=== PATIENT | female | born 1955 | race Caucasian/White ===

== ENCOUNTER → 2019-11-25 13:52 | Outpatient (CLI) | payer OTHER, SELFPAY ==
--- NOTE | ~2019-11-25 | CT_ITS ---
EXAMINATION: CT sinus wo con DATE: 11/25/2019 14:13 INDICATION: Chronic sinusitis TECHNIQUE: Computed tomography (CT) of the paranasal sinuses was performed without intravenous contra st. The dose-length product was 272.05 mGy-cm. Automated exposure control and iterative reconstructio n technique were employed. COMPARISON: CT dated 05/04/2013 FINDINGS: There is no significant mucosal thickening or air-fluid level. Ostiomeatal units are patent . Bilateral jak bullosa. No nasal septal deviation. No air-fluid levels. There is hyperostosis fro ntalis. IMPRESSION: 1. No significant paranasal sinus disease. Reviewed, dictated and finalized at location B.
== END ==
PROVIDERS: PCP Internal Medicine; Visit Provider Otolaryngology
DX: J32.9 Chronic sinusitis, unspecified (principal)
CPT/HCPCS: 70486

== ENCOUNTER 2020-06-03 10:12 | Emergency (ER) | payer OTHER, SELFPAY ==
[2020-06-03 10:30] VITALS: BP 118/61; PULSE 72; RESP 16; TEMP 37.1; O2SAT 97
--- NOTE | 2020-06-03 10:40 | ED.FEMALEGU ---
HPI - Female Genitourinary General Chief complaint: Urogenital-Female Stated complaint: pos uti Time Seen by Provider: 06/03/20 10:40 Source: patient Mode of arrival: ambulatory Limitations: no limitations History of Present Illness HPI Narrative: Elaine Davalos is a 64 yo female with a PMH of hypothyroid, high cholesterol, insomnia, depression, amyloidosis, bone marrow transplant, who states that she has had burning and difficulty urinating times since Sunday. States that she cannot empty her bladder and has cramping with urination History of UTIs, no antibiotics for the last 6 months Related Data Home Medications Medication Instructions Recorded Confirmed escitalopram oxalate 10 mg PO DAILY 06/03/20 06/03/20 fluticasone propionate 1 spray INTRANASAL DAILY 06/03/20 06/03/20 gabapentin 300 mg PO TID 06/03/20 06/03/20 levothyroxine 50 mcg PO DAILY 06/03/20 06/03/20 rosuvastatin 20 mg PO DAILY 06/03/20 06/03/20 trazodone 100 mg PO HS 06/03/20 06/03/20 zolpidem 5 mg PO HS PRN 06/03/20 06/03/20 Allergies Allergy/AdvReac Type Severity Reaction Status Date / Time No Known Allergies Allergy Verified 06/03/20 10:19 Review of Systems Review of Systems: Narrative: CONSTITUTIONAL: Denies fever, chills, sweats. EYES: Denies visual changes, redness, discharge. ENT: Denies rhinorrhea, congestion, sore throat, otalgia. CARDIOVASCULAR: Denies chest pain, palpitations, edema. RESPIRATORY: Denies dyspnea, wheezing, cough GASTROINTESTINAL: Denies abdominal pain, nausea, vomiting, diarrhea. GENITOURINARY: Has dysuria, hematuria, abnormal discharge SKIN: Denies rash or itching. NEUROLOGIC: Denies numbness, or focal weakness. PSYCHIATRIC: Denies anxiety or depression. [facility] Past Medical History Medical History Amyloidosis Depression High cholesterol Hypothyroid Surgical History Surgical History Bone marrow replaced by transplant Family History Family History Other High cholesterol Social History Social History (Updated 06/03/20 @ 11:05 by Fiordaliza Bhandari CNP) Smoking status: Never smoker Alcohol intake: never Comments At time of signature, I agree with nursing past medical, surgical, social and family history. There is no relevant family history pertinent to the presenting complaint. Exam Narrative: Exam Narrative: GENERAL: This is a well-nourished, well-developed patient, in mild distress. HEAD: normocephalic, atraumatic. EYES: PERRL. Sclera clear/white. Vision is grossly intact. EARS: External ears normal, Hearing grossly intact. NOSE: External nose normal without nasal discharge, nares without redness, no rhinorrhea. THROAT: Mucous membranes moist, NECK: Neck supple, non-tender CARDIOVASCULAR: Regular rate and rhythm without murmurs, gallops, or rubs. RESPIRATORY: Clear to auscultation. Breath sounds equal bilaterally. No wheezes, rales, or rhonchi. GASTROINTESTINAL: Abdomen soft, non-tender, SKIN: warm, intact with no suspicious lesions or rash, good texture and turgor. NEURO: awake, alert, and oriented to person, place and time. There were no obvious focal neurologic abnormalities. Steady gait EXTREMITIES: Normal range of motion. BACK: Nontender without deformity Course Course Emergency Course: Patient has had dysuria since Sunday with difficulty emptying bladder Urine dipstick shows 2+ blood 2+ leukocytes 2+ protein Started on Keflex and also given Diflucan for yeast infection post antibiotic Instructed to drink plenty of fluids and eat with antibiotics(amyloidosis causes her to have nausea with drugs) Follow-up with PCP Vital Signs Vital signs: Vital Signs Temperature 98.7 F 06/03/20 10:30 Pulse Rate 72 06/03/20 10:30 Respiratory Rate 16 06/03/20 10:30 Blood Pressure 118/61 06/03/20 10:30 Pulse Oximetry 97
== END 2020-06-03 11:05 | disposition home or self-care (01) ==
PROVIDERS: Emergency Provider Nurse Practitioner; PCP Internal Medicine
DX: N39.0 Urinary tract infection, site not specified (principal); E78.00 Pure hypercholesterolemia, unspecified; E03.9 Hypothyroidism, unspecified; F32.9 Major depressive disorder, single episode, unspecified; E85.9 Amyloidosis, unspecified; Z94.81 Bone marrow transplant status; G47.00 Insomnia, unspecified
CPT/HCPCS: 81003; 87077; 87086; 87088; 87186; 99213; G0463

== ENCOUNTER 2020-06-18 13:36 | Emergency (ER) | payer OTHER, SELFPAY ==
[2020-06-18 13:47] VITALS: BP 113/59; PULSE 92; RESP 12; TEMP 36.4; O2SAT 97
--- NOTE | 2020-06-18 13:48 | ED.GENADULT ---
HPI - General Adult General Chief complaint: Urogenital-Female Stated complaint: POS UTI Time Seen by Provider: 06/18/20 13:49 Source: patient and RN notes reviewed Mode of arrival: ambulatory Limitations: no limitations History of Present Illness HPI narrative: 64-year-old female presents with urinary complaints for the past 3 days. Elaine report constant urinary symptoms with low-grade fever today. Dysuria consist of burning, frequency, and urgency.? Aleve, last this am with some relief. Last treated on 06/03/20 with Keflex 500mg B.I.D. for 7 days and urine culture returned with E-coli on, Elaine reports mild symptoms remained after completing treatment. Denies fever or chills. No significant pelvic pain. No vaginal discharge.? No concerns for STDs. Exacerbating factors urinating.? Denies hematuria or vaginal bleeding. LMP postmenopausal.? Left flank pain. Denies nausea, vomiting, and abdominal pain.? Tolerating liquids well.? Remains active. The patient reports she have not been diagnosed with COVID-19. The patient reports she received 2 doses of Moderna COVID-19 vaccines. The patient reports she is not waiting for the results of a COVID-19 lab test. The patient reports she do not have weakness or fatigue. The patient reports she do not have a new or worsening cough or shortness of breath. Denies chest pain. The patient reports she do not have any rhinorrhea, congestion, sore throat, loss of taste or smell, and diarrhea. Denies recent traveling. Denies concerns for COVID-19 or exposures been home with limited outdoor exposure except for essential household needs and return home. At this time, patient is not suspected of having COVID-19. Some parts of this dictation were generated by voice recognition software and may contain typographical and/or grammatical inaccuracies. Related Data Home Medications Medication Instructions Recorded Confirmed escitalopram oxalate 10 mg PO DAILY 06/03/20 06/18/20 fluticasone propionate 1 spray INTRANASAL DAILY 06/03/20 06/18/20 gabapentin 300 mg PO TID 06/03/20 06/18/20 levothyroxine 50 mcg PO DAILY 06/03/20 06/18/20 rosuvastatin 20 mg PO DAILY 06/03/20 06/18/20 trazodone 100 mg PO HS 06/03/20 06/18/20 zolpidem 5 mg PO HS PRN 06/03/20 06/18/20 Allergies Allergy/AdvReac Type Severity Reaction Status Date / Time No Known Allergies Allergy Verified 06/18/20 13:42 Review of Systems Review of Systems: Narrative: CONSTITUTIONAL: Complains of low-grade fever. Denies chills, sweats. EYES: Denies visual changes, redness, discharge. ENT: Denies rhinorrhea, congestion, sore throat, otalgia. CARDIOVASCULAR: Denies chest pain, palpitations, edema. RESPIRATORY: Denies dyspnea, wheezing, cough. GASTROINTESTINAL: Denies abdominal pain, nausea, vomiting, diarrhea. GENITOURINARY: Complains of dysuria (burning, frequency, and urgency). Denies hematuria, abnormal discharge. SKIN: Denies rash or itching. MUSCULOSKELETAL: Complains of LT flank pain. Denies joint pain or myalgia. NEUROLOGIC: Denies numbness or focal weakness. PSYCHIATRIC: Denies anxiety or depression. All systems reviewed & are unremarkable except as noted in HPI and below. PMFSH Past Medical History Medical History (Updated 06/18/20 @ 16:23 by CARMELLA Guo) Amyloidosis delivery delivered Depression High cholesterol Hypothyroid Kidney stone Sepsis after kidney stone removed-2018 Vaginal delivery X3 Surgical History Surgical History (Updated 06/18/20 @ 16:23 by CARMELLA Guo) Bone marrow replaced by transplant H/O section X1, 4th due to large babies History of lithotripsy Hx of appendectomy Family History Family History (Updated 06/18/20 @ 16:24 by CARMELLA Guo) Father , at age 53-[place] Acute myocardial infarction Mother , age 94-n[place]ral causes No problems noted. Other High cholesterol Social History Social History (Up
== END 2020-06-18 14:09 | disposition home or self-care (01) ==
PROVIDERS: Emergency Provider Nurse Practitioner Family; PCP Internal Medicine
DX: R30.0 Dysuria (principal); E78.00 Pure hypercholesterolemia, unspecified; E03.9 Hypothyroidism, unspecified; F32.9 Major depressive disorder, single episode, unspecified; E85.9 Amyloidosis, unspecified; Z94.81 Bone marrow transplant status
CPT/HCPCS: 81003; 87077; 87086; 87088; 87186; 99213; G0463

== ENCOUNTER 2020-11-29 10:52 | Emergency (ER) | payer MEDICARE, OTHER, SELFPAY ==
--- NOTE | ~2020-11-29 | XR_ITS ---
EXAMINATION: XR chest 2V EXAM DATE: 11/29/2020 11:35 INDICATION: Cough. TECHNIQUE: Frontal and lateral projections of the chest obtained and reviewed. Comparison is made to prior examination from 08/12/2014. FINDINGS: The lungs are clear. There are no pleural effusions. The cardiomediastinal silhouette is within normal limits. There is no pneumothorax suspected. The bones and soft tissues are unremarkab le. Gastric banding device. Previously seen left sided PICC line has been removed. IMPRESSION: Unremarkable chest x-ray exam. Reviewed, dictated and finalized at location B.
[2020-11-29 11:14] VITALS: BP 115/66; PULSE 83; RESP 18; TEMP 36.6; O2SAT 97
--- NOTE | 2020-11-29 11:55 | ED.URI ---
HPI - URI/Sore Throat General Chief Complaint: Upper Respiratory Infection Stated Complaint: cough/sore throat Source: patient and RN notes reviewed Limitations: no limitations History of Present Illness HPI Narrative: The vaccinated patient, a non-smoker/nondrinker on several meds including for hx of amyloidosis s/p bone marrow transplant, presents with cough. Patient states she has over half month history of slightly productive cough. No fever, vomiting/diarrhea, sputum changes, wheezing/sneezing, loss of taste/smell, CP, earache, S OB, steroid use/requirement. Symptoms are mild, slightly worse positionally at night; used inhaler in the past with no improvement. Screening x-ray is noncontributory; discussed possible causes [GI?reflux, allergy, infectious] and will treat broadly Related Data Home Medications Medication Instructions Recorded Confirmed escitalopram oxalate 10 mg PO DAILY 06/03/20 11/29/20 fluticasone propionate 1 spray INTRANASAL DAILY 06/03/20 11/29/20 gabapentin 300 mg PO TID 06/03/20 11/29/20 levothyroxine 50 mcg PO DAILY 06/03/20 11/29/20 rosuvastatin 20 mg PO DAILY 06/03/20 11/29/20 trazodone 100 mg PO HS 06/03/20 11/29/20 zolpidem 5 mg PO HS PRN 06/03/20 11/29/20 Allergies Allergy/AdvReac Type Severity Reaction Status Date / Time No Known Allergies Allergy Verified 11/29/20 11:22 Review of Systems Review of Systems: General/Constitutional: No weight loss,fever Eyes: N0: Redness,discharge Ears/Nose/Throat: No: Epistaxis,ear discharge Respiratory: Denies: Hemoptysis Gastrointestinal: No Vomiting, Bleeding-rectal Skin: No Lumps, eruption Neurologic: No Focal Weakness,Sz Hematologic: Denies: Petechiae/Purpura Psychiatric: No: Suicida ideationl All Other Systems: Reviewed and Negative [facility] Past Medical History Medical History (Updated 11/29/20 @ 11:59 by Rupesh Henson MD) Amyloidosis delivery delivered Depression High cholesterol Hypothyroid Kidney stone Sepsis after kidney stone removed-2018 Vaginal delivery X3 Surgical History Surgical History (Updated 06/18/20 @ 16:23 by CARMELLA Guo) Bone marrow replaced by transplant H/O section X1, 4th due to large babies History of lithotripsy Hx of appendectomy Family History Family History (Updated 06/18/20 @ 16:24 by CARMELLA Guo) Father , at age 53-[place] Acute myocardial infarction Mother , age 94-nautral causes No problems noted. Other High cholesterol Social History Social History (Updated 06/18/20 @ 16:24 by CARMELLA Guo) Smoking status: Never smoker Tobacco type: cigarettes Second hand tobacco smoke exposure: No Alcohol intake: never Substance use: never Substance use type: does not use Additional occupation/education comments: homemaker Gender identity (if verbalized by the patient): Female Sexual Orientation (if Verbalized by the Patient): Straight or Heterosexual Exam Narrative: General Appearance: Obese/cushingoid/well nourished EYE: PERRLA, Conjunctiva clear Ears: Auditory canal normal, TM normal Nose: Rhinorrhea, Mucousal erythema Mouth/Throat: MM moist, Uvula midline, Pharyngeal erythema Neck: Supple, No adenopathy Respiratory: No respiratory distress, Breath sounds equal, Clear to auscultation Cardiovascular: RRR, No JVD Musculoskeletal: Non tender, Normal strength Skin: Warm, Dry Neurological: A&O x3, CN II-XII intact Psychiatric: Normal mood, Normal affect Course Course Emergency Course: Films visualized, interpreted by radiologist, agree, normal see report Vital Signs Vital signs: Vital Signs Temperature 97.9 F 11/29/20 11:14 Pulse Rate 83 11/29/20 11:14 Respiratory Rate 18 11/29/20 11:14 Blood Pressure 115/66 11/29/20 11:14 Pulse Oximetry 97 11/29/20 11:14 Temperature 97.9 F 11/29/20 11:14 Pulse Rate 83 11/29/20 11:14 Respiratory
[2020-11-30 18:19] LABS: SARS-CoV-2 RNA PCR Negative
== END 2020-11-29 12:07 | disposition home or self-care (01) ==
PROVIDERS: Emergency Provider Emergency Medicine; PCP Internal Medicine
DX: J40 Bronchitis, not specified as acute or chronic (principal); E03.9 Hypothyroidism, unspecified; Z20.822 Contact with and (suspected) exposure to COVID-19
CPT/HCPCS: 71046; 99213; C9803; G0463; U0003; U0005

== ENCOUNTER 2020-12-13 13:17 | Emergency (ER) | payer MEDICARE, OTHER, SELFPAY ==
--- NOTE | ~2020-12-13 | XR_ITS ---
EXAMINATION: XR chest 2V DATE: 12/13/2020 13:36 INDICATION: 6 weeks of cough TECHNIQUE: PA and lateral views of the chest were obtained. COMPARISON: Chest radiograph dated 11/29/[address] dated 08/22/2017 FINDINGS: Again seen is a thin curvilinear band of discoid atelectasis/scarring in the lingula. No other airspa ce opacities, pulmonary edema, pleural effusion or pneumothorax. The cardiomediastinal silhouette is normal. Cholecystectomy clips in right upper quadrant. Moderate thoracic spondylosis. IMPRESSION: 1. No acute cardiopulmonary disease. Reviewed, dictated and finalized at location B.
[2020-12-13 13:25] VITALS: BP 137/69; PULSE 92; RESP 18; TEMP 36.3; O2SAT 96
--- NOTE | 2020-12-13 13:32 | ED.URI ---
HPI - URI/Sore Throat General Chief Complaint: Upper Respiratory Infection Stated Complaint: cough/body aches/chest congestion Time Seen by Provider: 12/13/20 13:22 Source: patient and RN notes reviewed History of Present Illness HPI Narrative: Patient is 65-year-old female who presents the urgent care with complaints of persistent cough for the last 2 weeks. Patient states that she was seen in our facility and placed on antibiotics, cough medication with codeine, Tessalon Perles and steroids. Patient states that she completed the antibiotic regimen and has had a persistent productive cough. Patient also reports of some intermittent shortness of breath. Denies of any known fevers, nausea, vomiting, chest pain. No other acute complaints. No acute distress noted. Patient aware of the plan of care. Some parts of this dictation were generated by voice recognition software and may contain typographical and/or grammatical inaccuracies. Related Data Home Medications Medication Instructions Recorded Confirmed escitalopram oxalate 10 mg PO DAILY 06/03/20 12/13/20 fluticasone propionate 1 spray INTRANASAL DAILY 06/03/20 12/13/20 gabapentin 300 mg PO TID 06/03/20 12/13/20 levothyroxine 50 mcg PO DAILY 06/03/20 12/13/20 rosuvastatin 20 mg PO DAILY 06/03/20 12/13/20 trazodone 100 mg PO HS 06/03/20 12/13/20 zolpidem 5 mg PO HS PRN 06/03/20 12/13/20 Allergies Allergy/AdvReac Type Severity Reaction Status Date / Time No Known Allergies Allergy Verified 12/13/20 13:29 Review of Systems Review of Systems: CONSTITUTIONAL: Denies fever, chills, or sweats. EYES: Denies visual changes, redness, or discharge. ENT: Reports of sinus congestion and drainage CARDIOVASCULAR: Denies chest pain, palpitations, or edema. RESPIRATORY: Reports a persistent productive cough with intermittent dyspnea GASTROINTESTINAL: Denies abdominal pain, nausea, vomiting, or diarrhea. GENITOURINARY: Denies dysuria or hematuria. SKIN: Denies rash or itching. MUSCULOSKELETAL: Denies back pain, joint pain, or myalgia. NEUROLOGIC: Denies headache, numbness, or weakness. All other systems reviewed are negative, except as documented in HPI. [facility] Past Medical History Medical History (Updated 12/13/20 @ 13:52 by CARMELLA Orozco) Amyloidosis delivery delivered Depression High cholesterol Hypothyroid Kidney stone Sepsis after kidney stone removed-2018 Vaginal delivery X3 Surgical History Surgical History (Updated 06/18/20 @ 16:23 by CARMELLA Guo) Bone marrow replaced by transplant H/O section X1, 4th due to large babies History of lithotripsy Hx of appendectomy Family History Family History (Updated 06/18/20 @ 16:24 by CARMELLA Guo) Father , at age 53-[place] Acute myocardial infarction Mother , age 94-nautral causes No problems noted. Other High cholesterol Social History Social History (Updated 06/18/20 @ 16:24 by CARMELLA Guo) Smoking status: Never smoker Tobacco type: cigarettes Second hand tobacco smoke exposure: No Alcohol intake: never Substance use: never Substance use type: does not use Additional occupation/education comments: homemaker Gender identity (if verbalized by the patient): Female Sexual Orientation (if Verbalized by the Patient): Straight or Heterosexual Comments At the time of my signature, I reviewed and agree with the nursing past medical, surgical, social, and family history. There is no relevant family history pertinent to the patient complaint. Exam Narrative: GENERAL: This is a well-nourished, well-developed patient, in no apparent distress. HEAD: normocephalic, atraumatic. EYES: PERRL. Sclera clear/white. Vision is grossly intact. EARS: External ears normal, auditory canals clear and without drainage, TMs normal without perforation. Hearing grossly intact. NOSE: External nose normal with no obviou
== END 2020-12-13 14:14 | disposition home or self-care (01) ==
PROVIDERS: Emergency Provider Nurse Practitioner Family; PCP Internal Medicine
DX: R05.9 Cough, unspecified (principal); E85.9 Amyloidosis, unspecified; F32.A Depression, unspecified; E78.00 Pure hypercholesterolemia, unspecified; E03.9 Hypothyroidism, unspecified; Z94.81 Bone marrow transplant status
CPT/HCPCS: 71046; 99213; G0463

== ENCOUNTER → 2021-01-25 14:39 | Outpatient (CLI) | payer MEDICARE, OTHER, SELFPAY ==
--- NOTE | ~2021-01-25 | CT_ITS ---
EXAMINATION: CT diagnostic chest wo con EXAM DATE: 01/25/2021 14:55 INDICATION: Chronic cough . Amyloidosis diagnosed 2016. TECHNIQUE: Spiral CT of the chest without contrast. Axial, coronal and sagittal images of the chest were reviewed. Coronal maximum intensity pixel images of chest reviewed. The dose-length product ( DLP) for this examination was 589.76 mGy-cm. The exposure was tailored according to patient size (au to mA exposure control), and iterative reconstruction (ASIR) was used as additional dose reduction te chnique. Correlation is made to CT abdomen pelvis 08/22/2017. FINDINGS: The lungs are clear. Trace pericardial effusion. There are several bilateral pleural claudio ques, some with calcification. Could indicate prior asbestos exposure. No intralobular septal thicken ing or evidence of lung amyloidosis. Tracheobronchial tree is patent. There is no mediastinal, hil ar or axillary lymphadenopathy. There is no pneumothorax. Heart normal in size. There is mild c oronary arterial calcification, arterial sclerosis. Gastric banding device. There is thoracic spon dylosis without osteoblastic or osteolytic lesions identified. IMPRESSION: 1. Pleural plaques, could indicate prior asbestos exposure. 2. No suspicious findings. Reviewed, dictated and finalized at location B. [employer]
== END ==
PROVIDERS: PCP Internal Medicine; Visit Provider Internal Medicine
DX: R05.9 Cough, unspecified (principal); J92.9 Pleural plaque without asbestos
CPT/HCPCS: 71250

== ENCOUNTER 2021-12-29 06:35 | Outpatient (CLI) | payer MEDICARE, SELFPAY ==
--- NOTE | 2021-12-30 13:47 | WPDNEUROLOGY ---
Neurology EEG Report General Information Date of Study: 12/29/21 TEST EEG DIAGNOSIS amnesia CONDITION OF RECORDING awake and drowsy EEG NUMBER [id number] CLINICAL HISTORY patient reports she has noted a decline in her memory mainly trying to find correct words, after having chemotherapy about 5 years ago. EEG DESCRIPTION Background rhythm consists of low to medium voltage 9 to 11 hertz per 2nd alpha posteriorly. During drowsiness low-voltage beta activity seen diffusely admixed with waxing and waning posterior alpha rhythm. Bilateral symmetrical sleep activity seen during sleep. Hyperventilation not done. Photic stimulation produced normal drive. Non paroxysmal. Nonfocal. Nonlateralizing. IMPRESSION Normal record
== END 2021-12-29 06:36 | disposition home or self-care (01) ==
PROVIDERS: PCP Family Medicine; Visit Provider Psychiatry & Neurology Neurology
DX: R41.3 Other amnesia (principal)
CPT/HCPCS: 95816

== ENCOUNTER 2023-02-07 14:53 | Outpatient (CLI) | payer MEDICARE, SELFPAY ==
--- NOTE | ~2023-02-07 | DEXA_ITS ---
Bone Density Report Name: GAMALIEL SMITH Age: 67 Sex: Female Ethnicity: White Date of : 1955 Indication: postmenopausal; screening for osteoporosis; prior fracture; cancer; Referring Provider: SHEREEN, PRINCE Monahan Study: Bone densitometry was performed. Exam Date: February 07, 2023 Accession number: [id number] Bone Density: Region BMD T-score Z-score Classification AP Spine(L1, L2, L4) 1.017 -0.2 1.7 Normal Femoral Neck (Left) 0.637 -1.9 -0.3 Osteopenia Total Hip (Left) 0.852 -0.7 0.6 Normal Femoral Neck (Right) 0.712 -1.2 0.4 Osteopenia Total Hip (Right) 0.922 -0.2 1.2 Normal Femoral Neck Mean 0.674 -1.6 0.1 Osteopenia Total Hip Mean 0.887 -0.5 0.9 Normal World Health Organization criteria for BMD impression classify patients as: Normal (T-score at or above -1.0), Osteopenia (T-score between -1.0 and -2.5), or Osteoporosis (T-score at or below -2.5). 10-year Fracture Risk: FRAX not reported because: Prior hip or vertebral fracture Clinical Information Provided by Patient: Have had a previous hip or vertebral fracture Has had a low trauma fracture Has used the following medications: Vitamin D, multi Has the following medical conditions: Cancer Patient maximum height was 64.5 Menopause Age: 45 Does not regularly consume dairy products Drinks caffeinated beverages Onset of menses at age 12 Number of children 4 Impression: The patient has low bone mass, based on the Left Femoral Neck T-score. The patient has risk factors, including: previous fracture. Discussion: INCREASED RISK OF FRACTURE DUE TO HISTORY OF FRACTURE. The patient's previous fracture puts the patient at high risk of a future fracture. In untreated patients, the risk of osteoporotic fracture increases approximately two-fold for each 1.0 SD decrease in T-score. Low bone density is not the only risk factor for fracture; also consider factors such as patient's age, frailty or poor health, risk of falling, risk of injury, previous osteoporotic fracture, family history of osteoporosis, cigarette smoking, low body weight, etc. Not everyone with a low trauma fracture has osteoporosis; osteomalacia and other metabolic bone disorders should also be considered. Patients who have osteoporosis should be evaluated for specific diseases and conditions (secondary causes) that may cause or contribute to bone loss and fracture risk. National Osteoporosis Foundation (NOF) recommends pharmacologic intervention for patients with a prior hip or vertebral fracture regardless of BMD T-score. The patient should follow a healthful lifestyle (good nutrition with adequate calcium and vitamin D, and appropriate weight-bearing exercise). Follow-Up: Consider a repeat BMD and Vertebral Fracture Assessment (VFA) exam in 2 years or sooner if me
== END 2023-02-07 14:54 | disposition home or self-care (01) ==
LOC: CHSIMG 15:12
PROVIDERS: Visit Provider Internal Medicine Endocrinology, Diabetes & Metabolism
DX: M81.6 Localized osteoporosis [Lequesne] (principal); M85.89 Other specified disorders of bone density and structure, multiple sites
CPT/HCPCS: 77080

== ENCOUNTER 2024-08-25 12:34 | Outpatient (CLI) | payer MEDICARE, SELFPAY ==
--- NOTE | ~2024-08-25 | MR_ITS ---
MRI of the brain Clinical History: History of healed physical injury Technique: Axial and sagittal T1-weighted images were acquired. These were followed by axial T2-weigh thiago, diffusion weighted, gradient, and FLAIR images. COMPARISON: 09/21/2015 Findings: No acute infarct, intracranial hemorrhage, or mass lesion seen. There is extensive chronic white matter disease throughout the periventricular white matter bilaterally. Ventricles and subarachnoid spaces are unremarkable. Orbits are unremarkable. Paranasal sinuses and m astoid air cells are clear. Major intracranial flow voids are intact. Sagittal midline structures are intact. IMPRESSION: No acute abnormality. Extensive chronic white matter disease is similar to prior exam, likely representing severe chronic m icrovascular ischemic change Reviewed, dictated and finalized at location M. IMPRESSION: No acute abnormality. Extensive chronic white matter disease is similar to prior exam, likely represe nting severe chronic microvascular ischemic change
== END 2024-08-25 12:35 | disposition home or self-care (01) ==
PROVIDERS: PCP Psychiatry & Neurology Neurology; Visit Provider Psychiatry & Neurology Neurology
DX: R90.82 White matter disease, unspecified (principal); I63.9 Cerebral infarction, unspecified; Z87.828 Personal history of other (healed) physical injury and trauma
CPT/HCPCS: 70551

== ENCOUNTER 2024-09-08 13:47 | Outpatient (CLI) | payer MEDICARE, SELFPAY ==
--- NOTE | ~2024-09-08 | US_ITS ---
EXAMINATION: US carotid duplex BI DATE: 09/08/2024 15:39 CDT INDICATION: Cerebral infarction TECHNIQUE: Grayscale, color Doppler, and pulsed Doppler images of the cervical carotid arteries were obtained. The degree of vessel stenosis is placed in one of the following categories: normal, <50%, 50-69%, >=7 0% but less than near-occlusion, near-occlusion, or total occlusion. Note that percent stenosis relative to normal distal artery lumen diameter is indirectly measured fro m velocity measurements as described originally by Foreign, et al. Radiology 2003; 229:340-346 and upda thiago by Lee Sweet et al STROKE 2012;43(3);915-921. COMPARISON: 09/21/2015 FINDINGS: There is mild atherosclerosis of both carotid arteries. Peak systolic velocity (in cm/s) is detailed below RIGHT: Right common carotid artery (CCA): 84 cm/s. Right internal carotid artery (ICA) PSV: 86 cm/s. Right ICA end-diastolic velocity (EDV): 29 cm/s. Right ICA/CCA PSV ratio is 1.0. Right external carotid artery (ECA): 86cm/s. There is antegrade flow in the diminutive right vertebral artery LEFT: Left common carotid artery (CCA): 73 cm/s. Left internal carotid artery (ICA) PSV: 81 cm/s. Left ICA end-diastolic velocity (EDV): 29 cm/s. Left ICA/CCA PSV ratio is 1.1. Left external carotid artery (ECA): 78cm/s. There is antegrade flow in the (dominant) left vertebral artery. IMPRESSION: 1. Less than 50% stenosis in the right internal carotid artery. 2. Less than 50% stenosis in the left internal carotid artery. Reviewed, dictated and finalized at location A.
--- OUTSIDE RECORDS SUMMARY | 2024-09-08 14:05 | XMS_ITS | Encounter Summary ---
Author Organization [facility] Healthcare Address [address] [place] [address] Care Team Providers Care Automatic Driller And Reamer Name Role Phone Mauricio Izquierdo MD Unavailable Hyacinth Sargent NP Unavailable [phone] Deyvi Ahuja MD Unavailable [phone] Alice Lao NP Primary Care Provider [phone] Narciso Cueva MD Unavailable Nel Cortez MD Unavailable Desean De Dios MD Unavailable [phone] Encounter Details Date Type Department Care Team (Late st Contact Info) Description 07/09/2024 Results Follow-Up [facility] Medical Group Primary Care at [address] [address] Alice Lao, REGI [address] [place] [address] [address] [place] [address] Urinalysis reflex to microscopic and culture Urine, bladder, Urinalysis, microscopic only, Urine culture Urine, bladder Social History Tobacco Use Types Packs/Day Years Used Date Smoking Tobacco: Never Passive Smoke Exposure: Never Smokeless Tobacco: Never Alcohol Use Standard Drinks/Week Comments Yes 0 (1 standard drink = 0.6 oz pur e alcohol) rarely AUDIT-C Answer Date Recorded Q1: How often do you have a drink containing alc ohol? 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 AM OFFICE CLEANER Gender Identity Female 01/08/2020 7:01 AM CDT Sexual Orientation Not on file documented as of this encounter Ordered Prescriptions Prescription Sig Dispense Quantity Refills Last Filled Start Date End Date cefdinir (OMNICEF) 300 mg capsule Take 1 capsule (300 mg total) by mouth 2 (two) times a day for 7 days 14 capsule 07/10/2024 5 documented in this encounter Plan of Treatment Not on file documented as of this encounter Visit Diagnoses Not on filedocumented in this encounter Care Teams Automatic Driller And Reamer Relationship Specialty Start Date End Date Alice Lao NP [address] [facility] [address] [place] [address] PCP - General Family Medicine 03/29/23 Mauricio Izquierdo MD Medical Oncologist/Flooring Salesperson Medical Oncology 05/05/20 Hyacinth Sargent NP Nurse Practitioner Medical Oncology 05/05/20 Deyvi Ahuja MD [address] [place] [address] Referring Physician Otolaryngology 01/24/21 Narciso Cueva MD [address] [facility] [address] [place] [address] Referring Physician Dermatology 03/29/23 Nel Cortez MD [facility] [address] [place] [address] Referring Physician Gastroenterology 03/29/23 [place] [address] [facility] [address] [place] [address] Consulting Physician Endocrinology 03/29/23 unknown name Neurology 03/29/23 documented as of this encounter
--- OUTSIDE RECORDS SUMMARY | 2024-09-08 14:05 | XMS_ITS | Encounter Summary ---
Author Organization [facility] Healthcare Address [address] [place] [address] Care Team Providers Care Oracle Analyst Name Role Phone Mauricio Izquierdo MD Unavailable Hyacinth Sargent NP Unavailable Deyvi Ahuja MD Unavailable Alice Lao NP Primary Care Provider Narciso Cueva MD Unavailable Nel Cortez MD Unavailable [phone] Desean De Dios MD Unavailable [phone] Encounter Details Date Type Department Care Team (Late st Contact Info) Description 07/22/2024 Results Follow-Up [facility] Medical Group Primary Care at [address] [address] Alice Lao, REGI [address] [place] [address] [address] [place] [address] CT Abdomen Pelvis WO Contrast Social History Tobacco Use Types Packs/Day Years [...] more points, staff should administer the PHQ-9) 0 07/22/2024 Comments No Sex and Gender Information Value Date Recorded Sex Assigned at Not on file Legal 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 Gender Identity Female 01/08/2020 7:01 AM CDT Sexual Orientation Not on file documented as of this encounter Plan of Treatment Not on file documented as of this encounter Visit Diagnoses Not on filedocumented in this encounter Care Teams Oracle Analyst Relationship Specialty Start Date End Date Alice Lao NP [address] [place] [address] PCP - General Family Medicine 03/29/23 Mauricio Izquierdo MD Medical Oncologist/Recorder Helper Gravity Prospecting Medical Oncology 05/05/20 Hyacinth Sargent NP Nurse Practitioner Medical Oncology 05/05/20 Deyvi Ahuja MD [address] [place] [address] Referring Physician Otolaryngology 01/24/21 Narciso Cueva MD [address] [facility] [address] [place] [address] Referring Physician Dermatology 03/29/23 Nel Cortez MD [address] [facility] [address] [place] [address] Referring Physician Gastroenterology 03/29/23 [place] [address] [address] [place], [place] [address] Consulting Physician Endocrinology 03/29/23 unknown name Neurology 03/29/23 documented as of this encounter
--- OUTSIDE RECORDS SUMMARY | 2024-09-08 14:05 | XMS_ITS | Encounter Summary ---
Author Organization [facility] Healthcare Address [address] [place] [address] Care Team Providers Care Box Finisher Name Role Phone Mauricio Izquierdo MD Unavailable Hyacinth Sargent NP Unavailable [phone] Deyvi Ahuja MD Unavailable Alice Lao NP Primary Care Provider Narciso Cueva MD Unavailable Nel Cortez MD Unavailable Desean De Dios MD Unavailable [phone] Encounter Details Date Type Department Care Team (Late st Contact Info) Description 07/24/2024 Results Follow-Up [facility] Medical Group Primary Care at [address] [address] Alice Lao, REGI [address] [place] [address] [address] [place] [address] Urine culture Urine, clean voided Social History Tobacco Use Types Packs/Day Years [...] on file Legal 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 Gender Identity Female 01/08/2020 7:01 AM CDT Sexual Orientation Not on file documented as of this encounter Plan of Treatment Not on file documented as of this encounter Visit Diagnoses Not on filedocumented in this encounter Care Teams Box Finisher Relationship Specialty Start Date End Date Alice Lao NP [address] [place] [address] PCP - General Family Medicine 03/29/23 Mauricio Izquierdo MD Medical Oncologist/Senior Program Planner Medical Oncology 05/05/20 Hyacinth Sargent NP Nurse Practitioner Medical Oncology 05/05/20 Deyvi Ahuja MD [address] [place] [address] Referring Physician Otolaryngology 01/24/21 Narciso Cueva MD [address] [facility] [address] [place] [address] Referring Physician Dermatology 03/29/23 Nel Cortez MD [address] [place] [address] Referring Physician Gastroenterology 03/29/23 [place] [address] [address] [place] [address] Consulting Physician Endocrinology 03/29/23 unknown name Neurology 03/29/23 documented as of this encounter
--- OUTSIDE RECORDS SUMMARY | 2024-09-08 14:05 | XMS_ITS | Encounter Summary ---
Author Organization [facility] Healthcare Address [address] [place] [address] Care Team Providers Care Employee Development Manager Name Role Phone Mauricio Izquierdo MD Unavailable Hyacinth Sargent NP Unavailable [phone] Deyvi Ahuja MD Unavailable [phone] Len Koenig MD Primary Care Provider [phone] Alice Lao NP Primary Care Provider Narciso Cueva MD Unavailable [phone] Nel Cortez MD Unavailable [phone] Desean De Dios MD Unavailable [phone] Encounter Details Date Type Department Care Team (Late st Contact Info) Description 10/05/2021 Telephone [facility] Radiology [address] [place] [address] Len Koenig MD [facility] [place] [address] Social History Tobacco Use Types Packs/Day Years Used Date Smoking Tobacco: Never Smokeless Tobacco: Never Alcohol Use Standard Drinks/Week Comments Yes 0 (1 standard drink = 0.6 oz pur e alcohol) rarely AUDIT-C Answer Date Recorded Frequency of Alcohol Consumption Not on file 08/14/2021 Q2: How many drinks containi ng alcohol do you have on a typical day when you are drinking? Patient does not drink Frequency of Binge Drinking Not on file 07/2021 PHQ-2 Answer Date Recorded PHQ-2 Total Score (If total score is 3 or more points, staff should administer the PHQ-9) 0 09/07/2021 Comments No Sex and Gender Information Value Date Recorded Sex Assigned at Not on file Legal Sex Female 3:14 AM GYROSCOPIC INSTRUMENT TESTER Gender Identity Female 01/08/2020 7:01 AM CDT Sexual Orientation Not on file documented as of this encounter Plan of Treatment Not on file documented as of this encounter Visit Diagnoses Not on filedocumented in this encounter Additional Health Concerns Infection Onset Date Last Indicated Resolved Time COVID: Suspected 03/22/2023 03/22/2023 03/22/2023 10:00 AM GYROSCOPIC INSTRUMENT TESTER COVID: Suspected 03/22/2023 03/22/2023 03/22/2023 2:43 PM GYROSCOPIC INSTRUMENT TESTER documented as of this encounter Care Teams Employee Development Manager Relationship Specialty Start Date End Date Len Koenig MD [address] [place] [id number] PCP - General Family Medicine 09/07/21 03/28/23 Alice Lao NP [address] [address] PCP - General Family Medicine 03/29/23 Mauricio Izquierdo MD Medical Oncologist/Food And Nutrition Teacher Medical Oncology 05/05/20 Hyacinth Sargent NP Nurse Practitioner Medical Oncology 05/05/20 Deyvi Ahjua MD [facility] [place] [address] Referring Physician Otolaryngology 01/24/21 Narciso Cueva MD [address] [place] [address] Referring Physician Dermatology 03/29/23 Nel Cortez MD [address] [place] [address] Referring Physician Gastroenterology 03/29/23 [place] [address] [facility] [address] [place] [address] Consulting Physician Endocrinology 03/29/23 unknown name Neurology 03/29/23 documented as of this encounter
--- OUTSIDE RECORDS SUMMARY | 2024-09-08 14:05 | XMS_ITS | Clinical Summary ---
Author Organization [facility] Address [address] [place] [address] Care Team Providers Care Automatic Pattern Edger Name Role Phone Declan Valencia MD Primary Care Provider [phone] Allergies No known active allergies Medications ASPIRIN LOW DOSE 81 MG tablet Take 81 mg by mouth daily. 0 01/23/20 18 Active lorazepam 0.5 MG tablet Take 0.5 mg by mouth daily as needed for Anxiety. 12/23/19 17 Active traZODone 100 MG tablet TK 1 T PO Q NIGHT 01/29/20 20 Active albuterol sulfate HFA 108 (90 Base) MCG/ACT inhalerIndications:Cough Inhale 2 puffs into the lungs every 6 (six) hours as needed for Wheezing. 18 g 2 08/25/19 21 Active ZOLPIDEM 5 MG tabletIndications:Primar y insomnia TAKE 1 TABLET(5 MG) BY MOUTH EVERY NIGHT NEEDED FOR SLEEP 30 tablet 3 05/20/19 22 Active LEVOTHYROXINE 50 MCG tabletIndications:Hypoth yroidism TAKE 1 TABLET BY MOUTH EVERY MORNING 90 tablet 3 06/29/19 22 Active venlafaxine XR (EFFEXOR-XR) 75 MG 24 hr capsuleIndications:Moder ate episode of recurrent major depressive disorder (CMS/HCC) Take 1 capsule (75 mg total) by mouth daily. Patient must be seen for further refills 90 capsule 11/19/19 22 Active rosuvastatin (CRESTOR) 20 MG tabletIndications:TIA (transient ischemic attack),Pure hypercholesterolemia Take 1 tablet (20 mg total) by mouth nightly at bedtime. Patient must be seen for further refills 30 tablet 10/17/20 22 Active Active Problems Problem Noted Date Diagnosed Date Left bundle branch block (LBBB) 02/07/2021 Morbid obesity with body mass index of 40.0-44.9 in adult 03/11/2019 Overview (08/20/2019): Last Assessment & Plan: Chronic, worsening Discussed about healthy lifestyle habits advise to work on healthy diet, avoid processed foods , increase vegetables and protein and cut back on carb portions and also avoid fruit juices and regular soda and desserts Increase physical activity , recommend at least 150 min of aerobic activity per week and include resistance training 2 x weekly Hyperparathyroidism ([facility]) 05/24/2018 Overview (02/23/2020): Last Assessment & Plan: Pt has slightly high PTH intact levels - 92 with normal serum calcium levels and normal renal function DD: Secondary hyperparathyroidism - due to poor calcium intake in diet or vitamin D def Vs Normocalcemic primary hyperparathyroidism Advised to check labs as ordered and further plans based on it. Last Assessment & Plan: Pt has h/o recurrent renal stones With elevated 24 hour urine calcium levels Normal serum calcium levels and kidney function Elevated PTH intact levels improving Vitamin D 25 (OH) levels DEXA scan showed worsening osteoporosis 1/3rd radius Possible DD for Hyperparathyroidism - Normocalcemic Primary hyperparathyroidism - advised good oral hydration - will obtain [address] scan - refer to see ENT - Dr. Anita LARSON, to discuss surgical option for Primary hyperparathyrodism Added automatically from request for surgery [id number] Last Assessment & Plan: S/p removal of right superior parathyroid adenoma on 01/12/20. 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 Asthma, mild ([facility]) 01/12/2016 TIA (transient ischemic attack) 08/03/2015 Positive AKHIL (antinuclear antibody) 12/29/2014 CRP elevated 08/11/2014 Vitamin D deficiency 12/24/2013 Overview (02/23/2020): Last Assessment & Plan: On vitamin D 3 50,000 units oral weekly Diverticulosis of colon 06/11/2013 Hematuria 06/03/2013 Depression 04/08/2013 Acid reflux 12/18/2012 Hyperlipidemia 12/18/2012 Hypothyroidism 12/18/2012 Overview (02/23/2020): Last Assessment & Plan: Advise to continue current Levothyroxine medication dose Recent TSH WNL Insomnia 12/18/2012 Bariatric surgery status 11/28/2006 Resolved Problems Problem Noted Date Diagnosed Date Resolved Date PND (paroxysmal nocturnal dyspnea) 08/11/2014 02/07/2021 Hypertension, benign 12/24/2013 021 Multiple myeloma ([facility]) 12/18/2012 02/07/2021 Immunizations Immunization Administration Dates Next Due Influenza (Generic) 02/14/2017,12/23/2015 Influenza Adult (Generic) 01/13/2020,,12/14/2017,02/14/2017,2014 Shingrix 04/12/2018,12/14/2017 Family History Medical History Relation Comments Heart Disease Brother Heart Father Prostate Cancer Father COPD Mother Cancer Mother Breast CA Hypertension Paternal Grandmother Relation Status Comments Brother Father Mother Paternal Grandmother Social History Tobacco Use Types Packs/Day Years Used Date Smoking Tobacco: Never Smokeless Tobacco: Never Tobacco Cessation:Counseling Given: No Alcohol Use Standard Drinks/Week Comments No 0 (1 standard drink = 0.6 oz pur e alcohol) AUDIT-C Answer Date Recorded Frequency of Alcohol Consumption Never 08/19/2018 Average Number of Drinks Not asked 019 Frequency of Binge Drinking Not on file 08/10 PHQ-2 Answer Date Recorded PHQ-2 Score - If the patient scores above 3, please move on to questions 3-9 0 02/07/2021 Comments No Sex and Gender Information Value Date Recorded Sex Assigned at Female 02/18/2018 10:42 AM AFTERNOON BABYSITTER Legal Sex Female 4:36 PM CDT Gender Identity Female 02/18/2018 10:42 AM AFTERNOON BABYSITTER Sexual Orientation Straight 02/18/2018 10 :42 AM AFTERNOON BABYSITTER Last Filed Vital Signs Vital Sign Reading Time Taken Comments Blood Pressure 116/66 02/07/2021 1:48 PM AFTERNOON BABYSITTER Pulse 67 02/07/2021 1:48 PM AFTERNOON BABYSITTER Temperature 36.6 C (97.8 F) 02/07/2021 1:48 PM AFTERNOON BABYSITTER Respiratory Rate 14 02/07/2021 1:48 PM AFTERNOON BABYSITTER Oxygen Saturation 98% 02/07/2021 1:48 PM AFTERNOON BABYSITTER Inhaled Oxygen Concentration - - Weight 108.6 kg (239 lb 6.4 oz) 02/07/2021 1:48 PM AFTERNOON BABYSITTER Height 162.6 cm (5' 4) 02/07/2021 1:48 PM AFTERNOON BABYSITTER Body Mass Index 41.09 02/07/2021 1:48 PM AFTERNOON BABYSITTER Plan of Treatment Health Maintenance Due Date Last Done Comments ASCVD Statin 1955 Hepatitis C 11/24/1973 DTaP, Tdap and Td Vaccines (1 - Tdap) 11/24/1974 Pneumococcal Vaccine: 50+ Years (1 of 2 - PCV) 11/24/1974 RSV Immunization or 60+ Years (1 - Risk 60-74 years 1-dose series) 2015 Mammogram Screening 10/11/2020 10/11/2018 Annual Medicare Wellness Visit 11/24/2020 Dexa Scan (General) 11/24/2020 COVID-19 Vaccine (2 - Moderna risk series) 12/22/2020 11/24/2020 ASCVD LDL 11/23/2021 11/23/2020, 02/09, 07/10/2016, Additional history exists PHQ-2 (Physician [place]) 03/12/2024 Colorectal Cancer Screening Colonoscopy (10 Years) 12/31/2028 12/31/2018, 12/31/2018 Zoster Vaccines Completed 04/12/2018, 12/14/2017 Meningococcal B Vaccine Aged Out No l onger eligible based on patient's age to complete this topic Meningococcal Vaccine Aged Out No latrice terry eligible based on patient's age to complete this topic RSV Immunizations Under 20 Months Aged Out No longer eligible based on patient's age to complete this topic Procedures Procedure Name Priority Date/Time Associated Diagnosis Comments LIPID PANEL Routine 11/23/2020 1:16 PM CDT Hypertension, benign Mixed hyperlipidemia COLONOSCOPY/EGD GENERIC (SCAN ORDER) Routine 12/31/2018 MAMMOGRAM GENERIC (SCAN ORDER) 10/11/2018 from Last 3 Months or Most Recently Relevant to Health Maintenance Results * (ABNORMAL) LIPID PANEL (11/23/2020 1:16 PM CDT) CHOLESTEROL 138 <200 mg/dL [facility] HDL 43(L) > OR = 50 mg/dL [facility] TRIGLYCERIDES 154(H) <150 mg/dL [facility] LDL (CALCULATED) 71 mg/dL (calc) [facility] Comment: Reference range: <100 Desirable range <100 mg/dL for primary prevention; <70 mg/dL for patients with CHD or diabetic patients with > or = 2 CHD risk factors. LDL-C is now calculated using the Isaias calculation, which is a validated novel method providing better accuracy than the Friedewald equation in the estimation of LDL-C. Juan SS et al. OK. 2013;310(15): 2525-1481 (http://education.Alice.com/faq/AYR016) CHOL/HDL RATIO 3.2 <5.0 (calc) [facility] NON HDL CHOLESTEROL 95 <130 mg/dL (calc) [facility] Comment: For patients with diabetes plus 1 major ASCVD risk factor, treating to a non-HDL-C goal of <100 mg/dL (LDL-C of <70 mg/dL) is considered a therapeutic option. 11/23/2020 1:16 PM CDT 11/23/2020 1:18 PM CDT Narrative [facility] - 11/27/2020 7:51 AM CDT PT VARIFIED ALL INFO FASTING:YES FASTING: YES us Declan Valencia MD LABORATORY Final Result [facility] [address] [place] [address] * COLONOSCOPY/EGD (12/31/2018) us Documents Scanned SCANNING Edited Result - Final * MAMMOGRAM GENERIC (10/11/2018) Anatomical Region Laterality Modality Other 10/11/2018 Narrative 10/11/2018 Ordered by an unspecified provider. us Documents Scanned SCANNING Final Result from Last 3 Months or Most Recently Relevant to Health Maintenance Insurance [facility] Care Teams Automatic Pattern Edger Relationship Specialty Start Date End Date Declan Valencia MD [address] [place] [address] PCP - General INTERNAL MEDICINE 12/20/17
--- OUTSIDE RECORDS SUMMARY | 2024-09-08 14:05 | XMS_ITS | Clinical Summary ---
Author Organization [facility] Address [address] [place] [address] Care Team Providers Care Field Superintendent Name Role Phone Declan Valencia MD Primary Care Provider [phone] Source Comments [facility],non-owned Affiliates and Associated Physician Practices is amultiple site organization consisting of ambulatory clinics and hospital sitesin [place], [place], [place] and [place]. This disclosure is being madepursuant to the Care Everywhere program and may not contain all information available regarding this patient. Last updated 17.[employer] [facility] Allergies No known active allergies Medications * This document contains information received from the source organization and may not represent a complete record from that organization. * Be aware that medications may not be up to date on this document. Alwaysverify current medications with the patient. aspirin 81 MG tablet Take 81 mg by mouth once daily. Active rosuvastatin (CRESTOR) 10 MG tablet Take 10 mg by mouth once daily. Active levothyroxine (SYNTHROID) 25 MCG tablet Take 25 mcg by mouth daily before breakfast. Active vitamin D, ergocalciferol, (DRISDOL) 1.25 MG (91387 UT) capsule Take 50,000 Units by mouth every 7 days Active zolpidem (AMBIEN) 10 MG tablet Take 10 mg by mouth at bedtime Active calcium 500 MG tablet Take 500 mg by mouth once daily Active Active Problems No known active problems Social History Tobacco Use Types Packs/Day Years Used Date Smoking Tobacco: Former Cigarettes Q uit: 03/13/1972 Smokeless Tobacco: Never Alcohol Use Standard Drinks/Week Comments No 0 (1 standard drink = 0.6 oz pur e alcohol) Comments No Sex and Gender Information Value Date Recorded Sex Assigned at Not on file Legal Sex Female 5:11 AM [employer] Gender Identity Not on file Sexual Orientation Not on file Last Filed Vital Signs Vital Sign Reading Time Taken Comments Blood Pressure 130/70 04/14/2019 2:07 PM [employer] Pulse 83 04/14/2019 2:07 PM [employer] Temperature 36.7 C (98.1 F) 11/06/2013 9:28 AM CDT Respiratory Rate 18 11/06/2013 9:45 AM CDT Oxygen Saturation 97% 05/01/2014 9:31 AM [employer] Inhaled Oxygen Concentration - - Weight 109 kg (240 lb 6.4 oz) 04/14/2019 2:07 PM [employer] Height 163.8 cm (5' 4.5) 04/14/2019 2:07 PM [employer] Body Mass Index 40.63 04/14/2019 2:07 PM [employer] Plan of Treatment Health Maintenance Due Date Last Done Comments BONE DENSITY TESTING 1955 COLOGUARD (AGES 45-75) - COLON CA SCREENING 1955 CT COLONOGRAPHY - COLON CA SCREENING 1955 FIT - COLON CA SCREENING 1955 FLEX SIG - COLON CA SCREENING 1955 MAMMOGRAM 1955 HEPATITIS C SCREENING 11/20/1973 DTAP/TDAP/TD VACCINES (1 - Tdap) 11/24/1974 PNEUMOCOCCAL VACCINE 50+ (1 of 1 - PCV) 11/24/2005 ZOSTER VACCINE (1 of 2) 11/24/2005 SCREENING FOR DIABETES 02/14/2019 07/26/2013, 2013 COVID-19 VACCINE ( - season) 2023 DEPRESSION SCREENING 03/12/2024 INFLUENZA VACCINE (Season Ended) 2024 01/07/2019, 12/14/2017, 03/02/2017, Additional history exists COLON MONITORING 12/31/2028 12/31/2018 COLONOSCOPY - COLON CA SCREENING 12/31/2028 12/31/2018 Colorectal Cancer Screening 12/31/2028 Respiratory Syncytial Virus (RSV) Vaccine Pt: or over 60 yrs (1 - 1-dose 75+ series) 11/24/2030 HEPATITIS B VACCINE Aged Out No longe r eligible based on patient's age to complete this topic HIB VACCINE Aged Out No longer eligi ble based on patient's age to complete this topic HPV VACCINE Aged Out No longer eligi ble based on patient's age to complete this topic MENINGOCOCCAL (Group B) VACCINE SHARED DECISION-MAKING Aged Out No longer eligible based on patient's age to complete this topic MENINGOCOCCAL GROUPS A/C/Y/W VACCINE Aged Out No longer eligible based on patient's age to complete this topic Procedures Procedure Name Priority Date/Time Associated Diagnosis Comments BASIC METABOLIC PANEL (CALCIUM TOTAL) Routine 07/26/2013 4:30 PM CDT from Last 3 Months or Most Recently Relevant to Health Maintenance Results * (ABNORMAL) BASIC METABOLIC PANEL (CALCIUM TOTAL) (07/26/2013 4:30 PM CDT) BUN 12 7 - 26 mg/dL [facility] Anion Gap 19(H) 8 - 18 [facility] BUN/Creatinine Ratio 13 7 - 23 [facility] Osmolality Calculated 283 270 - 300 mOsm/kg [facility] Creatinine 0.9 0.6 - 1.2 mg/dL [facility] Sodium 145 136 - 145 mmol/L [facility] Potassium 3.6 3.5 - 4.5 mmol/L [facility] Chloride 105 98 - 107 mmol/L [facility] CO2 25 22 - 29 mmol/L [facility] Glucose 77 70 - 115 mg/dL [facility] Calcium 9.9 8.4 - 10.2 mg/dL [facility] eGFR >60 >60 mL/min/1.7 3 m2 [facility] Blood specimen (specimen) BLOOD SPECIMEN / Unknown 07/26/2013 4:30 PM CDT 07/27/2013 10:26 AM CDT Shanique Beyer MD LAB - CHEMISTRY ORDERABLES Fi nal Result [address] [phone] from Last 3 Months or Most Recently Relevant to Health Maintenance Insurance [facility] Care Teams Field Superintendent Relationship Specialty Start Date End Date Declan Valencia MD PCP - General 06/16/13
--- OUTSIDE RECORDS SUMMARY | 2024-09-08 14:05 | XMS_ITS | Referral Summary ---
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) 09/01/2024 E-Visit [facility] Primary Care at [address] [phone] Alice Lao, REGI Your Medications 09/01/2024 Orders Only [facility] Bone Marrow Transplant [address] [place] [phone] Vaishnavi Perez, RN 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) 08/28/2024 Orders Only [facility] Bone Marrow Transplant [address] [place] [phone] Mauricio Garza MD 08/28/2024 Orders Only [facility] Bone Marrow Transplant [address] [place] [phone] Mauricio Garza MD 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) 08/20/2024 12:03 PM CDT - 08/20/2024 11:59 PM CDT Hospital Encounter [address] [address] Discharge Disposition: Discharge to home or self care 08/20/2024 11:38 AM CDT - 08/20/2024 11:59 PM CDT Hospital Encounter [address] [address] Primary amyloidosis of light chain type (HCC); Diabetes mellitus screening; Cerebral infarction (HCC); Vitamin D deficiency Discharge Disposition: Discharge to home or self care 08/20/2024 11:45 AM CDT Lab [facility] Outpatient Lab at [address] [phone] Diabetes mellitus screening (Primary Dx); Cerebral infarction (HCC); Vitamin D deficiency 08/19/2024 Orders Only [facility] Bone Marrow Transplant [address] [place] [phone] Mauricio Garza MD Primary amyloidosis of light chain type (HCC) 08/11/2024 Orders Only [facility] Primary Care at [address] [phone] Alice Lao, REGI 07/24/2024 Results Follow-Up [facility] Primary Care at [address] [phone] Alice Lao, REGI Urine culture Urine, clean voided 07/22/2024 Results Follow-Up [facility] Primary Care at [address] [phone] Alice Lao, [employer] ENGINEER CT Abdomen Pelvis WO Contrast 07/22/2024 11:38 AM CDT - 07/22/2024 11:59 PM CDT Hospital Encounter [facility] [address] [place] [address] Burning with urination Discharge Disposition: Discharge to home or self care 07/22/2024 1:00 PM CDT - 07/22/2024 11:59 PM CDT Hospital Encounter [facility] [address] [place] [address] Burning with urination; Abdominal pain; Right flank pain; Urinary tract infection with hematuria, site unspecified Discharge Disposition: Discharge to home or self care 07/22/2024 11:30 AM CDT Office Visit [facility] Primary Care at [address] [phone] Alice Lao NP Right flank pain (Primary Dx); Burning with urination; Abdominal pain; Urinary tract infection with hematuria, site unspecified 07/11/2024 Telephone [facility] [address] [place] [phone] Chiqui Toribio 07/09/2024 Results Follow-Up [facility] Primary Care at [address] [phone] Alice Lao NP Urinalysis reflex to microscopic and culture Urine, bladder, Urinalysis, microscopic only, Urine culture Urine, bladder 07/08/2024 8:26 AM CDT - 07/08/2024 11:59 PM CDT Hospital Encounter [facility] [phone] [place] [phone] Urinary symptom or sign Discharge Disposition: Discharge to home or self care 07/08/2024 8:30 AM CDT Lab [facility] Outpatient Lab at [address] [phone] 06/26/2024 Orders Only [facility] Primary Care at [address] [phone] Alice Lao NP 06/26/2024 Orders Only [facility] Primary Care at [address] [phone] Alice Lao NP 06/24/2024 9:00 PM CDT - 06/24/2024 11:59 PM CDT Hospital Encounter [facility] [address] [place] [address] Primary amyloidosis of light chain type (HCC) Discharge Disposition: Discharge to home or self care 06/24/2024 12:45 PM CDT Lab [facility] Outpatient Lab at [address] [phone] STUART (generalized anxiety disorder) (Primary Dx); Hyperlipidemia 06/23/2024 Orders Only [facility] Bone Marrow Transplant [address] [facility] [address] [place] [address] Mauricio Garza MD Primary amyloidosis of light chain type (HCC) from Last 3 Months Allergies No known active allergies Medications aspirin 81 mg enteric coated tablet Take 1 tablet (81 mg total) by mouth daily 01/23/20 18 Active multivitamin tablet,chewable Take by mouth Active Lactobac no.41/Bifidobact no.7 (PROBIOTIC-10 ORAL) Take by mouth Active predniSONE (DELTASONE) 20 mg tablet 3 tabs for 3 days, then 2 tabs for 3 days, then 1 tab for 3 days 18 tablet 09/14/19 23 Active Additional Information Patient not taking.Reported on 07/22/2024 meloxicam (MOBIC) 15 mg tablet Take 1 tablet (15 mg total) by mouth daily 10 tablet 05/16/19 24 Active Additional Information Patient not taking.Reported on 04/03/2024 cholecalciferol, vitamin D3, 1,000 unit tablet,chewable Take by mouth Active rosuvastatin (CRESTOR) 20 mg tablet Take 1 tablet (20 mg total) by mouth daily 45 tablet 3 09/27/19 24 Active levothyroxine (SYNTHROID) 50 mcg tabletIndications: Acquired hypothyroidism TAKE 1 TABLET(50 MCG) BY MOUTH EVERY MORNING 90 tablet 3 10/10/19 24 Active traZODone (DESYREL) 100 mg tabletIndications: Primary amyloidosis of light chain type (HCC) TAKE 1 TABLET(100 MG) BY MOUTH EVERY NIGHT 90 tablet 3 12/19/19 24 Active venlafaxine XR (EFFEXOR-XR) 150 mg 24 hr capsule Take 1 capsule (150 mg total) by mouth daily 90 capsule 1 03/21/19 25 Active metFORMIN XR (GLUCOPHAGE XR) 500 mg 24 hr tablet Take 1 tablet (500 mg total) by mouth daily with breakfast 90 tablet 1 04/28/19 25 026 Active Additional Information Patient not taking.Reported on 07/22/2024 zolpidem (AMBIEN) 5 mg tablet TAKE 1 TABLET(5 MG) BY MOUTH EVERY NIGHT NEEDED FOR SLEEP 30 tablet 08/08/19 25 Active tirzepatide, weight loss, (ZEPBOUND) 2.5 mg/0.5 mL solution vial Inject 0.5 mL (2.5 mg total) under the skin every 7 days This medication record is used for ordering a prescription for [employer] [facility] 2 mL 1 08/12/19 25 Active ciprofloxacin (CIPRO) 250 mg tablet Take 1 tablet (250 mg total) by mouth 2 (two) times a day for 5 days 10 tablet 09/02/19 25 025 Active Problems Problem Noted Date Diagnosed Date STUART (generalized anxiety disorder) 03/16/2022 Assessment & Plan (04/03/2024 10:03 AM DISPUTE RESOLUTION SPECIALIST): Stable on Venlafaxine Morbid (severe) obesity due to excess calories 0 03/16/2022 Class 3 severe obesity due t o excess calories with serious comorbidity and body mass index (BMI) of 40.0 to 44.9 in adult 03/16/2022 Assessment & Plan (04/03/2024 10:04 AM DISPUTE RESOLUTION SPECIALIST): Healthy, low carbohydrate lifestyle and exercise for 150min/week recommended. Discussed Wegovy/Zepbound--insurance denied. She is going to look into a couple local weight loss clinics that are reputable. Assessment & Plan (12/06/2023 10:35 AM CDT): Patient has tried and failed more than 3 months of diet and exercise changes, including calorie deficit. Patient has not tried Phentermine and not a good candidate for stimulant class for weight loss d/t patient's co-morbidity of hypertension. Discussed Wegovy with patient and believe this medication would benefit her most, especially with her new onset pre-diabetes. Recommend Wegovy with healthy, low carbohydrate lifestyle and exercise for 150min/week recommended Localized osteoporosis witho ut current pathological fracture 01/04/2022 Assessment & Plan (01/07/2024 3:44 PM CDT): Localized Severe osteoporosis Left 1/3 radius Probably due to underlying hyperparathyroidism Hope that this will be improved once patient underwent parathyroidectomy Pt had bone density scan 01/2023 - but no forearm was checked at that time and patient had doen at different place Assessment & Plan (01/08/2023 10:20 AM CDT): Localized Severe osteoporosis Left 1/3 radius Probably due to underlying hyperparathyroidism Hope that this will be improved once patient underwent parathyroidectomy Recheck bone density scan Off Fosamax therapy took only for 2-3 months in 2021 Assessment & Plan (01/04/2022 10:46 AM CDT): Localized Severe osteoporosis Left 1/3 radius Probably due to underlying hyperparathyroidism Hope that this will be improved once patient underwent parathyroidectomy Recheck bone density scan Patient currently on Fosamax therapy as per PCP Empty sella 01/04/2022 Assessment & Plan (01/04/2022 10:45 AM CDT): Partial empty sella on recent brain imaging - mostly this is a radiological findings - will check TSH, free T4, cortisol levels S/P subtotal parathyroidectomy 01/04/2022 History of colonic polyps 11/29/2021 Overview (11/29/2021): Added automatically from request for surgery [id number] History of rectal polyps 11/29/2021 Overview (11/29/2021): Added automatically from request for surgery [id number] Drug-induced polyneuropathy 09/07/2021 Age-related osteoporosis wit hout current pathological fracture 09/07/2021 Memory loss 09/07/2021 Recurrent major depression 09/07/2021 Assessment & Plan (09/27/2023 9:51 AM CDT): Stable on Venlafaxine 150 mg daily. Assessment & Plan (03/29/2023 2:43 PM DISPUTE RESOLUTION SPECIALIST): Stable on Venlafaxine 150 mg daily. 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 Ernst and Dr. 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 S/p Melph Auto SCT 08/2016. Colonoscopy 09/2017 bx with amyloid. -Check amyloid panel: serum IgG, IgA, IgM, SPEP, serum immunofixation, serum free light chains -Recent amyloid labs from 02/08 showed good partial remission: SPEP with possible abnormal restricted peak in beta 2 region and gamma region, decreased gamma globulins; Immunofixation with free gamma heavy chains; KFLC 1.13; IgG, IgA and IgM low -Follows with Dr Izquierdo -For BMT transfusion protocol, transfuse 2 U PRBC for Hct<24 and 1 U plt for <10k -Will f/u bladder biopsy to assess for amyloid -Scheduled to follow up with Dr Izquierdo on 04/12/18 Encounter for screening colonoscopy 08/22/2017 Overview (08/22/2017): Added automatically from request for surgery [id number] H/O autologous stem cell transplant 01/26/2017 Pulmonary embolism 12/12/2016 Primary amyloidosis of light chain type 07/21/19 Asthma, mild 01/12/2016 TIA (transient ischemic attack) 08/03/2015 Positive AKHIL (antinuclear antibody) 12/29/2014 PND (paroxysmal nocturnal dyspnea) 08/11/2014 Hypertension, benign 12/24/2013 Assessment & Plan (04/03/2024 10:02 AM DISPUTE RESOLUTION SPECIALIST): BP stable in office, continuing current regimen Updated labs ordered. Assessment & Plan (09/27/2023 9:48 AM CDT): BP stable in office, continuing current regimen Vitamin D deficiency 12/24/2013 Assessment & Plan (09/08/2019 12:41 PM CDT): On vitamin D 3 50,000 units oral weekly Assessment & Plan (03/11/2019 11:48 AM DISPUTE RESOLUTION SPECIALIST): changed to vitamin D 3 50,000 units oral weekly Assessment & Plan (11/06/2018 7:30 AM CDT): On replacement therapy Diverticulosis of colon 06/11/2013 Recurrent UTI 06/03/2013 Assessment & Plan (09/27/2023 9:51 AM CDT): Recently treated for UTI. Has had multiple infections, discussed starting otc D-Mannose. Will consider preventative abx therapy if otc remedy does not improve infections. Patient traveling out of the country in 1 month, will give empiric Macrobid in setting of infection. Acid reflux 12/18/2012 Hyperlipidemia 12/18/2012 Assessment & Plan (04/03/2024 10:02 AM DISPUTE RESOLUTION SPECIALIST): Continues Crestor, no side effects noted. Updated lipid panel ordered. Assessment & Plan (09/27/2023 9:49 AM CDT): Continues Crestor (has been out rx as of late though), no side effects noted. Updated lipid panel ordered. Assessment & Plan (03/29/2023 2:44 PM DISPUTE RESOLUTION SPECIALIST): Continues Crestor, no side effects noted. Liver function stable. Updated lipid panel ordered. Hypothyroidism 12/18/2012 Assessment & Plan (01/07/2024 3:43 PM CDT): Chronic, unknown status Patient currently on levothyroxine 50 mcg oral daily Recheck thyroid function test and further plans based on it Assessment & Plan (01/08/2023 10:19 AM CDT): Chronic, stable Patient currently on levothyroxine 50 mcg oral daily Recheck thyroid function test and further plans based on it Assessment & Plan (01/04/2022 10:41 AM CDT): Continue current dose of levothyroxine Recheck thyroid function test today and further plans based on it Assessment & Plan (12/15/2019 2:30 PM CDT): Advise to continue current Levothyroxine medication dose Recent TSH WNL Assessment & Plan (09/08/2019 12:41 PM CDT): Advise to continue current Levothyroxine medication dose Recheck TSH Further plans based on the repeat labs Assessment & Plan (03/11/2019 11:49 AM DISPUTE RESOLUTION SPECIALIST): Recent TSH WNL Advise to continue current Levothyroxine medication dose Assessment & Plan (11/06/2018 7:31 AM CDT): Recent TSH WNL Advise to continue current Levothyroxine medication dose Chronic insomnia 12/18/2012 Multiple myeloma 12/18/2012 Resolved Problems Problem Noted Date Diagnosed Date Resolved Date Hyperparathyroidism 01/08/2020 01/07/20 24 Overview (01/08/2020): Added automatically from request for surgery [id number] Assessment & Plan (01/22/2020 9:36 AM DISPUTE RESOLUTION SPECIALIST): S/p removal of right superior parathyroid adenoma on 01/12/20. Morbid obesity with BMI of 40.0-44.9, adult 03/11/2019 09/27/2023 Assessment & Plan (03/11/2019 11:50 AM DISPUTE RESOLUTION SPECIALIST): Chronic, worsening Discussed about healthy lifestyle habits advise to work on healthy diet, avoid processed foods , increase vegetables and protein and cut back on carb portions and also avoid fruit juices and regular soda and desserts Increase physical activity , recommend at least 150 min of aerobic activity per week and include resistance training 2 x weekly Primary hyperparathyroidism (CMS/HCC) 05/24/2018 01/04/2022 Assessment & Plan (12/15/2019 2:28 PM CDT): Pt has h/o recurrent renal stones With [...] to discuss surgical option for Primary hyperparathyrodism Assessment & Plan (09/08/2019 12:41 PM CDT): Pt has h/o recurrent renal stones With elevated 24 hour urine calcium levels Normal serum calcium levels and kidney function Elevated PTH intact levels that slowly improving with improving Vitamin D 25 (OH) levels Pt also has high Calcitriol levels in past ( thought due to her underlying granulomatosis disease ) Possible DD for Hyperparathyroidism Vitamin D def + Normocalcemic hyperparathyroidism - do repeat labs - advised good oral hydration - advise to f/w urology soon - if pt does have normocalcemic hyperparathyroidism , than will perform a parathyroid scan and refer to ENT - will also check DEXA scan Assessment & Plan (03/11/2019 11:48 AM DISPUTE RESOLUTION SPECIALIST): Pt has slightly high PTH intact levels - 92 with normal serum calcium levels and normal renal function DD: Secondary hyperparathyroidism - due to poor calcium intake in diet or vitamin D def Vs Normocalcemic primary hyperparathyroidism Pt on oral calcium and Vitamin D supplementation Last month labs showed slight improvement in PTH levels But vitamin D 25 (OH) levels are still low, Plan to change Vitamin D 2 to Vitamin D 3 50,000 units oral weekly Advised to check labs as ordered In one months , Assessment & Plan (11/06/2018 7:29 AM CDT): Pt has slightly high PTH intact levels - 92 with normal serum calcium levels and normal renal function DD: Secondary hyperparathyroidism - due to poor calcium intake in diet or vitamin D def Vs Normocalcemic primary hyperparathyroidism Pt on oral calcium and Vitamin D supplementation Last month labs showed slight improvement in PTH levels Advised to check labs as ordered In one months , including labs from Dr. Ernst and further plans based on it. Assessment & Plan (09/15/2018 6:47 PM CDT): Pt has slightly high PTH intact levels - 92 with normal serum calcium levels and normal renal function DD: Secondary hyperparathyroidism - due to poor calcium intake in diet or vitamin D def Vs Normocalcemic primary hyperparathyroidism Advised to check labs as ordered and further plans based on it. Assessment & Plan (05/24/2018 1:42 AM CDT): Pt has slightly high PTH intact levels - 92 with normal serum calcium levels and normal renal function DD: Secondary hyperparathyroidism - due to poor calcium intake in diet or vitamin D def Vs Normocalcemic primary hyperparathyroidism Advised to check labs as ordered and further plans based on it. Sepsis due to gram-negative UTI ([facility]) 03/25/2018 09/07/2021 Assessment & Plan (03/25/2018 10:29 AM DISPUTE RESOLUTION SPECIALIST): -s/p R URS, LL, stent placement with bladder biopsy on 03/22. -Admitted 03/24 with fever, chills. -Kidney stone cx from 03/22 with Enterococcus Faecalis. Urine Cx from 03/24 with GNB, speciation pending. -On Meropenem, Vancomycin -Urology following UTI (urinary tract infection) 03/25/2018 09/07/2021 Assessment & Plan (03/26/2018 11:04 AM DISPUTE RESOLUTION SPECIALIST): -History of recurrent UTI; now with Citerobacter UTI after recent instrumentation (right ureteroscopy, laser lithotripsy, stent placement and bladder biopsy) -Nephrolithiasis with E.Facelis from 03/22/18 -UCx with CITROBACTER FREUNDII COMPLEX -BCx from 03/25 (03/13) with GPC PLAN -Continue with vanc. Please continue vanc for 3 doses before getting trough before 4th dose before switching dose. -Switch layton to cefepime 1g q8hrs. -BCx from 03/25 possibly a contaminant; will wait for 48 hrs before narrowing down vanc. Perineal mass in female 03/14/201808/11 Fissure, anal 02/08/2018 09/07/2021 Constipation 02/08/2018 09/07/2021 CRP elevated 08/11/2014 09/07/2021 Depression 04/08/2013 09/07/2021 Immunizations Immunization Administration Dates Next Due Influenza, Quadrivalent, Brianne l Culture-based MDCK, Preservative Free, Antibiotic Free, Intramuscular 12/14/2017 Influenza, Quadrivalent, Hig h Dose, Preservative Free, Intrr 02/15/2022 Influenza, Quadrivalent, Spl it, Intramuscular 01/07/2019 Influenza, Quadrivalent, Spl it, Preservative Free, Intramuscular 01/13/2020,01/07/2019,03/02/2017,12/29 Influenza, Trivalent, Preser vative Free, Intramuscular 02/14/2017,12/23/2015 Influenza, Unspecified 03/29/2023(Deferr ed: Patient Refused),03/12/2023(Deferred: Patient Refused),03/12/2022(Deferred: Patient Refused),02/20/2022,03/12/2021(Deferre d: Patient Refused),03/12/2020(Deferred: Patient Refused),12/29/2014 ZOSTER Recombinant 04/12/2018,12/14/2017 Social History Tobacco Use Types Packs/Day Years Used Date Smoking Tobacco: Never Passive Smoke Exposure: Never Smokeless Tobacco: Never Tobacco Cessation:Counseling Given: No Alcohol Use Standard Drinks/Week Comments Yes 0 [...] on file Legal Sex Female 3:14 AM DISPUTE RESOLUTION SPECIALIST Gender Identity Female 01/08/2020 7:01 AM CDT Sexual Orientation Not on file Last Filed Vital Signs Vital Sign Reading Time Taken Comments Blood Pressure 112/64 07/22/2024 11:27 AM CDT Pulse 89 07/22/2024 11:27 AM CDT Temperature 36.5 C (97.7 F) 07/22/2024 11:27 AM CDT Respiratory Rate 14 04/18/2024 3:51 PM DISPUTE RESOLUTION SPECIALIST Oxygen Saturation 95% 07/22/2024 11:27 AM CDT Inhaled Oxygen Concentration - - Weight 108 kg (238 lb) 07/22/2024 11:27 AM CDT Height 162.6 cm (5' 4) 07/22/2024 11:27 AM CDT Body Mass Index 40.85 07/22/2024 11:27 AM CDT Plan of Treatment Not on file Medical Devices Explanted Type Area Bottle Blower Device Identifier Shelf Expiration Date Model / Serial / Lot [employer] [id number] Inlay [place] 6fr 24cm Pusher Fluoro Marker Atraumatic Insertion Latex Free - [id number] - [id number] Implanted:Qty: 1 on 03/22/2018 by Vinny Silva MD at [facility] Explanted:Qty: 1 on 04/16/2018 Stent Right: Ureter [employer] [id number] 11/01/2022 [id number] / [id number] / [id number] Description:Stent noted on C T on 03/25. It is not noted to be present on the MRI on 04/16. Per office note on 04/18, it was removed while in the hospital. Procedures Procedure Name Priority Date/Time Associated Diagnosis Comments IMMUNOTYPING Routine 08/20/2024 11:38 AM CDT Primary amyloidosis of light chain type (HCC) EGFR Routine 08/20/2024 11:38 AM CDT Primary amyloidosis of light chain type (HCC) DIFFERENTIAL AUTO Routine 08/20/2024 11:38 AM CDT Primary amyloidosis of light chain type (HCC) VITAMIN D 25 HYDROXY Routine 08/20/2024 11:38 AM CDT Vitamin D deficiency LIPID PANEL Routine 08/20/2024 11:38 AM CDT Diabetes mellitus screening HEMOGLOBIN A1C Routine 08/20/2024 11:38 AM CDT Diabetes mellitus screening HOMOCYSTEINE Routine 08/20/2024 11:38 AM CDT Diabetes mellitus screening Cerebral infarction (HCC) VITAMIN B12 Routine 08/20/2024 11:38 AM CDT Diabetes mellitus screening METHYLMALONIC ACID, SERUM Routine 08/20/2024 11:38 AM CDT Diabetes mellitus screening FOLATE Routine 08/20/2024 11:38 AM CDT Diabetes mellitus screening Cerebral infarction (HCC) Vitamin D deficiency TROPONIN T HIGH-SENSITIVITY Routine 08/20/2024 11:38 AM CDT Primary amyloidosis of light chain type (HCC) URIC ACID Routine 08/20/2024 11:38 AM CDT Primary amyloidosis of light chain type (HCC) PROTIME-INR Routine 08/20/2024 11:38 AM CDT Primary amyloidosis of light chain type (HCC) PROTEIN ELECTROPHORESIS, WITH REFLEX, SERUM Routine 08/20/2024 11:38 AM CDT Primary amyloidosis of light chain type (HCC) APTT Routine 08/20/2024 11:38 AM CDT Primary amyloidosis of light chain type (HCC) PRO B-TYPE NATRIURETIC PEPTIDE Routine 08/20/2024 11:38 AM CDT Primary amyloidosis of light chain type (HCC) LACTATE DEHYDROGENASE Routine 08/20/2024 11:38 AM CDT Primary amyloidosis of light chain type (HCC) IGM Routine 08/20/2024 11:38 AM CDT Primary amyloidosis of light chain type (HCC) IGG Routine 08/20/2024 11:38 AM CDT Primary amyloidosis of light chain type (HCC) IGA Routine 08/20/2024 11:38 AM CDT Primary amyloidosis of light chain type (HCC) IMMUNOGLOBULIN FREE LIGHT CHAINS Routine 08/20/2024 11:38 AM CDT Primary amyloidosis of light chain type (HCC) CBC WITH AUTO DIFFERENTIAL Routine 08/20/2024 11:38 AM CDT Primary amyloidosis of light chain type (HCC) BETA 2 MICROGLOBULIN SERUM Routine 08/20/2024 11:38 AM CDT Primary amyloidosis of light chain type (HCC) COMPREHENSIVE METABOLIC PANEL Routine 08/20/2024 11:38 AM CDT Primary amyloidosis of light chain type (HCC) CLINICAL PATHOLOGY REPORT Routine 08/19/2024 11:[address] ABDOMEN PELVIS WO CONTRAST Schedule JOE, Read JOE (Appt Today, Awaiting Results) 07/22/2024 1:56 PM CDT Burning with urination Abdominal pain Right flank pain Urinary tract infection with hematuria, site unspecified URINE CULTURE Routine 07/22/2024 11:38 AM CDT Burning with urination POCT URINALYSIS DIPSTICK Routine 07/22/2024 11:36 AM CDT Burning with urination URINALYSIS, MICROSCOPIC ONLY Routine 07/08/2024 8:26 AM CDT Urinary symptom or sign URINE CULTURE Routine 07/08/2024 8:26 AM CDT URINALYSIS AND REFLEX TO MICROSCOPIC AND CULTURE Routine 07/08/2024 8:26 AM CDT Urinary symptom or sign CLINICAL PATHOLOGY REPORT Routine 06/24/2024 12:00 PM CDT EGFR Routine 06/24/2024 12:00 PM CDT Primary amyloidosis of light chain type (HCC) DIFFERENTIAL AUTO Routine 06/24/2024 12:00 PM CDT Primary amyloidosis of light chain type (HCC) URIC ACID Routine 06/24/2024 12:00 PM CDT Primary amyloidosis of light chain type (HCC) TROPONIN T HIGH-SENSITIVITY Routine 06/24/2024 12:00 PM CDT Primary amyloidosis of light chain type (HCC) APTT Routine 06/24/2024 12:00 PM CDT Primary amyloidosis of light chain type (HCC) PROTIME-INR Routine 06/24/2024 12:00 PM CDT Primary amyloidosis of light chain type (HCC) PROTEIN ELECTROPHORESIS, WITH REFLEX, SERUM Routine 06/24/2024 12:00 PM CDT Primary amyloidosis of light chain type (HCC) PRO B-TYPE NATRIURETIC PEPTIDE Routine 06/24/2024 12:00 PM CDT Primary amyloidosis of light chain type (HCC) LACTATE DEHYDROGENASE Routine 06/24/2024 12:00 PM CDT Primary amyloidosis of light chain type (HCC) IGM Routine 06/24/2024 12:00 PM CDT Primary amyloidosis of light chain type (HCC) IGG Routine 06/24/2024 12:00 PM CDT Primary amyloidosis of light chain type (HCC) IGA Routine 06/24/2024 12:00 PM CDT Primary amyloidosis of light chain type (HCC) IMMUNOGLOBULIN FREE LIGHT CHAINS Routine 06/24/2024 12:00 PM CDT Primary amyloidosis of light chain type (HCC) COMPREHENSIVE METABOLIC PANEL Routine 06/24/2024 12:00 PM CDT Primary amyloidosis of light chain type (HCC) CBC WITH AUTO DIFFERENTIAL Routine 06/24/2024 12:00 PM CDT Primary amyloidosis of light chain type (HCC) BETA 2 MICROGLOBULIN SERUM Routine 06/24/2024 12:00 PM CDT Primary amyloidosis of light chain type (HCC) SCREENING MAMMOGRAM BILATERAL W FARAZ Schedule Routine, Read Routine (OP Routine) 02/13/2024 11:22 AM DISPUTE RESOLUTION SPECIALIST Family history of breast cancer Encounter for screening mammogram for malignant neoplasm of breast HEPATITIS C ANTIBODY Routine 04/18/2023 1:30 PM DISPUTE RESOLUTION SPECIALIST Encounter for hepatitis C screening test for low risk patient DEXA AXIAL AND FOREARM BONE DENSITY SCAN Schedule Routine, Read Routine (OP Routine) 02/07/2023 Localized osteoporosis without current pathological fracture COLONOSCOPY 01/26/2022 8:07 AM DISPUTE RESOLUTION SPECIALIST from Last 3 Months or Most Recently Relevant to Health Maintenance Results * (ABNORMAL) Troponin T high-sensitivity (08/20/2024 11:38 AM CDT) Trop T hs 15(H) <=14 ng/L Comment: Interpretive Data For further hscTnT resources including the diagnostic algorithm and an aid in interpretation, copy and paste this link: https://nrl.testcatalog.org/show/hsTrop Current Interpretive Data last revised 2020. Blood 08/20/2024 11:3 8 AM CDT 08/20/2024 6:04 PM CDT Mauricio Izquierdo MD LAB BLOOD ORDER DL Final Result Performing Organization Address City/[facility]/ZIP Co de Phone Number SHEILA ALVAREZ [id number] Department of Laboratories [place], [place] [id number] * Immunotyping, serum with interpretation (08/20/2024 11:38 AM CDT) Immunofixation See Cl Path Rpt Blood 08/20/2024 11:3 8 AM CDT 08/20/2024 6:04 PM CDT Narrative MARCELANER - 08/26/2024 11:18 AM CDT Reflex Immunotyping, Ser Mauricio Izquierdo MD LAB BLOOD ORDER DL Final Result Performing Organization Address City/[facility] Co de Phone Number SHEILA ALVAREZ [phone] Department [email or web address] [place] [address] * eGFR (08/20/2024 11:38 AM CDT) eGFR 83 >=60 mL/min/1. 73 m2 Comment: Interpretive Data Reference Interval Normal >/= 90 mL/min/1.73m2 Mildly decreased* 60 - 89 mL/min/1.73m2 Mildly to moderately decreased 45 - 59 mL/min/1.73m2 Moderately to severely decreased 30 - 44 mL/min/1.73m2 Severely decreased 15 - 29 mL/min/1.73m2 Kidney Failure < 15 mL/min/1.73m2 *Relative to young adult level Estimated glomerular filtration rate is determined by the 2020 CKD-EPI equation recommended by the National Kidney Foundation (A Unifying Approach to GFR Estimation: Recommendations of the NKF-ASK Task Force on Reassessing the Inclusion of Race in Diagnosing Kidney Disease, JASN 2020). The CKD-EPI equation should not be used for patients with unstable renal function and has not been validated in children and those over 70. Current interpretive data was last reviewed 2021. Blood 08/20/2024 11:3 8 AM CDT 08/20/2024 6:09 PM CDT us Mauricio Izquierdo MD LAB BLOOD ORDER DL Final Result [facility] [address] Department [place] [address] * Differential, auto (08/20/2024 11:38 AM CDT) Neutrophil abs 6.08 1.50 - 6.50 K/cumm Imm gran abs 0.02 0.00 - 0.10 K/cumm [facility] Lymphocyte abs 1.84 0.80 - 3.30 K/cumm [facility] Monocyte abs 0.61 0.20 - 0.80 K/cumm [facility] Eosinophil abs 0.20 0.00 - 0.50 K/cumm [facility] Basophil abs 0.05 0.00 - 0.10 K/cumm [facility] Neutrophil pct 69.1 % [facility] Comment: Interpretive Data Percent cell count reference ranges are not reported, since discordance with absolute values may lead to misinterpretation of CBC data. Current Interpretive Data was last revised on 2017. Imm gran pct 0.2 % [facility] Comment: Interpretive Data Percent cell count reference ranges are not reported, since discordance with absolute values may lead to misinterpretation of CBC data. Current Interpretive Data was last revised on 2017. Lymphocyte pct 20.9 % [facility] Comment: Interpretive Data Percent cell count reference ranges are not reported, since discordance with absolute values may lead to misinterpretation of CBC data. Current Interpretive Data was last revised on 2017. Monocyte pct 6.9 % [facility] Comment: Interpretive Data Percent cell count reference ranges are not reported, since discordance with absolute values may lead to misinterpretation of CBC data. Current Interpretive Data was last revised on 2017. Eosinophil pct 2.3 % [facility] Comment: Interpretive Data Percent cell count reference ranges are not reported, since discordance with absolute values may lead to misinterpretation of CBC data. Current Interpretive Data was last revised on 2017. Basophil pct 0.6 % [facility] Comment: Interpretive Data Percent cell count reference ranges are not reported, since discordance with absolute values may lead to misinterpretation of CBC data. Current Interpretive Data was last revised on 2017. Blood 08/20/2024 11:3 8 AM CDT 08/20/2024 6:04 PM CDT Mauricio Izquierdo MD LAB BLOOD ORDER DL Final Result Performing Organization Address [facility] de Phone Number SHEILA ALVAREZ [address] [facility] [email or web address] [address] * (ABNORMAL) Immunoglobulin free light chains (08/20/2024 11:38 AM CDT) [place]/Lambda ratio 0.20(L) 0.26 - 1.65 [place] free light chain 1.14 0.33 - 1.94 mg/dL [facility] Comment: Interpretive Data The Holly Ig [place] FLC assay procedure was used. Results from different manufacturers or methods may not be comparable. Serial testing should be performed using the same method. Lambda free light chain 4.58(H) 0.57 - 2.63 mg/dL [facility] Comment: Interpretive Data The Holly Ig [place] FLC assay procedure was used. Results from different manufacturers or methods may not be comparable. Serial testing should be performed using the same method. Blood 08/20/2024 11:3 8 AM CDT 08/20/2024 6:04 PM CDT Mauricio Izquierdo MD LAB BLOOD ORDER DL Final Result Performing Organization Address [facility] de Phone Number SHEILA [address] Department of Laboratories [place] [phone] * Pro B-type natriuretic peptide (08/20/2024 11:38 AM CDT) NT-proBNP 49 <=300 pg/mL Comment: Interpretive Comments: A. Dyspnea in Acute Care Setting All Ages: < 300 pg/ml, acute heart failure unlikely. < 50 yrs: 300 - 450 pg/ml, further investigation warranted. > 450 pg/ml, acute heart failure likely. 50 - 74 yrs: 300 - 900 pg/ml, further investigation warranted. > 900 pg/ml, acute heart failure likely . > or = 75 yrs: 450 - 1800 pg/ml, further investigation warranted. > 1800 pg/ml, acute heart failure likely. B. Non-acute Setting < 75 yrs < 125 pg/ml, rules out heart failure. > or = 125 pg/ml, further investigation warranted. > or = 75 yrs < 450 pg/ml, rules out heart failure. > or = 450 pg/ml, further investigation warranted. - Knowledge of each individual patient's NT-proBNP range may be more useful than using similar cut-points for every patient. Please note that marked elevations in NT-proBNP levels may be observed in state other than Left Ventricular Congestive Failure, including: acute coronary syndromes, right heart strain/failure (including pulmonary embolism and cor pulmonale), critical illness, renal failure, as well as advanced age. - References: 1. Chay BROOKS et.al. Eur Heart J. 2006:27:330-337. 2. Josey RW, Isael AM. J. AM Kushal Cardiol: Cardiovasc Imag. 2009;2: 216- 225. Interpretive Data Last Revised Date: 2017. Blood 08/20/2024 11:3 8 AM CDT 08/20/2024 6:04 PM CDT us Mauricio Izquierdo MD LAB [place] [address] [address] Department [place] [address] * (ABNORMAL) CBC with auto differential (08/20/2024 11:38 AM CDT) WBC 8.80 3.80 - 9.90 K/cumm Hgb 13.6 11.9 - 15.5 g/dL [facility] Hct 43.2 35.6 - 45.5 % [facility] Plt 250 150 - 400 K/cumm [facility] MPV 9.8 9.1 - 12.3 fL [facility] RBC 5.05 3.90 - 5.20 M/cumm [facility] MCV 85.5 81.3 - 96.4 fL [facility] MCH 26.9(L) 27.1 - 33.3 pg [facility] MCHC 31.5(L) 32.3 - 35.7 g/dL [facility] RDW CV 14.8 11.1 - 14.9 % [facility] RDW SD 45.8 35.7 - 48.1 fL [facility] NRBC abs 0.00 0.00 - 0.01 K/cumm [facility] Blood 08/20/2024 11:3 8 AM CDT 08/20/2024 6:04 PM CDT Mauricio Izquierdo MD LAB BLOOD ORDER DL Final Result SHEILA ALVAREZ [address] Department [place] [address] * Methylmalonic acid, serum (08/20/2024 11:38 AM CDT) MMA 0.12 <=0.40 nmol/mL [facility] Comment: ADDITIONAL INFORMATION This test was developed and its performance characteristics determined by [facility] in a manner consistent with CLIA requirements. This test has not been cleared or approved by the U.S. Food and Drug Administration. Test Performed by: [facility] - [address] [address] Art Framing Manager: Bartolo Still Ph.D.; CLIA# [id number] Blood Venous blood specimen / Unknown 08/20/2024 11:38 AM CDT 08/20/2024 6:04 PM CDT Brittany Hernandez MD LAB BLOOD ORDERABLES Final Resu lt Performing Organization Address [facility] Co de Phone Number SHEILA ALVAREZ [phone] Department [email or web address] [address] [facility] * Vitamin D 25 hydroxy (08/20/2024 11:38 AM CDT) Pathologist [facility] Vitamin D 25-OH 43 30 - 80 ng/mL Blood 08/20/2024 11:3 8 AM CDT 08/20/2024 6:04 PM CDT Narrative SHEILA Jamison 08/20/2024 6:49 PM CDT brittany hernandez Brittany Hernandez MD LAB BLOOD ORDERABLES Final Resu lt Performing Organization Address [facility] Co de Phone Number SHEILA [address] Department [email or web address] [address] * aPTT (08/20/2024 11:38 AM CDT) [facility] aPTT 33 28 - 38 sec Comment: Interpretive Data Heparin therapeutic range: 66.0 - 100.0 seconds. Range based on correlation with therapeutic heparin activity range of 0.3 - 0.7 Units/mL. Current interpretive data was last revised on 2022. Blood 08/20/2024 11:3 8 AM CDT 08/20/2024 6:04 PM CDT Mauricio Izquierdo MD LAB BLOOD ORDER DL Final Result Performing Organization Address City/[facility]/ZIP Co de Phone Number [facility] [phone] Department [email or web address] [address] * Protime-INR (08/20/2024 11:38 AM CDT) [facility] PT 12.1 9.7 - 13.0 sec INR 1.12 0.90 - 1.20 SHEILA Comment: Interpretive data Oral anticoagulant therapeutic ranges: Venous thromboembolism prophylaxis or treatment: 2.0-3.0 CARDIOLOGY Standard range: 2.0-3.0 High-intensity range: 2.5-3.5 Refer to indication-specific guidelines for appropriate target ranges for prosthetic heart valve replacement. Current interpretive data was last revised on 2019. Blood 08/20/2024 11:3 8 AM CDT 08/20/2024 6:04 PM CDT Mauricio Izquierdo MD LAB BLOOD ORDER DL Final Result Performing Organization Address City/[facility] Co de Phone Number SHEILA ALVAREZ [address] Department [email or web address] [address] * Uric acid (08/20/2024 11:38 AM CDT) [facility] Uric acid 5.7 2.5 - 7.0 mg/dL Blood 08/20/2024 11:3 8 AM CDT 08/20/2024 6:04 PM CDT Mauricio Izquierdo MD LAB BLOOD ORDER DL Final Result Performing Organization Address City/[facility] Co de Phone Number SHEILA [address] Department [email or web address] [address] * (ABNORMAL) Protein electrophoresis with reflex, serum with interpretation (08/20/2024 11:38 AM CDT) [facility] Protein, sr 7.6 6.2 - 8.2 g/dL Albumin 4.3 3.2 - 5.0 g/dL [facility] Alpha-1 globulin 0.4 0.2 - 0.4 g/dL [facility] Alpha-2 globulin 1.0 0.5 - 1.0 g/dL [facility] Beta-1 globulin 0.5 0.3 - 0.6 g/dL [facility] Beta-2 globulin 1.0(H) 0.2 - 0.6 g/dL [facility] Gamma globulin 0.5 0.5 - 1.7 g/dL [facility] Rstr Pk Beta-2 0.9(H) 0.0 - 0.0 g/dL [facility] SPEP interp See Cl Path Rpt [facility] Immunotyping See Immunotyping Results [facility] Blood 08/20/2024 11:3 8 AM CDT 08/20/2024 6:04 PM CDT Mauricio Izquierdo MD LAB BLOOD ORDER DL Final Result SHEILA ANTONIO [address] [email or web address] [address] * Lactate dehydrogenase (LD) (08/20/2024 11:38 AM CDT) Lactate dehydrogenase (LDH) 169 100 - 250 Units/L Blood 08/20/2024 11:3 8 AM CDT 08/20/2024 6:04 PM CDT Mauricio Izquierdo MD LAB BLOOD ORDER DL Final Result Performing Organization Address [facility] Co de Phone Number MARCELATISH ALVAREZ [address] Department [email or web address] [place], [place] [id number] * Homocysteine (08/20/2024 11:38 AM CDT) Homocysteine 8.7 0.0 - 15.0 mcmol/L Comment:Testing performed by : [facility], [address] [facility], [place]., [address] Blood Venous blood specimen / Unknown 08/20/2024 11:38 AM CDT 08/21/2024 10:02 AM CDT Brittany Hernandez MD LAB BLOOD ORDERABLES Final Resu lt Performing Organization Address City/[facility]/ZIP Co de Phone Number MARCELATISH ALVAREZ [phone] Department [email or web address] [address] * (ABNORMAL) Hemoglobin A1c (08/20/2024 11:38 AM CDT) Hgb A1C 5.8(H) 4.0 - 5.6 % Estimated Average Glucose 120 mg/dL SHEILA ALVAREZ Comment: The ADA recommends reporting an estimated Average Glucose (eAG) with all Hemoglobin A1c results using the equation derived from a study of 507 normal and diabetic adults. Minority populations were underrepresented and children were not included. (Diabetes Care 31:6121-1953, 2008). The eAG is not equivalent to a fasting glucose. Blood Venous blood specimen / Unknown 08/20/2024 11:38 AM CDT 08/20/2024 6:04 PM CDT Brittany Hernandez MD LAB BLOOD ORDERABLES Final Resu lt Performing Organization Address City/[facility] Co de Phone Number SHEILA [address] Department [email or web address] [address] * IgA (08/20/2024 11:38 AM CDT) Immunoglobulin A 132 70 - 400 mg/dL Blood 08/20/2024 11:3 8 AM CDT 08/20/2024 6:04 PM CDT Mauricio Izquierdo MD LAB BLOOD ORDER DL Final Result Performing Organization Address City/[facility] Co de Phone Number [facility] [address] [email or web address] [address] * (ABNORMAL) IgM (08/20/2024 11:38 AM CDT) Immunoglobulin M 30(L) 40 - 150 mg/dL Blood 08/20/2024 11:3 8 AM CDT 08/20/2024 6:04 PM CDT Mauricio Izquierdo MD LAB BLOOD ORDER DL Final Result Performing Organization Address City/[facility] Co de Phone Number SHEILA ALVAREZ [address] Department [email or web address] [address] * IgG (08/20/2024 11:38 AM CDT) Immunoglobulin G 961 700 - 1,600 mg/dL Blood 08/20/2024 11:3 8 AM CDT 08/20/2024 6:04 PM CDT Mauricio Izquierdo MD LAB BLOOD ORDER DL Final Result Performing Organization Address [facility] Co de Phone Number SHEILA ALVAREZ [address] [place] [address] * Folate (08/20/2024 11:38 AM CDT) Pathologist [facility] Folic acid >20.0 >=5.0 ng/mL Comment:Hemolysis present. R esults may be affected. Blood 08/20/2024 11:3 8 AM CDT 08/20/2024 6:04 PM CDT Brittany Hernandez MD LAB BLOOD ORDERABLES Final Resu lt Performing Organization Address [facility] Co de Phone Number SHEILA ALVAREZ [address] [email or web address] [address] * Vitamin B12 (08/20/2024 11:38 AM CDT) Pathologist [facility] Vitamin B12 668 230 - 1,250 pg/mL Blood Venous blood specimen / Unknown 08/20/2024 11:38 AM CDT 08/20/2024 6:04 PM CDT Brittany Hernandez MD LAB BLOOD ORDERABLES Final Resu lt Performing Organization Address [facility] Co de Phone Number SHEILA [address] Department [email or web address] [address] * Beta 2 microglobulin, serum (08/20/2024 11:38 AM CDT) Beta 2 Microglobulin, Serum 2.10 1.00 - 2.50 mg/L Comment: Interpretive Data The Holly Beta-2 microglobulin assay procedure was used. Results from different manufacturers or methods may not be comparable. Serial testing should be performed using the same method. Testing performed by: [facility], [address] [facility], [place]., [address] Blood 08/20/2024 11:3 8 AM CDT 08/21/2024 10:02 AM CDT us Mauricio Izquierdo MD LAB BLOOD ORDER DL Final Result SHEILA ALVAREZ [address] [place] [address] * Lipid panel (08/20/2024 11:38 AM CDT) Cholesterol 139 30 - 199 mg/dL Comment: Interpretive Data Ages < or = 19 years Acceptable: <170 mg/dL Borderline high: 170-199 mg/dL High: >or= 200 mg/dL Ages > or = 20 years Desirable: <200 mg/dL Borderline high: 200-239 mg/dL High: >or= 240 mg/dL Literature References: 1. Expert Panel on Integrated Guidelines for Cardiovascular Health and Risk Reduction in Children and Adolescents. Pediatrics 2011;128:S213 2. NCEP Expert Panel. Circulation 2004;110:227 Current Interpretive Data was last revised on 2017. Triglycerides 91 <=149 mg/dL SHEILA ALVAREZ Comment: Interpretive Data Ages < or = 9 years Acceptable: <75 mg/dL Borderline high: 75-99 mg/dL High: >or= 100 mg/dL Ages 10 to 20 years Acceptable: <90 mg/dL Borderline high: 90-129 mg/dL High: >or= 130 mg/dL Ages > or = 20 years Desirable: <150 mg/dL Borderline high: 150-199 mg/dL High: 200-499 mg/dL Very high: >or= 499 mg/dL Literature References: 1. Expert Panel on Integrated Guidelines for Cardiovascular Health and Risk Reduction in Children and Adolescents. Pediatrics 2011;128:S213 2. NCEP Expert Panel. Circulation 2004;110:227 Current Interpretive Data was last revised on 2017. HDL 45 >=40 mg/dL SHEILA ALVAREZ Comment: Interpretive Data Ages < or = 19 years Acceptable: >45 mg/dL Borderline low: 40-45 mg/dL Low: <40 mg/dL Ages > or = 20 years Desirable: >or= 60 mg/dL Low: <40 mg/dL Literature References: 1. Expert Panel on Integrated Guidelines for Cardiovascular Health and Risk Reduction in Children and Adolescents. Pediatrics 2011;128:S213 2. NCEP Expert Panel. Circulation 2004;110:227 Current Interpretive Data was last revised on 2017. LDL, calculated 77 <=129 mg/dL SHEILA ALVAREZ Comment: Interpretive Data Ages < or = 19 years Acceptable: <110 mg/dL Borderline high: 110-129 mg/dL High: >or= 130 mg/dL Ages > or = 20 years Optimal: <100 mg/dL Near optimal: 100-129 mg/dL Borderline high: 130-159 mg/dL High: >160 mg/dL Calculated using the Hany LDL-C estimating equation. This equation was implemented on 2023. Prior to this date LDL-C was estimated using the Friedewald equation. Literature References: 1. Expert Panel on Integrated Guidelines for Cardiovascular Health and Risk Reduction in Children and Adolescents. Pediatrics 2011;128:S213 2. NCEP Expert Panel. Circulation 2004;110:227 3. Hany Dejesus et al. [place] Cardiol. 2019July 10;5(5):540-548. doi: 10.1001/[email or web address].2020.0013 Current Interpretive Data was last revised on 2023. Non-HDL Cholesterol 94 mg/dL SHEILA ALVAREZ Comment: Interpretive Data Ages < or = 19 years Acceptable: <120 mg/dL Borderline high: 120-144 mg/dL High: >145 mg/dL Ages > or = 20 years When triglycerides are >200 mg/dL, Non-HDL cholesterol is a secondary target of therapy with treatment goals that are 30 mg/dL greater than the LDL cholesterol target. Literature References: 1. Expert Panel on Integrated Guidelines for Cardiovascular Health and Risk Reduction in Children and Adolescents. Pediatrics 2011;128:S213 2. NCEP Expert Panel. Circulation 2004;110:227 Current Interpretive Data was last revised on 2017. Chol/HDL ratio 3 [facility] Blood Venous blood specimen / Unknown 08/20/2024 11:38 AM CDT 08/20/2024 6:04 PM CDT Brittany Hernandez MD LAB BLOOD [place] [address] [address] Department [place] [address] * Comprehensive metabolic panel (08/20/2024 11:38 AM CDT) Sodium 142 135 - 145 mmol/L Potassium, pl 4.3 3.3 - 4.9 mmol/L [facility] Chloride 104 97 - 110 mmol/L [facility] CO2 26 22 - 32 mmol/L [facility] Anion gap 12 2 - 15 mmol/L [facility] BUN 15 6 - 25 mg/dL [facility] Creatinine 0.78 0.60 - 1.10 mg/dL [facility] Glucose 77 70 - 199 mg/dL [facility] Comment: Interpretive Data Fasting glucose >/= 126 mg/dl is diagnostic for diabetes. Fasting is defined as no caloric intake for at least 8 hours. Fasting glucose between 100 mg/dl to 125 mg/dl is diagnostic of prediabetes. In a patient with classic symptoms of hyperglycemia or hyperglycemic crisis, a random glucose >/= 200 mg/dl is diagnostic for diabetes. In the absence of unequivocal hyperglycemia, results should be confirmed by repeat testing. The classification and Diagnosis of Diabetes Diabetes Care 2021; 46: S19-S40. Current interpretive data was last revised 2022. Calcium 9.3 8.5 - 10.3 mg/dL [facility] Bilirubin, total 0.3 0.1 - 1.2 mg/dL [facility] Protein, pl 7.6 6.5 - 8.5 g/dL [facility] Albumin 4.2 3.5 - 5.0 g/dL [facility] Alk phos 105 40 - 130 Units/L [facility] ALT 22 7 - 45 Units/L [facility] AST 28 10 - 45 Units/L [facility] Blood 08/20/2024 11:3 8 AM CDT 08/20/2024 6:04 PM CDT Mauricio Izquierdo MD LAB BLOOD ORDER DL Final Result SHEILA [address] [place] [address] * Clinical pathology report (08/19/2024 11:38 AM CDT) Miscellaneous 08/19/2024 11: 38 AM CDT 08/21/2024 7:41 AM CDT Narrative 08/22/2024 12:55 PM CDT EPIC results best viewed via link to PDF [facility] Department of Pathology [address] [place] [id number] Final Report Note to Patients: This report may contain a detailed description of human tissue sent by a health care provider to the laboratory for pathologic evaluation. The content of this report is essential for diagnosis and may provide important critical findings. This information may be unfamiliar to patients to review without a medical professional present. It is advised that the patient review this report in the presence of a health care provider who can answer questions and explain the details. Patient Name: ELAINE SMITH Address: [address] [place] [address] Gender: F : 1955 (Age: 68) Service: Location: [facility] : [id number] [facility] #: [id number] Patient Type: SPECIMEN Taken: 08/19/2024 Received: 08/21/2024 Accessioned: 08/21/2024 Physician(s): Mauricio Izquierdo M.D. Specimen(s) Received A: Blood (serum) Serum Protein Electrophoresis with Immunofixation/ImmunotypingReported:08/22/2024 Interpretation: Serum Protein Electrophoresis: 0.9 g/dl paraprotein. Serum Protein Immunofixation: IgG lambda. Comment: Serum Protein Electrophoresis: A 0.9 g/dl paraprotein is identified. Serum Protein Immunofixation: Examination of G, A and M heavy chains as well as kappa and lambda light chains reveals an IgG lambda band. See Epic and/or separate report for protein fraction table. David Kee MD PhDReport Electronically Reviewed and Signed Out By David Kee MD PhD 08/22/2024 12:55:32 The performance characteristics of some immunohistochemical stains, fluorescence in-situ hybridization tests and immunophenotyping by flow cytometry cited in this report (if any) were determined by the Surgical Pathology Department at [facility] as part of an ongoing research associate quality control qc program and in compliance with federally mandated regulations drawn from the Clinical Laboratory Improvement Act of 1988 (CLIA '88). Some of these tests rely on the use of analyte specific reagents and are subject to specific labeling requirements by the US Food and Drug Administration. Such diagnostic tests may only be performed in a facility that is certified by the Department of Health and Human Services as a high complexity laboratory under CLIA '88. The FDA has determined that such clearance or approval is not necessary. This test is used for clinical purposes. It should not be regarded as investigational or for research. Nevertheless, federal rules concerning the medical use of analyte specific reagents require that the following disclaimer be attached to the report: This test was developed and its performance characteristics determined by the Surgical Pathology Department [facility]. It has not been cleared or approved by the U. S. Food and Drug Administration. REPORT IMAGES AND SCANNED DOCUMENTS, IF INCLUDED, ONLY VIEWABLE IN PDF VERSION OF REPORTe o Mauricio Izquierdo MD LAB PATHOLOGY O RDERABLES Final Result * CT Abdomen Pelvis WO Contrast (07/22/2024 1:56 PM CDT) Anatomical Region Laterality Modality Body N/A Computed Tomogra phy 07/22/2024 3:51 PM CDT Narrative 07/22/2024 4:10 PM CDT EXAM DESCRIPTION: CT ABDOMEN PELVIS WO CONTRAST REASON FOR STUDY: UTI, recurrent/complicated (Female), Rule out pyelonephritis Bladder infection for about a month Burning with urination Getting ready to start another round of antibiotics today Surgery: , appe, lap band TECHNIQUE: CT scan of the abdomen and pelvis performed without intravenous and without oral contrast using helical scanning technique. Reconstructed coronal and sagittal MPR images reviewed. All images stored on PACS. Automated exposure control was used as a dose optimization technique for this examination. COMPARISON: Comparison 03/25/2018. FINDINGS: The sensitivity for detection of visceral lesions is diminished without the use of intravenous contrast. LOWER CHEST: No significant pulmonary abnormalities. No effusion. LIVER: Normal size. No identified cystic or solid masses. GALLBLADDER: Surgically absent. BILE DUCTS: No intrahepatic or extrahepatic ductal dilatation. SPLEEN: Normal size. Small splenule. No focal lesions. PANCREAS: No identified cystic or solid masses. No significant calcifications. No adjacent inflammation or peripancreatic fluid collections. Pancreatic duct not dilated. ADRENALS: Normal. KIDNEYS/URINARY TRACT: No hydro nephrosis. The right ureteral stent has been removed. There are numerous nonobstructing calculi layering in the dependent right renal pelvis, largest measuring 5 mm (2: 71). There is tiny additional punctate nonobstructing renal calculus in the midpole right kidney calyx measuring 3 mm (2:77). There is no ureteral dilatation or ureteral calculus. There is no solid or cystic lesion. There are no left-sided renal calculi. There is no left-sided renal mass or definable cyst. Ureter is normal in caliber without calculus.. The urinary bladder is completely decompressed. No definite bladder stone. GI: Stable positioning of lap band at the GE junction. No dilated bowel loops. No obvious wall thickening. By history appendix is surgically absent.. No significant diverticular disease. No definable bowel obstruction. PERITONEUM: No ascites or free air. RETROPERITONEUM: No mass or adenopathy. REPRODUCTIVE: No significant abnormality. VASCULATURE: No abdominal aortic aneurysm. MUSCULOSKELETAL: No significant abnormality. OTHER: No other abnormality. IMPRESSION: Interval removal of previously noted (CT 2019) right ureteral stent. No ureteral dilatation or ureteral calculus. Multiple nonobstructing right renal calculi, largest measuring 5 mm. No left-sided renal calculi. Stable positioning of lap band at the GE junction. Postop cholecystectomy. No definable acute intra-abdominal process. THIS IS AN ELECTRONICALLY VERIFIED FINAL REPORT 07/22/2024 4:10 PM - Electronically signed by Bertha Champion M.D. LC: KALEB Report ID: [id number] [place] Location: [id number] Procedure Note Jeannette Champion MD - 07/22/2024 EXAM DESCRIPTION: CT ABDOMEN PELVIS WO CONTRAST REASON FOR STUDY: UTI, recurrent/complicated (Female), Rule out pyelonephritis Bladder infection for about a month Burning with urination Getting readyto start another round of antibiotics today Surgery: , appe, lapband TECHNIQUE: CT scan of the abdomen and pelvis performed without intravenousand without oral contrast using helical scanning technique. Reconstructed coronal and sagittal MPR images reviewed. All images stored on PACS.Automated exposure control was used as a dose optimization technique for this examination. COMPARISON: Comparison 03/25/2018. FINDINGS: The sensitivity for detection of visceral lesions is diminished withoutthe use of intravenous contrast. LOWER CHEST: No significant pulmonary abnormalities. No effusion. LIVER: Normal size. No identified cystic or solid masses. GALLBLADDER: Surgically absent. BILE DUCTS: No intrahepatic or extrahepatic ductal dilatation. SPLEEN: Normal size. Small splenule. No focal lesions. PANCREAS: No identified cystic or solid masses. No significant calcifications. No adjacent inflammation or peripancreatic fluidcollections. Pancreatic duct not dilated. ADRENALS: Normal. KIDNEYS/URINARY TRACT: No hydro nephrosis. The right ureteral stent has been removed. There are numerous nonobstructing calculi layering in the dependent right renal pelvis, largest measuring 5 mm (2: 71). There istiny additional punctate nonobstructing renal calculus in the midpole rightkidney calyx measuring 3 mm (2:77). There is no ureteral dilatation or ureteral calculus. There is no solid or cystic lesion. There are no left-sidedrenal calculi. There is no left-sided renal mass or definable cyst. Ureter is normal in caliber without calculus.. The urinary bladder is completely decompressed. No definite bladder stone. GI: Stable positioning of lap band at the GE junction. No dilated bowel loops. No obvious wall thickening. By history appendix is surgicallyabsent.. No significant diverticular disease. No definable bowel obstruction. PERITONEUM: No ascites or free air. RETROPERITONEUM: No mass or adenopathy. REPRODUCTIVE: No significant abnormality. VASCULATURE: No abdominal aortic aneurysm. MUSCULOSKELETAL: No significant abnormality. OTHER: No other abnormality. IMPRESSION: Interval removal of previously noted (CT 2019) right ureteral stent. No ureteral dilatation or ureteral calculus. Multiple nonobstructing right renal calculi, largest measuring 5 mm. No left-sided renal calculi. Stable positioning of lap band at the GE junction. Postop cholecystectomy. No definable acute intra-abdominal process. THIS IS AN ELECTRONICALLY VERIFIED FINAL REPORT 07/22/2024 4:10 PM - Electronically signed by Bertha Champion M.D. LC: KALEB Report ID: [id number] [place] Location: [place] [address] us Alice Lao NP IMG CT PROCEDURES Final Result * (ABNORMAL) Urine culture Urine, clean voided (07/22/2024 11:38 AM CDT) Report Final Report: Greater than or equal to 100,000 colonies/mL of Escherichia coli (.) Comment:Testing performed by : [facility], [address] [place]., [address] Organism ESCHERICHIA COLI SHEILA Urine, clean voided 07/22/2024 11:38 AM CDT 07/22/2024 7:48 PM CDT Narrative SHEILA - 07/25/2024 6:32 AM CDT Testing performed by [facility] Laboratory ([phone]) Organism Antibiotic Method Susceptibility Escherichia coli Ampicillin INTERPRETATION Susceptible Escherichia coli Cefazolin INTERPRETATION Susceptible Escherichia coli Nitrofurantoin INTERPRETATION Susceptible Escherichia coli Gentamicin INTERPRETATION Susceptible Escherichia coli Trimethoprim with Sulfamethoxazole IN TERPRETATION Susceptible Escherichia coli Meropenem INTERPRETATION Susceptible Escherichia coli Cefepime INTERPRETATION Susceptible Escherichia coli Ciprofloxacin INTERPRETATION Susceptible Escherichia coli Ceftazidime INTERPRETATION Susceptible Escherichia coli Ceftriaxone INTERPRETATION Susceptible Escherichia coli Piperacillin/Tazobactam INTERPRETATIO N Susceptible Escherichia coli Cephalexin INTERPRETATION Susceptible Escherichia coli Cefuroxime-axetil INTERPRETATION Susceptible Escherichia coli Cefdinir INTERPRETATION Susceptible us Alice Lao NP LAB MICROBIOLOGY - GENERAL ORDER DL Final Result [facility] [address] Department [place] [address] * (ABNORMAL) POCT urinalysis dipstick (07/22/2024 11:36 AM CDT) Glucose, ur, POC Negative Negative Bilirubin, ur, POC Negative Negative Ketones, ur, POC Trace(A) Negative Specific [place], POC 1.025 1.003 - 1.030 Blood, ur, POC Moderate(A) Negative pH, ur, POC 5.5 5.0 - 8.0 Protein, ur, POC 100.(A) Negative Urobilinogen, urine, POC 0.2 0.2 - 1.0 mg/dL Nitrite, ur, POC Positive(A) Negative Leukocytes, ur, POC Moderate(A) Negative Lot Number [id number] Urine 07/22/2024 11:3 6 AM CDT Alice Lao NP POINT OF CARE TEST ORDERABLES Fi nal Result * (ABNORMAL) Urinalysis reflex to microscopic and culture Urine, bladder (07/08/2024 8:26 AM CDT) Color, ur Ann Yellow Clarity, ur Turbid(A) Clear CERNER Specific gravity, ur 1.022 1.003 - 1.030 CERNER CH pH, urine 6.0 CERNER Comment: Interpretive Data U rine pH is affected by diet, medications, systemic acid-base disturbances, and renal tubular function. pH may affect urinary stone formation. For example, urine pH below 6.0 may help reduce the tendency for calcium phosphate stones and pH greater than 6.0 may reduce the tendency for uric acid stone formation. Source: [facility] [email or web address] Current Interpretive Data was last revised on 2017 Protein, ur ql 2+(A) Negative CERNER CH Glucose, ur ql Negative Negative CERNER CH Ketones, ur Negative Negative CERNER CH Bilirubin, ur Negative Negative CERNER CH Blood, ur 2+(A) Negative CERNER CH Urobilinogen, ur <2.0 <2.0 mg/dL CERNER CH Nitrite, ur Negative Negative CERNER CH Leukocyte esterase, ur 4+(A) Negative CERNER CH UA reflex comment Reflex to microscopic UA will be performed. [facility] Urine, bladder 07/08/2024 8: 26 AM CDT 07/08/2024 7:15 PM CDT us Alice Lao NP LAB MICROBIOLOGY - GENERAL ORDER DL Final Result Performing Organization Address [facility] de Phone Number SHEILA ALVAREZ [address] [address] Department Laboratories [place], [place] [id number] * (ABNORMAL) Urinalysis, microscopic only (07/08/2024 8:26 AM CDT) WBC, ur >50(A) 0 - 5 /HPF RBC, ur >50(A) 0 - 2 /HPF [facility] Epithelial cells, squamous, ur 1-5 0 - 5 /HPF [facility] Bacteria, ur Trace(A) [facility] Mucous, ur Present(A) [facility] Culture Reflex Comment Reflex to urine culture will be performed. [facility] Urine, bladder 07/08/2024 8: 26 AM CDT 07/08/2024 7:21 PM CDT us Alice Lao [employer] LAB URINE ORDERABLES Final Resul t Performing Organization Address [facility] de Phone Number SHEILA ALVAREZ [address] [place] [address] * (ABNORMAL) Urine culture Urine, bladder (07/08/2024 8:26 AM CDT) Report Final Report: Greater than or equal to 100,000 colonies/mL of Escherichia coli Plus growth of clinically insignificant bacterial juan carlos. (.) Comment:Testing performed by : [facility], [address] [facility], [place]., [address] Organism ESCHERICHIA COLI [facility] Organism PLUS GROWTH OF CLINICALLY INSIGNIFICANT JUAN CARLOS. [facility] Urine, bladder 07/08/2024 8: 26 AM CDT 07/08/2024 10:50 PM CDT Narrative [facility] - 07/11/2024 6:21 AM CDT Urine culture reflexed based upon urinalysis results. Testing performed by [facility] ([phone]) Organism Antibiotic Method Susceptibility Escherichia coli Ampicillin INTERPRETATION Susceptible Escherichia coli Cefazolin INTERPRETATION Susceptible Escherichia coli Nitrofurantoin INTERPRETATION Susceptible Escherichia coli Gentamicin INTERPRETATION Susceptible Escherichia coli Trimethoprim with Sulfamethoxazole IN TERPRETATION Susceptible Escherichia coli Meropenem INTERPRETATION Susceptible Escherichia coli Cefepime INTERPRETATION Susceptible Escherichia coli Ciprofloxacin INTERPRETATION Susceptible Escherichia coli Ceftazidime INTERPRETATION Susceptible Escherichia coli Ceftriaxone INTERPRETATION Susceptible Escherichia coli Piperacillin/Tazobactam INTERPRETATIO N Susceptible Escherichia coli Cephalexin INTERPRETATION Susceptible Escherichia coli Cefuroxime-axetil INTERPRETATION Susceptible Escherichia coli Cefdinir INTERPRETATION Susceptible Alice Lao NP LAB MICROBIOLOGY - GENERAL ORDER DL Final Result [facility] [address] [place] [address] * Troponin T high-sensitivity (06/24/2024 12:00 PM CDT) Trop T hs 13 <=14 ng/L Comment: Interpretive Data For further hscTnT resources including the diagnostic algorithm and an aid in interpretation, copy and paste this link: [email or web address].testcatalog.org/show/[email or web address] Current Interpretive Data last revised 2020. Blood 06/24/2024 12:0 0 PM CDT 06/24/2024 9:11 PM CDT Narrative SHEILA - 06/24/2024 9:46 PM CDT Can be drawn anytime 06/24-06/27 Mauricio Izquierdo MD LAB BLOOD ORDER DL Edited Result - Final SHEILA ALVAREZ [address] [place] [address] * Clinical pathology report (06/24/2024 12:00 PM CDT) Miscellaneous 06/24/2024 12: 00 PM CDT 06/26/2024 8:00 AM CDT Narrative 06/27/2024 3:23 PM CDT EPIC results best viewed via link to PDF [facility] Department of Pathology [address] [place] [id number] Final Report Note to Patients: This report may contain a detailed description of human tissue sent by a health care provider to the laboratory for pathologic evaluation. The content of this report is essential for diagnosis and may provide important critical findings. This information may be unfamiliar to patients to review without a medical professional present. It is advised that the patient review this report in the presence of a health care provider who can answer questions and explain the details. Patient Name: ELAINE SMITH Address: [address] [place] [address] , [place] [address] Gender: F : 1955 (Age: 68) Service: Location: [facility] : [id number] Hospital #: [id number] Patient Type: SPECIMEN Taken: 06/24/2024 Received: 06/26/2024 Accessioned: 06/26/2024 Physician(s): Mauricio Izquierdo M.D. Specimen(s) Received A: Blood (serum) Serum Protein ElectrophoresisReported:06/27/2024 Interpretation: Serum Protein Electrophoresis: 0.9 g/dl paraprotein. Comment: Serum Protein Electrophoresis: A 0.9 g/dl paraprotein is identified. See Epic and/or separate report for protein fraction table. David Kee MD PhDReport Electronically Reviewed and Signed Out By David Kee MD PhD 06/27/2024 15:22:50 The performance characteristics of some immunohistochemical stains, fluorescence in-situ hybridization tests and immunophenotyping by flow cytometry cited in this report (if any) were determined by the Surgical Pathology Department at [facility] as part of an ongoing research associate quality control qc program and in compliance with federally mandated regulations drawn from the Clinical Laboratory Improvement Act of 1988 (CLIA '88). Some of these tests rely on the use of analyte specific reagents and are subject to specific labeling requirements by the US Food and Drug Administration. Such diagnostic tests may only be performed in a facility that is certified by the Department of Health and Human Services as a high complexity laboratory under CLIA '88. The FDA has determined that such clearance or approval is not necessary. This test is used for clinical purposes. It should not be regarded as investigational or for research. Nevertheless, federal rules concerning the medical use of analyte specific reagents require that the following disclaimer be attached to the report: This test was developed and its performance characteristics determined by the Surgical Pathology Department [facility]. It has not been cleared or approved by the U. S. Food and Drug Administration. REPORT IMAGES AND SCANNED DOCUMENTS, IF INCLUDED, ONLY VIEWABLE IN PDF VERSION OF REPORTe o Mauricio Izquierdo MD LAB PATHOLOGY O RDERABLES Final Result * eGFR (06/24/2024 12:00 PM CDT) eGFR 65 >=60 mL/min/1. 73 m2 Comment: Interpretive Data Reference Interval Normal >/= 90 mL/min/1.73m2 Mildly decreased* 60 - 89 mL/min/1.73m2 Mildly to moderately decreased 45 - 59 mL/min/1.73m2 Moderately to severely decreased 30 - 44 mL/min/1.73m2 Severely decreased 15 - 29 mL/min/1.73m2 Kidney Failure < 15 mL/min/1.73m2 *Relative to young adult level Estimated glomerular filtration rate is determined by the 2020 CKD-EPI equation recommended by the National Kidney Foundation (A Unifying Approach to GFR Estimation: Recommendations of the NKF-ASK Task Force on Reassessing the Inclusion of Race in Diagnosing Kidney Disease, JASN 2020). The CKD-EPI equation should not be used for patients with unstable renal function and has not been validated in children and those over 70. Current interpretive data was last reviewed 2021. Blood 06/24/2024 12:0 0 PM CDT 06/24/2024 9:20 PM CDT Mauricio Izquierdo MD LAB BLOOD ORDER DL Final Result SHEILA ALVAREZ [address] [place] [address] * (ABNORMAL) Differential, auto (06/24/2024 12:00 PM CDT) Neutrophil abs 7.23(H) 1.50 - 6.50 K/cumm Imm gran abs 0.04 0.00 - 0.10 K/cumm CERNER Lymphocyte abs 2.09 0.80 - 3.30 K/cumm CERNER Monocyte abs 0.66 0.20 - 0.80 K/cumm CERNER Eosinophil abs 0.21 0.00 - 0.50 K/cumm CERNER Basophil abs 0.04 0.00 - 0.10 K/cumm [facility] Neutrophil pct 70.4 % CERNER Comment: Interpretive Data Percent cell count reference ranges are not reported, since discordance with absolute values may lead to misinterpretation of CBC data. Current Interpretive Data was last revised on 2017. Imm gran pct 0.4 % CERNER Comment: Interpretive Data Percent cell count reference ranges are not reported, since discordance with absolute values may lead to misinterpretation of CBC data. Current Interpretive Data was last revised on 2017. Lymphocyte pct 20.4 % CERNER Comment: Interpretive Data Percent cell count reference ranges are not reported, since discordance with absolute values may lead to misinterpretation of CBC data. Current Interpretive Data was last revised on 2017. Monocyte pct 6.4 % CERNER Comment: Interpretive Data Percent cell count reference ranges are not reported, since discordance with absolute values may lead to misinterpretation of CBC data. Current Interpretive Data was last revised on 2017. Eosinophil pct 2.0 % CERNER Comment: Interpretive Data Percent cell count reference ranges are not reported, since discordance with absolute values may lead to misinterpretation of CBC data. Current Interpretive Data was last revised on 2017. Basophil pct 0.4 % CERNER Comment: Interpretive Data Percent cell count reference ranges are not reported, since discordance with absolute values may lead to misinterpretation of CBC data. Current Interpretive Data was last revised on 2017. Blood 06/24/2024 12:0 0 PM CDT 06/24/2024 9:11 PM CDT Mauricio Izquierdo MD LAB BLOOD ORDER DL Final Result Performing Organization Address City/State/[facility] de Phone Number SHEILA ALVAREZ [address] Department [email or web address] [address] * (ABNORMAL) Immunoglobulin free light chains (06/24/2024 12:00 PM CDT) [facility] [place]/Lambda ratio 0.30 0.26 - 1.65 [place] free light chain 1.26 0.33 - 1.94 mg/dL SHEILA Comment: Interpretive Data The [employer] [place] FLC assay procedure was used. Results from different manufacturers or methods may not be comparable. Serial testing should be performed using the same method. Lambda free light chain 3.99(H) 0.57 - 2.63 mg/dL [facility] Comment: Interpretive Data The [employer] Lambda FLC assay procedure was used. Results from different manufacturers or methods may not be comparable. Serial testing should be performed using the same method. Blood 06/24/2024 12:0 0 PM CDT 06/24/2024 9:11 PM CDT Narrative [facility] - 06/26/2024 7:01 AM CDT Can be drawn anytime 06/24-06/27 Mauricio Izquierdo MD LAB BLOOD ORDER DL Final Result Performing Organization Address [facility] de Phone Number SHEILA ALVAREZ [address] [address] [facility] [place] [address] * Pro B-type natriuretic peptide (06/24/2024 12:00 PM CDT) [facility] NT-proBNP <36 <=300 pg/mL Comment: Interpretive Comments: A. Dyspnea in Acute Care Setting All Ages: < 300 pg/ml, acute heart failure unlikely. < 50 yrs: 300 - 450 pg/ml, further investigation warranted. > 450 pg/ml, acute heart failure likely. 50 - 74 yrs: 300 - 900 pg/ml, further investigation warranted. > 900 pg/ml, acute heart failure likely . > or = 75 yrs: 450 - 1800 pg/ml, further investigation warranted. > 1800 pg/ml, acute heart failure likely. B. Non-acute Setting < 75 yrs < 125 pg/ml, rules out heart failure. > or = 125 pg/ml, further investigation warranted. > or = 75 yrs < 450 pg/ml, rules out heart failure. > or = 450 pg/ml, further investigation warranted. - Knowledge of each individual patient's NT-proBNP range may be more useful than using similar cut-points for every patient. Please note that marked elevations in NT-proBNP levels may be observed in state other than Left Ventricular Congestive Failure, including: acute coronary syndromes, right heart strain/failure (including pulmonary embolism and cor pulmonale), critical illness, renal failure, as well as advanced age. - References: 1. Chay BROOKS et.al. Eur Heart J. 2006:27:330-337. 2. Josey RW, Isael AM. J. AM Kushal Cardiol: Cardiovasc Imag. 2009;2: 216- 225. Interpretive Data Last Revised Date: 2017. Blood 06/24/2024 12:0 0 PM CDT 06/24/2024 9:11 PM CDT Narrative [facility] - 06/24/2024 9:46 PM CDT Can be drawn anytime 06/24-06/27 Mauricio Izquierdo MD LAB BLOOD ORDER DL Final Result [facility] [address] [place] [address] * (ABNORMAL) CBC with auto differential (06/24/2024 12:00 PM CDT) WBC 10.27(H) 3.80 - 9.90 K/cumm Hgb 14.4 11.9 - 15.5 g/dL [facility] Hct 46.6(H) 35.6 - 45.5 % [facility] Plt 264 150 - 400 K/cumm [facility] MPV 9.6 9.1 - 12.3 fL [facility] RBC 5.37(H) 3.90 - 5.20 M/cumm [facility] MCV 86.8 81.3 - 96.4 fL [facility] MCH 26.8(L) 27.1 - 33.3 pg [facility] MCHC 30.9(L) 32.3 - 35.7 g/dL [facility] RDW CV 15.1(H) 11.1 - 14.9 % [facility] RDW SD 47.8 35.7 - 48.1 fL [facility] NRBC abs 0.00 0.00 - 0.01 K/cumm [facility] Blood 06/24/2024 12:0 0 PM CDT 06/24/2024 9:11 PM CDT Narrative [facility] - 06/24/2024 9:26 PM CDT Can be drawn anytime 06/24-06/27 Mauricio Izquierdo MD LAB BLOOD ORDER DL Final Result Performing Organization Address [facility] Co de Phone Number SHEILA ALVAREZ [address] [place] [address] * aPTT (06/24/2024 12:00 PM CDT) aPTT 32 28 - 38 sec Comment: Interpretive Data Heparin therapeutic range: 66.0 - 100.0 seconds. Range based on correlation with therapeutic heparin activity range of 0.3 - 0.7 Units/mL. Current interpretive data was last revised on 2022. Blood 06/24/2024 12:0 0 PM CDT 06/24/2024 9:11 PM CDT Narrative [facility] - 06/24/2024 9:35 PM CDT Can be drawn anytime 06/24-06/27 Mauricio Izquierdo MD LAB BLOOD ORDER DL Final Result Performing Organization Address [facility]/ZIP Co de Phone Number MARCELATISH ALVAREZ [address] [facility] [place] [address] * Protime-INR (06/24/2024 12:00 PM CDT) PT 11.8 9.7 - 13.0 sec INR 1.09 0.90 - 1.20 [facility] Comment: Interpretive data Oral anticoagulant therapeutic ranges: Venous thromboembolism prophylaxis or treatment: 2.0-3.0 CARDIOLOGY Standard range: 2.0-3.0 High-intensity range: 2.5-3.5 Refer to indication-specific guidelines for appropriate target ranges for prosthetic heart valve replacement. Current interpretive data was last revised on 2019. Blood 06/24/2024 12:0 0 PM CDT 06/24/2024 9:11 PM CDT Narrative SHE[facility]A ANTONIO - 06/24/2024 9:32 PM CDT Can be drawn anytime 06/24-06/27 Mauricio Izquierdo MD LAB BLOOD ORDER DL Final Result Performing Organization Address [facility]/ZIP Co de Phone Number MARCELATISH ALVAREZ [address] [place] [address] * Uric acid (06/24/2024 12:00 PM CDT) Uric acid 6.5 2.5 - 7.0 mg/dL Blood 06/24/2024 12:0 0 PM CDT 06/24/2024 9:11 PM CDT Narrative [facility] - 06/24/2024 9:46 PM CDT Can be drawn anytime 06/24-06/27 Mauricio Izquierdo MD LAB BLOOD ORDER DL Final Result Performing Organization Address [facility] Co de Phone Number MARCELATISH ALVAREZ [address] [place] [address] * (ABNORMAL) Protein electrophoresis with reflex, serum with interpretation (06/24/2024 12:00 PM CDT) Protein, sr 7.9 6.2 - 8.2 g/dL Albumin 4.6 3.2 - 5.0 g/dL [facility] Alpha-1 globulin 0.4 0.2 - 0.4 g/dL [facility] Alpha-2 globulin 0.9 0.5 - 1.0 g/dL [facility] Beta-1 globulin 0.5 0.3 - 0.6 g/dL [facility] Beta-2 globulin 0.9(H) 0.2 - 0.6 g/dL [facility] Gamma globulin 0.5 0.5 - 1.7 g/dL [facility] Rstr Pk Beta-2 0.9(H) 0.0 - 0.0 g/dL [facility] SPEP interp See Cl Path Rpt [facility] Blood 06/24/2024 12:0 0 PM CDT 06/24/2024 9:11 PM CDT Narrative [facility] - 06/30/2024 5:28 AM CDT Can be drawn anytime 06/24-06/27 Mauricio Izquierdo MD LAB BLOOD ORDER DL Final Result SHEILA ALVAREZ [address] [place] [address] * Lactate dehydrogenase (LD) (06/24/2024 12:00 PM CDT) Pathologist [facility] Lactate dehydrogenase (LDH) 242 100 - 250 Units/L Comment:Hemolysis present. R esults may be affected. Blood 06/24/2024 12:0 0 PM CDT 06/24/2024 9:11 PM CDT Narrative [facility] 06/24/2024 9:46 PM CDT Can be drawn anytime 06/24-06/27 Mauricio Izquierdo MD LAB BLOOD ORDER DL Final Result SHEILA ALVAREZ [address] Department of Laboratories [place], [place] [id number] * IgA (06/24/2024 12:00 PM CDT) Pathologist [facility] Immunoglobulin A 130 70 - 400 mg/dL Blood 06/24/2024 12:0 0 PM CDT 06/24/2024 9:11 PM CDT Narrative [facility] 06/24/2024 9:47 PM CDT Can be drawn anytime 06/24-06/27 Mauricio Izquierdo MD LAB BLOOD ORDER DL Final Result Performing Organization Address [facility] de Phone Number SHEILA ALVAREZ [address] [place] [address] * (ABNORMAL) IgM (06/24/2024 12:00 PM CDT) [facility] Immunoglobulin M 35(L) 40 - 150 mg/dL Blood 06/24/2024 12:0 0 PM CDT 06/24/2024 9:11 PM CDT Narrative [facility] 06/24/2024 9:47 PM CDT Can be drawn anytime 06/24-06/27 Mauricio Izquierdo MD LAB BLOOD ORDER DL Final Result Performing Organization Address [facility] de Phone Number MARCELATISH ALVAREZ [address] [place] [address] * IgG (06/24/2024 12:00 PM CDT) [facility] Immunoglobulin G 980 700 - 1,600 mg/dL Blood 06/24/2024 12:0 0 PM CDT 06/24/2024 9:11 PM CDT [facility][1] 06/24/2024 9:47 PM CDT Can be drawn anytime 06/24-06/27 Mauricio Izquierdo MD LAB BLOOD ORDER DL Final Result Performing Organization Address [facility] de Phone Number SHEILA ALVAREZ [address] [place] [address] * Beta 2 microglobulin, serum (06/24/2024 12:00 PM CDT) [facility] Beta 2 Microglobulin, Serum 2.40 1.00 - 2.50 mg/L Comment: Interpretive Data The Holly Beta-2 microglobulin assay procedure was used. Results from different manufacturers or methods may not be comparable. Serial testing should be performed using the same method. Testing performed by: [facility], [address] [facility], [place]., [address] Blood 06/24/2024 12:0 0 PM CDT 06/25/2024 10:01 AM CDT Narrative [facility] - 06/25/2024 10:30 AM CDT Can be drawn anytime 06/24-06/27 us Mauricio Izquierdo MD LAB BLOOD ORDER DL Final Result [facility] [address] [place] [address] * Comprehensive metabolic panel (06/24/2024 12:00 PM CDT) Sodium 143 135 - 145 mmol/L Potassium, pl 4.1 3.3 - 4.9 mmol/L [facility] Chloride 104 97 - 110 mmol/L [facility] CO2 25 22 - 32 mmol/L [facility] Anion gap 14 2 - 15 mmol/L [facility] BUN 21 6 - 25 mg/dL [facility] Creatinine 0.95 0.60 - 1.10 mg/dL [facility] Glucose 100 70 - 199 mg/dL [facility] Comment: Interpretive Data Fasting glucose >/= 126 mg/dl is diagnostic for diabetes. Fasting is defined as no caloric intake for at least 8 hours. Fasting glucose between 100 mg/dl to 125 mg/dl is diagnostic of prediabetes. In a patient with classic symptoms of hyperglycemia or hyperglycemic crisis, a random glucose >/= 200 mg/dl is diagnostic for diabetes. In the absence of unequivocal hyperglycemia, results should be confirmed by repeat testing. The classification and Diagnosis of Diabetes Diabetes Care 202; 46: S19-S40. Current interpretive data was last revised 2022. Calcium 9.9 8.5 - 10.3 mg/dL [facility] Bilirubin, total 0.3 0.1 - 1.2 mg/dL [facility] Protein, pl 7.9 6.5 - 8.5 g/dL [facility] Albumin 4.4 3.5 - 5.0 g/dL [facility] Alk phos 106 40 - 130 Units/L [facility] ALT 25 7 - 45 Units/L [facility] AST 33 10 - 45 Units/L [facility] Blood 06/24/2024 12:0 0 PM CDT 06/24/2024 9:11 PM CDT Narrative [facility] - 06/24/2024 9:46 PM CDT Can be drawn anytime 06/24-06/27 us Mauricio Izquierdo MD LAB BLOOD [place] [address] [address] Department [place] [address] * Screening Mammogram Bilateral W Faraz (02/13/2024 11:22 AM DISPUTE RESOLUTION SPECIALIST) Anatomical Region Laterality Modality Breast Bilateral Mammography Narrative 02/14/2024 11:41 AM DISPUTE RESOLUTION SPECIALIST Mammogram Technique: Bilateral Digital Breast Tomosynthesis, Bilateral C-view 2D Screening mammogram. Views obtained: bilateral craniocaudal and bilateral mediolateral oblique. Computer Aided Detection was performed. Mammogram Findings: The present examination has been compared to prior imaging studies performed at [facility] on 12/08/2020, 12/14/2021 and 02/07/2023. There are scattered areas of fibroglandular density. There is no suspicious abnormality in either breast. Impression: There is no mammographic evidence of malignancy. Annual screening mammography is recommended. OVERALL FINAL ASSESSMENT: BI-RADS CATEGORY 1: Negative. Procedure Note Kendra Hernandez MD - 02/14/2024 Mammogram Technique: Bilateral Digital Breast Tomosynthesis, Bilateral C-view 2D Screening mammogram. Views obtained: bilateral craniocaudal and bilateral mediolateral oblique. Computer Aided Detection was performed. Mammogram Findings: The present examination has been compared to prior imaging studies performed at [facility] on 12/08/2020, 12/14/2021 and 02/07/2023. There are scattered areas of fibroglandular density. There is no suspicious abnormality in either breast. Impression: There is no mammographic evidence of malignancy. Annual screening mammography is recommended. OVERALL FINAL ASSESSMENT: BI-RADS CATEGORY 1: Negative. Kay Acevedo NP IMG MAMMO PROCEDURES Fin al Result * Hepatitis C antibody Blood (04/18/2023 1:30 PM DISPUTE RESOLUTION SPECIALIST) Hep C Ab Nonreactive Nonreactive SHEILA ALVAREZ Comment: Interpretive Data Nonreactive: Antibodies to HCV not detected. Does NOT exclude the possibility of recent exposure to HCV. Equivocal: Equivocal for HCV antibodies. Supplemental molecular testing will be automatically performed to determine infection status in accordance with current CDC screening recommendations. Reactive: Positive for HCV antibodies. This may represent current or past HCV infection. Supplemental molecular testing will be automatically performed to determine current infection status in accordance with current CDC screening recommendations. Interpretive data was last revised on 2019. Blood 04/18/2023 1:30 PM DISPUTE RESOLUTION SPECIALIST 04/18/2023 8:12 PM DISPUTE RESOLUTION SPECIALIST Alice Lao NP LAB MICROBIOLOGY - GENERAL ORDER DL Final Result SHEILA [address] Department of Laboratories [place] [id number] * Dexa Axial and Forearm Bone Density Scan (02/07/2023) Anatomical Region Laterality Modality Wrist, Body N/A Radiographic Luz Elena ging Desean Dorman MD IMG DXA PROCEDURES Final Result * COLONOSCOPY (01/26/2022 8:07 AM DISPUTE RESOLUTION SPECIALIST) Anatomical Region Laterality Modality Other Narrative Procedure Note Nel Cortez MD - 01/26/2022 8:07 AM CST ENDOSCOPY LAB Patient Name: Elaine Smith Procedure Date: 01/26/2022 8:07 AM Date of : 1955 Admit Type: Outpatient Age: 66 Gender: Female Attending MD: Nel Cortez M.D. Room: [facility] ENDOSCOPY ROOM 01 Note Status: Finalized Procedure: Colonoscopy Indications: High risk colon cancer surveillance: Personalhistory of colonic polyps, Last colonoscopy: December 2018 Providers: Nel Cortez M.D. Referring MD: Nel Cortez M.D. Medicines: Monitored Anesthesia Care Complications: No immediate complications. Estimated Blood Loss: Estimated blood loss: none. Procedure: Pre-Anesthesia Assessment: - Prior to the procedure, a History and Physicalwas performed, and patient medications, allergies and sensitivities were reviewed. The patient'stolerance of previous anesthesia was reviewed. The benefits, risks and alternatives of theprocedure and sedation were discussed and informed consentwas obtained. All questions were answered. Please referto the signed informed consent document in the medical record. The scope was passed under direct vision.The [id number] was introduced through the anusand advanced to the cecum, identified by appendiceal orifice and ileocecal valve. The colonoscopy was performed without difficulty. Abdominal pressurewas utilized. The patient tolerated the procedure well. The quality of the bowel preparation was evaluated using the BBPS ([place] Bowel Preparation Scale)with scores of: Right Colon = 2 (minor amount ofresidual staining, small fragments of stool and/or opaque liquid, but mucosa seen well), Transverse Colon = 3 (entire mucosa seen well with no residual staining, small fragments of stool or opaque liquid) and Left Colon = 3 (entire mucosa seen well with no residual staining, small fragments of stool or opaqueliquid). The total BBPS score equals 8. The quality of the bowel preparation was good. The bowel preparationused was SUTAB via split dose instruction. Findings: The exam was otherwise without abnormality on direct and retroflexion views. Impression: - The examination was otherwise normal on directand retroflexion views. - No specimens collected. Recommendation: - The patient will be observed post-procedure,until all discharge criteria are met. - Repeat colonoscopy in 5 years for surveillance. - Contact Information: During normal business hours - [facility] [place] Coordinator: [phone] After hours, evening, nights, weekends and holidays- Please call the hospital polishing machine operator helper at and ask for the GI fellow high school physical education teacher. - . Attending Participation: I personally performed the entire procedure. Electronically Signed By: Nel Cortez M.D. Nel Cortez M.D. 01/26/2022 8:29:30 AM Number of Addenda: 0 Note Initiated On: 01/26/2022 8:07 AM Nel Cortez MD ENDOSCOPY PROCEDURES Fin al Result from Last 3 Months or Most Recently Relevant to Health Maintenance Insurance [facility] MEDICARE ADVANTAGE [facility] Address: [address] [address] [place] [address] [facility] MEDICARE ADVANTAGE [facility] Address: [address] [address] [place] [address] [employer] MEDICARE ADVANTAGE [facility] Address: [address] [address] [place] [address] Advance Directives For more information, please contact: [phone] * Full Code (Latest Code Status on File) Date Activated Date Inactivated Comments 01/26/2022 7:04 AM 01/26/2022 1:13 PM * Full Code Date Activated Date Inactivated Comments 01/12/2020 1:37 PM 01/13/2020 1:36 PM * Full Code Date Activated Date Inactivated Comments 12/31/2018 10:58 AM 12/31/2018 5:55 PM * Full Code Date Activated Date Inactivated Comments 03/24/2018 12:47 PM 03/28/2018 2:54 PM * Full Code Date Activated Date Inactivated Comments 10/02/2017 8:27 AM 10/02/2017 12:12 PM Care Teams Golf Ball Marker Relationship Specialty Start Date End Date Alice Lao NP [address] [place] [address] PCP - General Family Medicine 03/29/23 Mauricio Izquierdo MD Medical Oncologist/Coffee Shop Aide Medical Oncology 05/05/20 Hyacinth Sargent NP Nurse Practitioner Medical Oncology 05/05/20 Deyvi Ahuja MD [facility] [place] [address] Referring Physician Otolaryngology 01/24/21 Narciso Cueva MD [address] [facility] [address] [place] [address] Referring Physician Dermatology 03/29/23 Nel Cortez MD [address] [place] [address] Referring Physician Gastroenterology 03/29/23 [place] [address] [facility] [address] [place] [address] Consulting Physician Endocrinology 03/29/23 unknown name Neurology 03/29/23
--- OUTSIDE RECORDS SUMMARY | 2024-09-08 14:06 | XMS_ITS | Clinical Summary ---
Author Organization [facility] Address [address] [place] [address] Care Team Providers Care Institutional Custodian Name Role Phone Mauricio Izquierdo MD Unavailable Hyacinth Sargent NP Unavailable Deyvi Ahuja MD Unavailable Alice Lao NP Primary Care Provider [phone] Narciso Cueva MD Unavailable Nel Cortez MD Unavailable Desean De Dios MD Unavailable [phone] Allergies No known active allergies Medications aspirin [...] 03/16/2022 Assessment & Plan (04/03/2024 10:03 AM HAND PACKAGER): Stable on Venlafaxine Morbid (severe) obesity due to excess calories 0 03/16/2022 Class 3 severe obesity due t o excess calories with serious comorbidity and body mass index (BMI) of 40.0 to 44.9 in adult 03/16/2022 Assessment & Plan (04/03/2024 10:04 AM HAND PACKAGER): Healthy, low carbohydrate lifestyle and exercise for [...] (11/29/2021): Added automatically from request for surgery [id number] History of rectal polyps 11/29/2021 Overview (11/29/2021): Added automatically from request for surgery [id number] Drug-induced polyneuropathy 09/07/2021 Age-related osteoporosis wit hout current pathological fracture 09/07/2021 Memory loss 09/07/2021 Recurrent major depression 09/07/2021 Assessment & Plan (09/27/2023 9:51 AM CDT): Stable on Venlafaxine 150 mg daily. Assessment & Plan (03/29/2023 2:43 PM HAND PACKAGER): Stable on Venlafaxine 150 mg daily. 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 Ernst and Dr. 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 Advised to do low oxalate diet and advise to take atleast 800-1200 mg oral calcium intake Advised good oral hydration Advised to see assignment officer Pt might benefit from us of Thiazide diuretics Amyloidosis 12/05/2017 Assessment & Plan (03/25/2018 10:46 AM HAND PACKAGER): -Dx'd 06/2016 via left thumbnail and abdominal [...] (08/22/2017): Added automatically from request for surgery [id number] H/O autologous stem cell transplant 01/26/2017 Pulmonary embolism 12/12/2016 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 Assessment & Plan (09/27/2023 9:48 AM CDT): BP stable in office, continuing current regimen Vitamin D deficiency 12/24/2013 Assessment & Plan (09/08/2019 12:41 PM CDT): On vitamin D 3 50,000 units oral weekly Assessment & Plan (03/11/2019 11:48 AM HAND PACKAGER): changed to vitamin D 3 50,000 units [...] 12/18/2012 Assessment & Plan (04/03/2024 10:02 AM HAND PACKAGER): Continues Crestor, no side effects noted. Updated lipid panel ordered. Assessment & Plan (09/27/2023 9:49 AM CDT): Continues Crestor (has been out rx as of late though), no side effects noted. Updated lipid panel ordered. Assessment & Plan (03/29/2023 2:44 PM HAND PACKAGER): Continues Crestor, no side effects noted. Liver [...] labs Assessment & Plan (03/11/2019 11:49 AM HAND PACKAGER): Recent TSH WNL Advise to continue current Levothyroxine medication dose Assessment & Plan (11/06/2018 7:31 AM CDT): Recent TSH WNL Advise to continue current Levothyroxine medication dose Chronic insomnia 12/18/2012 Multiple myeloma 12/18/2012 Resolved Problems Problem Noted Date Diagnosed Date Resolved Date Hyperparathyroidism 01/08/2020 01/07/20 24 Overview (01/08/2020): Added automatically from request for surgery [id number] Assessment & Plan (01/22/2020 9:36 AM HAND PACKAGER): S/p removal of right superior parathyroid adenoma on 01/12/20. Morbid obesity with BMI of 40.0-44.9, adult 03/11/2019 09/27/2023 Assessment & Plan (03/11/2019 11:50 AM HAND PACKAGER): Chronic, worsening Discussed about healthy lifestyle habits [...] scan Assessment & Plan (03/11/2019 11:48 AM HAND PACKAGER): Pt has slightly high PTH intact levels [...] on it. Sepsis due to gram-negative UTI (CMS/HCC) 03/25/2018 09/07/2021 Assessment & Plan (03/25/2018 10:29 AM HAND PACKAGER): -s/p R URS, LL, stent placement with bladder biopsy on 03/22. -Admitted 03/24 with fever, chills. -Kidney stone cx from 03/22 with Enterococcus Faecalis. Urine Cx from 03/24 with GNB, speciation pending. -On Meropenem, Vancomycin -Urology following UTI (urinary tract infection) 03/25/2018 09/07/2021 Assessment & Plan (03/26/2018 11:04 AM HAND PACKAGER): -History of recurrent UTI; now with Citerobacter [...] CRP elevated 08/11/2014 09/07/2021 Depression 04/08/2013 09/07/2021 Encounters Date Type Department Care Team Description 09/04/2024 Orders Only [facility] Bone Marrow Transplant [address] [facility] [address] [place] [address] Vaishnavi Perez RN 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) 09/01/2024 E-Visit [facility] Primary Care at [address] [phone] Alice Lao, REGI Your Medications 09/01/2024 Orders Only [facility] Bone Marrow Transplant [address] [place] [phone] Vaishnavi Perez RN 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) 08/28/2024 Orders Only [facility] Bone Marrow Transplant [address] [place] [phone] Mauricio Garza MD 08/28/2024 Orders Only [facility] Bone Marrow Transplant [address] [place] [address] [address] [place] [phone] Mauricio Garza MD 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) 08/20/2024 12:03 PM CDT - 08/20/2024 11:59 PM CDT Hospital Encounter [address] [phone] Discharge Disposition: Discharge to home or self care 08/20/2024 11:45 AM CDT Lab [facility] Outpatient Lab at [address] [phone] Diabetes mellitus screening (Primary Dx); Cerebral infarction (HCC); Vitamin D deficiency 08/20/2024 11:38 AM CDT - 08/20/2024 11:59 PM CDT Hospital Encounter [address] [id number] Primary amyloidosis of light chain type (HCC); Diabetes mellitus screening; Cerebral infarction (HCC); Vitamin D deficiency Discharge Disposition: Discharge to home or self care 08/19/2024 Orders Only [facility] Bone Marrow Transplant [address] [place] [phone] Mauricio Garza MD Primary amyloidosis of light chain type (HCC) 08/11/2024 Orders Only [facility] Primary Care at [address] [phone] Alice Lao NP 07/24/2024 Results Follow-Up [facility] Primary Care at [address] [phone] Alice Lao, REGI Urine culture Urine, clean voided 07/22/2024 1:00 PM CDT - 07/22/2024 11:59 PM CDT Hospital Encounter [facility] [address] [place] [address] Burning with urination; Abdominal pain; Right flank pain; Urinary tract infection with hematuria, site unspecified Discharge Disposition: Discharge to home or self care 07/22/2024 11:38 AM CDT - 07/22/2024 11:59 PM CDT Hospital Encounter [address] [phone] Burning with urination Discharge Disposition: Discharge to home or self care 07/22/2024 11:30 AM CDT Office Visit [facility] Primary Care at [address] [phone] Alice Lao NP Right flank pain (Primary Dx); Burning with urination; Abdominal pain; Urinary tract infection with hematuria, site unspecified 07/22/2024 Results Follow-Up [facility] Primary Care at [address] [phone] Alice Lao NP CT Abdomen Pelvis WO Contrast 07/11/2024 Telephone [facility] Oncology [address] [place] [phone] Chiqui Toribio 07/09/2024 Results Follow-Up [facility] Primary Care at [address] [phone] Alice Lao NP Urinalysis reflex to microscopic and culture Urine, bladder, Urinalysis, microscopic only, Urine culture Urine, bladder 07/08/2024 8:30 AM CDT Lab [facility] Outpatient Lab at [address] [phone] 07/08/2024 8:26 AM CDT - 07/08/2024 11:59 PM CDT Hospital Encounter [address] [phone] Urinary symptom or sign Discharge Disposition: Discharge to home or self care 06/26/2024 Orders Only [facility] Primary Care at [address] [phone] Alice Lao NP 06/26/2024 Orders Only [facility] Primary Care at [address] [phone] Alice Lao NP 06/24/2024 9:00 PM CDT - 06/24/2024 11:59 PM CDT Hospital Encounter [facility] [address] [place] [address] Primary amyloidosis of light chain type (HCC) Discharge Disposition: Discharge to home or self care 06/24/2024 12:45 PM CDT Lab [facility] Outpatient Lab at [address] [phone] STUART (generalized anxiety disorder) (Primary Dx); Hyperlipidemia 06/23/2024 Orders Only [facility] Bone Marrow Transplant [address] [facility] [address] [place] [address] Mauricio Garza MD Primary amyloidosis of light chain type (HCC) from Last 3 Months Immunizations Immunization Administration Dates Next Due Influenza, [...] Patient Refused),03/12/2020(Deferred: Patient Refused),12/29/2014 ZOSTER Recombinant 04/12/2018,12/14/2017 Surgical History Surgery Date Site/Laterality Comments LAPAROSCOPIC GASTRIC BANDING 03/12/2007 - 03/11/2008 ESOPHAGOGASTRODUODENOSCOPY SECTION 03/12/1985 - 03/11/1986 INCONTINENCE SURGERY 03/12/2008 - 03/11/2009 CHOLECYSTECTOMY OPEN 03/12/1983 - 03/11/1984 APPENDECTOMY 03/12/1981 - 03/11/1982 COCCYGECTOMY PORT REMOVAL 08/30/2018 N/A CYSTOSCOPY W/ LASER LITHOTRIPSY 03/12/2018 - 04/11/2018 COLONOSCOPY 03/12/2017 - 03/11/2018 bx proven amyloid UPPER GASTROINTESTINAL ENDOSCOPY PARATHYROIDECTOMY 03/12/2019 - 03/11/2020 Right EAR SURGERY Left BARIATRIC SURGERY 2007 Medical History Medical History Date Comments Nail dystrophy Trachyonychia - (Added by TW Conv) MGUS (monoclonal gammopathy of unknown significance) Hx of colonic polyps Dyslipidemia Hypothyroidism Fissure, anal Amyloidosis (HCC) 2017 chemotherapy a nd Bone Marrow Transplant 2016 (tissue, colon, lungs) Anal fissure Anal abscess Constipation Fecal incontinence Rectal bleeding Rectal pain Diarrhea Colon polyps Depression Hyperlipidemia 12/18/2012 History of nephrolithiasis Hypertension Primary hyperparathyroidism 05/24/2018 TIA (transient ischemic attack) Osteoporosis Cancer (HCC) amyloidosis Kidney stone Hyperparathyroidism 01/08/2020 Added automa tically from request for surgery [id number] Family History Medical History Relation Name Comments Brain cancer Brother Heart attack Father ezequiel Myocardial infa rction; Cause of : Myocardial infarction Arthritis Mother melissa Cancer Mother melissa Heart failure Mother melissa Congestive hea rt failure; Pacemaker Mother melissa Breast cancer Sister Family history of malignant neoplasm of breast - (Added by TW Conv) Relation Name Status Comments Brother (Age 55) Father ezequiel (Age 54) Mother melissa Alive Sister Alive Social History Tobacco Use Types Packs/Day Years [...] on file Legal Sex Female 3:14 AM HAND PACKAGER Gender Identity Female 01/08/2020 7:01 AM CDT Sexual Orientation Not on file Obstetrics History Last Filed Vital Signs Vital Sign Reading Time Taken Comments Blood Pressure 112/64 07/22/2024 11:27 AM CDT Pulse 89 07/22/2024 11:27 AM CDT Temperature 36.5 C (97.7 F) 07/22/2024 11:27 AM CDT Respiratory Rate 14 04/18/2024 3:51 PM HAND PACKAGER Oxygen Saturation 95% 07/22/2024 11:27 AM CDT Inhaled Oxygen Concentration - - Weight 108 kg (238 lb) 07/22/2024 11:27 AM CDT Height 162.6 cm (5' 4) 07/22/2024 11:27 AM CDT Body Mass Index 40.85 07/22/2024 11:27 AM CDT Plan of Treatment Health Maintenance Due Date Last Done Comments DTaP/Tdap/Td Vaccine (1 - Tdap) 11/24/1966 Hepatitis B Screening 11/24/1973 Pneumococcal vaccine 65+ (1 of 2 - PCV) 11/24/1974 Well Visit 65+ 11/24/2020 Covid-19 Vaccine (4 - 2023-2 5 season) 2023 11/24/2020, 05/19/2020, 04/21/2020 Influenza Vaccine (Season Ended) 2024 02/20/2022, 02/15/2022, 01/13/2020, Additional history exists Osteoporosis Screening-Bone Density Scan 02/07/2025 02/07/2023, 10/07/2019 Breast Cancer Screening-Mammogram 02/12/2025 02/13/2024, 02/07/2023, 12/14/2021, Additional history exists Depression Screening 07/22/2025 07/22/2024, 04/03/2024, 09/27/2023, Additional history exists Fall Risk Assessment 07/22/2025 07/22/2024, 09/27/2023, 03/29/2023, Additional history exists Colon Cancer Screening-Colonoscopy 01/27/2032 01/26/2022, 12/31/2018, 10/02/2017 Zoster Vaccine Completed 04/12/2018, 12/14/2017 Colon Cancer Screening-CT Colonography Discontinued 01/26/2022, 12/31/2018, 10/02/2017 Colon Cancer Screening-DNA Stool Discontinued 01/26/2022, 12/31/2018, 10/02/2017 Colon Cancer Screening-FIT Discontinued 01/26, 12/31/2018, 10/02/2017 Colon Cancer Screening-Sigmoidoscopy Discontinued 01/26/2022, 12/31/2018, 10/02/2017 Hepatitis C Screening Completed 04/18/2023 Medical Devices Explanted Type Area Manager Web Device Identifier Shelf Expiration Date Model / Serial / Lot [employer] [id number] Inlay [place] 6fr 24cm Pusher Fluoro Marker Atraumatic Insertion Latex Free - [id number] - [id number] Implanted:Qty: 1 on 03/22/2018 by Vinny Silva MD at [facility] Explanted:Qty: 1 on 04/16/2018 Stent Right: Ureter [employer] [id number] 11/01/2022 [id number] / [id number] / [id number] Description:Stent noted on C T on 03/25. [...] Read Routine (OP Routine) 02/13/2024 11:22 AM HAND PACKAGER Family history of breast cancer Encounter for screening mammogram for malignant neoplasm of breast HEPATITIS C ANTIBODY Routine 04/18/2023 1:30 PM HAND PACKAGER Encounter for hepatitis C screening test for low risk patient DEXA AXIAL AND FOREARM BONE DENSITY SCAN Schedule Routine, Read Routine (OP Routine) 02/07/2023 Localized osteoporosis without current pathological fracture COLONOSCOPY 01/26/2022 8:07 AM HAND PACKAGER from Last 3 Months or Most Recently [...] BLOOD ORDER DL Final Result [facility] ALV[facility] [address] Department [place] [address] * Immunotyping, serum with interpretation (08/20/2024 11:38 AM CDT) Immunofixation See Cl Path Rpt Blood 08/20/2024 11:3 8 AM CDT 08/20/2024 6:04 PM CDT Narrative [facility] AL[facility]Z - 08/26/2024 11:18 AM CDT Reflex Immunotyping, Ser Mauricio Izquierdo MD LAB BLOOD ORDER DL Final Result Performing Organization Address City/[facility]/ZIP Co de Phone Number SHEILA ALVAREZ [address] [employer] [place], [place] [phone] * eGFR (08/20/2024 11:38 AM CDT) eGFR [...] 8 AM CDT 08/20/2024 6:09 PM CDT Mauricio Izquierdo MD LAB BLOOD ORDER DL Final Result [facility] ALVAREZ [address] [place] [address] * Differential, auto (08/20/2024 11:38 AM CDT) Neutrophil abs 6.08 1.50 - 6.50 K/cumm Imm gran abs 0.02 0.00 - 0.10 K/cumm [facility] Lymphocyte abs 1.84 0.80 - 3.30 K/cumm [facility] Monocyte abs 0.61 0.20 - 0.80 K/cumm [facility] Eosinophil abs 0.20 0.00 - 0.50 K/cumm [facility] Basophil abs 0.05 0.00 - 0.10 K/cumm [facility] Neutrophil pct 69.1 % [facility] Comment: Interpretive Data Percent cell count reference ranges are not reported, since discordance with absolute values may lead to misinterpretation of CBC data. Current Interpretive Data was last revised on 2017. Imm gran pct 0.2 % [facility] Comment: Interpretive Data Percent cell count reference ranges are not reported, since discordance with absolute values may lead to misinterpretation of CBC data. Current Interpretive Data was last revised on 2017. Lymphocyte pct 20.9 % [facility] Comment: Interpretive Data Percent cell count reference ranges are not reported, since discordance with absolute values may lead to misinterpretation of CBC data. Current Interpretive Data was last revised on 2017. Monocyte pct 6.9 % [facility] Comment: Interpretive Data Percent cell count reference ranges are not reported, since discordance with absolute values may lead to misinterpretation of CBC data. Current Interpretive Data was last revised on 2017. Eosinophil pct 2.3 % [facility] Comment: Interpretive Data Percent cell count reference ranges are not reported, since discordance with absolute values may lead to misinterpretation of CBC data. Current Interpretive Data was last revised on 2017. Basophil pct 0.6 % [facility] Comment: Interpretive Data Percent cell count reference ranges are not reported, since discordance with absolute values may lead to misinterpretation of CBC data. Current Interpretive Data was last revised on 2017. Blood 08/20/2024 11:3 8 AM CDT 08/20/2024 6:04 PM CDT us Mauricio Izquierdo MD LAB BLOOD ORDER DL Final Result [facility] ALVAREZ [address] Department [place] [address] * (ABNORMAL) Immunoglobulin free light chains (08/20/2024 11:38 AM CDT) Pathologist [facility] Lattimer/Lambda ratio 0.20(L) 0.26 - 1.65 Lattimer free light chain 1.14 0.33 - 1.94 mg/dL SHE[facility]A Comment: Interpretive Data The Holly Ig Lattimer FLC assay procedure was used. Results from [...] BLOOD ORDER DL Final Result [facility] ALVAREZ [address] [place] [address] * Pro B-type natriuretic peptide (08/20/2024 11:38 AM CDT) Pathologist [facility] NT-proBNP 49 <=300 pg/mL Comment: Interpretive Comments: [...] Heart J. 2006:27:330-337. 2. Josey RW, Isael SANDERS. J. AM Kushal Cardiol: Cardiovasc Imag. 2009;2: 216- 225. Interpretive Data Last Revised Date: 2017. Blood 08/20/2024 11:3 8 AM CDT 08/20/2024 6:04 PM CDT Mauricio Izquierdo MD LAB BLOOD ORDER DL Final Result [facility] [address] Department [place] [address] * (ABNORMAL) CBC with auto differential (08/20/2024 11:38 AM CDT) WBC 8.80 3.80 - 9.90 K/cumm Hgb 13.6 11.9 - 15.5 g/dL [facility] Hct 43.2 35.6 - 45.5 % [facility] Plt 250 150 - 400 K/cumm [facility] MPV 9.8 9.1 - 12.3 fL [facility] RBC 5.05 3.90 - 5.20 M/cumm [facility] MCV 85.5 81.3 - 96.4 fL [facility] MCH 26.9(L) 27.1 - 33.3 pg [facility] MCHC 31.5(L) 32.3 - 35.7 g/dL [facility] RDW CV 14.8 11.1 - 14.9 % [facility] RDW SD 45.8 35.7 - 48.1 fL [facility] NRBC abs 0.00 0.00 - 0.01 K/cumm [facility] Blood 08/20/2024 11:3 8 AM CDT 08/20/2024 6:04 PM CDT Mauricio Izquierdo MD LAB BLOOD ORDER DL Final Result Performing Organization Address [facility] Co de Phone Number [facility]ILA ALVAREZ [address] [place] [address] * Methylmalonic acid, serum (08/20/2024 11:38 AM CDT) MMA 0.12 <=0.40 nmol/mL [facility] Comment: ADDITIONAL INFORMATION This test was developed and its performance characteristics determined by [facility] in a manner consistent with CLIA requirements. This test has not been cleared or approved by the U.S. Food and Drug Administration. Test Performed by: [facility] [place] [address] English As A Second Language Instructor: Bartolo Still Ph.D.; CLIA# [id number] Blood Venous blood specimen / Unknown 08/20/2024 11:38 AM CDT 08/20/2024 6:04 PM CDT Brittany Hernandez MD LAB BLOOD ORDERABLES Final Resu lt Performing Organization Address City/[facility] Co de Phone Number [facility] ALVAREZ [address] [place] [address] [facility] * Vitamin D 25 hydroxy (08/20/2024 11:38 AM CDT) Vitamin D 25-OH 43 30 - 80 ng/mL Blood 08/20/2024 11:3 8 AM CDT 08/20/2024 6:04 PM CDT Narrative [facility] AL[facility]Z - 08/20/2024 6:49 PM CDT brittany hernandez Brittany Hernandez MD LAB BLOOD ORDERABLES Final Resu lt Performing Organization Address [facility] Co de Phone Number [facility] ALVAREZ [address] [place] [address] * aPTT (08/20/2024 11:38 AM CDT) aPTT 33 28 - 38 sec Comment: Interpretive Data Heparin therapeutic range: 66.0 - 100.0 seconds. Range based on correlation with therapeutic heparin activity range of 0.3 - 0.7 Units/mL. Current interpretive data was last revised on 2022. Blood 08/20/2024 11:3 8 AM CDT 08/20/2024 6:04 PM CDT Mauricio Izquierdo MD LAB BLOOD ORDER DL Final Result Performing Organization Address [facility] de Phone Number [facility]ILA ALVAREZ [address] [facility] [place] [address] * Protime-INR (08/20/2024 11:38 AM CDT) PT 12.1 9.7 - 13.0 sec INR 1.12 0.90 - 1.20 [facility] Comment: Interpretive data Oral anticoagulant therapeutic ranges: Venous thromboembolism prophylaxis or treatment: 2.0-3.0 CARDIOLOGY Standard range: 2.0-3.0 High-intensity range: 2.5-3.5 Refer to indication-specific guidelines for appropriate target ranges for prosthetic heart valve replacement. Current interpretive data was last revised on 2019. Blood 08/20/2024 11:3 8 AM CDT 08/20/2024 6:04 PM CDT Mauricio Izquierdo MD LAB BLOOD ORDER DL Final Result Performing Organization Address [facility] Co de Phone Number SHEILA ALVAREZ [address] [facility] [place] [address] * Uric acid (08/20/2024 11:38 AM CDT) [facility] Uric acid 5.7 2.5 - 7.0 mg/dL Blood 08/20/2024 11:3 8 AM CDT 08/20/2024 6:04 PM CDT Mauricio Izquierdo MD LAB BLOOD ORDER DL Final Result Performing Organization Address City/[facility]/ZIP Co de Phone Number SHEILA ALVAREZ [address] [place] [address] * (ABNORMAL) Protein electrophoresis with reflex, serum with interpretation (08/20/2024 11:38 AM CDT) [facility] Protein, sr 7.6 6.2 - 8.2 g/dL Albumin 4.3 3.2 - 5.0 g/dL [facility] Alpha-1 globulin 0.4 0.2 - 0.4 g/dL [facility] Alpha-2 globulin 1.0 0.5 - 1.0 g/dL [facility] Beta-1 globulin 0.5 0.3 - 0.6 g/dL [facility] Beta-2 globulin 1.0(H) 0.2 - 0.6 g/dL [facility] Gamma globulin 0.5 0.5 - 1.7 g/dL [facility] Rstr Pk Beta-2 0.9(H) 0.0 - 0.0 g/dL [facility] SPEP interp See Cl Path Rpt [facility] Immunotyping See Immunotyping Results [facility] Blood 08/20/2024 11:3 8 AM CDT 08/20/2024 6:04 PM CDT Mauricio Izquierdo MD LAB BLOOD ORDER DL Final Result Performing Organization Address City/[facility]/ZIP Co de Phone Number SHEILA ALVAREZ [address] Department of [employer] [place], [place] [id number] * Lactate dehydrogenase (LD) (08/20/2024 11:38 AM CDT) [facility] Lactate dehydrogenase (LDH) 169 100 - 250 Units/L Blood 08/20/2024 11:3 8 AM CDT 08/20/2024 6:04 PM CDT Result [facility] Mauricio Izquierdo MD LAB BLOOD ORDER DL Final Result [facility] [address] [place] [address] * Homocysteine (08/20/2024 11:38 AM CDT) Pathologist [facility] Homocysteine 8.7 0.0 - 15.0 mcmol/L Comment:Testing performed by : [facility], [address] [place] [address]., [address] Blood Venous blood specimen / Unknown 08/20/2024 11:38 AM CDT 08/21/2024 10:02 AM CDT Result [facility] Brittany Hernandez MD LAB BLOOD ORDERABLES Final Resu lt Performing Organization Address [facility] Co de Phone Number SHEILA [address] [place] [address] * (ABNORMAL) Hemoglobin A1c (08/20/2024 11:38 AM CDT) Pathologist [facility] Hgb A1C 5.8(H) 4.0 - 5.6 % Estimated Average Glucose 120 mg/dL SHEILA ALVAREZ Comment: The ADA recommends reporting an estimated Average Glucose (eAG) with all Hemoglobin A1c results using the equation derived from a study of 507 normal and diabetic adults. Minority populations were underrepresented and children were not included. (Diabetes Care 31:9784-6367, 2008). The eAG is not equivalent to a fasting glucose. Blood Venous blood specimen / Unknown 08/20/2024 11:38 AM CDT 08/20/2024 6:04 PM CDT Result [facility] Brittany Hernandez MD LAB BLOOD ORDERABLES Final Resu lt SHEILA ALVAREZ [address] [place] [address] * IgA (08/20/2024 11:38 AM CDT) Pathologist [facility] Immunoglobulin A 132 70 - 400 mg/dL Blood 08/20/2024 11:3 8 AM CDT 08/20/2024 6:04 PM CDT Mauricio Izquierdo MD LAB BLOOD ORDER DL Final Result Performing Organization Address [facility] de Phone Number SHEILA ALVAREZ [address] [place] [address] * (ABNORMAL) IgM (08/20/2024 11:38 AM CDT) Pathologist [facility] Immunoglobulin M 30(L) 40 - 150 mg/dL Blood 08/20/2024 11:3 8 AM CDT 08/20/2024 6:04 PM CDT Mauricio Izquierdo MD LAB BLOOD ORDER DL Final Result Performing Organization Address [facility] Co de Phone Number SHEILA ALVAREZ [address] [place] [address] * IgG (08/20/2024 11:38 AM CDT) Pathologist [facility] Immunoglobulin G 961 700 - 1,600 mg/dL Blood 08/20/2024 11:3 8 AM CDT 08/20/2024 6:04 PM CDT Mauricio Izquierdo MD LAB BLOOD ORDER DL Final Result Performing Organization Address [facility] Co de Phone Number SHEILA ALVAREZ [address] [place] [address] * Folate (08/20/2024 11:38 AM CDT) [facility] Folic acid >20.0 >=5.0 ng/mL Comment:Hemolysis present. R esults may be affected. Blood 08/20/2024 11:3 8 AM CDT 08/20/2024 6:04 PM CDT Brittany Hernandez MD LAB BLOOD ORDERABLES Final Resu lt Performing Organization Address [facility] Co de Phone Number SHEILA ALVAREZ [address] [place] [address] * Vitamin B12 (08/20/2024 11:38 AM CDT) Vitamin B12 668 230 - 1,250 pg/mL Blood Venous blood specimen / Unknown 08/20/2024 11:38 AM CDT 08/20/2024 6:04 PM CDT Brittany Hernandez MD LAB BLOOD ORDERABLES Final Resu lt Performing Organization Address [facility] de Phone Number SHEILA ANTONIO [address] [place] [address] * Beta 2 microglobulin, serum (08/20/2024 11:38 AM CDT) Beta 2 Microglobulin, Serum 2.10 1.00 - 2.50 mg/L Comment: Interpretive Data The Holly Beta-2 microglobulin assay procedure was used. Results from different manufacturers or methods may not be comparable. Serial testing should be performed using the same method. Testing performed by: [facility], [address] [place]., [address] Blood 08/20/2024 11:3 8 AM CDT 08/21/2024 10:02 AM CDT Mauricio Izquierdo MD LAB BLOOD ORDER DL Final Result Performing Organization Address [facility] Co de Phone Number MARCELATISH [address] [place] [address] * Lipid panel (08/20/2024 11:38 AM CDT) [...] 3. Hany Dejesus et al. [place] Cardiol. 2020 July 10;5(5):540-548. doi: 10.1001/[email or web address].2020.0013 Current Interpretive Data was last revised on 2023. Non-HDL Cholesterol 94 mg/dL [facility]ER [facility] Comment: Interpretive Data Ages < or = [...] 11:38 AM CDT 08/20/2024 6:04 PM CDT us Brittany Hernandez MD LAB BLOOD ORDERABLES Final Resu lt SHEILA [address] Department [place] [address] * Comprehensive metabolic panel (08/20/2024 11:38 AM [...] ORDER DL Final Result Performing Organization Address City/State/[facility] Co de Phone Number [address] [place] [address] * Clinical pathology report (08/19/2024 11:38 AM CDT) Miscellaneous 08/19/2024 11: 38 AM CDT 08/21/2024 7:41 AM CDT Narrative 08/22/2024 12:55 PM CDT EPIC results best viewed via link to PDF [facility] Department of Pathology [address] [place] [id number] Final Report Note to Patients: This report [...] details. Patient Name: ELAINE SMITH [address]: [address] [place] [address] , [place] [address] Gender: F : 1955 (Age: 68) Service: Location: N : [id number] [facility] #: [id number] Patient Type: SPECIMEN Taken: 08/19/2024 Received: 08/21/2024 [...] determined by the Surgical Pathology Department at [facility] as part of an ongoing quality audit representative program and in compliance with federally mandated [...] characteristics determined by the Surgical Pathology Department [facility]. It has not been cleared or approved [...] Bertha Champion M.D. LC: KALEB Report ID: [id number] Reading Location: [id number] Procedure Note Jeannette Champion MD - 07/22/2024 [...] 4:10 PM - Electronically signed by Bertha MANUEL: KALEB Report ID: [id number] Reading Location: [id number] us Alice Lao SHIP [facility] IMG CT PROCEDURES Final Result * (ABNORMAL) Urine culture Urine, clean voided (07/22/2024 11:38 AM CDT) Report Final Report: Greater than or equal to 100,000 colonies/mL of Escherichia coli (.) Comment:Testing performed by : [facility], [address] [place]., [address] Organism ESCHERICHIA COLI SHEILA Urine, clean voided 07/22/2024 11:38 AM CDT 07/22/2024 7:48 PM CDT Narrative SHEILA - 07/25/2024 6:32 AM CDT Testing performed by [facility] Microbiology Laboratory ([phone]) Organism Antibiotic Method Susceptibility Escherichia coli Ampicillin [...] Escherichia coli Cefdinir INTERPRETATION Susceptible Alice Lao SHIP CEILER LAB MICROBIOLOGY - GENERAL ORDER DL Final Result SHEILA [address] [place] [address] * (ABNORMAL) POCT urinalysis dipstick (07/22/2024 11:36 AM CDT) Glucose, ur, POC Negative Negative Bilirubin, ur, POC Negative Negative Ketones, ur, POC Trace(A) Negative Specific Calhoun, POC 1.025 1.003 - 1.030 Blood, ur, POC Moderate(A) Negative pH, ur, POC 5.5 5.0 - 8.0 Protein, ur, POC 100.(A) Negative Urobilinogen, urine, POC 0.2 0.2 - 1.0 mg/dL Nitrite, ur, POC Positive(A) Negative Leukocytes, ur, POC Moderate(A) Negative Lot Number [id number] Urine 07/22/2024 11:3 6 AM CDT us Alice Lao NP POINT OF CARE TEST ORDERABLES Fi nal Result * (ABNORMAL) Urinalysis reflex to microscopic and culture Urine, bladder (07/08/2024 8:26 AM CDT) Color, ur Ann Yellow Clarity, ur Turbid(A) Clear [facility] Specific gravity, ur 1.022 1.003 - 1.030 [facility]ER [facility] pH, urine 6.0 [facility]ER [facility] Comment: Interpretive Data U rine pH is affected by diet, medications, systemic acid-base disturbances, and renal tubular function. pH may affect urinary stone formation. For example, urine pH below 6.0 may help reduce the tendency for calcium phosphate stones and pH greater than 6.0 may reduce the tendency for uric acid stone formation. Source: [facility] [employer] Current Interpretive Data was last revised on [...] Reflex to microscopic UA will be performed. CERNER Urine, bladder 07/08/2024 8: 26 AM CDT 07/08/2024 7:15 PM CDT us Alice Lao NP LAB MICROBIOLOGY - GENERAL ORDER DL Final Result [facility] [address] Department of Laboratories [place], [place] [id number] * (ABNORMAL) Urinalysis, microscopic only (07/08/2024 8:26 AM CDT) WBC, ur >50(A) 0 - 5 /HPF RBC, ur >50(A) 0 - 2 /HPF [facility] Epithelial cells, squamous, ur 1-5 0 - 5 /HPF [facility] Bacteria, ur Trace(A) [facility] Mucous, ur Present(A) [facility] Culture Reflex Comment Reflex to urine culture will be performed. [facility] Urine, bladder 07/08/2024 8: 26 AM CDT 07/08/2024 7:21 PM CDT us Alice Lao NP LAB URINE ORDERABLES Final Resul t Performing Organization Address [facility] Co de Phone Number SHEILA ALVAREZ [address] [place] [address] * (ABNORMAL) Urine culture Urine, bladder (07/08/2024 8:26 AM CDT) Report Final Report: Greater than or equal to 100,000 colonies/mL of Escherichia coli Plus growth of clinically insignificant bacterial juan carlos. (.) Comment:Testing performed by : [facility], [address] [place]., [address] Organism ESCHERICHIA COLI [facility] Organism PLUS GROWTH OF CLINICALLY INSIGNIFICANT JUAN CARLOS. [facility] Urine, bladder 07/08/2024 8: 26 AM CDT 07/08/2024 10:50 PM CDT Narrative CERNER - 07/11/2024 6:21 AM CDT Urine culture reflexed based upon urinalysis results. Testing performed by [facility] Microbiology Laboratory ([phone]) Organism Antibiotic Method Susceptibility Escherichia coli Ampicillin [...] ORDER DL Final Result Performing Organization Address City/[facility]/ZIP Co de Phone Number SHEILA ALVAREZ [address] [employer] [place], [place] [id number] * Troponin T high-sensitivity (06/24/2024 12:00 PM CDT) Trop T hs 13 <=14 ng/L Comment: Interpretive Data For further hscTnT resources including the diagnostic algorithm and an aid in interpretation, copy and paste this link: https://nrl.testcatalog.org/show/hsTrop Current Interpretive Data last revised 2020. Blood 06/24/2024 12:0 0 PM CDT 06/24/2024 9:11 PM CDT Narrative SHEILA ALVAREZ - 06/24/2024 9:46 PM CDT Can be drawn anytime 06/24-06/27 us Mauricio Izquierdo MD LAB BLOOD ORDER DL Edited Result - Final SHEILA [address] Department [place] [address] * Clinical pathology report (06/24/2024 12:00 PM CDT) Miscellaneous 06/24/2024 12: 00 PM CDT 06/26/2024 8:00 AM CDT Narrative 06/27/2024 3:23 PM CDT EPIC results best viewed via link to PDF [facility] Department of Pathology [address] [place] [address] Final Report Note to Patients: This report [...] the details. Patient Name: ELAINE SMITH Address: [facility], [place], [place] [address] Gender: F : 1955 (Age: 68) Service: Location: [facility] #: [id number] Patient Type: SPECIMEN Taken: 06/24/2024 Received: 06/26/2024 [...] determined by the Surgical Pathology Department at [facility] as part of an ongoing quality audit representative program and in compliance with federally mandated [...] characteristics determined by the Surgical Pathology Department [facility]. It has not been cleared or approved by the U. S. Food and Drug Administration. REPORT IMAGES AND SCANNED DOCUMENTS, IF INCLUDED, ONLY VIEWABLE IN PDF VERSION OF REPORTe o us Mauricio Izquierdo MD LAB PATHOLOGY O RDERABLES [...] LAB BLOOD ORDER DL Final Result SHEILA [address] [place] [address] * (ABNORMAL) Differential, auto (06/24/2024 12:00 PM CDT) Neutrophil abs 7.23(H) 1.50 - 6.50 K/cumm Imm gran abs 0.04 0.00 - 0.10 K/cumm [facility] Lymphocyte abs 2.09 0.80 - 3.30 K/cumm [facility] Monocyte abs 0.66 0.20 - 0.80 K/cumm [facility] Eosinophil abs 0.21 0.00 - 0.50 K/cumm [facility] Basophil abs 0.04 0.00 - 0.10 K/cumm [facility] Neutrophil pct 70.4 % SHEILA Comment: Interpretive Data Percent cell count reference ranges are not reported, since discordance with absolute values may lead to misinterpretation of CBC data. Current Interpretive Data was last revised on 2017. Imm gran pct 0.4 % SHEILA Comment: Interpretive Data Percent cell count reference ranges are not reported, since discordance with absolute values may lead to misinterpretation of CBC data. Current Interpretive Data was last revised on 2017. Lymphocyte pct 20.4 % SHEILA Comment: Interpretive Data Percent cell count reference ranges are not reported, since discordance with absolute values may lead to misinterpretation of CBC data. Current Interpretive Data was last revised on 2017. Monocyte pct 6.4 % SHEILA Comment: Interpretive Data Percent cell count reference ranges are not reported, since discordance with absolute values may lead to misinterpretation of CBC data. Current Interpretive Data was last revised on 2017. Eosinophil pct 2.0 % SHEILA Comment: Interpretive Data Percent cell count reference ranges are not reported, since discordance with absolute values may lead to misinterpretation of CBC data. Current Interpretive Data was last revised on 2017. Basophil pct 0.4 % SHEILA Comment: Interpretive Data Percent cell count reference ranges are not reported, since discordance with absolute values may lead to misinterpretation of CBC data. Current Interpretive Data was last revised on 2017. Blood 06/24/2024 12:0 0 PM CDT 06/24/2024 9:11 PM CDT Mauricio Izquierdo MD LAB BLOOD ORDER DL Final Result SHEILA [address] [place] [address] * (ABNORMAL) Immunoglobulin free light chains (06/24/2024 12:00 PM CDT) Lattimer/Lambda ratio 0.30 0.26 - 1.65 Lattimer free light chain 1.26 0.33 - 1.94 mg/dL SHEILA Comment: Interpretive Data The Holly Ig Lattimer FLC assay procedure was used. Results from different manufacturers or methods may not be comparable. Serial testing should be performed using the same method. Lambda free light chain 3.99(H) 0.57 - 2.63 mg/dL SHEILA Comment: Interpretive Data The Holly Ig Lambda FLC assay procedure was used. Results from different manufacturers or methods may not be comparable. Serial testing should be performed using the same method. Blood 06/24/2024 12:0 0 PM CDT 06/24/2024 9:11 PM CDT Narrative SHEILA ALVAREZ - 06/26/2024 7:01 AM CDT Can be drawn anytime 06/24-06/27 Mauricio Izquierdo MD LAB BLOOD ORDER DL Final Result SHEILA ALVAREZ [address] [place] [address] * Pro B-type natriuretic peptide (06/24/2024 12:00 PM CDT) NT-proBNP <36 <=300 pg/mL Comment: Interpretive Comments: [...] Heart J. 2006:27:330-337. 2. Josey RW, Isael SANDERS. J. AM Kushal Cardiol: Cardiovasc Imag. 2009;2: 216- 225. Interpretive Data Last Revised Date: 2017. Blood 06/24/2024 12:0 0 PM CDT 06/24/2024 9:11 PM CDT Narrative [facility] - 06/24/2024 9:46 PM CDT Can be drawn anytime 06/24-06/27 Mauricio Izquierdo MD LAB BLOOD ORDER DL Final Result SHEILA ALVAREZ [address] [place] [address] * (ABNORMAL) CBC with auto differential (06/24/2024 12:00 PM CDT) Pathologist [facility] WBC 10.27(H) 3.80 - 9.90 K/cumm Hgb 14.4 11.9 - 15.5 g/dL [facility]ERNER CH Hct 46.6(H) 35.6 - 45.5 % [facility]ERNER CH Plt 264 150 - 400 K/cumm [facility] MPV 9.6 9.1 - 12.3 fL CERNER RBC 5.37(H) 3.90 - 5.20 M/cumm [facility] MCV 86.8 81.3 - 96.4 fL [facility] MCH 26.8(L) 27.1 - 33.3 pg [facility] MCHC 30.9(L) 32.3 - 35.7 g/dL [facility]ER [facility] RDW CV 15.1(H) 11.1 - 14.9 % [facility]ER CH RDW SD 47.8 35.7 - 48.1 fL [facility] NRBC abs 0.00 0.00 - 0.01 K/cumm [facility] Blood 06/24/2024 12:0 0 PM CDT 06/24/2024 9:11 PM CDT Narrative [facility]ER CH - 06/24/2024 9:26 PM CDT Can be drawn anytime 06/24-06/27 Mauricio Izquierdo MD LAB BLOOD ORDER DL Final Result SHEILA ALVAREZ [address] Department of Laboratories [place], [place] [id number] * aPTT (06/24/2024 12:00 PM CDT) aPTT 32 28 - 38 sec Comment: Interpretive Data Heparin therapeutic range: 66.0 - 100.0 seconds. Range based on correlation with therapeutic heparin activity range of 0.3 - 0.7 Units/mL. Current interpretive data was last revised on 2022. Blood 06/24/2024 12:0 0 PM CDT 06/24/2024 9:11 PM CDT Narrative [facility] 06/24/2024 9:35 PM CDT Can be drawn anytime 06/24-06/27 Mauricio Izquierdo MD LAB BLOOD ORDER DL Final Result Performing Organization Address [facility] Co de Phone Number [facility] [address] [place] [address] * Protime-INR (06/24/2024 12:00 PM CDT) PT 11.8 9.7 - 13.0 sec INR 1.09 0.90 - 1.20 [facility] Comment: Interpretive data Oral anticoagulant therapeutic ranges: Venous thromboembolism prophylaxis or treatment: 2.0-3.0 CARDIOLOGY Standard range: 2.0-3.0 High-intensity range: 2.5-3.5 Refer to indication-specific guidelines for appropriate target ranges for prosthetic heart valve replacement. Current interpretive data was last revised on 2019. Blood 06/24/2024 12:0 0 PM CDT 06/24/2024 9:11 PM CDT Narrative [facility] 06/24/2024 9:32 PM CDT Can be drawn anytime 06/24-06/27 Mauricio Izquierdo MD LAB BLOOD ORDER DL Final Result Performing Organization Address [facility] Co de Phone Number [facility] [address] [facility] [employer] [place], [place] [id number] * Uric acid (06/24/2024 12:00 PM CDT) Pathologist [facility] Uric acid 6.5 2.5 - 7.0 mg/dL Blood 06/24/2024 12:0 0 PM CDT 06/24/2024 9:11 PM CDT Narrative [facility] - 06/24/2024 9:46 PM CDT Can be drawn anytime 06/24-06/27 Mauricio Izquierdo MD LAB BLOOD ORDER DL Final Result SHEILA ALVAREZ [address] [place] [address] * (ABNORMAL) Protein electrophoresis with reflex, serum with interpretation (06/24/2024 12:00 PM CDT) [facility] Protein, sr 7.9 6.2 - 8.2 g/dL Albumin 4.6 3.2 - 5.0 g/dL [facility] Alpha-1 globulin 0.4 0.2 - 0.4 g/dL [facility] Alpha-2 globulin 0.9 0.5 - 1.0 g/dL [facility] Beta-1 globulin 0.5 0.3 - 0.6 g/dL [facility] Beta-2 globulin 0.9(H) 0.2 - 0.6 g/dL [facility] Gamma globulin 0.5 0.5 - 1.7 g/dL [facility] Rstr Pk Beta-2 0.9(H) 0.0 - 0.0 g/dL [facility] SPEP interp See Cl Path Rpt [facility] Blood 06/24/2024 12:0 0 PM CDT 06/24/2024 9:11 PM CDT Narrative [facility] - 06/30/2024 5:28 AM CDT Can be drawn anytime 06/24-06/27 Mauricio Izquierdo MD LAB BLOOD ORDER DL Final Result SHEILA ALVAREZ [address] [place] [address] * Lactate dehydrogenase (LD) (06/24/2024 12:00 PM CDT) Pathologist [facility] Lactate dehydrogenase (LDH) 242 100 - 250 Units/L Comment:Hemolysis present. R esults may be affected. Blood 06/24/2024 12:0 0 PM CDT 06/24/2024 9:11 PM CDT [facility] 06/24/2024 9:46 PM CDT Can be drawn anytime 06/24-06/27 Mauricio Izquierdo MD LAB BLOOD ORDER DL Final Result Performing Organization Address [facility] Co de Phone Number MARCELATISH [address] [facility] [place] [address] * IgA (06/24/2024 12:00 PM CDT) Pathologist [facility] Immunoglobulin A 130 70 - 400 mg/dL Blood 06/24/2024 12:0 0 PM CDT 06/24/2024 9:11 PM CDT [facility] 06/24/2024 9:47 PM CDT Can be drawn anytime 06/24-06/27 Mauricio Izquierdo MD LAB BLOOD ORDER DL Final Result Performing Organization Address [facility] Co de Phone Number MARCELATISH ALVAREZ [address] Department [place] [address] * (ABNORMAL) IgM (06/24/2024 12:00 PM CDT) Immunoglobulin M 35(L) 40 - 150 mg/dL Blood 06/24/2024 12:0 0 PM CDT 06/24/2024 9:11 PM CDT [facility] 06/24/2024 9:47 PM CDT Can be drawn anytime 06/24-06/27 Mauricio Izquierdo MD LAB BLOOD ORDER DL Final Result Performing Organization Address [facility] Co de Phone Number SHEILA ALVAREZ [address] Department [place] [address] * IgG (06/24/2024 12:00 PM CDT) Pathologist [facility] Immunoglobulin G 980 700 - 1,600 mg/dL Blood 06/24/2024 12:0 0 PM CDT 06/24/2024 9:11 PM CDT Narrative SHEILA ALVAREZ - 06/24/2024 9:47 PM CDT Can be drawn anytime 06/24-06/27 Mauricio Izquierdo MD LAB BLOOD ORDER DL Final Result Performing Organization Address [facility] de Phone Number SHEILA ALVAREZ [address] [place] [address] * Beta 2 microglobulin, serum (06/24/2024 12:00 PM CDT) [facility] Beta 2 Microglobulin, Serum 2.40 1.00 - 2.50 mg/L Comment: Interpretive Data The Holly Beta-2 microglobulin assay procedure was used. Results from different manufacturers or methods may not be comparable. Serial testing should be performed using the same method. Testing performed by: [facility], [address] [place]., [address] Blood 06/24/2024 12:0 0 PM CDT 06/25/2024 10:01 AM CDT Narrative SHEILA ALVAREZ - 06/25/2024 10:30 AM CDT Can be drawn anytime 06/24-06/27 Mauricio Izquierdo MD LAB BLOOD ORDER DL Final Result Performing Organization Address [facility] Co de Phone Number SHEILA ALVAREZ [address] [place] [address] * Comprehensive metabolic panel (06/24/2024 12:00 PM CDT) [facility] Sodium 143 135 - 145 mmol/L Potassium, [...] BLOOD ORDER DL Final Result SHEILA ALVAREZ [address] [place] [address] * Screening Mammogram Bilateral W Faraz (02/13/2024 11:22 AM HAND PACKAGER) Anatomical Region Laterality Modality Breast Bilateral Mammography Narrative 02/14/2024 11:41 AM HAND PACKAGER Mammogram Technique: Bilateral Digital Breast Tomosynthesis, Bilateral C-view 2D Screening mammogram. Views obtained: bilateral craniocaudal and bilateral mediolateral oblique. Computer Aided Detection was performed. Mammogram Findings: The present examination has been compared to prior imaging studies performed at [facility] on 12/08/2020, 12/14/2021 and 02/07/2023. There are scattered areas of fibroglandular density. There is no suspicious abnormality in either breast. Impression: There is no mammographic evidence of malignancy. Annual screening mammography is recommended. OVERALL FINAL ASSESSMENT: BI-RADS CATEGORY 1: Negative. Procedure Note Kendra eHrnandez MD - 02/14/2024 Mammogram Technique: Bilateral Digital Breast Tomosynthesis, Bilateral C-view 2D Screening mammogram. Views obtained: bilateral craniocaudal and bilateral mediolateral oblique. Computer Aided Detection was performed. Mammogram Findings: The present examination has been compared to prior imaging studies performed at [facility] on 12/08/2020, 12/14/2021 and 02/07/2023. There are scattered areas of fibroglandular density. There is no suspicious abnormality in either breast. Impression: There is no mammographic evidence of malignancy. Annual screening mammography is recommended. OVERALL FINAL ASSESSMENT: BI-RADS CATEGORY 1: Negative. Kay Acevedo NP IMG MAMMO PROCEDURES Fin al Result * Hepatitis C antibody Blood (04/18/2023 1:30 PM HAND PACKAGER) Hep C Ab Nonreactive Nonreactive SHEILA ALVAREZ [...] revised on 2019. Blood 04/18/2023 1:30 PM HAND PACKAGER 04/18/2023 8:12 PM HAND PACKAGER us Alice Lao NP LAB MICROBIOLOGY - [place] [address] [address] Department of [place] [address] * Dexa Axial and Forearm Bone Density Scan (02/07/2023) Anatomical Region Laterality Modality Wrist, Body N/A Radiographic Luz Elena ging us Desean Dorman MD IMG DXA PROCEDURES Final Result * COLONOSCOPY (01/26/2022 8:07 AM HAND PACKAGER) Anatomical Region Laterality Modality Other Narrative Procedure Note Nel Cortez MD - 01/26/2022 8:07 AM CST ENDOSCOPY LAB Patient Name: Elaine Smith Procedure Date: 01/26/2022 8:07 AM Date of : 1955 Admit Type: Outpatient Age: 66 Gender: Female Attending MD: Nel Cortez M.D. Room: [facility] ENDOSCOPY ROOM 01 Note Status: Finalized [...] The scope was passed under direct vision.The [id number] was introduced through the anusand advanced to the cecum, identified by appendiceal orifice and ileocecal valve. The colonoscopy was performed without difficulty. Abdominal pressurewas utilized. The patient tolerated the procedure well. The quality of the bowel preparation was evaluated using the BBPS (Pierce Bowel Preparation Scale)with scores of: Right Colon [...] During normal business hours - Please call theNurse Coordinator: [phone] After hours, evening, nights, weekends and holidays- Please call the hospital cutter operator tile at and ask for the GI fellow supersonic engineer. - . Attending Participation: I personally performed the entire procedure. Electronically Signed By: Nel Cortez M.D. Nel Cortez M.D. 01/26/2022 8:29:30 AM Number of Addenda: 0 Note Initiated On: 01/26/2022 8:07 AM Nel Cortez MD ENDOSCOPY PROCEDURES Fin al Result from Last 3 Months or Most Recently Relevant to Health Maintenance Insurance UHC MEDICARE ADVANTAGE UHC MEDICARE ADVANTAGE [facility] MEDICARE ADVANTAGE Advance Directives For more information, please contact: [phone] * Full Code (Latest Code Status on [...] 8:27 AM 10/02/2017 12:12 PM Care Teams Institutional Custodian Relationship Specialty Start Date End Date Alice Lao NP [address] [address] PCP - General Family Medicine 03/29/23 Mauricio Izquierdo MD Medical Oncologist/Embedded Systems Developer Medical Oncology 05/05/20 Hyacinth Sargent NP Nurse Practitioner Medical Oncology 05/05/20 Deyvi Ahuja MD [address] [place] [address] Referring Physician Otolaryngology 01/24/21 Narciso Cueva MD [address] [facility] [address] [place] [address] Referring Physician Dermatology 03/29/23 Nel Cortez MD [address] [place] [address] Referring Physician Gastroenterology 03/29/23 [place] [address] [facility] [address] [place] [address] Consulting Physician Endocrinology 03/29/23 unknown name Neurology 03/29/23
--- OUTSIDE RECORDS SUMMARY | 2024-09-08 14:06 | XMS_ITS | Encounter Summary ---
Author Organization [facility] Address [address] [place] [address] Phone Care Team Providers Care Biomedical Engineering Internship Name Role Phone Declan Valencia MD Primary Care Provider [phone] Mauricio Izquierdo MD Unavailable Hyacinth Sargent NP Unavailable [phone] Deyvi Ahuja MD Unavailable Len Koenig MD Primary Care Provider [phone] Alice Lao NP Primary Care Provider [phone] Narciso Cueva MD Unavailable Nel Cortez MD Unavailable [phone] Desean De Dios MD Unavailable [phone] Encounter Details Date Type Department Care Team (Latest Contact Info) Description 07/09/2018 Orders Only [facility] Scanning, Provider Social History Tobacco Use Types Packs/Day Years Used Date Smoking Tobacco: Never Smokeless Tobacco: Never Alcohol Use Standard Drinks/Week Comments Yes 0 (1 standard drink = 0.6 oz pur e alcohol) rarely Comments No Sex and Gender Information Value Date Recorded Sex Assigned at Not on file Legal Sex Female 3:14 AM CORPORATE VP ADVERTISING & ONLINE Gender Identity Female 01/08/2020 7:01 AM CDT Sexual Orientation Not on file documented as of this encounter Plan of Treatment Not on file documented as of this encounter Procedures Procedure Name Priority Date/Time Associated Diagnosis Comments SCAN - LABS 07/09/2018 documented in this encounter Results * SCAN - LABS (07/09/2018) us Provider Scanning Final Result documented in this encounter Visit Diagnoses Not on filedocumented in this encounter Additional Health Concerns Infection Onset Date Last Indicated Resolved Time COVID: Suspected 07/26/2019 07/26/2019 08/09/2019 3:05 AM CDT COVID: Suspected 03/26/2021 03/26/2021 03/26/2021 6:42 PM CORPORATE VP ADVERTISING & ONLINE COVID19 03/26/2021 03/26/2021 04/05/2021 3:05 AM CORPORATE VP ADVERTISING & ONLINE COVID: Recovered Comment:Added based on recent COVID infection. 04/05/2021 05/11/2021 08/03/2021 3:05 AM C DT COVID: Suspected 09/19/2021 09/19/2021 09/19/2021 12:18 PM CDT Exposure, COVID-19 Comment:Added automatically based on COVID19 lab answers indicating exposure risk 09/19/2021 09/19/2021 09/29/2021 3:05 AM C DT COVID: Suspected 09/19/2021 09/19/2021 09/20/2021 3:05 AM CDT COVID: Suspected 09/20/2021 09/20/2021 09/20/2021 10:57 AM CDT COVID: Suspected 03/22/2023 03/22/2023 03/22/2023 10:00 AM CORPORATE VP ADVERTISING & ONLINE COVID: Suspected 03/22/2023 03/22/2023 03/22/2023 2:43 PM CORPORATE VP ADVERTISING & ONLINE documented as of this encounter Care Teams Biomedical Engineering Internship Relationship Specialty Start Date End Date Declan Valencia MD PCP - General 06/15/16 09/06/21 Len Koenig MD [address] [place] [address] PCP - General Family Medicine 09/07/21 03/28/23 Alice Lao NP [address] [place] [address] PCP - General Family Medicine 03/29/23 Mauricio Izquierdo MD Medical Oncologist/Material Crew Supervisor Medical Oncology 05/05/20 Hyacinth Sargent NP Nurse Practitioner Medical Oncology 05/05/20 Deyvi Ahuja MD [address] [place] [address] Referring Physician Otolaryngology 01/24/21 Narciso Cueva MD [address] [facility] [address] [place] [address] Referring Physician Dermatology 03/29/23 Nel Cortez MD [address] [facility] [address] [place] [address] Referring Physician Gastroenterology 03/29/23 [place] [address] [place] [address] Consulting Physician Endocrinology 03/29/23 unknown name Neurology 03/29/23 documented as of this encounter
--- OUTSIDE RECORDS SUMMARY | 2024-09-08 14:06 | XMS_ITS ---
Author Organization [facility] Address [address] [place] [address] Care Team Providers Care Veterinary Laboratory Diagnostician Name Role Phone Mauricio Izquierdo MD Unavailable Hyacinth Sargent NP Unavailable Deyvi Ahuja MD Unavailable Alice Lao NP Primary Care Provider [phone] Narciso Cueva MD Unavailable Nel Cortez MD Unavailable Desean De Dios MD Unavailable [phone] Active Problems Problem Noted Date Diagnosed Date STUART (generalized anxiety disorder) 03/16/2022 Assessment & Plan (04/03/2024 10:03 AM PANEL MACHINE OPERATOR): Stable on Venlafaxine Morbid (severe) obesity due to excess calories 0 03/16/2022 Class 3 severe obesity due t o excess calories with serious comorbidity and body mass index (BMI) of 40.0 to 44.9 in adult 03/16/2022 Assessment & Plan (04/03/2024 10:04 AM PANEL MACHINE OPERATOR): Healthy, low carbohydrate lifestyle and exercise for [...] (11/29/2021): Added automatically from request for surgery [id number] History of rectal polyps 11/29/2021 Overview (11/29/2021): Added automatically from request for surgery [id number] Drug-induced polyneuropathy 09/07/2021 Age-related osteoporosis wit hout current pathological fracture 09/07/2021 Memory loss 09/07/2021 Recurrent major depression 09/07/2021 Assessment & Plan (09/27/2023 9:51 AM CDT): Stable on Venlafaxine 150 mg daily. Assessment & Plan (03/29/2023 2:43 PM PANEL MACHINE OPERATOR): Stable on Venlafaxine 150 mg daily. 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 Ernst and Dr. 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 Advised to do low oxalate diet and advise to take atleast 800-1200 mg oral calcium intake Advised good oral hydration Advised to see customer relations specialist Pt might benefit from us of Thiazide diuretics Amyloidosis 12/05/2017 Assessment & Plan (03/25/2018 10:46 AM PANEL MACHINE OPERATOR): -Dx'd 06/2016 via left thumbnail and abdominal [...] (08/22/2017): Added automatically from request for surgery [id number] H/O autologous stem cell transplant 01/26/2017 Pulmonary embolism 12/12/2016 Primary amyloidosis of light chain type 07/21/19 Asthma, mild 01/12/2016 TIA (transient ischemic attack) 08/03/2015 Positive AKHIL (antinuclear antibody) 12/29/2014 PND (paroxysmal nocturnal dyspnea) 08/11/2014 Hypertension, benign 12/24/2013 Assessment & Plan (04/03/2024 10:02 AM PANEL MACHINE OPERATOR): BP stable in office, continuing current regimen Updated labs ordered. Assessment & Plan (09/27/2023 9:48 AM CDT): BP stable in office, continuing current regimen Vitamin D deficiency 12/24/2013 Assessment & Plan (09/08/2019 12:41 PM CDT): On vitamin D 3 50,000 units oral weekly Assessment & Plan (03/11/2019 11:48 AM PANEL MACHINE OPERATOR): changed to vitamin D 3 50,000 units [...] 12/18/2012 Assessment & Plan (04/03/2024 10:02 AM PANEL MACHINE OPERATOR): Continues Crestor, no side effects noted. Updated lipid panel ordered. Assessment & Plan (09/27/2023 9:49 AM CDT): Continues Crestor (has been out rx as of late though), no side effects noted. Updated lipid panel ordered. Assessment & Plan (03/29/2023 2:44 PM PANEL MACHINE OPERATOR): Continues Crestor, no side effects noted. Liver [...] labs Assessment & Plan (03/11/2019 11:49 AM PANEL MACHINE OPERATOR): Recent TSH WNL Advise to continue current Levothyroxine medication dose Assessment & Plan (11/06/2018 7:31 AM CDT): Recent TSH WNL Advise to continue current Levothyroxine medication dose Chronic insomnia 12/18/2012 Multiple myeloma 12/18/2012 Current Treatment and Therapy Plans No current plan information found. Past Treatment and Therapy Plans Lifetime Dose Tracking * Chemical Lifetime Dose Automatic Entry Manual Entr y Fluoro Time 0.667 minutes 0.667 minutes 0 minutes Air kerma at the reference point (Ka,r) 5.65 mGy 5 .65 mGy 0 mGy DLP 5,365 mGycm 5,365 mGycm 0 mGycm Resolved Problems Problem Noted Date Diagnosed Date Resolved Date Hyperparathyroidism 01/08/2020 01/07/20 24 Overview (01/08/2020): Added automatically from request for surgery [id number] Assessment & Plan (01/22/2020 9:36 AM PANEL MACHINE OPERATOR): S/p removal of right superior parathyroid adenoma on 01/12/20. Morbid obesity with BMI of 40.0-44.9, adult 03/11/2019 09/27/2023 Assessment & Plan (03/11/2019 11:50 AM PANEL MACHINE OPERATOR): Chronic, worsening Discussed about healthy lifestyle habits [...] scan Assessment & Plan (03/11/2019 11:48 AM PANEL MACHINE OPERATOR): Pt has slightly high PTH intact levels [...] on it. Sepsis due to gram-negative UTI ([facility]) 03/25/2018 09/07/2021 Assessment & Plan (03/25/2018 10:29 AM PANEL MACHINE OPERATOR): -s/p R URS, LL, stent placement with bladder biopsy on 03/22. -Admitted 03/24 with fever, chills. -Kidney stone cx from 03/22 with Enterococcus Faecalis. Urine Cx from 03/24 with GNB, speciation pending. -On Meropenem, Vancomycin -Urology following UTI (urinary tract infection) 03/25/2018 09/07/2021 Assessment & Plan (03/26/2018 11:04 AM PANEL MACHINE OPERATOR): -History of recurrent UTI; now with Citerobacter [...]
--- OUTSIDE RECORDS SUMMARY | 2024-09-08 14:06 | XMS_ITS | Encounter Summary ---
Author Organization [facility] Address [address] [place] [address] Phone Care Team Providers Care Chief Commercial Officer Name Role Phone Declan Valencia MD Primary Care Provider [phone] Mauricio Izquierdo MD Unavailable Hyacinth Sargent NP Unavailable Deyvi Ahuja MD Unavailable [phone] Len Koenig MD Primary Care Provider [phone] Alice Lao NP Primary Care Provider [phone] Narciso Cueva MD Unavailable [phone] Nel Cortez MD Unavailable Desean De Dios MD Unavailable [phone] Encounter Details Date Type Department Care Team (Latest Contact Info) Description 01/29/2017 Orders Only [facility] CONVERSION Scanning, Provider Social History Tobacco Use Types Packs/Day Years Used Date Smoking Tobacco: Never Alcohol Use Standard Drinks/Week Comments Yes 0 (1 standard drink = 0.6 oz pur e alcohol) Comments Unknown Sex and Gender Information Value Date Recorded Sex Assigned at Not on file Legal Sex Female 3:14 AM DOCTOR OF NURSE ANESTHESIA PRACTICE Gender Identity Female 01/08/2020 7:01 AM CDT Sexual Orientation Not on file documented as of this encounter Plan of Treatment Not on file documented as of this encounter Procedures Procedure Name Priority Date/Time Associated Diagnosis Comments PULMONARY FUNCTION TEST (PFT) 01/29/2017 11:07 AM DOCTOR OF NURSE ANESTHESIA PRACTICE documented in this encounter Results * PULMONARY FUNCTION TEST (PFT) (01/29/2017 11:07 AM DOCTOR OF NURSE ANESTHESIA PRACTICE) Anatomical Region Laterality Modality PFT us Provider Scanning PFT ORDERABLES Final Result documented in this encounter Visit Diagnoses Not on filedocumented in this encounter Additional Health Concerns Infection Onset Date Last Indicated Resolved Time COVID: Suspected 07/26/2019 07/26/2019 08/09/2019 3:05 AM CDT COVID: Suspected 03/26/2021 03/26/2021 03/26/2021 6:42 PM DOCTOR OF NURSE ANESTHESIA PRACTICE COVID19 03/26/2021 03/26/2021 04/05/2021 3:05 AM DOCTOR OF NURSE ANESTHESIA PRACTICE COVID: Recovered Comment:Added based on recent COVID [...] COVID: Suspected 03/22/2023 03/22/2023 03/22/2023 10:00 AM DOCTOR OF NURSE ANESTHESIA PRACTICE COVID: Suspected 03/22/2023 03/22/2023 03/22/2023 2:43 PM DOCTOR OF NURSE ANESTHESIA PRACTICE documented as of this encounter Care Teams Chief Commercial Officer Relationship Specialty Start Date End Date Declan Valencia MD PCP - General 06/15/16 09/06/21 Len Koenig MD [address] [place] [address] PCP - General Family Medicine 09/07/21 03/28/23 Alice Lao NP [address] [place] [address] PCP - General Family Medicine 03/29/23 Mauricio Izquierdo MD Medical Oncologist/Mirror Installer Medical Oncology 05/05/20 Hyacinth Sargent NP Nurse Practitioner Medical Oncology 05/05/20 Deyvi Ahuja MD [address] [place] [address] Referring Physician Otolaryngology 01/24/21 Narciso Cueva MD [address] [place] [address] Referring Physician Dermatology 03/29/23 Nel Cortez MD [address] [place] [address] Referring Physician Gastroenterology 03/29/23 [place] [address] [facility] [address] [place] [address] Consulting Physician Endocrinology 03/29/23 unknown name Neurology 03/29/23 documented as of this encounter
--- OUTSIDE RECORDS SUMMARY | 2024-09-08 14:06 | XMS_ITS | Encounter Summary ---
Author Organization [facility] Address [address] [place] [address] Phone Care Team Providers Care Professional Bass Fisher Name Role Phone Declan Valencia MD Primary Care Provider [phone] Mauricio Izquierdo MD Unavailable Hyacinth Sargent NP Unavailable [phone] Deyvi Ahuja MD Unavailable Len Koenig MD Primary Care Provider [phone] Alice Lao NP Primary Care Provider [phone] Narciso Cueva MD Unavailable Nel Cortez MD Unavailable Desean De Dios MD Unavailable [phone] Encounter Details Date Type Department Care Team (Latest Contact Info) Description 11/19/2016 Orders Only [facility] CONVERSION Scanning, Provider Social History Tobacco Use Types Packs/Day Years Used Date Smoking Tobacco: Never Alcohol Use Standard Drinks/Week Comments Yes 0 (1 standard drink = 0.6 oz pur e alcohol) Comments Unknown Sex and Gender Information Value Date Recorded Sex Assigned at Not on file Legal Sex Female 3:14 AM ANIMAL TREATMENT INVESTIGATOR Gender Identity Female 01/08/2020 7:01 AM CDT Sexual Orientation Not on file documented as of this encounter Plan of Treatment Not on file documented as of this encounter Procedures Procedure Name Priority Date/Time Associated Diagnosis Comments VASCULAR LABORATORY REPORT 11/19/2016 8:24 AM CDT documented in this encounter Results * VASCULAR LABORATORY REPORT (11/19/2016 8:24 AM CDT) Anatomical Region Laterality Modality Ultrasound us Provider Scanning CV VASCULAR PROCEDURES Final R esult documented in this encounter Visit Diagnoses Not on filedocumented in this encounter Additional Health Concerns Infection Onset Date Last Indicated Resolved Time COVID: Suspected 07/26/2019 07/26/2019 08/09/2019 3:05 AM CDT COVID: Suspected 03/26/2021 03/26/2021 03/26/2021 6:42 PM ANIMAL TREATMENT INVESTIGATOR COVID19 03/26/2021 03/26/2021 04/05/2021 3:05 AM ANIMAL TREATMENT INVESTIGATOR COVID: Recovered Comment:Added based on recent COVID [...] COVID: Suspected 03/22/2023 03/22/2023 03/22/2023 10:00 AM ANIMAL TREATMENT INVESTIGATOR COVID: Suspected 03/22/2023 03/22/2023 03/22/2023 2:43 PM ANIMAL TREATMENT INVESTIGATOR documented as of this encounter Care Teams Professional Bass Fisher Relationship Specialty Start Date End Date Declan Valencia MD PCP - General 06/15/16 09/06/21 Len Koenig MD [address] [place] [address] PCP - General Family Medicine 09/07/21 03/28/23 Alice Lao NP [address] [place] [address] PCP - General Family Medicine 03/29/23 Mauricio Izquierdo MD Medical Oncologist/Silk Screener Medical Oncology 05/05/20 Hyacinth Sargent NP Nurse Practitioner Medical Oncology 05/05/20 Deyvi Ahuja MD [address] [place] [address] Referring Physician Otolaryngology 01/24/21 Narciso Cueva MD [address] [place] [address] Referring Physician Dermatology 03/29/23 Nel Cortez MD [address] [place] [address] Referring Physician Gastroenterology 03/29/23 [place] [address] [place] [address] Consulting Physician Endocrinology 03/29/23 unknown name Neurology 03/29/23 documented as of this encounter
--- OUTSIDE RECORDS SUMMARY | 2024-09-08 14:06 | XMS_ITS | Encounter Summary ---
Author Organization [facility] Address [address] [place] [address] Phone Care Team Providers Care Higher Level Teaching Assistant Name Role Phone Declan Valencia MD Primary Care Provider [phone] Mauricio Izquierdo MD Unavailable Hyacinth Sargent NP Unavailable Deyvi Ahuja MD Unavailable [phone] Len Koenig MD Primary Care Provider [phone] Alice Lao NP Primary Care Provider Narciso Cueva MD Unavailable [phone] Nel Cortez MD Unavailable Desean De Dios MD Unavailable [phone] Encounter Details Date Type Department Care Team (Latest Contact Info) Description 11/15/2016 Orders Only [facility] CONVERSION Scanning, Provider Social History Tobacco Use Types Packs/Day Years Used Date Smoking Tobacco: Never Alcohol Use Standard Drinks/Week Comments Yes 0 (1 standard drink = 0.6 oz pur e alcohol) Comments Unknown Sex and Gender Information Value Date Recorded Sex Assigned at Not on file Legal Sex Female 3:14 AM DRY PAN OPERATOR Gender Identity Female 01/08/2020 7:01 AM CDT Sexual Orientation Not on file documented as of this encounter Plan of Treatment Not on file documented as of this encounter Procedures Procedure Name Priority Date/Time Associated Diagnosis Comments PULMONARY FUNCTION TEST (PFT) 11/15/2016 9:33 AM CDT documented in this encounter Results * PULMONARY FUNCTION TEST (PFT) (11/15/2016 9:33 AM CDT) Anatomical Region Laterality Modality PFT us Provider Scanning PFT ORDERABLES Final Result documented in this encounter Visit Diagnoses Not on filedocumented in this encounter Additional Health Concerns Infection Onset Date Last Indicated Resolved Time COVID: Suspected 07/26/2019 07/26/2019 08/09/2019 3:05 AM CDT COVID: Suspected 03/26/2021 03/26/2021 03/26/2021 6:42 PM DRY PAN OPERATOR COVID19 03/26/2021 03/26/2021 04/05/2021 3:05 AM DRY PAN OPERATOR COVID: Recovered Comment:Added based on recent COVID [...] COVID: Suspected 03/22/2023 03/22/2023 03/22/2023 10:00 AM DRY PAN OPERATOR COVID: Suspected 03/22/2023 03/22/2023 03/22/2023 2:43 PM DRY PAN OPERATOR documented as of this encounter Care Teams Higher Level Teaching Assistant Relationship Specialty Start Date End Date Declan Valencia MD PCP - General 06/15/16 09/06/21 Len Koenig MD [address] [place] [address] PCP - General Family Medicine 09/07/21 03/28/23 Alice Lao NP [address] [place] [address] PCP - General Family Medicine 03/29/23 Mauricio Izquierdo MD Medical Oncologist/Home Energy Rater Medical Oncology 05/05/20 Hyacinth Sargent NP Nurse Practitioner Medical Oncology 05/05/20 Deyvi Ahuja MD [address] [place] [address] Referring Physician Otolaryngology 01/24/21 Narciso Cueva MD [address] [place] [address] Referring Physician Dermatology 03/29/23 Nel Cortez MD [address] [place] [address] Referring Physician Gastroenterology 03/29/23 [place] [address] [place] [address] Consulting Physician Endocrinology 03/29/23 unknown name Neurology 03/29/23 documented as of this encounter
== END 2024-09-08 13:48 | disposition home or self-care (01) ==
PROVIDERS: Visit Provider Psychiatry & Neurology Neurology
DX: I65.23 Occlusion and stenosis of bilateral carotid arteries (principal); I63.9 Cerebral infarction, unspecified
CPT/HCPCS: 93880

== ENCOUNTER 2024-12-23 10:22 | Outpatient (CLI) | payer MEDICARE, SELFPAY ==
--- NOTE | ~2024-12-23 | XR_ITS ---
EXAMINATION: XR abdomen/kub 1V, 12/23/2024 10:33 CDT HISTORY: Calculus of kidney, FOLLOW UP COMPARISON: No comparisons available. Technique: 3 view. Findings: Moderate fecal content, no dilated bowel loops, gastric banding is noted. Fecal content obscures evaluation, no renal calculi are identified. No acute osseous abnormality. Impression: 1. No acute abnormality. Reviewed, dictated and finalized at location P. Impression: 1. No acute abnormality.
--- OUTSIDE RECORDS SUMMARY | 2024-12-23 11:00 | XMS_ITS | Encounter Summary ---
Author Organization [facility] Healthcare Address [address] [place] [address] Care Team Providers Care Senior Insight Manager International Name Role Phone Mauricio Izquierdo MD Unavailable Malu Sargent NP Unavailable [phone] Deyvi Ahuja MD Unavailable [phone] Alice Lao NP Primary Care Provider [phone] Narciso Cueva MD Unavailable [phone] Nel Cortez MD Unavailable [phone] Desean De Dios MD Unavailable [phone] Encounter Details Date Type Department Care Team (Late st Contact Info) Description 12/23/2024 11:00 AM CDT Lab [address] [address] Primary amyloidosis of light chain type (HCC) Social History Tobacco Use Types Packs/Day Years Used Date Smoking Tobacco: Never Passive Smoke Exposure: Never Smokeless Tobacco: Never Alcohol Use Standard Drinks/Week Comments Not Currently 0 (1 standard drink = 0.6 oz pur e alcohol) rarely PHQ-2 Answer Date Recorded PHQ-2 Total Score (If total score is 3 or more points, staff should administer the PHQ-9) 0 07/22/2024 Social Connection and Isolation Panel Answer Date Recorded In a typical week, how many times do you talk on the phone with family, friends, or neighbors? More than three times a week 11/13/2024 How often do you get togethe r with friends or relatives? More than three times a week 11/13/2024 How often do you attend chur ch or latter day services? More than 4 times per year 11/13/2024 Do you belong to any clubs o r organizations such as anglican groups, unions, fraternal or athletic groups, or school groups? Yes 11/13/2024 How often do you attend meet ings of the clubs or organizations you belong to? More than 4 times per year 11/13/2024 Are you , , di vorced, , never , or living with a partner? 11/13/2024 AUDIT-C Answer Date Recorded Q1: How often do you have a drink containing alcohol? Never 11/19/2024 Q2: How many drinks containi ng alcohol do you have on a typical day when you are drinking? Patient does not drink Q3: How often do you have si x or more drinks on one occasion? Never 11/19/2024 Overall Financial Resource Strain (CARDIA) Answe r Date Recorded How hard is it for you to pa y for the very basics like food, housing, medical care, and heating? Not hard at all 11/13/2024 Hunger Vital Sign Answer Date Recorded Within the past 12 months, y ou worried that your food would run out before you got the money to buy more. Never true 11/14/19 25 Within the past 12 months, t he food you bought just didn't last and you didn't have money to get more. Never true 11/13/2024 PRAPARE - Transportation Answer Date Re corded In the past 12 months, has l ack of transportation kept you from medical appointments or from getting medications? No 06/2024 In the past 12 months, has l ack of transportation kept you from meetings, work, or from getting things needed for daily living? No 11/13/2024 Housing Stability Vital Sign Answer Marco e Recorded In the last 12 months, was t here a time when you were not able to pay the mortgage or rent on time? No 11/13/2024 In the past 12 months, how m any times have you moved where you were living? 0 11/13/2024 At any time in the past 12 m [facility], were you homeless or living in a retirement (including now)? No 11/13/2024 [facility] Utilities Answer Date Recorded In the past 12 months has [employer], gas, oil, or water [employer] threatened to shut off services in your home? No 11/13/2024 Personal Safety Answer Date Recorded Have you ever been in or are you currently in a harmful physical or emotional relationship or is someone making you feel afraid or unsafe? Denies 11/27/2024 Comments No Sex and Gender Information Value Date Recorded Sex Assigned at Not on file Legal Sex Female 3:14 AM INSTRUMENT REPAIRER STEAM PLANT Gender Identity Female 01/08/2020 7:01 AM CDT Sexual Orientation Not on file documented as of this encounter Plan of Treatment Pending Results Name Type Priority Associated Diagnoses Date /Time Uric acid Lab Routine Primary amyloidosis of light chain type (HCC) 12/23/2024 11:07 AM CDT aPTT Lab Routine Primary amyloidosis of light chain type (HCC) 12/23/2024 11:07 AM CDT Protime-INR Lab Routine Primary amyloidosis of light chain type (HCC) 12/23/2024 11:07 AM CDT Protein electrophoresis with reflex, serum with interpretation Lab Routine Primary amyloidosis of light chain type (HCC) 12/23/2024 11:07 AM CDT Pro B-type natriuretic peptide Lab Routine Primary amyloidosis of light chain type (HCC) 12/23/2024 11:07 AM CDT Lactate dehydrogenase (LD) Lab Routine Primary amyloidosis of light chain type (HCC) 12/23/2024 11:07 AM CDT IgM Lab Routine Primary amyloidosis of light chain type (HCC) 12/23/2024 11:07 AM CDT IgG Lab Routine Primary amyloidosis of light chain type (HCC) 12/23/2024 11:07 AM CDT IgA Lab Routine Primary amyloidosis of light chain type (HCC) 12/23/2024 11:07 AM CDT Immunoglobulin free light chains Lab Routine Primary amyloidosis of light chain type (HCC) 12/23/2024 11:07 AM CDT Comprehensive metabolic panel Lab Routine Primary amyloidosis of light chain type (HCC) 12/23/2024 11:07 AM CDT CBC with auto differential Lab Routine Primary amyloidosis of light chain type (HCC) 12/23/2024 11:07 AM CDT Beta 2 microglobulin, bld Lab Routine Primary amyloidosis of light chain type (HCC) 12/23/2024 11:07 AM CDT documented as of this encounter Visit Diagnoses Diagnosis Primary amyloidosis of light chain type (HCC) documented in this encounter Orders Lab Orders Without Results Count Last Ordered D ate First Ordered Date TROPONIN T HIGH-SENSITIVITY 1 12/23/2024 documented in this encounter Care Teams Senior Insight Manager International Relationship Specialty Start Date End Date Alice Lao NP [address] [place] [address] PCP - General Family Medicine 03/29/23 Mauricio Izquierdo MD Medical Oncologist/Analysis Lead Medical Oncology 05/05/20 Malu Sargent NP Nurse Practitioner Medical Oncology 05/05/20 Deyvi Ahuja MD [address] [place] [address] Referring Physician Otolaryngology 01/24/21 Narciso Cueva MD [address] [place] [address] Referring Physician Dermatology 03/29/23 Nel Cortez MD [address] [place] [address] Referring Physician Gastroenterology 03/29/23 [place] [address] [address] [place] [address] Consulting Physician Endocrinology 03/29/23 unknown name Neurology 03/29/23 documented as of this encounter
--- OUTSIDE RECORDS SUMMARY | 2024-12-23 12:06 | XMS_ITS | Encounter Summary ---
Author Organization [facility] Healthcare Address [address] [place] [address] Care Team Providers Care Freelance Programmer/App Developer Name Role Phone Mauricio Izquierdo MD Unavailable Malu Sargent NP Unavailable [phone] Deyvi Ahuja MD Unavailable [phone] Len Koenig MD Primary Care Provider [phone] Alice Lao NP Primary Care Provider [phone] Narciso Cueva MD Unavailable [phone] Nel Cortez MD Unavailable Desean De Dios MD Unavailable [phone] Crystal Zheng MA Unavailable Encounter Details Date Type Department Care Team (Late st Contact Info) Description 10/05/2021 Telephone [facility] Radiology [address] [place] [address] Len Koenig MD [address] [facility] [place] [address] Social History Tobacco Use Types Packs/Day Years [...] on file Legal Sex Female 3:14 AM HEALTH PRACTICE MANAGER Gender Identity Female 01/08/2020 7:01 AM CDT Sexual Orientation Not on file documented as of this encounter Plan of Treatment Not on file documented as of this encounter Visit Diagnoses Not on filedocumented in this encounter Additional Health Concerns Infection Onset Date Last Indicated Resolved Time COVID: Suspected 03/22/2023 03/22/2023 03/22/2023 10:00 AM HEALTH PRACTICE MANAGER COVID: Suspected 03/22/2023 03/22/2023 03/22/2023 2:43 PM HEALTH PRACTICE MANAGER documented as of this encounter Care Teams Freelance Programmer/App Developer Relationship Specialty Start Date End Date Len Koenig MD [facility] [place] [address] PCP - General Family Medicine 09/07/21 03/28/23 Alice Lao NP [address] [address] PCP - General Family Medicine 03/29/23 Mauricio Izquierdo MD Medical Oncologist/Implementation Services Analyst Medical Oncology 05/05/20 Malu Sargent NP Nurse Practitioner Medical Oncology 05/05/20 Deyvi Ahuja MD [facility] [place], [place] [address] Referring Physician Otolaryngology 01/24/21 Narciso Cueva MD [address] [email or web address] [address] [place] [address] Referring Physician Dermatology 03/29/23 Nel Cortez MD [address] [place] [address] Referring Physician Gastroenterology 03/29/23 [place] [address] [address] [facility] [[email or web address]] [address] [place] [address] Consulting Physician Endocrinology 03/29/23 Crystal Zheng MA [address] [facility] [address] [place] [address] [place] [address] ACO Care Building Materials Sales Attendant 11/17/24 11/17/24 unknown name Neurology 03/29/23 documented as of this encounter
--- OUTSIDE RECORDS SUMMARY | 2024-12-23 12:06 | XMS_ITS | Encounter Summary ---
Author Organization [facility] Address [address] [place] [address] Phone Care Team Providers Care Lamp Assembler Name Role Phone Mauricio Izquierdo MD Unavailable Malu Sargent NP Unavailable [phone] Deyvi Ahuja MD Unavailable [phone] Alice Lao NP Primary Care Provider [phone] Narciso Cueva MD Unavailable [phone] Nel Cortez MD Unavailable Desean De Dios MD Unavailable [phone] Encounter Details Date Type Department Care Team (Late st Contact Info) Description 12/22/2024 Orders Only [facility] Bone Marrow Transplant [address] [facility] Floor 6 [place] [address] Mauricio Izquierdo MD [address] DIV IM BONE MARROW TRANSPLANT, [address] [place], [place] [id number] 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) Social History Tobacco Use Types Packs/Day Years [...] often do you attend chur ch or mu-ism services? More than 4 times per year 11/13/2024 Do you belong to any clubs o r organizations such as jew groups, unions, fraternal or athletic groups, or [...] any time in the past 12 m [facility], were you homeless or living in a [place] facility (including now)? No 11/13/2024 [facility] Utilities Answer Date Recorded In the past 12 months has [employer], gas, oil, or water [employer] threatened to shut off services in your home? No 11/13/2024 Personal Safety Answer Date Recorded Have you ever been in or are you currently in a harmful physical or emotional relationship or is someone making you feel afraid or unsafe? Denies 11/27/2024 Comments No Sex and Gender Information Value Date Recorded Sex Assigned at Not on file Legal Sex Female 3:14 AM PARTS DEPARTMENT SUPERVISOR Gender Identity Female 01/08/2020 7:01 AM CDT Sexual Orientation Not on file documented as of this encounter Miscellaneous Notes * Addendum Note - Anastasiia Barrera - 12/22/2024 12:55 PM CDTAddended by: ANASTASIIA BARRERA on: 12/23/2024 10:59 AM Modules accepted: Orders documented in this encounter Plan of Treatment Pending Results Name Type Priority Associated Diagnoses Date /Time Beta 2 microglobulin, bld Lab Routine Primary [...] chain type (HCC) 12/23/2024 11:07 AM CDT Uric acid Lab Routine Primary amyloidosis of light chain type (HCC) 12/23/2024 11:07 AM CDT Scheduled Orders Name Type Priority Associated Diagnoses Orde r Schedule Beta 2 microglobulin, bld Lab Routine Primary amyloidosis of light chain type (HCC) Expected: 12/23/2024, Expires: 03/23/2025 CBC with auto differential Lab Routine Primary amyloidosis of light chain type (HCC) Expected: 12/23/2024, Expires: 03/23/2025 Comprehensive metabolic panel Lab Routine Primary amyloidosis of light chain type (HCC) Expected: 12/23/2024, Expires: 03/23/2025 Immunoglobulin free light chains Lab Routine Primary amyloidosis of light chain type (HCC) Expected: 12/23/2024, Expires: 03/23/2025 IgA Lab Routine Primary amyloidosis of light chain type (HCC) Expected: 12/23/2024, Expires: 03/23/2025 IgG Lab Routine Primary amyloidosis of light chain type (HCC) Expected: 12/23/2024, Expires: 03/23/2025 IgM Lab Routine Primary amyloidosis of light chain type (HCC) Expected: 12/23/2024, Expires: 03/23/2025 Lactate dehydrogenase (LD) Lab Routine Primary amyloidosis of light chain type (HCC) Expected: 12/23/2024, Expires: 03/23/2025 Pro B-type natriuretic peptide Lab Routine Primary amyloidosis of light chain type (HCC) Expected: 12/23/2024, Expires: 03/23/2025 Protein electrophoresis with reflex, serum with interpretation Lab Routine Primary amyloidosis of light chain type (HCC) Expected: 12/23/2024, Expires: 03/23/2025 Protime-INR Lab Routine Primary amyloidosis of light chain type (HCC) Expected: 12/23/2024, Expires: 03/23/2025 aPTT Lab Routine Primary amyloidosis of light chain type (HCC) Expected: 12/23/2024, Expires: 03/23/2025 Troponin T high-sensitivity Lab Routine Primary amyloidosis of light chain type (HCC) Expected: 12/23/2024, Expires: 03/23/2025 Uric acid Lab Routine Primary amyloidosis of light chain type (HCC) Expected: 12/23/2024, Expires: 03/23/2025 documented as of this encounter Visit Diagnoses Diagnosis Primary amyloidosis of light chain type (HCC)- Primary documented in this encounter Care Teams Lamp Assembler Relationship Specialty Start Date End Date Alice Lao NP [address] [facility] [address] [place] [address] PCP - General Family Medicine 03/29/23 Mauricio Izquierdo MD Medical Oncologist/Nurse Healthcare Manager Medical Oncology 05/05/20 Malu Sargent NP Nurse Practitioner Medical Oncology 05/05/20 Deyvi Ahuja MD [address] [place] [address] Referring Physician Otolaryngology 01/24/21 Narciso Cueva MD [address] [facility] [address] [place] [address] Referring Physician Dermatology 03/29/23 Nel Cortez MD [address] [place] [address] Referring Physician Gastroenterology 03/29/23 [place] [address] [facility] [address] [place] [address] Consulting Physician Endocrinology 03/29/23 unknown name Neurology 03/29/23 documented as of this encounter
--- OUTSIDE RECORDS SUMMARY | 2024-12-23 12:06 | XMS_ITS | Encounter Summary ---
Author Organization [facility] Healthcare Address [address] [place] [address] Care Team Providers Care Steel Erecting Pusher Name Role Phone Mauricio Izquierdo MD Unavailable Malu Sargent NP Unavailable [phone] Deyvi Ahuja MD Unavailable [phone] Alice Lao NP Primary Care Provider [phone] Narciso Cueva MD Unavailable Nel Cortez MD Unavailable [phone] Desean De Dios MD Unavailable [phone] Encounter Details Date Type Department Care Team (Late st Contact Info) Description 11/24/2024 Results Follow-Up [facility] Medical Group Primary Care at [address] [address] Gualberto Padron MD [address] [place] [address] [address] [place] [address] Urine culture Urine, clean voided [...] often do you attend chur ch or lutheran services? More than 4 times per year 11/13/2024 Do you belong to any clubs o r organizations such as amish groups, unions, fraternal or athletic groups, or [...] any time in the past 12 m [facility], were you homeless or living in a alf (including now)? No 11/13/2024 [facility] Utilities Answer Date Recorded In the past 12 months has th e electric, gas, oil, or water company threatened to shut off services in your home? No 11/13/2024 Personal Safety Answer Date Recorded Have you ever been in or are you currently in a harmful physical or emotional relationship or is someone making you feel afraid or unsafe? Denies 11/27/2024 Comments No Sex and Gender Information Value Date Recorded Sex Assigned at Not on file Legal Sex Female 3:14 AM PRESSURISED CONTAINER FILLER Gender Identity Female 01/08/2020 7:01 AM CDT Sexual Orientation Not on file documented as of this encounter Plan of Treatment Not on file documented as of this encounter Visit Diagnoses Not on filedocumented in this encounter Care Teams Steel Erecting Pusher Relationship Specialty Start Date End Date Alice Lao NP [address] [facility] [address] [place] [address] PCP - General Family Medicine 03/29/23 Mauricio Izquierdo MD Medical Oncologist/Interactive Media Designer Medical Oncology 05/05/20 Malu Sargent NP Nurse Practitioner Medical Oncology 05/05/20 Deyvi Ahuja MD [facility]9 [place] [address] Referring Physician Otolaryngology 01/24/21 Narciso Cueva MD [address] [facility] [address] [place] [address] Referring Physician Dermatology 03/29/23 Nel Cortez MD [address] [place] [address] Referring Physician Gastroenterology 03/29/23 [place] [address] [facility] [address] [place] [address] Consulting Physician Endocrinology 03/29/23 unknown name Neurology 03/29/23 documented as of this encounter
--- OUTSIDE RECORDS SUMMARY | 2024-12-23 12:06 | XMS_ITS | Clinical Summary ---
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 History of autologous stem cell transplant 01/26 Pulmonary embolism 12/12/2016 Primary amyloidosis 07/17/2016 Asthma, mild 01/12/2016 TIA (transient ischemic attack) [...] 02/07/2021 Hypertension, benign 12/24/2013 021 Multiple myeloma 12/18/2012 02/07/2021 Immunizations Immunization Administration Dates Next [...] Sex Assigned at Female 02/18/2018 10:42 AM CORE DRILL OPERATOR HELPER Legal Sex Female 4:36 PM CDT Gender Identity Female 02/18/2018 10:42 AM CORE DRILL OPERATOR HELPER Sexual Orientation Straight 02/18/2018 10 :42 AM CORE DRILL OPERATOR HELPER Last Filed Vital Signs Vital Sign Reading Time Taken Comments Blood Pressure 116/66 02/07/2021 1:48 PM CORE DRILL OPERATOR HELPER Pulse 67 02/07/2021 1:48 PM CORE DRILL OPERATOR HELPER Temperature 36.6 C (97.8 F) 02/07/2021 1:48 PM CORE DRILL OPERATOR HELPER Respiratory Rate 14 02/07/2021 1:48 PM CORE DRILL OPERATOR HELPER Oxygen Saturation 98% 02/07/2021 1:48 PM CORE DRILL OPERATOR HELPER Inhaled Oxygen Concentration - - Weight 108.6 kg (239 lb 6.4 oz) 02/07/2021 1:48 PM CORE DRILL OPERATOR HELPER Height 162.6 cm (5' 4) 02/07/2021 1:48 PM CORE DRILL OPERATOR HELPER Body Mass Index 41.09 02/07/2021 1:48 PM CORE DRILL OPERATOR HELPER Plan of Treatment Health Maintenance Due Date [...] 02/09, 07/10/2016, Additional history exists PHQ-2 (Physician [place]) 03/12/2024 Influenza Adult (#1) 2024 01/13/2020, 01/07/2019, 12/14/2017, Additional history exists Colorectal Cancer Screening Colonoscopy (10 Years) 12/31/2028 [...] of LDL-C. Juan SS et al. [place]. 2013;310(19): 5872-8335 (http://education.OneSpot/faq/HMI225) CHOL/HDL RATIO 3.2 <5.0 (calc) [facility] [...] Result [facility] [address] [facility] [place] [id number] * COLONOSCOPY/EGD (12/31/2018) us Documents Scanned SCANNING Edited Result - Final * MAMMOGRAM GENERIC (10/11/2018) Anatomical Region Laterality Modality Other 10/11/2018 Narrative 10/11/2018 Ordered by an unspecified provider. us Documents Scanned SCANNING Final Result from Last 3 Months or Most Recently Relevant to Health Maintenance Insurance [facility] Care Teams Phone Engineer Relationship Specialty Start Date End Date Declan Valencia MD [address] [place] [address] PCP - General INTERNAL MEDICINE 12/20/17
--- OUTSIDE RECORDS SUMMARY | 2024-12-23 12:07 | XMS_ITS | Encounter Summary ---
Author Organization [facility] Address [address] [place] [address] Phone Care Team Providers Care Leak Operator Paraffin Plant Name Role Phone Declan Valencia MD Primary Care Provider [phone] Mauricio Izquierdo MD Unavailable Malu Sargent NP Unavailable Deyvi Ahuja MD Unavailable Len Koenig MD Primary Care Provider Alice Lao NP Primary Care Provider [phone] Narciso Cueva MD Unavailable [phone] Nel Cortez MD Unavailable [phone] Desean De Dios MD Unavailable [phone] Crystal Zheng MA Unavailable [phone] Encounter Details Date Type Department Care Team [...] on file Legal Sex Female 3:14 AM PAROLE BOARD MEMBER Gender Identity Female 01/08/2020 7:01 AM CDT Sexual Orientation Not on file documented as of this encounter Plan of Treatment Not on file documented as of this encounter Procedures Procedure Name Priority Date/Time Associated Diagnosis Comments PULMONARY FUNCTION TEST (PFT) 01/29/2017 11:07 AM PAROLE BOARD MEMBER documented in this encounter Results * PULMONARY FUNCTION TEST (PFT) (01/29/2017 11:07 AM PAROLE BOARD MEMBER) Anatomical Region Laterality Modality PFT us Provider Scanning PFT ORDERABLES Final Result documented in this encounter Visit Diagnoses Not on filedocumented in this encounter Additional Health Concerns Infection Onset Date Last Indicated Resolved Time COVID: Suspected 07/26/2019 07/26/2019 08/09/2019 3:05 AM CDT COVID: Suspected 03/26/2021 03/26/2021 03/26/2021 6:42 PM PAROLE BOARD MEMBER COVID19 03/26/2021 03/26/2021 04/05/2021 3:05 AM PAROLE BOARD MEMBER COVID: Recovered Comment:Added based on recent COVID [...] COVID: Suspected 03/22/2023 03/22/2023 03/22/2023 10:00 AM PAROLE BOARD MEMBER COVID: Suspected 03/22/2023 03/22/2023 03/22/2023 2:43 PM PAROLE BOARD MEMBER documented as of this encounter Care Teams Leak Operator Paraffin Plant Relationship Specialty Start Date End Date Declan Valencia MD PCP - General 06/15/16 09/06/21 Len Koenig MD [address] [place] [address] PCP - General Family Medicine 09/07/21 03/28/23 Alice Lao NP [address] [facility] [address] [place] [address] PCP - General Family Medicine 03/29/23 Mauricio Izquierdo MD Medical Oncologist/Automatic Washer Mechanic Medical Oncology 05/05/20 Malu Sargent NP Nurse Practitioner Medical Oncology 05/05/20 Deyvi Ahuja MD [address] [place] [address] Referring Physician Otolaryngology 01/24/21 Narciso Cueva MD [address] [facility] [address] [place] [address] Referring Physician Dermatology 03/29/23 Nel Cortez MD [address] [place] [address] Referring Physician Gastroenterology 03/29/23 [place] [address] [facility] [address] [place] [address] Consulting Physician Endocrinology 03/29/23 Crystal Zheng MA [address] [facility] [address] [place] [address] ACO Care Pharmacy Manager 11/17/24 11/17/24 unknown name Neurology 03/29/23 documented as of this encounter
--- OUTSIDE RECORDS SUMMARY | 2024-12-23 12:07 | XMS_ITS | Clinical Summary ---
Author Organization [facility] Address [address] [place] [address] Care Team Providers Care Application Infrastructure Engineer Name Role Phone Mauricio Izquierdo MD Unavailable Malu Sargent NP Unavailable Deyvi Ahuja MD Unavailable [phone] Alice Lao NP Primary Care Provider [phone] Narciso Cueva MD Unavailable Nel Cortez MD Unavailable Desean De Dios MD Unavailable [phone] Allergies No known active allergies Medications aspirin 81 mg enteric coated tablet Take 1 tablet (81 mg total) by mouth daily 01/23/20 18 Active multivitamin tablet,chewable Take 1 tablet by mouth daily Active Lactobac no.41/Bifidobact no.7 (PROBIOTIC-10 ORAL) Take 1 capsule by mouth daily Active cholecalciferol, vitamin D3, 1,000 unit tablet,chewable Take by mouth Active levothyroxine (SYNTHROID) 50 mcg tabletIndications :Acquired hypothyroidism TAKE 1 TABLET(50 MCG) BY MOUTH EVERY MORNING 90 tablet 3 10/10/19 24 Active traZODone (DESYREL) 100 mg tabletIndications :Primary amyloidosis of light chain type (HCC) TAKE 1 TABLET(100 MG) BY MOUTH EVERY NIGHT 90 tablet 3 12/19/19 24 Active venlafaxine XR (EFFEXOR-XR) 150 mg 24 hr capsule TAKE 1 CAPSULE(150 MG) BY MOUTH DAILY 90 capsule 1 09/16/19 25 Active rosuvastatin (CRESTOR) 20 mg tablet Take 1 tablet (20 mg total) by mouth daily 90 tablet 1 10/14/19 25 Active zolpidem (AMBIEN) 5 mg tablet TAKE 1 TABLET(5 MG) BY MOUTH EVERY NIGHT NEEDED FOR SLEEP 30 tablet 1 11/08/19 25 Active docusate sodium (COLACE) 100 mg capsuleIndication s:constipation Take 2 capsules (200 mg total) by mouth nightly as needed for constipation Patient takes 2-3 caps at bedtime daily for constipation Active tamsulosin (FLOMAX) 0.4 mg extended release capsule Take 1 capsule (0.4 mg total) by mouth daily with dinner 30 capsule 11/16/19 25 Active tirzepatide, weight loss, (ZEPBOUND) 10 mg/0.5 mL solution vial Inject 0.5 mL (10 mg total) under the skin every 7 days 2 mL 2 12/18/19 25 Active amoxicillin (AMOXIL) 875 mg tabletIndications :Urinary Tract/Genitourina ry Infection Take 1 tablet (875 mg total) by mouth 2 (two) times a day for 20 doses 20 tablet 11/16/19 25 025 tirzepatide, weight loss, (ZEPBOUND) 7.5 mg/0.5 mL solution vial Inject 0.5 mL (7.5 mg total) under the skin once a week Takes on Sunday 2 mL 11/16/19 25 025 Discontinu ed(Therapy completed) HYDROcodone-aceta minophen (NORCO) 5-325 mg per tabletIndications :Pain Take 1 tablet by mouth every 8 (eight) hours as needed for pain for up to 3 days 9 tablet 11/28/19 25 025 Active Problems Problem Noted Date Diagnosed Date Calculus of ureter 11/18/2024 Sepsis, due to unspecified o rganism, unspecified whether acute organ dysfunction present 11/13/2024 SIRS (systemic inflammatory response syndrome) 0 11/13/2024 Pyelonephritis 11/13/2024 STUART (generalized anxiety disorder) 03/16/2022 Assessment & Plan (04/03/2024 10:03 AM MANAGER MOUNTAIN): Stable on Venlafaxine Morbid (severe) obesity due to excess calories 0 03/16/2022 Class 3 severe obesity due t o excess calories with serious comorbidity and body mass index (BMI) of 40.0 to 44.9 in adult 03/16/2022 Assessment & Plan (04/03/2024 10:04 AM MANAGER MOUNTAIN): Healthy, low carbohydrate lifestyle and exercise for [...] (11/29/2021): Added automatically from request for surgery [id number] History of rectal polyps 11/29/2021 Overview (11/29/2021): Added automatically from request for surgery [id number] Drug-induced polyneuropathy 09/07/2021 Age-related osteoporosis wit hout current pathological fracture 09/07/2021 Memory loss 09/07/2021 Recurrent major depression 09/07/2021 Assessment & Plan (09/27/2023 9:51 AM CDT): Stable on Venlafaxine 150 mg daily. Assessment & Plan (03/29/2023 2:43 PM MANAGER MOUNTAIN): Stable on Venlafaxine 150 mg daily. 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 Ernst and Dr. 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 Advised to do low oxalate diet and advise to take atleast 800-1200 mg oral calcium intake Advised good oral hydration Advised to see pipeline superintendent division Pt might benefit from us of Thiazide diuretics Amyloidosis 12/05/2017 Assessment & Plan (03/25/2018 10:46 AM MANAGER MOUNTAIN): -Dx'd 06/2016 via left thumbnail and abdominal [...] (08/22/2017): Added automatically from request for surgery [id number] H/O autologous stem cell transplant 01/26/2017 Pulmonary embolism 12/12/2016 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 Assessment & Plan (09/27/2023 9:48 AM CDT): BP stable in office, continuing current regimen Vitamin D deficiency 12/24/2013 Assessment & Plan (09/08/2019 12:41 PM CDT): On vitamin D 3 50,000 units oral weekly Assessment & Plan (03/11/2019 11:48 AM MANAGER MOUNTAIN): changed to vitamin D 3 50,000 units [...] 12/18/2012 Assessment & Plan (04/03/2024 10:02 AM MANAGER MOUNTAIN): Continues Crestor, no side effects noted. Updated lipid panel ordered. Assessment & Plan (09/27/2023 9:49 AM CDT): Continues Crestor (has been out rx as of late though), no side effects noted. Updated lipid panel ordered. Assessment & Plan (03/29/2023 2:44 PM MANAGER MOUNTAIN): Continues Crestor, no side effects noted. Liver [...] labs Assessment & Plan (03/11/2019 11:49 AM MANAGER MOUNTAIN): Recent TSH WNL Advise to continue current Levothyroxine medication dose Assessment & Plan (11/06/2018 7:31 AM CDT): Recent TSH WNL Advise to continue current Levothyroxine medication dose Chronic insomnia 12/18/2012 Resolved Problems Problem Noted Date Diagnosed Date Resolved Date Hyperparathyroidism 01/08/2020 01/07/20 24 Overview (01/08/2020): Added automatically from request for surgery [id number] Assessment & Plan (01/22/2020 9:36 AM MANAGER MOUNTAIN): S/p removal of right superior parathyroid adenoma on 01/12/20. Morbid obesity with BMI of 40.0-44.9, adult 03/11/2019 09/27/2023 Assessment & Plan (03/11/2019 11:50 AM MANAGER MOUNTAIN): Chronic, worsening Discussed about healthy lifestyle habits [...] scan Assessment & Plan (03/11/2019 11:48 AM MANAGER MOUNTAIN): Pt has slightly high PTH intact levels [...] on it. Sepsis due to gram-negative UTI ([facility]) 03/25/2018 09/07/2021 Assessment & Plan (03/25/2018 10:29 AM MANAGER MOUNTAIN): -s/p R URS, LL, stent placement with bladder biopsy on 03/22. -Admitted 03/24 with fever, chills. -Kidney stone cx from 03/22 with Enterococcus Faecalis. Urine Cx from 03/24 with GNB, speciation pending. -On Meropenem, Vancomycin -Urology following UTI (urinary tract infection) 03/25/2018 09/07/2021 Assessment & Plan (03/26/2018 11:04 AM MANAGER MOUNTAIN): -History of recurrent UTI; now with Citerobacter [...] CRP elevated 08/11/2014 09/07/2021 Depression 04/08/2013 09/07/2021 Multiple myeloma 12/18/2012 11/05/2024 Encounters Date Type Department Care Team Description 12/23/2024 11:00 AM CDT Lab [address] [address] Primary amyloidosis of light chain type (HCC) 12/22/2024 Orders Only [facility] [address] [phone] [facility] 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) 12/17/2024 Orders Only [facility] Medical [facility] Primary Care at [address] [phone] Alice Lao NP 11/27/2024 1:15 PM CDT - 11/27/2024 2:15 PM CDT Surgery [facility] Operating Room [address] [place] [address] Mateus Bravo MD Right ureteroscopy, laser lithotripsy with stone removal, stent exchange, Clear Michelle 11/27/2024 12:58 PM CDT Anesthesia Event [facility] Operating [address] [place] [address] Ronan Tirado DO 11/27/2024 10:43 AM CDT - 11/27/2024 3:55 PM CDT Hospital Encounter [facility] Operating [address] [place] [address] Mateus Bravo MD Calculus of ureter (Primary Dx) Discharge Disposition: Discharge to home or self care 11/24/2024 Results Follow-Up [facility] Medical Group Primary Care at [address] [phone] Gualberto Padron MD Urine culture Urine, clean voided 11/20/2024 [facility] Post Discharge Follow up phone call [address] [address] Taisha Bergman RN 11/19/2024 12:45 PM CDT Lab [address] [address] 11/18/2024 Orders Only [address] [address] Mateus Bravo MD 11/17/2024 DOMENIC IP Outreach [facility] Accountable Care Organization [address] [place] [address] Crystal Zheng MA 11/14/2024 12:00 PM CDT - 11/14/2024 1:00 PM CDT Surgery [facility] Operating [address] [place] [address] Mateus Bravo MD CYSTOSCOPY RIGHT URETERAL STENT PLACEMENT 11/14/2024 11:48 AM CDT Anesthesia Event [facility] Operating [address] [place] [address] Francisco Bailey MD Alexander, Jeffrey Michael, DO 11/12/2024 7:21 PM CDT - 11/15/2024 2:21 PM CDT Hospital Encounter [facility] [address] [place] [address] Herman Gardner MD Burt, Jonathan S., MD Sepsis, due to unspecified organism, unspecified whether acute organ dysfunction present (HCC) (Primary Dx); Pyelonephritis of right kidney Discharge Disposition: Discharge to home or self care 11/12/2024 4:18 PM CDT - 11/12/2024 11:59 PM CDT Hospital Encounter [address] [address] Pyelonephritis Discharge Disposition: Discharge to home or self care 11/12/2024 3:30 PM CDT Office Visit [facility] Group Primary Care at [address] [phone] Gualberto Padron MD Pyelonephritis (Primary Dx) 11/04/2024 3:15 PM CDT Office Visit [facility] [address] [address] Mauricio Mott MD Primary amyloidosis of light chain type (HCC); H/O autologous stem cell transplant (HCC) 10/30/2024 11:25 AM CDT Lab [address] [address] Primary amyloidosis of light chain type (HCC) 10/29/2024 Orders Only [facility] Medicine Bone Marrow Transplant [address] [place] [address] [address] [place] [phone] Mauricio Mott MD 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) 10/22/2024 Telephone [facility] [address] [place] [phone] Malu Sargent NP 10/15/2024 Telephone [facility] Radiology [address] [place] [address] Columba Schultz RN 10/14/2024 6:16 AM CDT - 10/14/2024 11:59 PM CDT Hospital Encounter [facility] Radiology [address] [place] [address] Kathleen Valdes MD Amyloidosis, unspecified type (HCC) Discharge Disposition: Discharge to home or self care 10/14/2024 6:16 AM CDT - 10/14/2024 11:59 PM CDT Hospital Encounter [facility] Radiology [address] [place] [address] Amyloidosis, unspecified type (HCC) Discharge Disposition: Discharge to home or self care 10/14/2024 Orders Only [facility] [address] [place] [phone] Mauricio Mott MD 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) 10/13/2024 Telephone [facility] Radiology [address] [place] [address] Columba Schultz RN 10/10/2024 Telephone [facility] Radiology [address] [place] [address] Jane Fitzgerald, AMIRA 10/10/2024 Orders Only [facility] Radiology [address] [place] [address] Jane Fitzgerald, AMIRA 10/08/2024 10:00 AM CDT Office Visit [facility] [address] [facility] [address] [address] Mary Grace Ferrell PA Primary amyloidosis of light chain type (HCC) 10/08/2024 Orders Only [facility] Medicine Bone Marrow Transplant [address] [phone] Mauricio Mott MD 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) 10/07/2024 Telephone [facility] [address] [facility] [address] [address] Lali Mcpherson, RN Appointment 10/07/2024 Telephone [facility] Radiology [address] [place] [address] Jane Fitzgerald, AMIRA 10/07/2024 Orders Only [facility] [address] [phone] Mauricio Mott MD 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) 10/07/2024 Orders Only [facility] [address] [place] [phone] Mauricio Mott MD 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) 10/07/2024 Telephone [facility] [address] [place] [phone] Mauricio Mott MD 10/06/2024 8:02 AM CDT - 10/06/2024 11:59 PM CDT Hospital Encounter [address] [address] Primary amyloidosis of light chain type (HCC) Discharge Disposition: Discharge to home or self care 10/06/2024 8:00 AM CDT Lab [facility] Medical Group Outpatient Lab at [address] [phone] 10/06/2024 Results Follow-Up [address] [address] Mauricio Mott MD Volume and period, urine, 24 hour 10/02/2024 10:30 AM CDT Lab [facility] Medical Group Outpatient Lab at [address] [address] 10/02/2024 10:25 AM CDT - 10/02/2024 11:59 PM CDT Hospital Encounter [address] [address] Primary amyloidosis of light chain type (HCC) Discharge Disposition: Discharge to home or self care 10/02/2024 Orders Only [facility] Bone Marrow Transplant [address] [place] [phone] Mauricio Mott MD 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) 10/01/2024 Results Follow-Up [facility]row Transplant [address] [place] [phone] Malu Sargent NP MRI Cervical Spine W Contrast 09/30/2024 3:15 PM CDT Ancillary Procedure [facility] [address] [place] [address] Primary amyloidosis of light chain type (HCC) 09/30/2024 2:18 PM CDT - 09/30/2024 11:59 PM CDT Hospital Encounter [facility] Radiology at [facility] [address] [place] [address] Primary amyloidosis of light chain type (HCC) Discharge Disposition: Discharge to home or self care 09/30/2024 Orders Only [facility] Bone Marrow Transplant [address] [place] [phone] Mauricio Mott MD 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) 09/25/2024 Orders Only [facility] Bone Marrow Transplant [address] [place] [phone] Mauricio Mott MD 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) 09/24/2024 Orders Only [facility] [address] [phone] Mauricio Mott MD 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) 09/23/2024 2:30 PM CDT Ancillary Procedure [facility] Mobile MRI [address] [place] [address] Primary amyloidosis of light chain type (HCC) 09/23/2024 1:45 PM CDT Ancillary Procedure [facility] Mobile MRI [address] [place] [address] Primary amyloidosis of light chain type (HCC) 09/23/2024 Results Follow-Up [facility] [address] [place] [phone] Malu Sargent NP MRI Thoracic Spine WO Contrast from Last 3 Months Immunizations Immunization Administration [...] Right EAR SURGERY Left BARIATRIC SURGERY 2007 BONE MARROW TRANSPLANT 2016 Medical History Medical History Date Comments Nail dystrophy Trachyonychia - (Added by TW Conv) MGUS (monoclonal gammopathy of unknown significance) Hx of colonic polyps Dyslipidemia Hypothyroidism Fissure, anal Amyloidosis 2016 chemotherapy and Bone Marrow Transplant 2016 (tissue, colon, lungs) Anal fissure Anal abscess Constipation Fecal incontinence Rectal bleeding Rectal pain Diarrhea Colon polyps Depression Hyperlipidemia 12/18/2012 History of nephrolithiasis Primary hyperparathyroidism 05/24/2018 TIA (transient ischemic attack) Osteoporosis Cancer (HCC) amyloidosis Kidney stone Hyperparathyroidism 01/08/2020 Added automa tically from request for surgery [id number] Amyloidosis Gi tract Stroke (HCC) Family History Medical History Relation Name Comments [...] Given: No Alcohol Use Standard Drinks/Week Comments Not Currently [...] often do you attend chur ch or anabaptist services? More than 4 times per year 11/13/2024 Do you belong to any clubs o r organizations such as zoroastrian groups, unions, fraternal or athletic groups, or [...] in the past 12 m [facility], were you homeless or living in a m[facility]p (including now)? No 11/13/2024 [facility] Utilities Answer Date Recorded In the past 12 months has th [employer] electric, gas, oil, or water company threatened [...] on file Legal Sex Female 3:14 AM MANAGER MOUNTAIN Gender Identity Female 01/08/2020 7:01 AM CDT Sexual Orientation Not on file Obstetrics History Last Filed Vital Signs Vital Sign Reading Time Taken Comments Blood Pressure 123/55 11/27/2024 3:35 PM CDT Pulse 78 11/27/2024 3:35 PM CDT Temperature 35.9 C (96.6 F) 11/27/2024 3:35 PM CDT Respiratory Rate 20 11/27/2024 3:35 PM CDT Oxygen Saturation 99% 11/27/2024 3:35 PM CDT Inhaled Oxygen Concentration - - Weight 98.1 kg (216 lb 4.3 oz) 11/27/2024 10:55 AM CDT Height 162.6 cm (5' 4) 11/27/2024 10:55 AM CDT Body Mass Index 37.12 11/27/2024 10:55 AM CDT Plan of Treatment Health Maintenance Due Date Last Done Comments DTaP/Tdap/Td Vaccine (1 - Tdap) 11/24/1966 Hepatitis B Screening 11/24/1973 Pneumococcal vaccine 65+ (1 of 2 - PCV) 11/24/1974 Well Visit 65+ 11/24/2020 Covid-19 Vaccine (4 - 2024-2 6 season) 2024 11/24/2020, 05/19/2020, 04/21/2020 Influenza Vaccine (#1) 2024 , 02/15/2022, 01/13/2020, Additional history exists Osteoporosis Screening-Bone Density Scan 02/07/2025 02/07/2023, 10/07/2019 Breast Cancer Screening-Mammogram 02/12/2025 02/13/2024, 02/07/2023, 12/14/2021, Additional history exists Depression Screening 07/22/2025 07/22/2024, 04/03/2024, 09/27/2023, Additional history exists Fall Risk Assessment 11/27/2025 11/27/2024, 07/22/2024, 09/27/2023, Additional history exists Colon Cancer Screening-Colonoscopy 01/27/2032 01/26/2022, 12/31/2018, 10/02/2017 Zoster Vaccine Completed 04/12/2018, 12/14/2017 Colon Cancer Screening-CT Colonography Discontinued 01/26/2022, 12/31/2018, 10/02/2017 Colon Cancer Screening-DNA Stool Discontinued 01/26/2022, 12/31/2018, 10/02/2017 Colon Cancer Screening-FIT Discontinued 01/26, 12/31/2018, 10/02/2017 Colon Cancer Screening-Sigmoidoscopy Discontinued 01/26/2022, 12/31/2018, 10/02/2017 Hepatitis C Screening Completed 04/18/2023 Medical Devices Implanted Type Area Grain Cleaner And Transfer Operator Device Identifier Shelf Expiration Date Model / Serial / Lot [employer] Stent Ureteral Set Double Pigtail Tapered Tip Contour [id number] Hydroplus Coated [id number] - [id number] Implanted:Qty: 1 on 11/27/2024 by Mateus Bravo MD at [facility] Right: Ureter [employer] Henry 05/13/2027 [id number] / / [id number] Explanted Type Area Grain Cleaner And Transfer Operator Device Identifier Shelf Expiration Date Model / Serial / Lot [employer] [id number] Inlay Mckittrick 6fr 24cm Pusher Fluoro Marker Atraumatic Insertion Latex Free - [id number] - [id number] Implanted:Qty: 1 on 03/22/2018 by Vinny Silva MD at [facility] Explanted:Qty: 1 on 04/16/2018 Stent Right: Ureter [employer] [id number] 11/01/2022 [id number] / [id number] / [id number] Description:Stent noted on C T on 03/25. It is not noted to be present on the MRI on 04/16. Per office note on 04/18, it was removed while in the hospital. [employer] Henry Stent Ureteral Set Double Pigtail Tapered Tip Contour 9tto30bm Hydroplus Coated [id number] - [id number] Implanted:Qty: 1 on 11/14/2024 by Mateus Bravo MD at [facility] Explanted:Qty: 1 on 11/27/2024 by Mateus Bravo MD at [facility] Right: Urethra [employer] Henry 05/13/2027 [id number] / / [id number] Procedures Procedure Name Priority Date/Time Associated Diagnosis Comments SURGICAL PATHOLOGY Routine 11/27/2024 2: 08 PM CDT Calculus of ureter FL RETRO PYELO (IN OR) IP Routine 1:56 PM CDT Calculus of ureter STONE ANALYSIS Routine 11/27/2024 1:26 PM CDT URETEROSCOPY 11/27/2024 12:58 PM CDT Calculus of ureter ECG 12-LEAD Routine 11/27/2024 11:11 AM CDT URINE CULTURE Routine 11/19/2024 1:15 PM CDT EGFR Routine 11/15/2024 4:53 AM CDT PHOSPHORUS Routine 11/15/2024 4:53 AM CDT DIFFERENTIAL AUTO Routine 11/15/2024 4:5 3 AM CDT CBC WITHOUT DIFFERENTIAL Routine 11/15/2024 4:53 AM CDT COMPREHENSIVE METABOLIC PANEL Routine 11/15/2024 4:53 AM CDT CBC WITH AUTO DIFFERENTIAL Routine 11/15/2024 4:53 AM CDT FL RETRO PYELO (IN OR) IP Routine 12:26 PM CDT MO AN ELECTIVE SUPRAGLOTTIC AIRWAY Routine 11/14/2024 12:04 PM CDT CYSTOSCOPY CHANGE URETERAL STENT 11/14/2024 11:49 AM CDT Pyelonephritis -RIGHT NON OBSTRUCTING RENAL STONE- RIGHT EGFR Routine 11/14/2024 7:51 AM CDT DIFFERENTIAL AUTO Routine 11/14/2024 7:5 1 AM CDT COMPREHENSIVE METABOLIC PANEL Routine 11/14/2024 7:51 AM CDT CBC WITH AUTO DIFFERENTIAL Routine 11/14/2024 7:51 AM CDT EGFR Routine 11/13/2024 6:48 AM CDT DIFFERENTIAL AUTO Routine 11/13/2024 6:4 8 AM CDT COMPREHENSIVE METABOLIC PANEL Routine 11/13/2024 6:48 AM CDT CBC WITH AUTO DIFFERENTIAL Routine 11/13/2024 6:48 AM CDT BLOOD CULTURE STAT 11/12/2024 10:55 PM CDT SEPSIS LACTATE WITH REFLEX STAT 11/12/2024 10:32 PM CDT BLOOD CULTURE STAT 11/12/2024 10:[address] ABDOMEN PELVIS W CONTRAST ED 11/12/2024 10:27 PM CDT XR CHEST 1 VIEW ED 11/12/2024 7:53 PM CDT URINALYSIS, MICROSCOPIC ONLY STAT 11/12/2024 5:55 PM CDT URINE CULTURE STAT 11/12/2024 5:55 PM CDT URINALYSIS AND REFLEX TO MICROSCOPIC AND CULTURE STAT 11/12/2024 5:55 PM CDT URINE CULTURE Routine 11/12/2024 5:55 PM CDT Pyelonephritis EGFR STAT 11/12/2024 5:50 PM CDT DIFFERENTIAL AUTO STAT 11/12/2024 5:5 0 PM CDT COMPREHENSIVE METABOLIC PANEL STAT 11/12/2024 5:50 PM CDT CBC WITH AUTO DIFFERENTIAL STAT 11/12/2024 5:50 PM CDT POCT URINALYSIS DIPSTICK Routine 11/12/2024 3:32 PM CDT Pyelonephritis EGFR Routine 10/30/2024 11:39 AM CDT Primary amyloidosis of light chain type (HCC) DIFFERENTIAL AUTO Routine 10/30/2024 11:39 AM CDT Primary amyloidosis of light chain type (HCC) PRO B-TYPE NATRIURETIC PEPTIDE Routine 10/30/2024 11:39 AM CDT Primary amyloidosis of light chain type (HCC) TROPONIN T HIGH-SENSITIVITY Routine 10/30/2024 11:39 AM CDT Primary amyloidosis of light chain type (HCC) BETA 2 MICROGLOBULIN SERUM Routine 10/30/2024 11:39 AM CDT Primary amyloidosis of light chain type (HCC) CBC WITH AUTO DIFFERENTIAL Routine 10/30/2024 11:39 AM CDT Primary amyloidosis of light chain type (HCC) COMPREHENSIVE METABOLIC PANEL Routine 10/30/2024 11:39 AM CDT Primary amyloidosis of light chain type (HCC) IMMUNOGLOBULIN FREE LIGHT CHAINS Routine 10/30/2024 11:39 AM CDT Primary amyloidosis of light chain type (HCC) IGA Routine 10/30/2024 11:39 AM CDT Primary amyloidosis of light chain type (HCC) IGG Routine 10/30/2024 11:39 AM CDT Primary amyloidosis of light chain type (HCC) IGM Routine 10/30/2024 11:39 AM CDT Primary amyloidosis of light chain type (HCC) LACTATE DEHYDROGENASE Routine 10/30/2024 11:39 AM CDT Primary amyloidosis of light chain type (HCC) PRO B-TYPE NATRIURETIC PEPTIDE Routine 10/30/2024 11:39 AM CDT Primary amyloidosis of light chain type (HCC) PROTEIN ELECTROPHORESIS, WITH REFLEX, SERUM Routine 10/30/2024 11:39 AM CDT Primary amyloidosis of light chain type (HCC) PROTIME-INR Routine 10/30/2024 11:39 AM CDT Primary amyloidosis of light chain type (HCC) APTT Routine 10/30/2024 11:39 AM CDT Primary amyloidosis of light chain type (HCC) TROPONIN T HIGH-SENSITIVITY Routine 10/30/2024 11:39 AM CDT Primary amyloidosis of light chain type (HCC) URIC ACID Routine 10/30/2024 11:39 AM CDT Primary amyloidosis of light chain type (HCC) TISSUE AEROBIC AND ANAEROBIC CULTURE AND GRAM STAIN Routine 10/14/2024 9:31 AM CDT MYCOLOGY (FUNGAL) CULTURE AND STAIN Routine 10/14/2024 9:31 AM CDT MYCOBACTERIOLOGY AFB CULTURE Routine 10/14/2024 9:[address] GUIDED DEEP BONE NEEDLE BIOPSY Schedule Routine, Read Routine (OP Routine) 10/14/2024 9:10 AM CDT Amyloidosis, unspecified type (HCC) IR BONE MARROW BIOPSY AND ASPIRATION Schedule Routine, Read Routine (OP Routine) 10/14/2024 9:10 AM CDT Amyloidosis, unspecified type (HCC) SURGICAL PATHOLOGY Routine 10/14/2024 8: 24 AM CDT Amyloidosis, unspecified type (HCC) FLOW LEUKEMIA/LYMPHOMA Timed 8:24 AM CDT CYTOGENETICS Routine 10/14/2024 12:00 AM CDT PROTIME-INR Routine 10/06/2024 8:02 AM CDT Primary amyloidosis of light chain type (HCC) APTT Routine 10/06/2024 8:02 AM CDT Primary amyloidosis of light chain type (HCC) CLINICAL PATHOLOGY REPORT Routine 10/06/2024 6:30 AM CDT IMMUNOFIXATION, URINE Routine 10/06/2024 6:30 AM CDT VOLUME AND PERIOD, URINE, 24 HOUR Routine 10/06/2024 6:30 AM CDT PROTEIN ELECTROPHORESIS, URINE, 24 HOUR RESULT Routine 10/06/2024 6:30 AM CDT CLINICAL PATHOLOGY REPORT Routine 10/02/2024 10:25 AM CDT EGFR Routine 10/02/2024 10:25 AM CDT Primary amyloidosis of light chain type (HCC) DIFFERENTIAL AUTO Routine 10/02/2024 10:25 AM CDT Primary amyloidosis of light chain type (HCC) BETA 2 MICROGLOBULIN SERUM Routine 10/02/2024 10:25 AM CDT Primary amyloidosis of light chain type (HCC) CBC WITH AUTO DIFFERENTIAL Routine 10/02/2024 10:25 AM CDT Primary amyloidosis of light chain type (HCC) COMPREHENSIVE METABOLIC PANEL Routine 10/02/2024 10:25 AM CDT Primary amyloidosis of light chain type (HCC) PROTEIN, TOTAL Routine 10/02/2024 10:25 AM CDT Primary amyloidosis of light chain type (HCC) PRO B-TYPE NATRIURETIC PEPTIDE Routine 10/02/2024 10:25 AM CDT Primary amyloidosis of light chain type (HCC) LACTATE DEHYDROGENASE Routine 10/02/2024 10:25 AM CDT Primary amyloidosis of light chain type (HCC) IGM Routine 10/02/2024 10:25 AM CDT Primary amyloidosis of light chain type (HCC) IGG Routine 10/02/2024 10:25 AM CDT Primary amyloidosis of light chain type (HCC) IGA Routine 10/02/2024 10:25 AM CDT Primary amyloidosis of light chain type (HCC) IMMUNOGLOBULIN FREE LIGHT CHAINS Routine 10/02/2024 10:25 AM CDT Primary amyloidosis of light chain type (HCC) PROTEIN ELECTROPHORESIS, WITH REFLEX, SERUM Routine 10/02/2024 10:25 AM CDT Primary amyloidosis of light chain type (HCC) PROTIME-INR Routine 10/02/2024 10:25 AM CDT Primary amyloidosis of light chain type (HCC) TROPONIN T HIGH-SENSITIVITY Routine 10/02/2024 10:25 AM CDT Primary amyloidosis of light chain type (HCC) URIC ACID Routine 10/02/2024 10:25 AM CDT Primary amyloidosis of light chain type (HCC) XR HIP RIGHT 2 OR 3 VIEWS Schedule Routine, Read Routine (OP Routine) 09/30/2024 2:53 PM CDT Primary amyloidosis of light chain type (HCC) XR HIP LEFT 2 OR 3 VIEWS Schedule Routine, Read Routine (OP Routine) 09/30/2024 2:53 PM CDT Primary amyloidosis of light chain type (HCC) MRI CERVICAL SPINE W CONTRAST Schedule Routine, Read Routine (OP Routine) 09/30/2024 2:48 PM CDT Primary amyloidosis of light chain type (HCC) MRI THORACIC SPINE WO CONTRAST Schedule Routine, Read Routine (OP Routine) 09/23/2024 1:53 PM CDT Primary amyloidosis of light chain type (HCC) MRI CERVICAL SPINE WO CONTRAST Schedule Routine, Read Routine (OP Routine) 09/23/2024 1:53 PM CDT Primary amyloidosis of light chain type (HCC) SCREENING MAMMOGRAM BILATERAL W FARAZ Schedule Routine, Read Routine (OP Routine) 02/13/2024 11:22 AM MANAGER [place]OUNTAIN Family history of breast cancer Encounter for screening mammogram for malignant neoplasm of breast HEPATITIS C ANTIBODY Routine 04/18/2023 1:30 PM MANAGER MOUNTAIN Encounter for hepatitis C screening test for low risk patient DEXA AXIAL AND FOREARM BONE DENSITY SCAN Schedule Routine, Read Routine (OP Routine) 02/07/2023 Localized osteoporosis without current pathological fracture COLONOSCOPY 01/26/2022 8:07 AM MANAGER MOUNTAIN from Last 3 Months or Most Recently Relevant to Health Maintenance Results * Surgical pathology (11/27/2024 2:08 PM CDT) Tissue (Calculus/calculi /stone, gross and Chemical Analysis) 11/27/2024 1:26 PM CDT Narrative PATHOLOGY [facility] ([facility]) - 11/28/2024 12:42 PM CDT EPIC results best viewed via link to PDF [facility] Department of Pathology [address] [place] [address] Note to Patients: This report may contain [...] can answer questions and explain the details. Final Report Patient Name: GAMALIEL SMITH Address: [address] [place] [address] , DAVIEYarely BROWN, [facility] Gender: F : 1955 (Age: 69) Service: Surgery Location: [facility] Hospital #: [id number] Patient Type: [facility] Taken: 11/27/2024 Received: 11/27/2024 Accessioned: 11/27/2024 Reported: 11/28/2024 Physician(s):Mateus Bravo M.D. Diagnosis: Kidney, right: - Calculi (gross examination only). - Submitted to [facility] for chemical analysis. Dony Lala MD Report Electronically Reviewed and Signed Out By Dony Lala MD 11/28/2024 12:42:53 Specimen(s) Received: A: Right kidney stones Clinical History: Calculus of ureter. Right ureteroscopy, laser lithotripsy with stone removal, stent exchange, Clear Michelle. Gross Description: The specimen is submitted in a single container labeled GAMALIEL SMITH and right kidney stones. It is multiple yellow sandlike calculi, varying from minute up to 2 mm. The specimen is entirely submitted to [facility] for chemical analysis. When the [facility] report has been finalized, it will be available in the laboratory section of [facility]. If [facility] is not available, please call the Department of Pathology at [facility] ([phone]) to obtain a copy of the report. Fabi Enriquez/Hilario Castro M.D. REPORT IMAGES AND SCANNED DOCUMENTS, IF INCLUDED, ONLY VIEWABLE IN PDF VERSION OF REPORT The performance characteristics of some immunohistochemical stains, fluorescence in-situ hybridization tests and immunophenotyping by flow cytometry cited in this report (if any) were determined by the Surgical Pathology Department at [facility] as part of an ongoing compliance quality performance analyst program and in compliance with federally mandated [...] characteristics determined by the Surgical Pathology Department [facility]. It has not been cleared or approved by the U. S. Food and Drug Administration. Note for decalcified specimens: This assay has not been validated on decalcified tissues. Results should be interpreted with caution given the possibility of false negativity on decalcified specimens Mateus Bravo MD LAB PATHOLOGY ORDERA TETO Final Result PATHOLOGY [facility] ([address] [address] * FL Retro Pyelo (In Or) (11/27/2024 1:56 PM CDT) Anatomical Region Laterality Modality Body N/A Radio Fluoroscop y 12/03/2024 7:51 AM CDT Narrative 12/03/2024 7:54 AM CDT EXAM DESCRIPTION: FL RETRO PYELO (IN OR) HISTORY: pain Stone extraction 4 ml omnipaque 240 .2 min ft 7.6 mgy COMPARISON: 11/14/2024 11/12/2024 RADIATION DOSE: Dose: 7.60 mGy Reference Air Kerma (Ka,r) FINDINGS: Multiple fluoroscopic images during a right retrograde pyelogram and ureteral stent exchange. Final image demonstrates a ureteral stent with proximal loop projecting of the anticipated location of the right renal pelvis and distal loop projecting over the midline pelvis likely within the bladder. Nonobstructive bowel gas pattern. Right upper quadrant cholecystectomy clips. IMPRESSION: Placement of a double-J ureteral stent overlying the right ureter. Please see operative summary for full report. THIS IS AN ELECTRONICALLY VERIFIED FINAL REPORT 12/03/2024 7:54 AM - Electronically signed by Marcus Lewis M.D. NS: NS Report ID: [id number] Reading Location: [place] [address] Procedure Note Marcus Lewis MD - 12/03/2024 EXAM DESCRIPTION: FL RETRO PYELO (IN OR) HISTORY: pain Stone extraction 4 ml omnipaque 240 .2 min ft 7.6 mgy COMPARISON: 11/14/2024 11/12/2024 RADIATION DOSE: Dose: 7.60 mGy Reference Air Kerma (Ka,r) FINDINGS: Multiple fluoroscopic images during a right retrograde pyelogram and ureteral stent exchange. Final image demonstrates a ureteral stent with proximal loop projecting of the anticipated location of the right renalpelvis and distal loop projecting over the midline pelvis likely within thebladder. Nonobstructive bowel gas pattern. Right upper quadrant cholecystectomyclips. IMPRESSION: Placement of a double-J ureteral stent overlying the right ureter.Please see operative summary for full report. THIS IS AN ELECTRONICALLY VERIFIED FINAL REPORT 12/03/2024 7:54 AM - Electronically signed by Marcus Lewis M.D. NS: NS Report ID: [id number] Reading Location: [place] [address] Mateus Bravo MD IMG FLUOROSCOPY PROC EDURES Final Result * Stone analysis (11/27/2024 1:26 PM CDT) Stone analysis Not Reported [facility] Comment:Testing performed by : [facility], [address] [place] [address], [place]., [address] Source, Kid Stone Right Kidney [facility] ([facility]) Comment:Testing performed by : [facility], [address] [place] [address], [place]., [address] Interp, Kid stone analysis See Footnote [facility] ([facility]) Comment: 50% Calcium oxalate dihydrate. 40% Calcium oxalate monohydrate. 10% Calcium phosphate (apatite). Testing performed by: [facility], [address] [place] [address]., [id number] COMMENT See Footnote [facility]) Comment: For stones containing calcium oxalate, calcium phosphate, and/or uric acid, a 24 hr urinary supersaturation test may help detect underlying risk factors for this type of stone formation and provide guidance for a stone prevention strategy. ADDITIONAL INFORMATION This test was developed and its performance characteristics determined by [facility] in a manner consistent with CLIA requirements. This test has not been cleared or approved by the U.S. Food and Drug Administration. Test Performed by: [facility] - [address] [address] Media Consultant: Bartolo Still Ph.D.; CLIA# [id number] Testing performed by: [facility], [address] [place] [address]., [id number] Stone 11/27/2024 1:26 PM CDT 12/02/2024 2:00 PM CDT Narrative [facility]) - 12/09/2024 10:28 AM CDT Right Kidney Stone [id number] Mateus Bravo MD LAB URINE ORDERABLES Final Result [facility] ([facility]) [address] [facility] Department [place] [address] [facility] * ECG 12 lead (11/27/2024 11:11 AM CDT) 11/27/2024 11:1 1 AM CDT Narrative [facility] - 11/27/2024 2:17 PM CDT Vent Rate: 74 bpm RR Interval: 803 msec MO Interval: 146 msec QRS Duration: 131 msec QT Interval: 423 msec QTC Interval: 451 msec P-R-T Ch[place]: 20 - -21 - 77 degrees IMPRESSION: SINUS RHYTHM LEFT BUNDLE BRANCH BLOCK [120+ ms QRS DURATION, 80+ ms Q/S IN V1/V2, 85+ ms R IN I/aVL/V5/V6] ABNORMAL ECG Electronically Signed By: Rao Delgado MD Ronan Tirado DO ECG ORDERABLES Fin al Result [facility] * Urine culture Urine, bladder (11/19/2024 1:15 PM CDT) Report Final Report: Less than 100,000 colonies/mL (clinically insignificant growth based on current clinical standards) Comment:Testing performed by : [facility], [address] [facility] [place] [address] Organism (CLINICALLY INSIGNIFICANT GROWTH [facility]ILA Urine, bladder 11/19/2024 1: 15 PM CDT 11/19/2024 9:56 PM CDT Narrative [facility] - 11/21/2024 8:02 AM CDT Testing performed by [facility] Microbiology Laboratory ([phone]) Mateus Bravo MD LAB MICROBIOLOGY - G ENERAL ORDERABLES Final Result [facility] [address] [facility] Department [place] [address] * eGFR (11/15/2024 4:53 AM CDT) eGFR >90 >=60 mL/min/1. 73 m2 Comment: Interpretive Data [...] interpretive data was last reviewed 2021. Blood 11/15/2024 4:53 AM CDT 11/15/2024 5:18 AM CDT Mateus Bravo MD LAB BLOOD ORDERABLES Final Result [facility] ([facility]) 1 [facility] Department [place] [address] * (ABNORMAL) Differential, auto (11/15/2024 4:53 AM CDT) Neutrophil abs 6.78(H) 1.50 - 6.50 K/cumm Imm gran abs 0.05 0.00 - 0.10 K/cumm [facility] ([facility]) Lymphocyte abs 0.54(L) 0.80 - 3.30 K/cumm [facility] ([facility]) Monocyte abs 0.43 0.20 - 0.80 K/cumm [facility] ([facility]) Eosinophil abs 0.00 0.00 - 0.50 K/cumm [facility] ([facility]) Basophil abs 0.01 0.00 - 0.10 K/cumm [facility] ([facility]) Neutrophil pct 86.9 % [facility] ([facility]) Comment: Interpretive Data Percent cell count reference ranges are not reported, since discordance with absolute values may lead to misinterpretation of CBC data. Current Interpretive Data was last revised on 2017. Imm gran pct 0.6 % [facility] ([facility]) Comment: Interpretive Data Percent cell count reference ranges are not reported, since discordance with absolute values may lead to misinterpretation of CBC data. Current Interpretive Data was last revised on 2017. Lymphocyte pct 6.9 % [facility] ([facility]) Comment: Interpretive Data Percent cell count reference ranges are not reported, since discordance with absolute values may lead to misinterpretation of CBC data. Current Interpretive Data was last revised on 2017. Monocyte pct 5.5 % [facility] ([facility]) Comment: Interpretive Data Percent cell count reference ranges are not reported, since discordance with absolute values may lead to misinterpretation of CBC data. Current Interpretive Data was last revised on 2017. Eosinophil pct 0.0 % [facility] ([facility]) Comment: Interpretive Data Percent cell count reference ranges are not reported, since discordance with absolute values may lead to misinterpretation of CBC data. Current Interpretive Data was last revised on 2017. Basophil pct 0.1 % [facility] ([facility]) Comment: Interpretive Data Percent cell count reference ranges are not reported, since discordance with absolute values may lead to misinterpretation of CBC data. Current Interpretive Data was last revised on 2017. Blood 11/15/2024 4:53 AM CDT 11/15/2024 5:17 AM CDT Mateus Bravo MD LAB BLOOD ORDERABLES Final Result [facility] ([facility] 1 [facility] Department [place] [address] * (ABNORMAL) CBC with auto differential (11/15/2024 4:53 AM CDT) WBC 7.81 3.80 - 9.90 K/cumm Hgb 11.7(L) 11.9 - 15.5 g/dL [facility] ([facility]) Hct 36.4 35.6 - 45.5 % [facility] ([facility]) Plt 159 150 - 400 K/cumm [facility] ([facility]) MPV 10.2 9.1 - 12.3 fL [facility] ([place]) RBC 4.37 3.90 - 5.20 M/cumm [facility] ([facility]) MCV 83.3 81.3 - 96.4 fL [facility] ([facility]) MCH 26.8(L) 27.1 - 33.3 pg [facility] ([facility]) MCHC 32.1(L) 32.3 - 35.7 g/dL [facility] ([facility]) RDW CV 14.7 11.1 - 14.9 % [facility] ([facility]) RDW SD 44.6 35.7 - 48.1 fL [facility] ([facility]) NRBC abs 0.00 0.00 - 0.01 K/cumm [facility] ([facility]) Blood 11/15/2024 4:53 AM CDT 11/15/2024 5:17 AM CDT us Mateus Bravo MD LAB BLOOD ORDERABLES Final Result Performing Organization Address City/[facility]/ZIP Co de Phone Number [facility] ([facility]) [address] [facility] Department [place] [address] * (ABNORMAL) CBC without differential (11/15/2024 4:53 AM CDT) WBC 7.81 3.80 - 9.90 K/cumm Hgb 11.7(L) 11.9 - 15.5 g/dL [facility] ([facility]) Hct 36.4 35.6 - 45.5 % [facility] ([facility]) Plt 159 150 - 400 K/cumm [facility] ([facility]) MPV 10.2 9.1 - 12.3 fL [facility] ([facility]) RBC 4.37 3.90 - 5.20 M/cumm [facility] ([facility]) MCV 83.3 81.3 - 96.4 fL [facility] ([facility]) MCH 26.8(L) 27.1 - 33.3 pg [facility] ([facility]) MCHC 32.1(L) 32.3 - 35.7 g/dL [facility] ([place]) RDW CV 14.7 11.1 - 14.9 % [facility] ([place]) RDW SD 44.6 35.7 - 48.1 fL [facility] ([facility]) NRBC abs 0.00 0.00 - 0.01 K/cumm [facility] ([facility]) Blood 11/15/2024 4:53 AM CDT 11/15/2024 5:17 AM CDT us Gorge Mays MD LAB BLOOD ORDERABLES Final R esult [facility] ([place]) 1 [facility] Department [place] [address] * Phosphorus (11/15/2024 4:53 AM CDT) Phosphorus, pl 2.5 2.3 - 4.5 mg/dL [facility] ([facility]) Blood 11/15/2024 4:53 AM CDT 11/15/2024 5:18 AM CDT Mateus Bravo MD LAB BLOOD ORDERABLES Final Result [facility] ([place]) 1 [facility] [place] [address] * (ABNORMAL) Comprehensive metabolic panel (11/15/2024 4:53 AM CDT) Sodium 142 135 - 145 mmol/L [facility] ([facility]) Potassium, pl 4.4 3.3 - 4.9 mmol/L [facility] ([facility]) Chloride 109 97 - 110 mmol/L [facility] ([facility]) CO2 23 22 - 32 mmol/L [facility] ([facility]) Anion gap 10 2 - 15 mmol/L [facility] ([facility]) BUN 14 6 - 25 mg/dL [facility] ([facility]) Creatinine 0.63 0.60 - 1.10 mg/dL [facility] ([facility]) Glucose 131 70 - 199 mg/dL [facility] ([facility]) Comment: Interpretive Data Fasting glucose >/= 126 [...] interpretive data was last revised 2022. Calcium 9.1 8.5 - 10.3 mg/dL [facility] ([facility]) Bilirubin, total 0.2 0.1 - 1.2 mg/dL [facility] ([facility]) Protein, pl 6.7 6.5 - 8.5 g/dL [facility] ([facility]) Albumin 3.3(L) 3.5 - 5.0 g/dL [facility] ([facility]) Alk phos 107 40 - 130 Units/L [facility] ([facility]) ALT 37 7 - 45 Units/L [facility] ([facility]) AST 41 10 - 45 Units/L [facility] ([facility]) Comment:Hemolysis present. R esults may be affected. Blood 11/15/2024 4:53 AM CDT 11/15/2024 5:18 AM CDT Mateus Bravo MD LAB BLOOD ORDERABLES Final Result [facility] ([facility] [address] [facility] Department [place] [address] * FL Retro Pyelo (In Or) (11/14/2024 12:26 PM CDT) Anatomical Region Laterality Modality Body N/A Radio Fluoroscop y 11/14/2024 12:5 8 PM CDT Narrative 11/14/2024 1:00 PM CDT EXAM DESCRIPTION: FL RETRO PYELO (IN OR) HISTORY: pain Right ureteral stent placement 10 mL ominpaque 240 0.1 min 10.4 mGy COMPARISON: 11/12/2024 CT RADIATION DOSE: Dose: Total fluoro time 0.1 minutes. Dose area product 577.53. Reference air kerma 10.4. Total image number: 4 Total views: 1 FINDINGS: Submitted images demonstrate right ureteral stent placement with partial visualization. Initial images demonstrate possible filling defects which may be related to air bubbles, blood clots with other etiology not excluded. Focal stenosis proximal ureter may be present. Please correlate with intraoperative observations. IMPRESSION: Please see operative summary for full report. THIS IS AN ELECTRONICALLY VERIFIED FINAL REPORT 11/14/2024 1:00 PM - Electronically signed by Allen Copeland M.D. RB: STEFANY Report ID: [id number] Reading Location: [id number] Procedure Note Allen Copeland MD - 11/14/2024 EXAM DESCRIPTION: FL RETRO PYELO (IN OR) HISTORY: pain Right ureteral stent placement 10 mL ominpaque 240 0.1 min 10.4 mGy COMPARISON: 11/12/2024 CT RADIATION DOSE: Dose: Total fluoro time 0.1 minutes. Dose area product 577.53. Reference air kerma 10.4. Total image number: 4 Total views: 1 FINDINGS: Submitted images demonstrate right ureteral stent placement with partial visualization. Initial images demonstrate possible filling defects whichmay be related to air bubbles, blood clots with other etiology not excluded. Focal stenosis proximal ureter may be present. Please correlate with intraoperative observations. IMPRESSION: Please see operative summary for full report. THIS IS AN ELECTRONICALLY VERIFIED FINAL REPORT 11/14/2024 1:00 PM - Electronically signed by Allen Copeland M.D. RB: STEFANY Report ID: [id number] Reading Location: [place] [address] Mateus Bravo MD IMG FLUOROSCOPY PROC EDURES Final Result * MO AN ELECTIVE SUPRAGLOTTIC AIRWAY (11/14/2024 12:04 PM CDT) Narrative Asif Dominique CRNA - 11/14/2024 12:04 PM CDT Asif Dominique CRNA 11/14/2024 12:05 PM Airway Patient location: OR Urgency: elective Date/time: 11/14/2024 11:58 AM Indications for airway management: anesthesia and airway protection Difficult airway: no Staff: Placed by: NIMA: Asif Dominique CRNA Emergent airway documentation: Risks and benefits discussed: yes Consent obtained: yes Consent given by: patient Airway prep: Preoxygenated: yes Patient position: sniffing Mask difficulty assessment: 0 - not attempted Spontaneous ventilation during airway: absent Sedation level during airway: GA Final airway details: Final airway type: supraglottic airway Final supraglottic airway: unique SGA size: 4 Number of attempts: 1 Additional comments: Atraumatic LMA placement. Dentition (edentulous)/lips same as preop. No GERD sx today on daily therapy us Francisco Bailey MD ANESTHESIA ORDERABLES Fi nal Result * eGFR (11/14/2024 7:51 AM CDT) eGFR 83 >=60 mL/min/1. 73 [...] interpretive data was last reviewed 2021. Blood 11/14/2024 7:51 AM CDT 11/14/2024 8:13 AM CDT us Herman Gardner MD LAB BLOOD ORDERABLES Final Resu lt [facility] ([place]) 1 [facility] Department [place] [address] * (ABNORMAL) Differential, auto (11/14/2024 7:51 AM CDT) Neutrophil abs 6.95(H) 1.50 - 6.50 K/cumm Imm gran abs 0.04 0.00 - 0.10 K/cumm [facility] ([facility]) Lymphocyte abs 0.47(L) 0.80 - 3.30 K/cumm [facility] ([place]) Monocyte abs 0.97(H) 0.20 - 0.80 K/cumm [facility] ([facility]) Eosinophil abs 0.10 0.00 - 0.50 K/cumm [facility] ([place]) Basophil abs 0.02 0.00 - 0.10 K/cumm [facility] ([facility]) Neutrophil pct 81.3 % [facility] ([facility]) Comment: Interpretive Data Percent cell count reference ranges are not reported, since discordance with absolute values may lead to misinterpretation of CBC data. Current Interpretive Data was last revised on 2017. Imm gran pct 0.5 % [facility] ([facility]) Comment: Interpretive Data Percent cell count reference ranges are not reported, since discordance with absolute values may lead to misinterpretation of CBC data. Current Interpretive Data was last revised on 2017. Lymphocyte pct 5.5 % [facility] ([facility]) Comment: Interpretive Data Percent cell count reference ranges are not reported, since discordance with absolute values may lead to misinterpretation of CBC data. Current Interpretive Data was last revised on 2017. Monocyte pct 11.3 % [facility] ([facility]) Comment: Interpretive Data Percent cell count reference ranges are not reported, since discordance with absolute values may lead to misinterpretation of CBC data. Current Interpretive Data was last revised on 2017. Eosinophil pct 1.2 % [facility] ([facility]) Comment: Interpretive Data Percent cell count reference ranges are not reported, since discordance with absolute values may lead to misinterpretation of CBC data. Current Interpretive Data was last revised on 2017. Basophil pct 0.2 % [facility] ([facility]) Comment: Interpretive Data Percent cell count reference ranges are not reported, since discordance with absolute values may lead to misinterpretation of CBC data. Current Interpretive Data was last revised on 2017. Blood 11/14/2024 7:51 AM CDT 11/14/2024 8:13 AM CDT us Herman Gardner MD LAB BLOOD ORDERABLES Final Resu lt [facility] ([facility]) [address] Department [place] [address] * (ABNORMAL) CBC with auto differential (11/14/2024 7:51 AM CDT) [facility] WBC 8.55 3.80 - 9.90 K/cumm Hgb 10.9(L) 11.9 - 15.5 g/dL [facility] ([facility]) Hct 33.9(L) 35.6 - 45.5 % [facility] ([facility]) Plt 150 150 - 400 K/cumm [facility] ([facility]) MPV 9.7 9.1 - 12.3 fL [facility] ([facility]) RBC 4.03 3.90 - 5.20 M/cumm [facility] ([facility]) MCV 84.1 81.3 - 96.4 fL [facility] ([facility]) MCH 27.0(L) 27.1 - 33.3 pg [facility] ([facility]) MCHC 32.2(L) 32.3 - 35.7 g/dL [facility] ([facility]) RDW CV 14.9 11.1 - 14.9 % [facility] ([facility]) RDW SD 45.9 35.7 - 48.1 fL [facility] ([facility]) NRBC abs 0.00 0.00 - 0.01 K/cumm [facility] ([facility]) Blood 11/14/2024 7:51 AM CDT 11/14/2024 8:13 AM CDT Mateus Bravo MD LAB BLOOD ORDERABLES Final Result [facility] ([facility]) 1 [facility] Department [place] [address] * (ABNORMAL) Comprehensive metabolic panel (11/14/2024 7:51 AM CDT) [facility] Sodium 139 135 - 145 mmol/L [facility] ([facility]) Potassium, pl 3.4 3.3 - 4.9 mmol/L [facility] ([facility]) Chloride 107 97 - 110 mmol/L [facility] ([facility]) CO2 21(L) 22 - 32 mmol/L [facility] ([facility]) Anion gap 11 2 - 15 mmol/L [facility] ([facility]) BUN 12 6 - 25 mg/dL [facility] ([facility]) Creatinine 0.78 0.60 - 1.10 mg/dL [facility] ([facility]) Glucose 104 70 - 199 mg/dL [facility] ([facility]) Comment: Interpretive Data Fasting glucose >/= 126 [...] interpretive data was last revised 2022. Calcium 8.4(L) 8.5 - 10.3 mg/dL [facility] ([facility]) Bilirubin, total 0.3 0.1 - 1.2 mg/dL [facility] ([facility]) Protein, pl 6.2(L) 6.5 - 8.5 g/dL [facility] ([facility]) Albumin 3.1(L) 3.5 - 5.0 g/dL [facility] ([facility]) Alk phos 93 40 - 130 Units/L [facility] ([facility]) ALT 22 7 - 45 Units/L [facility] ([facility]) AST 29 10 - 45 Units/L [facility] ([facility]) Blood 11/14/2024 7:51 AM CDT 11/14/2024 8:13 AM CDT us Mateus Bravo MD LAB BLOOD ORDERABLES Final Result [facility] ([facility]) 1 [facility] Department [place] [address] * eGFR (11/13/2024 6:48 AM CDT) eGFR 88 >=60 mL/min/1. 73 m2 Comment: Interpretive Data [...] interpretive data was last reviewed 2021. Blood 11/13/2024 6:48 AM CDT 11/13/2024 7:05 AM CDT us Herman Gardner MD LAB BLOOD ORDERABLES Final Resu lt [facility] ([facility]) 1 [facility] Department [place] [address] * (ABNORMAL) Differential, auto (11/13/2024 6:48 AM CDT) Neutrophil abs 8.22(H) 1.50 - 6.50 K/cumm Imm gran abs 0.03 0.00 - 0.10 K/cumm [facility] ([facility]) Lymphocyte abs 0.57(L) 0.80 - 3.30 K/cumm [facility] ([facility]) Monocyte abs 1.14(H) 0.20 - 0.80 K/cumm [facility] ([facility]) Eosinophil abs 0.03 0.00 - 0.50 K/cumm [facility] ([facility]) Basophil abs 0.02 0.00 - 0.10 K/cumm [facility] ([facility]) Neutrophil pct 82.1 % [facility] ([facility]) Comment: Interpretive Data Percent cell count reference ranges are not reported, since discordance with absolute values may lead to misinterpretation of CBC data. Current Interpretive Data was last revised on 2017. Imm gran pct 0.3 % [facility] ([facility]) Comment: Interpretive Data Percent cell count reference ranges are not reported, since discordance with absolute values may lead to misinterpretation of CBC data. Current Interpretive Data was last revised on 2017. Lymphocyte pct 5.7 % [facility] ([facility]) Comment: Interpretive Data Percent cell count reference ranges are not reported, since discordance with absolute values may lead to misinterpretation of CBC data. Current Interpretive Data was last revised on 2017. Monocyte pct 11.4 % [facility] ([facility]) Comment: Interpretive Data Percent cell count reference ranges are not reported, since discordance with absolute values may lead to misinterpretation of CBC data. Current Interpretive Data was last revised on 2017. Eosinophil pct 0.3 % [facility] ([facility]) Comment: Interpretive Data Percent cell count reference ranges are not reported, since discordance with absolute values may lead to misinterpretation of CBC data. Current Interpretive Data was last revised on 2017. Basophil pct 0.2 % [facility] ([facility]) Comment: Interpretive Data Percent cell count reference ranges are not reported, since discordance with absolute values may lead to misinterpretation of CBC data. Current Interpretive Data was last revised on 2017. Blood 11/13/2024 6:48 AM CDT 11/13/2024 7:05 AM CDT us Herman Gardner MD LAB BLOOD ORDERABLES Final Resu lt [facility] ([facility]) 1 [facility] Department [place] [address] * (ABNORMAL) CBC with auto differential (11/13/2024 6:48 AM CDT) WBC 10.01(H) 3.80 - 9.90 K/cumm Hgb 11.6(L) 11.9 - 15.5 g/dL [facility] ([facility]) Hct 35.9 35.6 - 45.5 % [facility] ([facility]) Plt 172 150 - 400 K/cumm [facility] ([facility]) MPV 9.7 9.1 - 12.3 fL [facility] ([facility]) RBC 4.30 3.90 - 5.20 M/cumm [facility] MCV 83.5 81.3 - 96.4 fL [facility] ([facility]) MCH 27.0(L) 27.1 - 33.3 pg [facility] ([facility]) MCHC 32.3 32.3 - 35.7 g/dL [facility] RDW CV 14.9 11.1 - 14.9 % [facility] ([facility]) RDW SD 45.6 35.7 - 48.1 fL [facility] ([facility]) NRBC abs 0.00 0.00 - 0.01 K/cumm [facility] ([facility]) Blood 11/13/2024 6:48 AM CDT 11/13/2024 7:05 AM CDT Mateus Bravo MD LAB BLOOD ORDERABLES Final Result [facility] ([place]) 1 [facility] Department of Laboratories [place] [id number] * (ABNORMAL) Comprehensive metabolic panel (11/13/2024 6:48 AM CDT) Sodium 138 135 - 145 mmol/L [facility] ([facility]) Potassium, pl 3.4 3.3 - 4.9 mmol/L [facility] ([facility]) Chloride 107 97 - 110 mmol/L [facility] ([facility]) CO2 20(L) 22 - 32 mmol/L [facility] ([facility]) Anion gap 11 2 - 15 mmol/L [facility] ([facility]) BUN 14 6 - 25 mg/dL [facility] ([facility]) Creatinine 0.74 0.60 - 1.10 mg/dL [facility] ([facility]) Glucose 131 70 - 199 mg/dL [facility] ([facility]) Comment: Interpretive Data Fasting glucose >/= 126 [...] interpretive data was last revised 2022. Calcium 8.5 8.5 - 10.3 mg/dL [facility] ([facility]) Bilirubin, total 0.4 0.1 - 1.2 mg/dL [facility] ([facility]) Protein, pl 6.4(L) 6.5 - 8.5 g/dL [facility] ([facility]) Albumin 3.3(L) 3.5 - 5.0 g/dL [facility] ([facility]) Alk phos 89 40 - 130 Units/L [facility] ([facility]) ALT 16 7 - 45 Units/L [facility] ([facility]) AST 18 10 - 45 Units/L [facility] ([facility]) Blood 11/13/2024 6:48 AM CDT 11/13/2024 7:05 AM CDT Mateus Bravo MD LAB BLOOD ORDERABLES Final Result [facility] ([facility]) 1 [facility] Department [place] [address] * Blood culture Blood Peripheral (11/12/2024 10:55 PM CDT) Report Final Report: No growth Comment:Testing performed by : [facility], [address] [facility], [place]., [address] Blood (Peripheral) 11/12/2024 10:55 PM CDT 11/13/2024 6:08 AM CDT Narrative [facility] ([facility]) - 11/17/2024 7:00 AM CDT From a different site than #1. Draw Blood cultures before administration of Antibiotics Collection->Peripheral 1. Blood cultures are incubated for 4 days on a continuously monitored blood culture system. The first report of a negative culture is issued within 24 hours of receipt of the specimen in the laboratory. 2. Positive culture results are reported as soon as they are detected. 3. The most important factor for detection of microbes in the setting of bloodstream infection is the volume of blood submitted for culture. Failure to collect an optimal blood volume can result in false negative blood cultures. 4. For pediatric patients, the recommended blood volume to collect follows a weight based strategy. See the electronic test catalog for collection instructions. 5. For positive blood cultures, a rapid molecular test may be performed for organism identification using the clementina ePlex blood culture identification panel for gram positive (BCID-GP) and gram negative (BCID-GN) organisms. This nucleic acid amplification test detects microbial DNA in positive blood culture broth. This assay has been cleared by the [place] Food and Drug Administration and its performance characteristics have been verified by the [facility] Microbiology Laboratory. For questions about this culture, contact the Microbiology Laboratory at [phone]. Interpretive data was last revised on 24. Becka CHAN LAB MICROBIOLOGY - GENERA L ORDERABLES Final Result [facility] ([facility]) 1 [facility] [place] [address] * Sepsis Lactate w/ Reflex (11/12/2024 10:32 PM CDT) Sepsis Lactate 0.9 0.7 - 2.0 mmol/L Blood 11/12/2024 10:3 2 PM CDT 11/12/2024 10:35 PM CDT Becka CHAN LAB BLOOD ORDERABLES Florencia l Result [facility] ([place]) 1 [facility] [place] [address] * Blood culture Blood Peripheral (11/12/2024 10:32 PM CDT) Report Final Report: No growth Comment:Testing performed by : [facility], [address] [place]., [address] Blood (Peripheral) 11/12/2024 10:32 PM CDT 11/13/2024 6:08 AM CDT Narrative [facility] ([facility]) - 11/17/2024 7:00 AM CDT Draw Blood cultures before administration of Antibiotics Collection->Peripheral 1. Blood cultures are incubated for 4 days on a continuously monitored blood culture system. The first report of a negative culture is issued within 24 hours of receipt of the specimen in the laboratory. 2. Positive culture results are reported as soon as they are detected. 3. The most important factor for detection of microbes in the setting of bloodstream infection is the volume of blood submitted for culture. Failure to collect an optimal blood volume can result in false negative blood cultures. 4. For pediatric patients, the recommended blood volume to collect follows a weight based strategy. See the electronic test catalog for collection instructions. 5. For positive blood cultures, a rapid molecular test may be performed for organism identification using the clementina ePlex blood culture identification panel for gram positive (BCID-GP) and gram negative (BCID-GN) organisms. This nucleic acid amplification test detects microbial DNA in positive blood culture broth. This assay has been cleared by the [place] Food and Drug Administration and its performance characteristics have been verified by the [facility] Microbiology Laboratory. For questions about this culture, contact the Microbiology Laboratory at [phone]. Interpretive data was last revised on 24. Becka CHAN LAB MICROBIOLOGY - GENERA L ORDERABLES Final Result [facility] ([facility]) 1 [facility] Department [place] [address] * CT Abdomen Pelvis W Contrast (11/12/2024 10:27 PM CDT) Anatomical Region Laterality Modality Body N/A Computed Tomogra phy 11/12/2024 10:5 0 PM CDT Narrative 11/12/2024 10:57 PM CDT EXAM DESCRIPTION: CT ABDOMEN PELVIS W CONTRAST REASON FOR STUDY: Abdominal/flank pain, stone suspected, uti, sepsis, right flank pain and rlq pain today Patient was sent into the emergency department by her primary care physician. Patient reports fever, weakness, right flank pain, right lower quadrant pain, and urinary symptoms. Hx of lap band TECHNIQUE: CT scan of the abdomen and pelvis performed with intravenous and without oral contrast using helical scanning technique with dynamic intravenous contrast injection. Reconstructed coronal and sagittal MPR images reviewed. All images stored on PACS. Automated exposure control was used as a dose optimization technique for this examination. CONTRAST TYPE/DOSE: 100mL of IOVERSOL 350 MG IODINE/ML INTRAVENOUS SYRINGE injected via intravenous COMPARISON: 07/22/2024 FINDINGS: LOWER CHEST: No significant pulmonary abnormalities. No effusion. Small hiatal hernia status post gastric banding. LIVER: Normal size. No identified cystic or solid masses. GALLBLADDER: Surgically absent. BILE DUCTS: No intrahepatic or extrahepatic ductal dilatation. SPLEEN: Normal size. No focal lesions. PANCREAS: No identified cystic or solid masses. No significant calcifications. No adjacent inflammation or peripancreatic fluid collections. Pancreatic duct not dilated. Pancreatic fatty infiltration. ADRENALS: Normal. KIDNEYS/URINARY TRACT: There is some cortical scarring on the right kidney. Nonobstructing right renal stones. No obstructing renal or ureteral calculus. There is a 7 mm linear nonobstructing stone along the dependent portion of the right renal pelvis. There is thickened enhancement of the wall of the right renal pelvis and right ureter concerning for right pyelonephritis. Recommend correlation with clinical and laboratory findings. Diffuse thickening of the wall of the urinary bladder with stranding in the surrounding fat suggesting cystitis. 1.5 cm right renal cyst. GI: No dilated bowel loops. No obvious wall thickening. Appendix surgically absent. No significant diverticular disease. PERITONEUM: No ascites or free air. RETROPERITONEUM: No mass or adenopathy. REPRODUCTIVE: No significant abnormality. VASCULATURE: No abdominal aortic aneurysm. MUSCULOSKELETAL: Multilevel degenerative changes are present without fracture. No concerning lesions are present. OTHER: Small periumbilical hernia containing only fat. IMPRESSION: 1. Thickened enhancement of the wall of the right renal pelvis and right ureter concerning for right pyelonephritis. Recommend correlation with clinical and laboratory findings. 2. Diffuse thickening of the wall of the urinary bladder with stranding in the surrounding fat suggesting cystitis. 3. Nonobstructing right renal stones. No obstructing renal or ureteral calculus. 4. Surgical absence of the gallbladder. 5. Small hiatal hernia status post gastric banding. 6. Small periumbilical hernia containing only fat. THIS IS AN ELECTRONICALLY VERIFIED FINAL REPORT 11/12/2024 10:57 PM - Electronically signed by Chirag Zarate M.D. KT: KT Report ID: [id number] Reading Location: [id number] Procedure Note Chirag Zarate MD - 11/12/2024 EXAM DESCRIPTION: CT ABDOMEN PELVIS W CONTRAST REASON FOR STUDY: Abdominal/flank pain, stone suspected, uti, sepsis,right flank pain and rlq pain today Patient was sent into the emergency department by her primary carephysician. Patient reports fever, weakness, right flank pain, right lower quadrantpain, and urinary symptoms. Hx of lap band TECHNIQUE: CT scan of the abdomen and pelvis performed with intravenousand without oral contrast using helical scanning technique with dynamic intravenous contrast injection. Reconstructed coronal and sagittal MPRimages reviewed. All images stored on PACS. Automated exposure control was usedas a dose optimization technique for this examination. CONTRAST TYPE/DOSE: 100mL of IOVERSOL 350 MG IODINE/ML INTRAVENOUSSYRINGE injected via intravenous COMPARISON: 07/22/2024 FINDINGS: LOWER CHEST: No significant pulmonary abnormalities. No effusion.Small hiatal hernia status post gastric banding. LIVER: Normal size. No identified cystic or solid masses. GALLBLADDER: Surgically absent. BILE DUCTS: No intrahepatic or extrahepatic ductal dilatation. SPLEEN: Normal size. No focal lesions. PANCREAS: No identified cystic or solid masses. No significant calcifications. No adjacent inflammation or peripancreatic fluidcollections. Pancreatic duct not dilated. Pancreatic fatty infiltration. ADRENALS: Normal. KIDNEYS/URINARY TRACT: There is some cortical scarring on the rightkidney. Nonobstructing right renal stones. No obstructing renal or ureteralcalculus. There is a 7 mm linear nonobstructing stone along the dependent portionof the right renal pelvis. There is thickened enhancement of the wall of the right renal pelvis and right ureter concerning for right pyelonephritis. Recommend correlation with clinical and laboratory findings. Diffuse thickening of the wall of the urinary bladder with stranding in the surrounding fat suggesting cystitis. 1.5 cm right renal cyst. GI: No dilated bowel loops. No obvious wall thickening. Appendixsurgically absent. No significant diverticular disease. PERITONEUM: No ascites or free air. RETROPERITONEUM: No mass or adenopathy. REPRODUCTIVE: No significant abnormality. VASCULATURE: No abdominal aortic aneurysm. MUSCULOSKELETAL: Multilevel degenerative changes are present without fracture. No concerning lesions are present. OTHER: Small periumbilical hernia containing only fat. IMPRESSION: 1. Thickened enhancement of the wall of the right renal pelvis and right ureter concerning for right pyelonephritis. Recommend correlation with clinical and laboratory findings. 2. Diffuse thickening of the wall of the urinary bladder with strandingin the surrounding fat suggesting cystitis. 3. Nonobstructing right renal stones. No obstructing renal or ureteral calculus. 4. Surgical absence of the gallbladder. 5. Small hiatal hernia status post gastric banding. 6. Small periumbilical hernia containing only fat. THIS IS AN ELECTRONICALLY VERIFIED FINAL REPORT 11/12/2024 10:57 PM - Electronically signed by Chirag Zarate M.D. KT: KT Report ID: [id number] Reading Location: [place] [id number] PROCEDURES Final R esult * XR Chest 1 Vw Portable (11/12/2024 7:53 PM CDT) Anatomical Region Laterality Modality Body, Chest N/A Computed Radiogr aphy 11/12/2024 8:27 PM CDT Narrative 11/12/2024 8:33 PM CDT EXAM DESCRIPTION: XR CHEST 1 VIEW REASON FOR STUDY: fever Pt to ED for Possible kidney infection pt was sent by her PCP. Pt endorsing painful urination and frequency. Pt also endorses some abdominal pain. Pt AOx4. Pt ambulatory. TECHNIQUE: Frontal radiographic view(s) of the chest. COMPARISON: Chest radiograph dated 07/26/[address] of the chest dated 07/26/2019. FINDINGS: LUNGS: No focal airspace consolidation. No large pleural effusion. No pneumothorax. Calcified left pleural plaque. HEART/MEDIASTINUM: Cardiac silhouette normal in size. Mediastinal and hilar contours appear normal. LINES/TUBES: None. BONES: No acute osseous abnormality. IMPRESSION: No acute cardiopulmonary abnormality. THIS IS AN ELECTRONICALLY VERIFIED FINAL REPORT 11/12/2024 8:33 PM - Electronically signed by Janes Platt M.D. MF: [email or web address] Report ID: [id number] Reading Location: [id number] Procedure Note Janes Platt, DO - 11/12/2024 EXAM DESCRIPTION: XR CHEST 1 VIEW REASON FOR STUDY: fever Pt to ED for Possible kidney infection pt was sent by her PCP. Ptendorsing painful urination and frequency. Pt also endorses some abdominal pain. Pt AOx4. Pt ambulatory. TECHNIQUE: Frontal radiographic view(s) of the chest. COMPARISON: Chest radiograph dated 07/26/[address] of the chest dated 07/26/2019. FINDINGS: LUNGS: No focal airspace consolidation. No large pleural effusion. No pneumothorax. Calcified left pleural plaque. HEART/MEDIASTINUM: Cardiac silhouette normal in size. Mediastinal andhilar contours appear normal. LINES/TUBES: None. BONES: No acute osseous abnormality. IMPRESSION: No acute cardiopulmonary abnormality. THIS IS AN ELECTRONICALLY VERIFIED FINAL REPORT 11/12/2024 8:33 PM - Electronically signed by Janes Platt M.D. MF: [email or web address] Report ID: [id number] Reading Location: [place] [address] Becka CHAN IMG XR PROCEDURES Final R esult * (ABNORMAL) Urinalysis reflex to microscopic and culture Urine (11/12/2024 5:55 PM CDT) Color, ur Yellow Yellow Clarity, ur Turbid(A) Clear [facility] ([facility]) Specific gravity, ur 1.017 1.003 - 1.030 [facility] ([facility]) pH, urine 7.0 [facility] ([facility]) Comment: Interpretive Data U rine pH is affected by diet, medications, systemic acid-base disturbances, and renal tubular function. pH may affect urinary stone formation. For example, urine pH below 6.0 may help reduce the tendency for calcium phosphate stones and pH greater than 6.0 may reduce the tendency for uric acid stone formation. Source: [facility] Current Interpretive Data was last revised on 2017 Protein, ur ql 1+(A) Negative [facility] ([facility]) Glucose, ur ql Negative Negative [facility] ([facility]) Ketones, ur Negative Negative [facility] ([facility]) Bilirubin, ur Negative Negative [facility] ([facility]) Blood, ur 1+(A) Negative [facility] ([facility]) Urobilinogen, ur <2.0 <2.0 mg/dL [facility] ([facility]) Nitrite, ur Negative Negative [facility] ([facility]) Leukocyte esterase, ur 4+(A) Negative [facility] ([facility]) UA reflex comment Reflex to microscopic UA will be performed. [facility] ([place]) Urine 11/12/2024 5:55 PM CDT 11/12/2024 6:11 PM CDT us Dee Taylor NP LAB MICROBIOLOGY - GENERAL OR DERABLES Final Result Performing Organization Address [facility] Co de Phone Number [facility] ([facility]) 1 [facility] [place] [address] * (ABNORMAL) Urinalysis, microscopic only (11/12/2024 5:55 PM CDT) WBC, ur >50(A) 0 - 5 /HPF RBC, ur 21-50(A) 0 - 2 /HPF [facility] ([place]) Culture Reflex Comment Reflex to urine culture will be performed. [facility] ([facility]) Urine 11/12/2024 5:55 PM CDT 11/12/2024 6:27 PM CDT us Dee Taylor NP LAB URINE ORDERABLES Final Re sult Performing Organization Address City/[facility]/ZIP Co de Phone Number [facility] ([place]) [address] Department [place] [address] * (ABNORMAL) Urine culture Urine (11/12/2024 5:55 PM CDT) Report Final Report: Greater than or equal to 100,000 colonies/mL of Escherichia coli (.) Comment:Testing performed by : [facility], [address] [place] [address], [place]., [address] Organism ESCHERICHIA COLI [facility] ([place]) Urine 11/12/2024 5:55 PM CDT 11/13/2024 12:30 AM CDT Narrative [facility] ([place]) - 11/14/2024 3:13 PM CDT Urine culture reflexed based upon urinalysis results. Testing performed by [facility] Microbiology Laboratory ([phone]) Organism Antibiotic Method Susceptibility Escherichia coli Ampicillin [...] INTERPRETATION Susceptible Escherichia coli Cefdinir INTERPRETATION Susceptible Dee Taylor NP LAB MICROBIOLOGY - GENERAL OR DERABLES Final Result [facility] ([place]) 1 [facility] Department [place] [address] * (ABNORMAL) Urine culture Urine, clean voided (11/12/2024 5:55 PM CDT) Report Final Report: Greater than or equal to 100,000 colonies/mL of Escherichia coli (.) Comment:Testing performed by : [facility], [address] [place] [address], [place]., [address] Organism ESCHERICHIA COLI [facility] Urine, clean voided 11/12/2024 5:55 PM CDT 11/12/2024 9:30 PM CDT Narrative [facility] - 11/14/2024 3:31 PM CDT Testing performed by [facility] Microbiology Laboratory ([phone]) Organism Antibiotic Method Susceptibility Escherichia coli Ampicillin [...] Susceptible Escherichia coli Cefdinir INTERPRETATION Susceptible us Gualberto Padron MD LAB MICROBIOLOGY - GENERAL ORDERABLES Final Result [facility] [address] [facility] Department [place] [address] * eGFR (11/12/2024 5:50 PM CDT) eGFR 81 >=60 mL/min/1. 73 m2 Comment: Interpretive Data [...] of Race in Diagnosing Kidney Disease, JASN 202). The CKD-EPI equation should not be used for patients with unstable renal function and has not been validated in children and those over 70. Current interpretive data was last reviewed 2021. Blood 11/12/2024 5:50 PM CDT 11/12/2024 8:14 PM CDT us Becka CHAN LAB BLOOD ORDERABLES Florencia payton Result [facility] ([place]) 1 [facility] Department [place] [address] * (ABNORMAL) Differential, auto (11/12/2024 5:50 PM CDT) Neutrophil abs 10.63(H) 1.50 - 6.50 K/cumm Imm gran abs 0.05 0.00 - 0.10 K/cumm [facility] Lymphocyte abs 0.74(L) 0.80 - 3.30 K/cumm [facility] Monocyte abs 1.22(H) 0.20 - 0.80 K/cumm [facility]) Eosinophil abs 0.03 0.00 - 0.50 K/cumm [facility]) Basophil abs 0.04 0.00 - 0.10 K/cumm [facility] Neutrophil pct 83.7 % [facility] ([facility]) Comment: Interpretive Data Percent cell count reference ranges are not reported, since discordance with absolute values may lead to misinterpretation of CBC data. Current Interpretive Data was last revised on 2017. Imm gran pct 0.4 % [facility] Comment: Interpretive Data Percent cell count reference ranges are not reported, since discordance with absolute values may lead to misinterpretation of CBC data. Current Interpretive Data was last revised on 2017. Lymphocyte pct 5.8 % [facility] Comment: Interpretive Data Percent cell count reference ranges are not reported, since discordance with absolute values may lead to misinterpretation of CBC data. Current Interpretive Data was last revised on 2017. Monocyte pct 9.6 % [facility] Comment: Interpretive Data Percent cell count reference ranges are not reported, since discordance with absolute values may lead to misinterpretation of CBC data. Current Interpretive Data was last revised on 2017. Eosinophil pct 0.2 % [facility] Comment: Interpretive Data Percent cell count reference ranges are not reported, since discordance with absolute values may lead to misinterpretation of CBC data. Current Interpretive Data was last revised on 2017. Basophil pct 0.3 % [facility] ([facility]) Comment: Interpretive Data Percent cell count reference ranges are not reported, since discordance with absolute values may lead to misinterpretation of CBC data. Current Interpretive Data was last revised on 2017. Blood 11/12/2024 5:50 PM CDT 11/12/2024 8:14 PM CDT us Becka CHAN LAB BLOOD ORDERABLES Florencia payton Result [facility] ([facility]) [address] [facility] Department [place] [address] * (ABNORMAL) CBC with auto differential (11/12/2024 5:50 PM CDT) WBC 12.71(H) 3.80 - 9.90 K/cumm Hgb 13.1 11.9 - 15.5 g/dL [facility] Hct 40.2 35.6 - 45.5 % [facility] Plt 218 150 - 400 K/cumm [facility] MPV 10.5 9.1 - 12.3 fL [facility] RBC 4.86 3.90 - 5.20 M/cumm [facility]) MCV 82.7 81.3 - 96.4 fL [facility]) MCH 27.0(L) 27.1 - 33.3 pg [facility]) MCHC 32.6 32.3 - 35.7 g/dL [facility] RDW CV 14.7 11.1 - 14.9 % [facility] RDW SD 44.7 35.7 - 48.1 fL [facility] NRBC abs 0.00 0.00 - 0.01 K/cumm [facility]) Blood 11/12/2024 5:50 PM CDT 11/12/2024 8:14 PM CDT us Becka CHAN LAB BLOOD ORDERABLES Florencia payton Result [facility]IRE[facility] ([facility]) 1 [facility] Department [place] [address] * Comprehensive metabolic panel (11/12/2024 5:50 PM CDT) Sodium 137 135 - 145 mmol/L [facility]) Potassium, pl 4.0 3.3 - 4.9 mmol/L [facility] Chloride 100 97 - 110 mmol/L [facility] CO2 22 22 - 32 mmol/L [facility] Anion gap 15 2 - 15 mmol/L [facility] BUN 15 6 - 25 mg/dL [facility] Creatinine 0.79 0.60 - 1.10 mg/dL [facility] Glucose 118 70 - 199 mg/dL [facility] Comment: Interpretive Data Fasting glucose >/= 126 [...] interpretive data was last revised 2022. Calcium 9.4 8.5 - 10.3 mg/dL [facility] Bilirubin, total 0.5 0.1 - 1.2 mg/dL [facility] Protein, pl 7.7 6.5 - 8.5 g/dL [facility] Albumin 4.0 3.5 - 5.0 g/dL [facility] Alk phos 103 40 - 130 Units/L [facility] ALT 18 7 - 45 Units/L [facility] AST 27 10 - 45 Units/L [facility]) Comment:Hemolysis present. R esults may be affected. Blood 11/12/2024 5:50 PM CDT 11/12/2024 8:14 PM CDT Becka CHAN LAB BLOOD ORDERABLES Florencia l Result [facility] [address] [facility] Department [place] [address] * (ABNORMAL) POCT urinalysis dipstick (11/12/2024 3:32 PM CDT) Glucose, ur, POC Negative Negative Bilirubin, ur, POC Negative Negative Ketones, ur, POC Negative Negative Specific [place], POC 1.020 1.003 - 1.030 Blood, ur, POC Moderate(A) Negative pH, ur, POC 8.5(A) 5.0 - 8.0 Protein, ur, POC 100.(A) Negative Urobilinogen, urine, POC 0.2 0.2 - 1.0 mg/dL Nitrite, ur, POC Negative Negative Leukocytes, ur, POC Large(A) Negative Lot Number [id number] Urine 11/12/2024 3:32 PM CDT Result [facility] Gualberto Padron MD POINT OF CARE TEST ORDERABL ES Final Result * Troponin T high-sensitivity (10/30/2024 11:39 AM CDT) Trop T hs 14 <=14 ng/L Comment: Interpretive Data For further hscTnT resources including the diagnostic algorithm and an aid in interpretation, copy and paste this link: https://nrl.testcatalog.org/show/hsTrop Current Interpretive Data last revised 2020. Blood 10/30/2024 11:3 9 AM CDT 10/30/2024 1:32 PM CDT Mauricio Izquierdo MD LAB BLOOD ORDER DL Final Result SHEILA [address] [place] [address] * Troponin T high-sensitivity (10/30/2024 11:39 AM CDT) Trop T hs 11 <=14 ng/L Comment: Interpretive Data For further hscTnT resources including the diagnostic algorithm and an aid in interpretation, copy and paste this link: https://nrl.testcatalog.org/show/hsTrop Current Interpretive Data last revised 2020. Blood 10/30/2024 11:3 9 AM CDT 10/30/2024 1:32 PM CDT Mauricio Izquierdo MD LAB BLOOD ORDER DL Final Result Performing Organization Address [facility] Co de Phone Number SHEILA [address] [place] [address] * eGFR (10/30/2024 11:39 AM CDT) eGFR 84 >=60 mL/min/1. 73 m2 Comment: Interpretive Data [...] of Race in Diagnosing Kidney Disease, JASN 202). The CKD-EPI equation should not be used for patients with unstable renal function and has not been validated in children and those over 70. Current interpretive data was last reviewed 2021. Blood 10/30/2024 11:3 9 AM CDT 10/30/2024 1:32 PM CDT Mauricio Izquierdo MD LAB BLOOD ORDER DL Final Result SHEILA [address] [facility] Department [place] [address] * (ABNORMAL) Differential, auto (10/30/2024 11:39 AM CDT) Neutrophil abs 6.52(H) 1.50 - 6.50 K/cumm Imm gran abs 0.01 0.00 - 0.10 K/cumm [facility] Lymphocyte abs 1.50 0.80 - 3.30 K/cumm [facility] Monocyte abs 0.48 0.20 - 0.80 K/cumm [facility] Eosinophil abs 0.16 0.00 - 0.50 K/cumm [facility] Basophil abs 0.04 0.00 - 0.10 K/cumm [facility] Neutrophil pct 74.9 % [facility] Comment: Interpretive Data Percent cell count reference ranges are not reported, since discordance with absolute values may lead to misinterpretation of CBC data. Current Interpretive Data was last revised on 2017. Imm gran pct 0.1 % [facility] Comment: Interpretive Data Percent cell count reference ranges are not reported, since discordance with absolute values may lead to misinterpretation of CBC data. Current Interpretive Data was last revised on 2017. Lymphocyte pct 17.2 % [facility] Comment: Interpretive Data Percent cell count reference ranges are not reported, since discordance with absolute values may lead to misinterpretation of CBC data. Current Interpretive Data was last revised on 2017. Monocyte pct 5.5 % [facility] Comment: Interpretive Data Percent cell count reference ranges are not reported, since discordance with absolute values may lead to misinterpretation of CBC data. Current Interpretive Data was last revised on 2017. Eosinophil pct 1.8 % [facility] Comment: Interpretive Data Percent cell count reference ranges are not reported, since discordance with absolute values may lead to misinterpretation of CBC data. Current Interpretive Data was last revised on 2017. Basophil pct 0.5 % [facility] Comment: Interpretive Data Percent cell count reference ranges are not reported, since discordance with absolute values may lead to misinterpretation of CBC data. Current Interpretive Data was last revised on 2017. Blood 10/30/2024 11:3 9 AM CDT 10/30/2024 1:30 PM CDT Mauricio Izquierdo MD LAB BLOOD ORDER DL Final Result SHEILA [address] [facility] Department [place] [address] * (ABNORMAL) Immunoglobulin free light chains (10/30/2024 11:39 AM CDT) [place]/Lambda ratio [facility] 0.29 0.26 - 1.65 Comment: Interpretive Data The Binding Site FreeLite assay procedure was used. Results from different manufacturers or methods may not be comparable. Serial testing should be performed using the same methods and instrumentation. Current Interpretive Data was last revised on 2023. Testing performed by: [facility], [address] [place]., [address] [place] free light chain [facility] 1.37 0.33 - 1.94 mg/dL SHE[facility]A DIALLO Comment: Interpretive Data The Binding Site FreeLite assay procedure was used. Results from different manufacturers or methods may not be comparable. Serial testing should be performed using the same methods and instrumentation. Current Interpretive Data was last revised on 2023. Testing performed by: [facility], [address] [place]., [address] Lambda free light chain [facility] 4.70(H) 0.57 - 2.63 mg/dL [facility] DIALLO Comment: Interpretive Data The Binding Site FreeLite assay procedure was used. Results from different manufacturers or methods may not be comparable. Serial testing should be performed using the same methods and instrumentation. Current Interpretive Data was last revised on 2023. Testing performed by: [facility], [address] [place]., [address] Blood 10/30/2024 11:3 9 AM CDT 10/30/2024 3:17 PM CDT Mauricio Izquierdo MD LAB BLOOD ORDER DL Final Result SHE[facility]A [facility] [address] [facility] Department [place] [address] * Pro B-type natriuretic peptide (10/30/2024 11:39 AM CDT) NT-proBNP 65 <=300 pg/mL Comment: Interpretive Comments: A. Dyspnea [...] Interpretive Data Last Revised Date: 2017. Blood 10/30/2024 11:3 9 AM CDT 10/30/2024 1:32 PM CDT us Mauricio Izquierdo MD LAB BLOOD ORDER DL Final Result Performing Organization Address [facility]/ZIP Co de Phone Number SHEILA DIALLO [address] [facility] Department [place] [address] * Pro B-type natriuretic peptide (10/30/2024 11:39 AM CDT) NT-proBNP 67 <=300 pg/mL Comment: Interpretive Comments: A. Dyspnea [...] et.al. Eur Heart J. 2006:27:330-337. 2. Josey SIDHU, Isael SANDERS. J. AM Kushal Cardiol: Cardiovasc Imag. 2009;2: 216- 225. Interpretive Data Last Revised Date: 2017. Blood 10/30/2024 11:3 9 AM CDT 10/30/2024 1:32 PM CDT Mauricio Izquierdo MD LAB BLOOD ORDER DL Final Result [address] [place] [address] * CBC with auto differential (10/30/2024 11:39 AM CDT) [facility] WBC 8.71 3.80 - 9.90 K/cumm Hgb 13.5 11.9 - 15.5 g/dL [facility] Hct 41.7 35.6 - 45.5 % [facility] Plt 228 150 - 400 K/cumm [facility] MPV 9.9 9.1 - 12.3 fL [facility] RBC 4.91 3.90 - 5.20 M/cumm [facility] MCV 84.9 81.3 - 96.4 fL [facility] MCH 27.5 27.1 - 33.3 pg [facility] MCHC 32.4 32.3 - 35.7 g/dL [facility] RDW CV 14.6 11.1 - 14.9 % [facility] RDW SD 45.1 35.7 - 48.1 fL [facility] NRBC abs 0.00 0.00 - 0.01 K/cumm [facility] Blood 10/30/2024 11:3 9 AM CDT 10/30/2024 1:30 PM CDT Mauricio Izquierdo MD LAB BLOOD ORDER DL Final Result Performing Organization Address City/State/[facility] Co de Phone Number [address] [place] [address] * aPTT (10/30/2024 11:39 AM CDT) [facility] aPTT 29 22 - 37 sec Comment: Interpretive data aPTT test has not been evaluated for monitoring heparin therapy. The anti-Xa is the preferred test. Current interpretive data was last revised on 2019. Blood 10/30/2024 11:3 9 AM CDT 10/30/2024 1:32 PM CDT Mauricio Izquierdo MD LAB BLOOD ORDER DL Final Result Performing Organization Address [facility] de Phone Number MARC[address] [place] [address] * Protime-INR (10/30/2024 11:39 AM CDT) [facility] PT 13.80 12.00 - 14.60 sec INR 1.05 0.90 - 1.20 SHEILA Comment: Interpretive data Oral anticoagulant therapeutic ranges: Venous thromboembolism prophylaxis or treatment: 2.0-3.0 CARDIOLOGY Standard range: 2.0-3.0 High-intensity range: 2.5-3.5 Refer to indication-specific guidelines for appropriate target ranges for prosthetic heart valve replacement. Current interpretive data was last revised on 2019. Blood 10/30/2024 11:3 9 AM CDT 10/30/2024 1:32 PM CDT Mauricio Izquierdo MD LAB BLOOD ORDER DL Final Result Performing Organization Address [facility] de Phone Number [address] [address] * Uric acid (10/30/2024 11:39 AM CDT) [facility] Uric acid 5.7 2.5 - 7.0 mg/dL Blood 10/30/2024 11:3 9 AM CDT 10/30/2024 1:32 PM CDT Mauricio Izquierdo MD LAB BLOOD ORDER DL Final Result Performing Organization Address [facility] Co de Phone Number [address] [place] [address] * (ABNORMAL) Protein electrophoresis with reflex, serum with interpretation (10/30/2024 11:39 AM CDT) [facility] Protein, sr 7.1 6.2 - 8.2 g/dL Comment:Testing performed by : [facility], [address] [facility] [address] Albumin 3.9 3.2 - 5.0 g/dL SHEILA Comment:Testing performed by : [facility], [address] [facility], [address] Alpha-1 globulin 0.4 0.2 - 0.4 g/dL SHEILA Comment:Testing performed by : [facility], [address] [facility], [address] Alpha-2 globulin 1.0 0.5 - 1.0 g/dL SHEILA Comment:Testing performed by : [facility], [address] [place] [address], [id number] Beta-1 globulin 0.4 0.3 - 0.6 g/dL SHEILA Comment:Testing performed by : [facility], [address] [place] [address], [id number] Beta-2 globulin 1.0(H) 0.2 - 0.6 g/dL SHEILA Comment:Testing performed by : [facility], [address] [place] [address], [id number] Gamma globulin 0.4(L) 0.5 - 1.7 g/dL SHEILA Comment:Testing performed by : [facility], [address] [place] [address], [id number] Rstr Pk Beta-2 0.6(H) 0.0 - 0.0 g/dL SHEILA Comment:Testing performed by : [facility], [address] [place] [address], [id number] SPEP interp Please see comment SHEILA Comment: Abnormal restricted peak in Beta-2 region Decreased gamma globulins Electrophoretic pattern appears similar to previous sample 02/14/24 Reviewed and signed by Ron Sultana MD, PhD 10/31/2024 Testing performed by: [facility], [address] [place] [address], [id number] Blood 10/30/2024 11:3 9 AM CDT 10/30/2024 3:17 PM CDT Mauricio Izquierdo MD LAB BLOOD ORDER DL Final Result SHEILA [address] [place] [address] * Lactate dehydrogenase (LD) (10/30/2024 11:39 AM CDT) Lactate dehydrogenase (LDH) 151 100 - 250 Units/L Blood 10/30/2024 11:3 9 AM CDT 10/30/2024 1:32 PM CDT Mauricio Izquierdo MD LAB BLOOD ORDER DL Final Result Performing Organization Address [facility] de Phone Number SHEILA [address] [place] [address] * IgA (10/30/2024 11:39 AM CDT) Immunoglobulin A 139 70 - 400 mg/dL Blood 10/30/2024 11:3 9 AM CDT 10/30/2024 1:32 PM CDT Mauricio Izquierdo MD LAB BLOOD ORDER DL Final Result Performing Organization Address City/[facility] Co de Phone Number SHEILA [address] [place] [address] * IgM (10/30/2024 11:39 AM CDT) Immunoglobulin M 40 40 - 230 mg/dL Blood 10/30/2024 11:3 9 AM CDT 10/30/2024 1:32 PM CDT Mauricio Izquierdo MD LAB BLOOD ORDER DL Final Result SHEILA [address] [place] [address] * IgG (10/30/2024 11:39 AM CDT) [facility] Immunoglobulin G 968 700 - 1,600 mg/dL Blood 10/30/2024 11:3 9 AM CDT 10/30/2024 1:32 PM CDT Mauricio Izquierdo MD LAB BLOOD ORDER DL Final Result Performing Organization Address [facility] de Phone Number [address] [address] * Beta 2 microglobulin, bld (10/30/2024 11:39 AM CDT) [facility] Beta 2 microglobulin, bld 2.10 1.00 - 2.50 mg/L Comment: Interpretive Data The Holly Beta-2 microglobulin assay procedure was used. Results from different manufacturers or methods may not be comparable. Serial testing should be performed using the same method. Testing performed by: [facility], [address] [facility], [place]., [address] Blood 10/30/2024 11:3 9 AM CDT 10/30/2024 3:16 PM CDT Mauricio Izquierdo MD LAB BLOOD ORDER DL Final Result Performing Organization Address [facility] de Phone Number [address] [place] [address] * Comprehensive metabolic panel (10/30/2024 11:39 AM CDT) [facility] Sodium 140 135 - 145 mmol/L Potassium, pl 4.4 3.3 - 4.9 mmol/L [facility] Chloride 103 97 - 110 mmol/L [facility] CO2 25 22 - 32 mmol/L [facility] Anion gap 12 2 - 15 mmol/L [facility] BUN 13 6 - 25 mg/dL [facility] Creatinine 0.77 0.60 - 1.10 mg/dL [facility] Glucose 106 70 - 199 mg/dL [facility] Comment: Interpretive Data Fasting glucose >/= 126 [...] interpretive data was last revised 2022. Calcium 9.4 8.5 - 10.3 mg/dL [facility] Bilirubin, total 0.3 0.1 - 1.2 mg/dL [facility] Protein, pl 7.5 6.5 - 8.5 g/dL [facility] Albumin 4.1 3.5 - 5.0 g/dL [facility] Alk phos 111 40 - 130 Units/L [facility] ALT 16 7 - 45 Units/L [facility] AST 22 10 - 45 Units/L [facility] Blood 10/30/2024 11:3 9 AM CDT 10/30/2024 1:32 PM CDT Mauricio Izquierdo MD LAB BLOOD ORDER DL Final Result [facility] [address] [facility] Department [place] [address] * Tissue aerobic and anaerobic culture and gram stain Tissue Cervical (10/14/2024 9:31 AM CDT) Direct Specimen Exam Stain: Few polymorphonuclear leukocytes seen. No organisms seen. Report Final Report: No growth [facility] Tissue (Cervical) 10/14/2024 9:31 AM CDT 10/14/2024 1:26 PM CDT Narrative SHEILA [facility] - 10/17/2024 10:24 AM CDT C7 tissue biopsy Testing performed by [facility] Microbiology Laboratory ([phone]) Specimens submitted from normally sterile body sites will have all bacterial morphotypes identified. Specimens that contain grossly mixed sergo and/or are from body sites that are not normally sterile will be examined for Staphylococcus aureus, Pseudomonas aeruginosa, beta-hemolytic strep, vancomycin-resistant Enterococcus, Bacteroides, Parabacteroides, Clostridium perfringens and fungus. If any of these are isolated, the organism will be reported. Current interpretive data was last revised on 2019. us Kathleen Valdes MD LAB MICROBIOLOGY - GENERAL ORDE KAILA Final Result Performing Organization Address [facility] Co de Phone Number [facility] [place] [address] * Mycology (fungal) culture and stain Tissue Cervical (10/14/2024 9:31 AM CDT) Direct Specimen Exam Stain: No Fungal elements seen. Report Final Report: No growth of fungus [facility] Tissue (Cervical) 10/14/2024 9:31 AM CDT 10/14/2024 1:25 PM CDT Narrative [facility] - 11/11/2024 7:45 AM CDT C7 tissue biopsy Testing performed by [facility] Microbiology Laboratory ([phone]). us Mauricio Izquierdo MD LAB MICROBIOLOG Y - GENERAL ORDERABLES Final Result Performing Organization Address [facility] de Phone Number [facility] Department [place] [address] * Mycobacteriology (AFB) culture Tissue Cervical (10/14/2024 9:31 AM CDT) Report Final Report: No growth of acid-fast bacilli Tissue (Cervical) 10/14/2024 9:31 AM CDT 10/14/2024 1:25 PM CDT Narrative [facility] - 12/15/2024 7:36 AM CDT C7 tissue biopsy Testing performed by [facility] Microbiology Laboratory ([phone]). us Mauricio Izquierdo MD LAB MICROBIOLOG Y - GENERAL ORDERABLES Final Result SHEILA [facility] Department [place] [address] * IR Bone marrow biopsy and aspiration (10/14/2024 9:10 AM CDT) Anatomical Region Laterality Modality Body Computed Tomogra phy 10/14/2024 10:2 6 AM CDT Impressions 10/14/2024 4:35 PM CDT 1. Right C7 lamina biopsy under CT guidance. The core specimens were sent to surgical pathology. 2. Left iliac bone marrow biopsy and aspiration under CT guidance. The bone marrow aspirate was submitted to hematopathology, and the bone marrow core biopsy sample to surgical pathology. Dictated by: Ronan Choi M.D. The radiology attending physician has personally reviewed this study, and had reviewed and/or edited this written report and agrees with it. 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 ATTENDING PRESENCE: Dr. Kathleen Valdes MD, the attending radiologist, was present from the beginning to the end of the procedure. SEDATION: Conscious sedation was administered under the attending physician's direction and continuous monitoring by a trained nurse specialist who was independent from those actually performing the procedure. Total monitored sedation time was 65 minutes. During the course of the procedure, the patient received Fentanyl 300 mcg and Versed 6 mg IV. TECHNIQUE: The risks, benefits and alternatives were discussed and informed consent was obtained. Prior to beginning the procedure, [place] Protocol was performed to confirm the patient's identity and the planned procedure. Sterile barriers used during the procedure included cap, mask, hand hygiene, sterile gloves, sterile gown and a sterile drape. Chloraprep was used for cutaneous antisepsis. The patient was placed prone on the procedure table. 5 mL of a 1:1 mixture of 0.25% bupivacaine and 1% lidocaine was injected for subcutaneous and deep anesthesia. A 15 cm 11 gauge/13 gauge OnControl needle was inserted into the biopsy site and appropriate needle positioning confirmed utilizing CT guidance. 2 core specimens of 1.0 cm in length was/were obtained. Aspirate was attempted but no fluid was able to be obtained. The needle was removed and the skin was cleansed with hydrogen peroxide. Dermabond was placed at the needle entry site. The patient was placed prone on the procedure table. The left posterior iliac bone was localized with fluoroscopy. 5 mL of a 1:1 mixture of 0.25% bupivacaine and 1% lidocaine were injected for subcutaneous and periosteal anesthesia. An 11 gauge OnControl needle was inserted into posterior iliac bone utilizing fluoroscopic guidance. Appropriate needle position was confirmed with fluoroscopy. 2 mL in each of 4 tubes of bone marrow aspirate were obtained for hematopathology. An additional syringe of 3-4 mL of bone marrow aspirate clot was obtained. A bone marrow core specimen of approximately 2 cm in length was obtained. The needle was removed. Dermabond was placed at the needle entry. Complication: None ESTIMATED BLOOD LOSS: <30mL CONDITION: Stable condition. DISCHARGED TO: Home FINDINGS: There is a lytic lesion FDG right lamina of C7 correlating with FDG avid lesion on PET/CT 09/15/2024. CT images demonstrate appropriate needle position in the left iliac bone. 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 ATTENDING PRESENCE: Dr. Kathleen Valdes MD, the attending radiologist, was present from the beginning to the end of the procedure. SEDATION: Conscious sedation was administered under the attending physician's direction and continuous monitoring by a trained nurse specialist who was independent from those actually performing the procedure. Total monitored sedation time was 65 minutes. During the course of the procedure, the patient received Fentanyl 300 mcg and Versed 6 mg IV. TECHNIQUE: The risks, benefits and alternatives were discussed and informed consent was obtained. Prior to beginning the procedure, [place] Protocol was performed to confirm the patient's identity and the planned procedure. Sterile barriers used during the procedure included cap, mask, hand hygiene, sterile gloves, sterile gown and a sterile drape. Chloraprep was used for cutaneous antisepsis. The patient was placed prone on the procedure table. 5 mL of a 1:1 mixture of 0.25% bupivacaine and 1% lidocaine was injected for subcutaneous and deep anesthesia. A 15 cm 11 gauge/13 gauge OnControl needle was inserted into the biopsy site and appropriate needle positioning confirmed utilizing CT guidance. 2 core specimens of 1.0 cm in length was/were obtained. Aspirate was attempted but no fluid was able to be obtained. The needle was removed and the skin was cleansed with hydrogen peroxide. Dermabond was placed at the needle entry site. The patient was placed prone on the procedure table. The left posterior iliac bone was localized with fluoroscopy. 5 mL of a 1:1 mixture of 0.25% bupivacaine and 1% lidocaine were injected for subcutaneous and periosteal anesthesia. An 11 gauge OnControl needle was inserted into posterior iliac bone utilizing fluoroscopic guidance. Appropriate needle position was confirmed with fluoroscopy. 2 mL in each of 4 tubes of bone marrow aspirate were obtained for hematopathology. An additional syringe of 3-4 mL of bone marrow aspirate clot was obtained. A bone marrow core specimen of approximately 2 cm in length was obtained. The needle was removed. Dermabond was placed at the needle entry. Complication: None ESTIMATED BLOOD LOSS: <30mL CONDITION: Stable condition. DISCHARGED TO: Home FINDINGS: There is a lytic lesion FDG right lamina of C7 correlating with FDG avid lesion on PET/CT 09/15/2024. CT images demonstrate appropriate needle position in the left iliac bone. IMPRESSION: 1. Right C7 lamina biopsy under CT guidance. The core specimens were sent to surgical pathology. 2. Left iliac bone marrow biopsy and aspiration under CT guidance. The bone marrow aspirate was submitted to hematopathology, and the bone marrow core biopsy sample to surgical pathology. Dictated by: Ronan Choi M.D. The radiology attending physician has personally reviewed this study, and had reviewed and/or edited this written report and agrees with it. Electronically signed by: Kathleen Valdes MD Mauricio CHAMPION IR PROCEDUR ES Final Result * CT Guided Deep Bone Needle Biopsy (10/14/2024 9:10 AM CDT) Anatomical Region Laterality Modality Body N/A Computed Tomogra phy 10/14/2024 10:2 6 AM CDT Impressions 10/14/2024 4:35 PM CDT 1. Right C7 lamina biopsy under CT guidance. The core specimens were sent to surgical pathology. 2. Left iliac bone marrow biopsy and aspiration under CT guidance. The bone marrow aspirate was submitted to hematopathology, and the bone marrow core biopsy sample to surgical pathology. Dictated by: Ronan Choi M.D. The radiology attending physician has personally reviewed this study, and had reviewed and/or edited this written report and agrees with it. 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 ATTENDING PRESENCE: Dr. Kathleen Valdes MD, the attending radiologist, was present from the beginning to the end of the procedure. SEDATION: Conscious sedation was administered under the attending physician's direction and continuous monitoring by a trained nurse specialist who was independent from those actually performing the procedure. Total monitored sedation time was 65 minutes. During the course of the procedure, the patient received Fentanyl 300 mcg and Versed 6 mg IV. TECHNIQUE: The risks, benefits and alternatives were discussed and informed consent was obtained. Prior to beginning the procedure, [place] Protocol was performed to confirm the patient's identity and the planned procedure. Sterile barriers used during the procedure included cap, mask, hand hygiene, sterile gloves, sterile gown and a sterile drape. Chloraprep was used for cutaneous antisepsis. The patient was placed prone on the procedure table. 5 mL of a 1:1 mixture of 0.25% bupivacaine and 1% lidocaine was injected for subcutaneous and deep anesthesia. A 15 cm 11 gauge/13 gauge OnControl needle was inserted into the biopsy site and appropriate needle positioning confirmed utilizing CT guidance. 2 core specimens of 1.0 cm in length was/were obtained. Aspirate was attempted but no fluid was able to be obtained. The needle was removed and the skin was cleansed with hydrogen peroxide. Dermabond was placed at the needle entry site. The patient was placed prone on the procedure table. The left posterior iliac bone was localized with fluoroscopy. 5 mL of a 1:1 mixture of 0.25% bupivacaine and 1% lidocaine were injected for subcutaneous and periosteal anesthesia. An 11 gauge OnControl needle was inserted into posterior iliac bone utilizing fluoroscopic guidance. Appropriate needle position was confirmed with fluoroscopy. 2 mL in each of 4 tubes of bone marrow aspirate were obtained for hematopathology. An additional syringe of 3-4 mL of bone marrow aspirate clot was obtained. A bone marrow core specimen of approximately 2 cm in length was obtained. The needle was removed. Dermabond was placed at the needle entry. Complication: None ESTIMATED BLOOD LOSS: <30mL CONDITION: Stable condition. DISCHARGED TO: Home FINDINGS: There is a lytic lesion FDG right lamina of C7 correlating with FDG avid lesion on PET/CT 09/15/2024. CT images demonstrate appropriate needle position in the left iliac bone. 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 ATTENDING PRESENCE: Dr. Kathleen Valdes MD, the attending radiologist, was present from the beginning to the end of the procedure. SEDATION: Conscious sedation was administered under the attending physician's direction and continuous monitoring by a trained nurse specialist who was independent from those actually performing the procedure. Total monitored sedation time was 65 minutes. During the course of the procedure, the patient received Fentanyl 300 mcg and Versed 6 mg IV. TECHNIQUE: The risks, benefits and alternatives were discussed and informed consent was obtained. Prior to beginning the procedure, [place] Protocol was performed to confirm the patient's identity and the planned procedure. Sterile barriers used during the procedure included cap, mask, hand hygiene, sterile gloves, sterile gown and a sterile drape. Chloraprep was used for cutaneous antisepsis. The patient was placed prone on the procedure table. 5 mL of a 1:1 mixture of 0.25% bupivacaine and 1% lidocaine was injected for subcutaneous and deep anesthesia. A 15 cm 11 gauge/13 gauge OnControl needle was inserted into the biopsy site and appropriate needle positioning confirmed utilizing CT guidance. 2 core specimens of 1.0 cm in length was/were obtained. Aspirate was attempted but no fluid was able to be obtained. The needle was removed and the skin was cleansed with hydrogen peroxide. Dermabond was placed at the needle entry site. The patient was placed prone on the procedure table. The left posterior iliac bone was localized with fluoroscopy. 5 mL of a 1:1 mixture of 0.25% bupivacaine and 1% lidocaine were injected for subcutaneous and periosteal anesthesia. An 11 gauge OnControl needle was inserted into posterior iliac bone utilizing fluoroscopic guidance. Appropriate needle position was confirmed with fluoroscopy. 2 mL in each of 4 tubes of bone marrow aspirate were obtained for hematopathology. An additional syringe of 3-4 mL of bone marrow aspirate clot was obtained. A bone marrow core specimen of approximately 2 cm in length was obtained. The needle was removed. Dermabond was placed at the needle entry. Complication: None ESTIMATED BLOOD LOSS: <30mL CONDITION: Stable condition. DISCHARGED TO: Home FINDINGS: There is a lytic lesion FDG right lamina of C7 correlating with FDG avid lesion on PET/CT 09/15/2024. CT images demonstrate appropriate needle position in the left iliac bone. IMPRESSION: 1. Right C7 lamina biopsy under CT guidance. The core specimens were sent to surgical pathology. 2. Left iliac bone marrow biopsy and aspiration under CT guidance. The bone marrow aspirate was submitted to hematopathology, and the bone marrow core biopsy sample to surgical pathology. Dictated by: Ronan Choi M.D. The radiology attending physician has personally reviewed this study, and had reviewed and/or edited this written report and agrees with it. Electronically signed by: Kathleen Valdes MD Mauricio Izquierdo MD [facility] [place] PROCEDUR ES Final Result * Flow Leukemia/Lymphoma Bone marrow (10/14/2024 8:24 AM CDT) Waldrop Stain Test Completed Leukemia/Lymp keara Result See separate Surgical Pathology report. [facility] Bone marrow 10/14/2024 8:24 AM CDT 10/14/2024 12:42 PM CDT Narrative [facility] - 10/15/2024 9:04 AM CDT [place] red Mauricio Izquierdo MD LAB PATHOLOGY O RDERABLES Final Result [facility] Department [place] [address] * Surgical pathology (10/14/2024 8:24 AM CDT) Tissue (Bone - Biopsy / Curettings) 10/14/2024 8:24 AM CDT Comment:C7 bone biopsy Tissue specimen (specimen) (Bone marrow) 10/14/2024 8:24 AM CDT Comment:left iliac bone davie ow biopsy Narrative PATHOLOGY [facility] - 10/16/2024 7:58 PM CDT EPIC results best viewed via link to PDF [facility] [place] [address] Note to Patients: This report may contain [...] can answer questions and explain the details. SURGICAL PATHOLOGY REPORT FINAL WITH ADDENDUM Patient Name: GAMALIEL SMITH Gender: F : 1955 (Age: 68) Address: [address] [place] [id number] Hospital #: [id number] Taken:10/14/2024 Received:10/14/2024 Reported: 10/16/2024 Patient Type: [facility] Ancillary Service: Laboratory Location: Physician(s): Jm Swann M.D. Megan M. Cox, F.N.P. Diagnosis: A. Bone, C7, core biopsy: - Pending, to be reported in addendum B, C and D. Bone marrow, left posterior iliac crest, core biopsy, clot, and aspirate: - Normocellular bone marrow with maturing trilineage hematopoiesis and less than 10% plasma cell neoplasm, lambda-restricted - See Comment axc/10/16/2024 19:58 By this signature, I attest that the above diagnosis is based upon my personal examination of the slides(and/or other material indicated in the diagnosis). Rhonda Samano M.D. Report Electronically Reviewed and Signed Out By Rhonda Samano M.D. 10/16/2024 19:58:42 Diagnosis Comment Comment: Congo red stains and part A to be reported in addendum. For details on the peripheral blood smear (if submitted), bone marrow aspirate, and core biopsy, please see the attached synoptic report. If applicable, correlation with concurrent flow cytometry (Addenda/Procedures below), cytogenetics/FISH, and molecular studies is suggested for full evaluation. Microscopic Description and Comment: Microscopic examination substantiates the above cited diagnosis. Part B: CD138 shows plasma cells. MARISOL kappa and MARISOL lambda show no significant staining. History: The patient is a 68-year-old woman with history of amyloidosis. Operative procedure: C7 bone biopsy; bone marrow biopsy. Specimen(s) Received: A: C7 bone biopsy B: Bone marrow biopsy, left posterior iliac crest C: Bone Marrow Clot - BJ D: Bone marrow, left aspirate for flow cytometry Gross Description: Received in three formalin jars labeled with the patient's identifiers. A. Labeled C7 bone biopsy and consists of three red and napier core(s) of bone with attached hemorrhagic material measuring 0.7-1.1 cm each in length by 0.2 cm in diameter. Labeled A1. EDTA decalcification. Jar 0. B. Labeled left iliac bone marrow biopsy and consists of a single red core(s) of bone with attached hemorrhagic material measuring 2.0 cm in length by 0.3 cm in diameter. Labeled B1. EDTA decalcification. Jar 0. C. Labeled left iliac bone marrow biopsy clot is a 3.0 cm in length by 1.4 cm in diameter cylindrical portion of hemorrhagic material. Labeled C1. Jar 1. sxst/10/14/2024 11:54 PA(s): Laura Robin CBC: Date: 10/02/24 WBCs: 6.79x10^3/mcl Hemoglobin: 14.1g/dl Hematocrit: 44.9% Platelets: 240x10^3/mcl Mean corpuscular volume (MCV): 86.2fl Red cell distribution width (RDW-CV): 14.8% Neutrophils, absolute: 4.85 K/cumm Lymphocytes, absolute: 1.34 K/cumm Monocytes, absolute: 0.38 K/cumm Eosinophils, absolute: 0.16 K/cumm Basophils, absolute: 0.04 K/cumm Neutrophils: 71.4% Lymphocytes: 19.7% Monocytes: 5.6% Eosinophils: 2.4% Basophils: 0.6% Peripheral blood smear (Waldrop-Giemsa): Not received Bone marrow aspirate smear (Waldrop-Giemsa stain): Quality: Adequate Spicules: Present Marrow cellularity: Within normal limits Myeloid maturation: Normal Erythroid maturation: Normal Myeloid/Erythroid Ratio: Within normal limits Megakaryocyte number: Within normal limits Megakaryocytic maturation: Normal Lymphocytes: Normal Plasma cells: no overt abnormality seen Iron: storage iron and ring sideroblasts are not readily seen Differential count: Total # of Cells Counted:200 Blasts: 0 Promyelocytes: 1 Myelocytes+Metamyelocytes:8 Bands+Neutrophils:58 Eosinophils: 3 Plasma cells: 0 Lymphocytes: 1 Monocytes: 2 Erythroids: 27 Bone marrow core biopsy (decalcified, H&E and Leder stains): Left, iliac crest Quality: Adequate Cellularity: 20-30% Myeloid maturation: Normal Erythroid maturation: Normal The Leder stain shows that the Myeloid/Erythroid Ratio is: Within normal limits Megakaryocyte number: Within normal limits Megakaryocytic maturation: Normal The Leder stain is used to assess for lymphoid aggregates: None Plasma cells: no overt H&E abnormality Reticulin and Trichrome stains show: Mild fibrosis (MF-1) CLOT SECTION: The bone marrow clot section including Leder and H&E stains are: Similiar in cellularity and composition to the bone marrow core By this signature, I attest that the above diagnosis is based upon my personal examination of the slides(and/or other material). Addenda/Procedures Flow Cytometry Ordered:10/14/2024Status:Signed OutFlow Cytometry Complete:10/16/2024y:Rhonda Samano M.D.Flow Cytometry Signed Out: 10/16/2024 Diagnosis Bone marrow, left aspirate for flow cytometry: - Clonal plasma cells detected (less than 1% of total cellularity) Comment Specimen quality: adequate Flow cytometry identifies an abnormal CD138+ plasma cell population. Antigens expressed: lambda, CD38, CD138, CD56 Antigens not expressed: kappa, CD19, CD20 A Waldrop-Giemsa stained cytospin from the flow cytometry specimen was examined for internal quality engineer purposes. Flow cytometry was performed using antibodies to the following cellular antigens: CD45, CD19, CD20, [place], Lambda, CD38, CD138, CD56. Total antigens analyzed: 8 By this signature, I attest that the above diagnosis is based upon my personal examination of the slides(and/or other material indicated in the diagnosis). Report Electronically Reviewed and Signed Out By Rhonda Samano M.D. 10/16/2024 19:59:56 Addendum Ordered:10/22/2024Status:Signed OutAddendum Complete:10/22/2024y:Rhonda Samano M.D.Addendum Signed Out:10/22/2024 Addendum Diagnosis A. C7 bone, core biopsy: - Bone with remodeling, crush artifact and focal medullary fibrosis - See Addendum Comment Addendum Comment Comment: Clinical and radiologic correlation is suggested as to whether the findings are maintenance representative of the lesion. The pathology findings may represent the edge of an unsampled lesion. H&E of part A shows remodeling changes, crush artfiact, woven bone and focal medullary fibrosis. H&E were also seen by Dr. George Cormier. Stains on part A: Congo red and trichrome show no diagnostic amyloid. MARISOL kappa, MARISOL lambda, CD138, CD19, CD56, ckit, cyclinD1, e-cadherin, CK, and CD34 show no diagnostic staining. CD3 and CD20 show rare lymphocytes. By this signature, I attest that the above diagnosis is based upon my personal examination of the slides(and/or other material indicated in the diagnosis). Rhonda Samano M.D.Report Electronically Reviewed and Signed Out By Rhonda Samano M.D. 10/22/2024 15:03:07 Addendum Ordered:10/24/2024Status:Signed OutAddendum Complete:10/24/2024y:Rhonda Samano M.D.Addendum Signed Out:10/24/2024 Addendum Comment There is no change to the diagnosis. In part A, PAX5 shows scattered cells of B lineage. The overall findings of the B cell markers may reflect a low number of bystander atypical plasma cells, as patient has a diagnosis in part B, vs technical artifact/stain variation, but does not provide overt morphologic evidence of a lesion. As previously reported, clinical and radiologic correlation is suggested as to whether the pathology findings are maintenance representative of the lesion. If clinically indicated, rebiopsy could be considered. By this signature, I attest that the above diagnosis is based upon my personal examination of the slides(and/or other material indicated in the diagnosis). Rhonda Samano M.D.Report Electronically Reviewed and Signed Out By Rhonda Samano M.D. 10/24/2024 14:20:18 Addendum Ordered:11/03/2024Status:Signed OutAddendum Complete:11/03/2024y:Rhonda Samano M.D.Addendum Signed Out:11/03/2024 Addendum Comment There is no change to the diagnosis. Congo red and trichrome on parts B and C were also examined at the time of the diagnosis and show no diagnostic amyloid. By this signature, I attest that the above diagnosis is based upon my personal examination of the slides(and/or other material indicated in the diagnosis). Rhonda Samano M.D.Report Electronically Reviewed and Signed Out By Rhonda Samano M.D. 11/03/2024 13:06:32 The performance characteristics of some immunohistochemical stains, fluorescence in-situ hybridization tests and immunophenotyping by flow cytometry cited in this report (if any) were determined by the Surgical Pathology and Flow Cytometry Departments at [facility] as part of an ongoing compliance quality performance analyst program and in compliance with federally mandated [...] performance characteristics determined by the Surgical Pathology and Flow Cytometry Departments of [facility]. It has not been cleared or approved by the U. S. Food and Drug Administration. IMAGES AND SCANNED DOCUMENTS, IF INCLUDED, ONLY VIEWABLE IN PDF VERSION OF REPORT us Mauricio Izquierdo MD LAB PATHOLOGY O LOYDA Final Result PATHOLOGY [facility] [address]rd Floor [place], [place] [phone] * Cytogenetics Bone marrow (10/14/2024 12:00 AM CDT) Bone marrow (Bone Marrow Biopsy) 10/14/2024 10/14/2024 Narrative [facility] - CYTOGENETICS - 10/15/2024 3:01 PM CDT EPIC results best viewed via link to PDF [facility] Department of Pathol [address] [place] [id number] Patient Information Name: GAMALIEL SMITH Gender: F : 1955 (Age: 68) Tissue: Bone Marrow w/ FISH Visit Information Hospital #: [id number] Facility: [facility] Service: [facility] Location: [facility] Patient Type: [facility] Specimen Information: Culture #: [id number] Date Collected: 10/14/2024 Date Accessioned: 10/14/2024 Date Ordered: 10/14/2024 Physician(s): Mauricio Izquierdo M.D. 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 An abnormal hybridization pattern consisting of three CCND1 hybridization signals and two IGH hybridization signals was observed in 83/200 nuclei, indicative of trisomy or rearrangement for the corresponding region on chromosome 11. This value exceeds the normal range (up to 1%) established for this probe in the Clinical Genomics Laboratory at [facility]. PLEASE NOTE: Due to paucity of CD138+ sorted plasma cells only one of the six amyloidosis FISH panel probes was analyzed. The CKS1B/CDKN2C, FGFR3::IGH, [id number]/LAMP1, IGH::MAF and TP53 probe sets were not performed. Chromosome analysis could not be performed on this specimen due to an insufficient white blood cell count. The entire specimen was used for FISH analysis as priority testing in accordance with the [facility] Laboratory protocol. These findings are similar to those found in bone marrow specimens received from this individual on 07/15/2016 (#[id number]) and on 07/24/2012 (#[id number]) and are consistent with relapse/persistence of disease. The FISH findings must be interpreted within the context of the pathologic and clinical findings. Follow-up evaluation is recommended. This test was developed and its performance characteristics determined by [facility]. It has not been cleared or approved by the FDA. The laboratory is regulated under CLIA as qualified to perform high-complexity testing. This test is used for clinical purposes. It should not be regarded as investigational or for research. Chromosome analysis and Fluorescence In Situ Hybridization (FISH) analysis are performed using the [employer] Imaging System. Report Electronically Reviewed and Signed Out By Lucero Del Toro, PhD, FACMGDate Reported: 10/15/2024ssociate Professor, Division of Genomic & Molecular Pathology us Mauricio Izquierdo MD LAB GENETIC NATHANAEL TIN Final Result [facility] - CYTOGENETICS [address] [place] [address] * aPTT (10/06/2024 8:02 AM CDT) aPTT 32 28 - 38 sec Comment: Interpretive Data Heparin therapeutic range: 66.0 - 100.0 seconds. Range based on correlation with therapeutic heparin activity range of 0.3 - 0.7 Units/mL. Current interpretive data was last revised on 2022. Blood 10/06/2024 8:02 AM CDT 10/06/2024 1:54 PM CDT Mauricio Izquierdo MD LAB BLOOD ORDER DL Final Result Performing Organization Address [facility] de Phone Number SHEILA [address] [facility] [place] [address] * Protime-INR (10/06/2024 8:02 AM CDT) PT 11.6 9.7 - 13.0 sec INR 1.07 0.90 - 1.20 SHEILA ALVAREZ Comment: Interpretive data Oral anticoagulant therapeutic ranges: Venous thromboembolism prophylaxis or treatment: 2.0-3.0 CARDIOLOGY Standard range: 2.0-3.0 High-intensity range: 2.5-3.5 Refer to indication-specific guidelines for appropriate target ranges for prosthetic heart valve replacement. Current interpretive data was last revised on 2019. Blood 10/06/2024 8:02 AM CDT 10/06/2024 6:00 PM CDT Mauricio Izquierdo MD LAB BLOOD ORDER DL Final Result Performing Organization Address [facility] de Phone Number MARCELATSIH [address] [place] [address] * Clinical pathology report (10/06/2024 6:30 AM CDT) Miscellaneous 10/06/2024 6:3 0 AM CDT 10/07/2024 7:48 AM CDT Narrative 10/08/2024 8:17 AM CDT EPIC results best viewed via link to PDF [facility] Department of Pathology [address] [place] [address] Final Report Note to Patients: This [...] questions and explain the details. Patient Name: GAMALIEL SMITH Address: [address] [place] [address], [place] [address] Gender: F : 1955 (Age: 68) Service: Location: [facility] #: [id number] Patient Type: SPECIMEN Taken: 10/06/2024 Received: 10/07/2024 Accessioned: 10/07/2024 Physician(s): Mauricio Izquierdo M.D. Specimen(s) Received A: Urine Urine Protein Immunofixation ElectrophoresisReported:10/08/2024 Interpretation: Urine Protein Electrophoresis: Mild selective proteinuria. Urine Protein Immunofixation: Normal urine immunofixation study. Comment: Urine Protein Electrophoresis: Electrophoresis shows a mild selective proteinuria. Urine Protein Immunofixation: Examination of G, A and M heavy chains as well as kappa and lambda light chains reveals no evidence of abnormal bands. David Kee MD PhDReport Electronically Reviewed and Signed Out By David Kee MD PhD 10/08/2024 08:16:18 The performance characteristics of some immunohistochemical stains, fluorescence in-situ hybridization tests and immunophenotyping by flow cytometry cited in this report (if any) were determined by the Surgical Pathology Department at [facility] as part of an ongoing compliance quality performance analyst program and in compliance with federally mandated [...] characteristics determined by the Surgical Pathology Department [facility]. It has not been cleared or approved by the U. S. Food and Drug Administration. REPORT IMAGES AND SCANNED DOCUMENTS, IF INCLUDED, ONLY VIEWABLE IN PDF VERSION OF REPORTe o Mauricio Izquierdo MD LAB PATHOLOGY O RDERABLES Final Result * Volume and period, urine, 24 hour (10/06/2024 6:30 AM CDT) Volume, ur 775 mL Period, Urine Collection 1,560 min [facility] Urine 10/06/2024 6:30 AM CDT 10/06/2024 2:52 PM CDT Mauricio Izquierdo MD LAB URINE ORDER DL Final Result [facility] [address] Department [place] [address] * Protein electrophoresis, urine, 24 hour (10/06/2024 6:30 AM CDT) Protein, ur, quant 12.3 mg/dL Comment:No reference range e stablished. Albumin, Ur 24.3 % [facility] Comment:No reference range e stablished. Alpha-1 globulin, Ur 27.5 % [facility] Comment:No reference range e stablished. Alpha-2 globulin, Ur 19.6 % [facility] Comment:No reference range e stablished. Beta globulin, Ur 19.7 % [facility] Comment:No reference range e stablished. Gamma globulin, Ur 8.9 % [facility] Comment:No reference range e stablished. UPEP interp See Cl Path Rpt [facility] Protein, 24 hr, ur 88 1 - 150 mg/24H [facility] Urine 10/06/2024 6:30 AM CDT 10/06/2024 2:52 PM CDT Mauricio Izquierdo MD LAB URINE ORDER DL Final Result Performing Organization Address [facility] Co de Phone Number SHEILA ALVAREZ [address] [place] [address] * Immunofixation, urine with interpretation (10/06/2024 6:30 AM CDT) Immunofixation , Ur See Cl Path Rpt Urine 10/06/2024 6:30 AM CDT 10/06/2024 2:52 PM CDT Mauricio Izquierdo MD LAB URINE ORDER DL Final Result Performing Organization Address [facility] de Phone Number SHEILA ALVAREZ [address] [place] [address] * Troponin T high-sensitivity (10/02/2024 10:25 AM CDT) Pathologist [facility] Trop T hs 11 <=14 ng/L Comment: Interpretive Data For further hscTnT resources including the diagnostic algorithm and an aid in interpretation, copy and paste this link: https://nrl.testcatalog.org/show/hsTrop Current Interpretive Data last revised 2020. Blood 10/02/2024 10:2 5 AM CDT 10/02/2024 2:49 PM CDT Mauricio Izquierdo MD LAB BLOOD ORDER DL Final Result Performing Organization Address [facility] Co de Phone Number SHEILA ALVAREZ [address] [place] [address] * Clinical pathology report (10/02/2024 10:25 AM CDT) Miscellaneous 10/02/2024 10: 25 AM CDT 10/07/2024 7:45 AM CDT Narrative 10/08/2024 8:17 AM CDT EPIC results best viewed via link to PDF [facility] Department of Pathology [address] [place] [address] Final Report Note to Patients: This report [...] questions and explain the details. Patient Name: GAMALIEL SMITH Address: [address] [place] [address] , [place], [facility] Gender: F : 1955 (Age: 68) Service: Location: N : [id number] [facility] #: [id number] Patient Type: SPECIMEN Taken: 10/02/2024 Received: 10/07/2024 Accessioned: 10/07/2024 Physician(s): Mauricio Izquierdo M.D. Specimen(s) Received A: Blood (serum) Serum Protein ElectrophoresisReported:10/08/2024 Interpretation: Serum Protein Electrophoresis: 0.9 g/dl paraprotein. Comment: Serum Protein Electrophoresis: A 0.9 g/dl paraprotein is identified. See Epic and/or separate report for protein fraction table. David Kee MD PhDReport Electronically Reviewed and Signed Out By David Kee MD PhD 10/08/2024 08:14:07 The performance characteristics of some immunohistochemical stains, fluorescence in-situ hybridization tests and immunophenotyping by flow cytometry cited in this report (if any) were determined by the Surgical Pathology Department at [facility] as part of an ongoing compliance quality performance analyst program and in compliance with federally mandated [...] characteristics determined by the Surgical Pathology Department [facility]. It has not been cleared or approved by the U. S. Food and Drug Administration. REPORT IMAGES AND SCANNED DOCUMENTS, IF INCLUDED, ONLY VIEWABLE IN PDF VERSION OF REPORTe o Mauricio Izquierdo MD LAB PATHOLOGY O RDERABLES Final Result * eGFR (10/02/2024 10:25 AM CDT) eGFR 84 >=60 mL/min/1. 73 m2 Comment: Interpretive Data [...] interpretive data was last reviewed 2021. Blood 10/02/2024 10:2 5 AM CDT 10/02/2024 5:53 PM CDT Mauricio Izquierdo MD LAB BLOOD ORDER DL Final Result SHEILA [address] [place] [address] * Differential, auto (10/02/2024 10:25 AM CDT) Neutrophil abs 4.85 1.50 - 6.50 K/cumm Imm gran abs 0.02 0.00 - 0.10 K/cumm [facility] Lymphocyte abs 1.34 0.80 - 3.30 K/cumm [facility] Monocyte abs 0.38 0.20 - 0.80 K/cumm [facility] Eosinophil abs 0.16 0.00 - 0.50 K/cumm [facility] Basophil abs 0.04 0.00 - 0.10 K/cumm [facility] Neutrophil pct 71.4 % [facility] Comment: Interpretive Data Percent cell count reference ranges are not reported, since discordance with absolute values may lead to misinterpretation of CBC data. Current Interpretive Data was last revised on 2017. Imm gran pct 0.3 % [facility] Comment: Interpretive Data Percent cell count reference ranges are not reported, since discordance with absolute values may lead to misinterpretation of CBC data. Current Interpretive Data was last revised on 2017. Lymphocyte pct 19.7 % [facility] Comment: Interpretive Data Percent cell count reference ranges are not reported, since discordance with absolute values may lead to misinterpretation of CBC data. Current Interpretive Data was last revised on 2017. Monocyte pct 5.6 % [facility] Comment: Interpretive Data Percent cell count reference ranges are not reported, since discordance with absolute values may lead to misinterpretation of CBC data. Current Interpretive Data was last revised on 2017. Eosinophil pct 2.4 % [facility] Comment: Interpretive Data Percent cell count reference ranges are not reported, since discordance with absolute values may lead to misinterpretation of CBC data. Current Interpretive Data was last revised on 2017. Basophil pct 0.6 % [facility] Comment: Interpretive Data Percent cell count reference ranges are not reported, since discordance with absolute values may lead to misinterpretation of CBC data. Current Interpretive Data was last revised on 2017. Blood 10/02/2024 10:2 5 AM CDT 10/02/2024 2:49 PM CDT us Mauricio Izquierdo MD LAB BLOOD ORDER DL Final Result [address] Department [place] [address] * (ABNORMAL) Immunoglobulin free light chains (10/02/2024 10:25 AM CDT) Mobeetie/Lambda ratio 0.20(L) 0.26 - 1.65 Mobe[place]ie free light chain 1.02 0.33 - 1.94 mg/dL SHEILA Comment: Interpretive Data The Holly Ig Mobeetie FLC assay procedure was used. Results from [...] be performed using the same method. Blood 10/02/2024 10:2 5 AM CDT 10/02/2024 2:49 PM CDT Mauricio Izquierdo MD LAB BLOOD ORDER DL Final Result SHEILA [address] Department [place] [address] * Pro B-type natriuretic peptide (10/02/2024 10:25 AM CDT) Pathologist [facility] NT-proBNP 50 <=300 pg/mL Comment: Interpretive Comments: A. Dyspnea [...] Interpretive Data Last Revised Date: 2017. Blood 10/02/2024 10:2 5 AM CDT 10/02/2024 2:49 PM CDT Mauricio Izquierdo MD LAB BLOOD ORDER DL Final Result [facility] [address] Department of Laboratories [place], [place] [id number] * (ABNORMAL) CBC with auto differential (10/02/2024 10:25 AM CDT) WBC 6.79 3.80 - 9.90 K/cumm Hgb 14.1 11.9 - 15.5 g/dL CERNER Hct 44.9 35.6 - 45.5 % CERNER Plt 240 150 - 400 K/cumm [facility] MPV 10.0 9.1 - 12.3 fL [facility] RBC 5.21(H) 3.90 - 5.20 M/cumm [facility] MCV 86.2 81.3 - 96.4 fL [facility] MCH 27.1 27.1 - 33.3 pg [facility]ER MCHC 31.4(L) 32.3 - 35.7 g/dL [facility] RDW CV 14.8 11.1 - 14.9 % [facility] RDW SD 46.6 35.7 - 48.1 fL [facility] NRBC abs 0.00 0.00 - 0.01 K/cumm [facility] Blood 10/02/2024 10:2 5 AM CDT 10/02/2024 2:49 PM CDT Mauricio Izquierdo MD LAB BLOOD ORDER LD Final Result Performing Organization Address [facility] Co de Phone Number SHEILA ALVAREZ [address] [place] [address] * Protime-INR (10/02/2024 10:25 AM CDT) PT 12.7 9.7 - 13.0 sec INR 1.17 0.90 - 1.[address] [facility] Comment: Interpretive data Oral anticoagulant therapeutic ranges: Venous thromboembolism prophylaxis or treatment: 2.0-3.0 CARDIOLOGY Standard range: 2.0-3.0 High-intensity range: 2.5-3.5 Refer to indication-specific guidelines for appropriate target ranges for prosthetic heart valve replacement. Current interpretive data was last revised on 2019. Blood 10/02/2024 10:2 5 AM CDT 10/03/2024 9:05 AM CDT Mauricio Izquierdo MD LAB BLOOD ORDER DL Final Result Performing Organization Address [facility] de Phone Number SHEILA ALVAREZ [address] [place] [address] * Uric acid (10/02/2024 10:25 AM CDT) Pathologist [facility] Uric acid 5.3 2.5 - 7.0 mg/dL Blood 10/02/2024 10:2 5 AM CDT 10/02/2024 2:49 PM CDT Mauricio Izquierdo MD LAB BLOOD ORDER DL Final Result Performing Organization Address [facility] Co de Phone Number SHEILA [address] [place] [address] * (ABNORMAL) Protein electrophoresis with reflex, serum with interpretation (10/02/2024 10:25 AM CDT) Pathologist [facility] Protein, sr 7.1 6.2 - 8.2 g/dL Albumin 3.9 3.2 - 5.0 g/dL [facility] Alpha-1 globulin 0.4 0.2 - 0.4 g/dL [facility] Alpha-2 globulin 0.9 0.5 - 1.0 g/dL [facility] Beta-1 globulin 0.4 0.3 - 0.6 g/dL [facility] Beta-2 globulin 1.0(H) 0.2 - 0.6 g/dL [facility] Gamma globulin 0.5 0.5 - 1.7 g/dL [facility] Rstr Pk Beta-2 0.9(H) 0.0 - 0.0 g/dL [facility] SPEP interp See Cl Path Rpt [facility] Blood 10/02/2024 10:2 5 AM CDT 10/02/2024 2:49 PM CDT Mauricio Izquierdo MD LAB BLOOD ORDER DL Final Result SHEILA ALVAREZ [address] [place] [address] * Protein, total (10/02/2024 10:25 AM CDT) [facility] Protein, pl 7.7 6.5 - 8.5 g/dL Blood 10/02/2024 10:2 5 AM CDT 10/02/2024 2:49 PM CDT Mauricio Izquierdo MD LAB BLOOD ORDER DL Final Result SHEILA ANTONIO [address] [address] * Lactate dehydrogenase (LD) (10/02/2024 10:25 AM CDT) [facility] Lactate dehydrogenase (LDH) 187 100 - 250 Units/L Blood 10/02/2024 10:2 5 AM CDT 10/02/2024 2:49 PM CDT Mauricio Izquierdo MD LAB BLOOD ORDER DL Final Result SHEILA ALVAREZ [address] [facility] [place] [address] * IgA (10/02/2024 10:25 AM CDT) Immunoglobulin A 138 70 - 400 mg/dL Blood 10/02/2024 10:2 5 AM CDT 10/02/2024 2:49 PM CDT us Mauricio Izquierdo MD LAB BLOOD ORDER DL Final Result Performing Organization Address [facility] Co de Phone Number SHEILA ANTONIO [address] [facility] [place] [address] * IgM (10/02/2024 10:25 AM CDT) Immunoglobulin M 40 40 - 150 mg/dL Blood 10/02/2024 10:2 5 AM CDT 10/02/2024 2:49 PM CDT Mauricio Izquierdo MD LAB BLOOD ORDER DL Final Result Performing Organization Address City/[facility]/ZIP Co de Phone Number SHEILA ANTONIO [address] [place] [address] * IgG (10/02/2024 10:25 AM CDT) Immunoglobulin G 981 700 - 1,600 mg/dL Blood 10/02/2024 10:2 5 AM CDT 10/02/2024 2:49 PM CDT Mauricio Izquierdo MD LAB BLOOD ORDER DL Final Result Performing Organization Address City/[facility]/ZIP Co de Phone Number MARCELATISH ALVAREZ [address] [place] [address] * Beta 2 microglobulin, serum (10/02/2024 10:25 AM CDT) Beta 2 microglobulin, bld 2.10 1.00 - 2.50 mg/L Comment: Interpretive Data The Holly Beta-2 microglobulin assay procedure was used. Results from different manufacturers or methods may not be comparable. Serial testing should be performed using the same method. Testing performed by: [facility], [address] [place]., [address] Blood 10/02/2024 10:2 5 AM CDT 10/02/2024 5:28 PM CDT Mauricio Izquierdo MD LAB BLOOD ORDER DL Final Result [facility] [address] [place] [address] * Comprehensive metabolic panel (10/02/2024 10:25 AM CDT) Pathologist [facility] Sodium 141 135 - 145 mmol/L Potassium, pl 4.0 3.3 - 4.9 mmol/L [facility] Chloride 103 97 - 110 mmol/L [facility] CO2 23 22 - 32 mmol/L [facility] Anion gap 15 2 - 15 mmol/L [facility] BUN 14 6 - 25 mg/dL [facility] Creatinine 0.77 0.60 - 1.10 mg/dL [facility] Glucose 126 70 - 199 mg/dL [facility] Comment: Interpretive Data Fasting glucose >/= 126 [...] interpretive data was last revised 2022. Calcium 9.1 8.5 - 10.3 mg/dL [facility] Bilirubin, total 0.3 0.1 - 1.2 mg/dL [facility] Protein, pl 7.7 6.5 - 8.5 g/dL [facility] Albumin 4.2 3.5 - 5.0 g/dL [facility] Alk phos 106 40 - 130 Units/L [facility] ALT 25 7 - 45 Units/L [facility] AST 29 10 - 45 Units/L [facility] Blood 10/02/2024 10:2 5 AM CDT 10/02/2024 2:49 PM CDT us Mauricio Izquierdo MD LAB BLOOD ORDER DL Final Result SHEILA [address] [place] [address] * XR Hip Right 2 or 3 Views (09/30/2024 2:53 PM CDT) Anatomical Region Laterality Modality Lower Extremities, Hip, Pelvis Right C omputed Radiography 09/30/2024 4:36 PM CDT Impressions 09/30/2024 5:41 PM CDT 1. Mild bilateral hip osteoarthritis. 2. 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 Dictated by: Demetrius Ordonez MD The radiology attending physician has personally reviewed this study, and had reviewed and/or edited this written report and agrees with it. Electronically signed by: Donnell Ballard MD Narrative 09/30/2024 5:41 PM CDT EXAMINATION: XR HIP LEFT 2 OR 3 VIEWS, XR HIP RIGHT 2 OR 3 VIEWS HISTORY: Primary amyloidosis with bilateral hip pain. COMPARISON: CT abdomen pelvis 07/22/2024, right hip radiographs 09/27/2022, left hip radiographs 12/02/2021. FINDINGS: 3 total radiographs of the bilateral hips and pelvis are submitted for interpretation. No acute fracture of the pelvis or hips. No dislocation. Mild bilateral hip osteoarthritis. There is mild left greater than right sacroiliac joint osteoarthritis. Gastric lap band partially imaged. Procedure Note Donnell Ballard MD - 09/30/2024 EXAMINATION: XR HIP LEFT 2 OR 3 VIEWS, XR HIP RIGHT 2 OR 3 VIEWS HISTORY: Primary amyloidosis with bilateral hip pain. COMPARISON: CT abdomen pelvis 07/22/2024, right hip radiographs 09/27/2022, left hip radiographs 12/02/2021. FINDINGS: 3 total radiographs of the bilateral hips and pelvis are submitted for interpretation. No acute fracture of the pelvis or hips. No dislocation. Mild bilateral hip osteoarthritis. There is mild left greater than right sacroiliac joint osteoarthritis. Gastric lap band partially imaged. IMPRESSION: 1. Mild bilateral hip osteoarthritis. 2. 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 Dictated by: Demetrius Ordonez MD The radiology attending physician has personally reviewed this study, and had reviewed and/or edited this written report and agrees with it. Electronically signed by: Donnell Ballard MD Mauricio Izquierdo MD IMG XR PROCEDUR ES Final Result * XR Hip Left 2 or 3 Views (09/30/2024 2:53 PM CDT) Anatomical Region Laterality Modality Lower Extremities, Hip, Pelvis Left C omputed Radiography 09/30/2024 4:36 PM CDT Impressions 09/30/2024 5:41 PM CDT 1. Mild bilateral hip osteoarthritis. 2. 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 Dictated by: Demetrius Ordonez MD The radiology attending physician has personally reviewed this study, and had reviewed and/or edited this written report and agrees with it. Electronically signed by: Donnell Ballard MD Narrative 09/30/2024 5:41 PM CDT EXAMINATION: XR HIP LEFT 2 OR 3 VIEWS, XR HIP RIGHT 2 OR 3 VIEWS HISTORY: Primary amyloidosis with bilateral hip pain. COMPARISON: CT abdomen pelvis 07/22/2024, right hip radiographs 09/27/2022, left hip radiographs 12/02/2021. FINDINGS: 3 total radiographs of the bilateral hips and pelvis are submitted for interpretation. No acute fracture of the pelvis or hips. No dislocation. Mild bilateral hip osteoarthritis. There is mild left greater than right sacroiliac joint osteoarthritis. Gastric lap band partially imaged. Procedure Note Donnell Ballard MD - 09/30/2024 EXAMINATION: XR HIP LEFT 2 OR 3 VIEWS, XR HIP RIGHT 2 OR 3 VIEWS HISTORY: Primary amyloidosis with bilateral hip pain. COMPARISON: CT abdomen pelvis 07/22/2024, right hip radiographs 09/27/2022, left hip radiographs 12/02/2021. FINDINGS: 3 total radiographs of the bilateral hips and pelvis are submitted for interpretation. No acute fracture of the pelvis or hips. No dislocation. Mild bilateral hip osteoarthritis. There is mild left greater than right sacroiliac joint osteoarthritis. Gastric lap band partially imaged. IMPRESSION: 1. Mild bilateral hip osteoarthritis. 2. 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 Dictated by: Demetrius Ordonez MD The radiology attending physician has personally reviewed this study, and had reviewed and/or edited this written report and agrees with it. Electronically signed by: Donnell Ballard MD Mauricio Izquierdo MD IMG XR PROCEDUR ES Final Result * MRI Cervical Spine W Contrast (09/30/2024 2:48 PM CDT) Anatomical Region Laterality Modality Spine N/A Magnetic Resonan ce 09/30/2024 7:29 PM CDT Impressions 09/30/2024 7:29 PM CDT Enhancing lytic lesion at C7 is concerning for a neoplastic process like myeloma, with differential including metabolic bone lesions. No acute fracture or subluxation. No new destructive osseous lesions, intrathecal enhancement or high-grade stenosis. Electronically signed by: Nestor Sanchez M.D. Narrative 09/30/2024 7:29 PM CDT EXAMINATION: Magnetic resonance imaging (MRI) of the cervical spine with contrast HISTORY: Cervical pain TECHNIQUE: Limited MRI of the cervical spine was performed with intravenous contrast. Contrast information: 20 mL Gadoterate Meglumine IV COMPARISON: MR 09/23/2024, PET/CT 09/15/2024, CT 12/25/2019 FINDINGS: Exam degraded by motion. Lytic lesion in the right C7 lamina changed in size and demonstrates ill-defined enhancement, a nonspecific feature, for example image 35 series 8. It is noted this lytic lesion was not present in 2020, and ultimately is concerning for myelomatous involvement with differential including other neoplastic/metastatic process, primary osseous tumor and metabolic bone disease such as Brown tumor of hyperparathyroidism or amyloid deposit. Straightening of the cervical lordosis. No acute fracture is identified. The visualized portions of the skull base and the posterior fossa are normal. Other areas of degenerative enhancement are present without destructive lesions on motion degraded views of the cervical spine. Intrathecal lesions are identified. Mild multilevel degenerative change most evident from C4 C7 without high-grade stenosis or interval change. Procedure Note Nestor Sanchez MD - 09/30/2024 EXAMINATION: Magnetic resonance imaging (MRI) of the cervical spine with contrast HISTORY: Cervical pain TECHNIQUE: Limited MRI of the cervical spine was performed with intravenous contrast. Contrast information: 20 mL Gadoterate Meglumine IV COMPARISON: MR 09/23/2024, PET/CT 09/15/2024, CT 12/25/2019 FINDINGS: Exam degraded by motion. Lytic lesion in the right C7 lamina changed in size and demonstrates ill-defined enhancement, a nonspecific feature, for example image 35 series 8. It is noted this lytic lesion was not present in 2020, and ultimately is concerning for myelomatous involvement with differential including other neoplastic/metastatic process, primary osseous tumor and metabolic bone disease such as Brown tumor of hyperparathyroidism or amyloid deposit. Straightening of the cervical lordosis. No acute fracture is identified. The visualized portions of the skull base and the posterior fossa are normal. Other areas of degenerative enhancement are present without destructive lesions on motion degraded views of the cervical spine. Intrathecal lesions are identified. Mild multilevel degenerative change most evident from C4 C7 without high-grade stenosis or interval change. IMPRESSION: Enhancing lytic lesion at C7 is concerning for a neoplastic process like myeloma, with differential including metabolic bone lesions. No acute fracture or subluxation. No new destructive osseous lesions, intrathecal enhancement or high-grade stenosis. Electronically signed by: Nestor Sanchez M.D. Mauricio Izquierdo MD IMInder MRI PROCEDU RES Final Result * MRI Thoracic Spine WO Contrast (09/23/2024 1:53 PM CDT) Anatomical Region Laterality Modality Spine N/A Magnetic Resonan ce 09/23/2024 2:08 PM CDT Impressions 09/23/2024 2:24 PM CDT 1. Note that this examination was not performed with intravenous contrast, which limits evaluation for malignancy, inflammatory, or infectious processes. 2. Given this, corresponding to the lucent lesion of the right C7 lamina seen on the prior PET/CT dated 09/15/2024, there is a 1.0 x 0.5 cm mildly T2 hyperintense lesion of the right C7 lamina. This lesion is not well characterized without postcontrast sequences. Recommend performing MRI of the cervical spine with postcontrast sequences only for further characterization. 3. No other suspicious marrow replacing lesion of the cervical or thoracic spine. Dictated by: Iftikhar Valdez MD The radiology attending physician has personally reviewed this study, and had reviewed and/or edited this written report and agrees with it. Electronically signed by: Luis Fernando Koehler M.D, PHD Narrative 09/23/2024 2:24 PM CDT EXAMINATION: 1. Magnetic resonance imaging (MRI) of the cervical spine without contrast 2. Magnetic resonance imaging (MRI) of the thoracic spine without contrast HISTORY: Primary amyloidosis. Lucent lesion of the C7 right lamina with FDG avidity seen on PET/CT 09/15/2024 TECHNIQUE: Multiplanar multi-weighted MRI of the cervical spine was performed without intravenous contrast using the standard protocol. Multiplanar multi-weighted MRI of the thoracic spine was performed without intravenous contrast using the standard protocol. COMPARISON: PET/CT 09/15/2024 FINDINGS: Note that this examination was not performed with intravenous contrast, which limits evaluation for malignancy, inflammatory, or infectious processes. CERVICAL SPINE: Corresponding to the lucent lesion of the right C7 lamina seen on the prior PET/CT dated 09/15/2024, there is a 1.0 x 0.5 cm mildly T2 hyperintense lesion with a bubbly appearance of the right C7 lamina (series 21, image 23). The marrow signal is otherwise normal. The alignment of the cervical spine is normal. No acute fracture is identified. The craniocervical junction is normal. The visualized portions of the skull base and the posterior fossa are normal. The spinal cord demonstrates normal signal intensity on all sequences. Multilevel disc desiccation. There are no annular fissures identified. No soft tissue abnormality is identified. Normal signal voids are present in the vertebral arteries. Multilevel mild degenerative disc disease of the cervical spine with up to mild canal stenosis at C6-C7. No high-grade canal stenosis. No high-grade neural foraminal stenosis. THORACIC SPINE: The alignment of the thoracic spine is normal. Modic type II endplate degenerative changes at T10-T11. There are no compression fractures. The spinal cord demonstrates normal signal intensity on all sequences. Multilevel disc height loss and desiccation. Limited views of the chest and abdomen show no soft tissue abnormality. Multilevel mild degenerative disc disease throughout the thoracic spine. No canal stenosis. No high-grade neural foraminal stenosis. Procedure Note Luis Fernando Koehler MD PhD - 09/23/2024 EXAMINATION: 1. Magnetic resonance imaging (MRI) of the cervical spine without contrast 2. Magnetic resonance imaging (MRI) of the thoracic spine without contrast HISTORY: Primary amyloidosis. Lucent lesion of the C7 right lamina with FDG avidity seen on PET/CT 09/15/2024 TECHNIQUE: Multiplanar multi-weighted MRI of the cervical spine was performed without intravenous contrast using the standard protocol. Multiplanar multi-weighted MRI of the thoracic spine was performed without intravenous contrast using the standard protocol. COMPARISON: PET/CT 09/15/2024 FINDINGS: Note that this examination was not performed with intravenous contrast, which limits evaluation for malignancy, inflammatory, or infectious processes. CERVICAL SPINE: Corresponding to the lucent lesion of the right C7 lamina seen on the prior PET/CT dated 09/15/2024, there is a 1.0 x 0.5 cm mildly T2 hyperintense lesion with a bubbly appearance of the right C7 lamina (series 21, image 23). The marrow signal is otherwise normal. The alignment of the cervical spine is normal. No acute fracture is identified. The craniocervical junction is normal. The visualized portions of the skull base and the posterior fossa are normal. The spinal cord demonstrates normal signal intensity on all sequences. Multilevel disc desiccation. There are no annular fissures identified. No soft tissue abnormality is identified. Normal signal voids are present in the vertebral arteries. Multilevel mild degenerative disc disease of the cervical spine with up to mild canal stenosis at C6-C7. No high-grade canal stenosis. No high-grade neural foraminal stenosis. THORACIC SPINE: The alignment of the thoracic spine is normal. Modic type II endplate degenerative changes at T10-T11. There are no compression fractures. The spinal cord demonstrates normal signal intensity on all sequences. Multilevel disc height loss and desiccation. Limited views of the chest and abdomen show no soft tissue abnormality. Multilevel mild degenerative disc disease throughout the thoracic spine. No canal stenosis. No high-grade neural foraminal stenosis. IMPRESSION: 1. Note that this examination was not performed with intravenous contrast, which limits evaluation for malignancy, inflammatory, or infectious processes. 2. Given this, corresponding to the lucent lesion of the right C7 lamina seen on the prior PET/CT dated 09/15/2024, there is a 1.0 x 0.5 cm mildly T2 hyperintense lesion of the right C7 lamina. This lesion is not well characterized without postcontrast sequences. Recommend performing MRI of the cervical spine with postcontrast sequences only for further characterization. 3. No other suspicious marrow replacing lesion of the cervical or thoracic spine. Dictated by: Iftikhar Valdez MD The radiology attending physician has personally reviewed this study, and had reviewed and/or edited this written report and agrees with it. Electronically signed by: Luis Fernando Koehler M.D, PHD Mauricio Izquierdo MD IMG MRI PROCEDU RES Final Result * MRI Cervical Spine WO Contrast (09/23/2024 1:53 PM CDT) Anatomical Region Laterality Modality Spine N/A Magnetic Resonan ce 09/23/2024 2:08 PM CDT Impressions 09/23/2024 2:24 PM CDT 1. Note that this examination was not performed with intravenous contrast, which limits evaluation for malignancy, inflammatory, or infectious processes. 2. Given this, corresponding to the lucent lesion of the right C7 lamina seen on the prior PET/CT dated 09/15/2024, there is a 1.0 x 0.5 cm mildly T2 hyperintense lesion of the right C7 lamina. This lesion is not well characterized without postcontrast sequences. Recommend performing MRI of the cervical spine with postcontrast sequences only for further characterization. 3. No other suspicious marrow replacing lesion of the cervical or thoracic spine. Dictated by: Iftikhar Valdez MD The radiology attending physician has personally reviewed this study, and had reviewed and/or edited this written report and agrees with it. Electronically signed by: Luis Fernando Koehler M.D, PHD Narrative 09/23/2024 2:24 PM CDT EXAMINATION: 1. Magnetic resonance imaging (MRI) of the cervical spine without contrast 2. Magnetic resonance imaging (MRI) of the thoracic spine without contrast HISTORY: Primary amyloidosis. Lucent lesion of the C7 right lamina with FDG avidity seen on PET/CT 09/15/2024 TECHNIQUE: Multiplanar multi-weighted MRI of the cervical spine was performed without intravenous contrast using the standard protocol. Multiplanar multi-weighted MRI of the thoracic spine was performed without intravenous contrast using the standard protocol. COMPARISON: PET/CT 09/15/2024 FINDINGS: Note that this examination was not performed with intravenous contrast, which limits evaluation for malignancy, inflammatory, or infectious processes. CERVICAL SPINE: Corresponding to the lucent lesion of the right C7 lamina seen on the prior PET/CT dated 09/15/2024, there is a 1.0 x 0.5 cm mildly T2 hyperintense lesion with a bubbly appearance of the right C7 lamina (series 21, image 23). The marrow signal is otherwise normal. The alignment of the cervical spine is normal. No acute fracture is identified. The craniocervical junction is normal. The visualized portions of the skull base and the posterior fossa are normal. The spinal cord demonstrates normal signal intensity on all sequences. Multilevel disc desiccation. There are no annular fissures identified. No soft tissue abnormality is identified. Normal signal voids are present in the vertebral arteries. Multilevel mild degenerative disc disease of the cervical spine with up to mild canal stenosis at C6-C7. No high-grade canal stenosis. No high-grade neural foraminal stenosis. THORACIC SPINE: The alignment of the thoracic spine is normal. Modic type II endplate degenerative changes at T10-T11. There are no compression fractures. The spinal cord demonstrates normal signal intensity on all sequences. Multilevel disc height loss and desiccation. Limited views of the chest and abdomen show no soft tissue abnormality. Multilevel mild degenerative disc disease throughout the thoracic spine. No canal stenosis. No high-grade neural foraminal stenosis. Procedure Note Luis Fernando Koehler MD PhD - 09/23/2024 EXAMINATION: 1. Magnetic resonance imaging (MRI) of the cervical spine without contrast 2. Magnetic resonance imaging (MRI) of the thoracic spine without contrast HISTORY: Primary amyloidosis. Lucent lesion of the C7 right lamina with FDG avidity seen on PET/CT 09/15/2024 TECHNIQUE: Multiplanar multi-weighted MRI of the cervical spine was performed without intravenous contrast using the standard protocol. Multiplanar multi-weighted MRI of the thoracic spine was performed without intravenous contrast using the standard protocol. COMPARISON: PET/CT 09/15/2024 FINDINGS: Note that this examination was not performed with intravenous contrast, which limits evaluation for malignancy, inflammatory, or infectious processes. CERVICAL SPINE: Corresponding to the lucent lesion of the right C7 lamina seen on the prior PET/CT dated 09/15/2024, there is a 1.0 x 0.5 cm mildly T2 hyperintense lesion with a bubbly appearance of the right C7 lamina (series 21, image 23). The marrow signal is otherwise normal. The alignment of the cervical spine is normal. No acute fracture is identified. The craniocervical junction is normal. The visualized portions of the skull base and the posterior fossa are normal. The spinal cord demonstrates normal signal intensity on all sequences. Multilevel disc desiccation. There are no annular fissures identified. No soft tissue abnormality is identified. Normal signal voids are present in the vertebral arteries. Multilevel mild degenerative disc disease of the cervical spine with up to mild canal stenosis at C6-C7. No high-grade canal stenosis. No high-grade neural foraminal stenosis. THORACIC SPINE: The alignment of the thoracic spine is normal. Modic type II endplate degenerative changes at T10-T11. There are no compression fractures. The spinal cord demonstrates normal signal intensity on all sequences. Multilevel disc height loss and desiccation. Limited views of the chest and abdomen show no soft tissue abnormality. Multilevel mild degenerative disc disease throughout the thoracic spine. No canal stenosis. No high-grade neural foraminal stenosis. IMPRESSION: 1. Note that this examination was not performed with intravenous contrast, which limits evaluation for malignancy, inflammatory, or infectious processes. 2. Given this, corresponding to the lucent lesion of the right C7 lamina seen on the prior PET/CT dated 09/15/2024, there is a 1.0 x 0.5 cm mildly T2 hyperintense lesion of the right C7 lamina. This lesion is not well characterized without postcontrast sequences. Recommend performing MRI of the cervical spine with postcontrast sequences only for further characterization. 3. No other suspicious marrow replacing lesion of the cervical or thoracic spine. Dictated by: Iftikhar Valdez MD The radiology attending physician has personally reviewed this study, and had reviewed and/or edited this written report and agrees with it. Electronically signed by: Luis Fernando Koehler M.D, PHD Mauricio Izquierdo MD IMG MRI PROCEDU RES Final Result * Screening Mammogram Bilateral W Faraz (02/13/2024 11:22 AM MANAGER [facility]) Anatomical Region Laterality Modality Breast Bilateral Mammography Narrative 02/14/2024 11:41 AM MANA[facility] Mammogram Technique: Bilateral Digital Breast Tomosynthesis, Bilateral C-view 2D Screening mammogram. Views obtained: bilateral craniocaudal and bilateral mediolateral oblique. Computer Aided Detection was performed. Mammogram Findings: The present examination has been compared to prior imaging studies performed at [facility] on 12/08/2020, 12/14/2021 and 02/07/2023. There are [...] compared to prior imaging studies performed at [facility] on 12/08/2020, 12/14/2021 and 02/07/2023. There are scattered areas of fibroglandular density. There is no suspicious abnormality in either breast. Impression: There is no mammographic evidence of malignancy. Annual screening mammography is recommended. OVERALL FINAL ASSESSMENT: BI-RADS CATEGORY 1: Negative. Kay Acevedo NP IMG MAMMO PROCEDURES Fin al Result * Hepatitis C antibody Blood (04/18/2023 1:30 PM MANAGER [facility]) Hep C Ab Nonreactive Nonreactive SHEILA ALVAREZ [...] revised on 2019. Blood 04/18/2023 1:30 PM [facility]NA[facility] 04/18/2023 8:12 PM [facility] Alice Lao NP LAB MICROBIOLOGY - GENERAL ORDER DL Final Result [facility] [address] [address] Department of Laboratories [place] [id number] * Dexa Axial and Forearm Bone Density Scan (02/07/2023) Anatomical Region Laterality Modality Wrist, Body N/A Radiographic Luz Elena ging Desean Dorman MD IMG DXA PROCEDURES Final Result * COLONOSCOPY (01/26/2022 8:07 AM MANA[facility]) Anatomical Region Laterality Modality Other Narrative Procedure Note Nel Cortez MD - 01/26/2022 8:07 AM CST ENDOSCOPY LAB Patient Name: Gamaliel Smith Procedure Date: 01/26/2022 8:07 AM Date of : 1955 Admit Type: Outpatient Age: 66 Gender: Female Attending MD: Nel Cortez M.D. Room: [facility] ENDOSCOPY ROOM 01 Note Status: Finalized Procedure: [...] The scope was passed under direct vision.The [id number] was introduced through the anusand advanced to the cecum, identified by appendiceal orifice and ileocecal valve. The colonoscopy was performed without difficulty. Abdominal pressurewas utilized. The patient tolerated the procedure well. The quality of the bowel preparation was evaluated using the BBPS ([place]aux Bowel Preparation Scale)with scores of: Right Colon [...] During normal business hours - Please call [facility] Coordinator: [phone] After hours, evening, nights, weekends and holidays- Please call the hospital transmissions systems operator at and ask for the GI fellow correctional agency director. - . Attending Participation: I personally performed the entire procedure. Electronically Signed By: Nel Cortez M.D. Nel Cortez M.D. 01/26/2022 8:29:30 AM Number of Addenda: 0 Note Initiated On: 01/26/2022 8:07 AM Nel Cortez MD ENDOSCOPY PROCEDURES Fin al Result from Last 3 Months or Most Recently Relevant to Health Maintenance Insurance [facility] MEDICARE ADVANTAGE [facility] Address: [address] [place] [id number] UHC MEDICARE ADVANTAGE UHC MEDICARE ADVANTAGE [facility] MEDICARE Address: [address] [address] Advance Directives For more information, please contact: [phone] * LIMITED - No CPR (Latest Code Status on File) Date Activated Date Inactivated Comments 11/13/2024 2:45 AM 11/15/2024 6:27 PM Question Answer Comments Provide aggressive medical m anagement before a full cardiopulmonary arrest occurs. Use antibiotics, IV Fluids, and medical treatment unless specifically selected below: No intubation * Full Code Date Activated Date Inactivated Comments 11/13/2024 1:01 AM 11/13/2024 2:45 AM * Full Code Date Activated Date Inactivated Comments 01/26/2022 7:04 AM 01/26/2022 1:13 PM * Full Code Date Activated Date Inactivated Comments 01/12/2020 1:37 PM 01/13/2020 1:36 PM * Full Code Date Activated Date Inactivated Comments 12/31/2018 10:58 AM 12/31/2018 5:55 PM Care Teams Application Infrastructure Engineer Relationship Specialty Start Date End Date Alice Lao NP [address] [place], [place] [id number] PCP - General Family Medicine 03/29/23 Mauricio Izquierdo MD Medical Oncologist/Painter Decorator Medical Oncology 05/05/20 Malu Sargent NP Nurse Practitioner Medical Oncology 05/05/20 Deyvi Ahuja MD [address] [place] [address] Referring Physician Otolaryngology 01/24/21 Narciso Cueva MD [address] [facility] [address] [place] [address] Referring Physician Dermatology 03/29/23 Nel Cortez MD [address] [place] [address] Referring Physician Gastroenterology 03/29/23 [place] [address] [place] [address] Consulting Physician Endocrinology 03/29/23 unknown name Neurology 03/29/23
--- OUTSIDE RECORDS SUMMARY | 2024-12-23 12:07 | XMS_ITS | Encounter Summary ---
Author Organization [facility] Address [address] [place] [address] Phone Care Team Providers Care Pricing Director Name Role Phone Declan Valencia MD Primary Care Provider [phone] Mauricio Izquierdo MD Unavailable Malu Sargent NP Unavailable Deyvi Ahuja MD Unavailable [phone] Len Koenig MD Primary Care Provider [phone] Alice Lao NP Primary Care Provider [phone] Narciso Cueva MD Unavailable [phone] Nel Cortez MD Unavailable Desean De Dios MD Unavailable [phone] Crystal Zheng MA Unavailable [phone] Encounter Details Date Type Department Care Team [...] on file Legal Sex Female 3:14 AM BUILDING CONSTRUCTION FOREMAN Gender Identity Female 01/08/2020 7:01 AM CDT [...] COVID: Suspected 03/26/2021 03/26/2021 03/26/2021 6:42 PM BUILDING CONSTRUCTION FOREMAN COVID19 03/26/2021 03/26/2021 04/05/2021 3:05 AM BUILDING CONSTRUCTION FOREMAN COVID: Recovered Comment:Added based on recent COVID [...] COVID: Suspected 03/22/2023 03/22/2023 03/22/2023 10:00 AM BUILDING CONSTRUCTION FOREMAN COVID: Suspected 03/22/2023 03/22/2023 03/22/2023 2:43 PM BUILDING CONSTRUCTION FOREMAN documented as of this encounter Care Teams Pricing Director Relationship Specialty Start Date End Date Declan Valencia MD PCP - General 06/15/16 09/06/21 Len Koenig MD [address] [place] [address] PCP - General Family Medicine 09/07/21 03/28/23 Alice Lao NP [address] [place] [address] PCP - General Family Medicine 03/29/23 Mauricio Izquierdo MD Medical Oncologist/Executive Communications Manager Medical Oncology 05/05/20 Malu Sargent NP Nurse Practitioner Medical Oncology 05/05/20 [place] [address] [place] [address] Referring Physician Otolaryngology 01/24/21 Narciso Cueva MD [address] [facility] [address] [place] [address] Referring Physician Dermatology 03/29/23 Nel Cortez MD [address] [place] [address] Referring Physician Gastroenterology 03/29/23 [place] [address] [address] [facility] [address] [place] [address] Consulting Physician Endocrinology 03/29/23 Crystal Zheng, SULEMA [address] [facility] [address] [place] [address] ACO Care Sample Finisher 11/17/24 11/17/24 unknown name Neurology 03/29/23 documented as of this encounter
--- OUTSIDE RECORDS SUMMARY | 2024-12-23 12:07 | XMS_ITS ---
Author Organization [facility] Address [address] [place] [address] Care Team Providers Care Carpenter'S Assistant Name Role Phone Mauricio Izquierdo MD Unavailable Malu Sargent NP Unavailable [phone] Deyvi Ahuja MD Unavailable Alice Lao NP Primary Care Provider [phone] Narciso Cueva MD Unavailable Nel Cortez MD Unavailable [phone] Desean De Dios MD Unavailable [phone] Active Problems Problem Noted Date Diagnosed Date Calculus of ureter 11/18/2024 Sepsis, due to unspecified o rganism, unspecified whether acute organ dysfunction present 11/13/2024 SIRS (systemic inflammatory response syndrome) 0 11/13/2024 Pyelonephritis 11/13/2024 STUART (generalized anxiety disorder) 03/16/2022 Assessment & Plan (04/03/2024 10:03 AM ENGINEERING ADMINISTRATOR): Stable on Venlafaxine Morbid (severe) obesity due to excess calories 0 03/16/2022 Class 3 severe obesity due t o excess calories with serious comorbidity and body mass index (BMI) of 40.0 to 44.9 in adult 03/16/2022 Assessment & Plan (04/03/2024 10:04 AM ENGINEERING ADMINISTRATOR): Healthy, low carbohydrate lifestyle and exercise for [...] (11/29/2021): Added automatically from request for surgery [id number] History of rectal polyps 11/29/2021 Overview (11/29/2021): Added automatically from request for surgery [id number] Drug-induced polyneuropathy 09/07/2021 Age-related osteoporosis wit hout current pathological fracture 09/07/2021 Memory loss 09/07/2021 Recurrent major depression 09/07/2021 Assessment & Plan (09/27/2023 9:51 AM CDT): Stable on Venlafaxine 150 mg daily. Assessment & Plan (03/29/2023 2:43 PM ENGINEERING ADMINISTRATOR): Stable on Venlafaxine 150 mg daily. 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 Ernst and Dr. 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 Advised to do low oxalate diet and advise to take atleast 800-1200 mg oral calcium intake Advised good oral hydration Advised to see food safety director Pt might benefit from us of Thiazide diuretics Amyloidosis 12/05/2017 Assessment & Plan (03/25/2018 10:46 AM ENGINEERING ADMINISTRATOR): -Dx'd 06/2016 via left thumbnail and abdominal [...] (08/22/2017): Added automatically from request for surgery [id number] H/O autologous stem cell transplant 01/26/2017 Pulmonary embolism 12/12/2016 Primary amyloidosis of light chain type 07/21/19 Asthma, mild 01/12/2016 TIA (transient ischemic attack) 08/03/2015 Positive AKHIL (antinuclear antibody) 12/29/2014 PND (paroxysmal nocturnal dyspnea) 08/11/2014 Hypertension, benign 12/24/2013 Assessment & Plan (04/03/2024 10:02 AM ENGINEERING ADMINISTRATOR): BP stable in office, continuing current regimen Updated labs ordered. Assessment & Plan (09/27/2023 9:48 AM CDT): BP stable in office, continuing current regimen Vitamin D deficiency 12/24/2013 Assessment & Plan (09/08/2019 12:41 PM CDT): On vitamin D 3 50,000 units oral weekly Assessment & Plan (03/11/2019 11:48 AM ENGINEERING ADMINISTRATOR): changed to vitamin D 3 50,000 units [...] 12/18/2012 Assessment & Plan (04/03/2024 10:02 AM ENGINEERING ADMINISTRATOR): Continues Crestor, no side effects noted. Updated lipid panel ordered. Assessment & Plan (09/27/2023 9:49 AM CDT): Continues Crestor (has been out rx as of late though), no side effects noted. Updated lipid panel ordered. Assessment & Plan (03/29/2023 2:44 PM ENGINEERING ADMINISTRATOR): Continues Crestor, no side effects noted. Liver [...] labs Assessment & Plan (03/11/2019 11:49 AM ENGINEERING ADMINISTRATOR): Recent TSH WNL Advise to continue current Levothyroxine medication dose Assessment & Plan (11/06/2018 7:31 AM CDT): Recent TSH WNL Advise to continue current Levothyroxine medication dose Chronic insomnia 12/18/2012 Current Treatment and Therapy Plans No current plan information found. Past Treatment and Therapy Plans Lifetime Dose Tracking * Chemical Lifetime Dose Automatic Entry Manual Entr y Fluoro Time 0.967 minutes 0.967 minutes 0 minutes Air kerma at the reference point (Ka,r) 23.65 mGy 2 3.65 mGy 0 mGy DLP 5,365 mGycm 5,365 mGycm 0 mGycm Resolved Problems Problem Noted Date Diagnosed Date Resolved Date Hyperparathyroidism 01/08/2020 01/07/20 24 Overview (01/08/2020): Added automatically from request for surgery [id number] Assessment & Plan (01/22/2020 9:36 AM ENGINEERING ADMINISTRATOR): S/p removal of right superior parathyroid adenoma on 01/12/20. Morbid obesity with BMI of 40.0-44.9, adult 03/11/2019 09/27/2023 Assessment & Plan (03/11/2019 11:50 AM ENGINEERING ADMINISTRATOR): Chronic, worsening Discussed about healthy lifestyle habits [...] scan Assessment & Plan (03/11/2019 11:48 AM ENGINEERING ADMINISTRATOR): Pt has slightly high PTH intact levels [...] on it. Sepsis due to gram-negative UTI ([facility]) 03/25/2018 09/07/2021 Assessment & Plan (03/25/2018 10:29 AM ENGINEERING ADMINISTRATOR): -s/p R URS, LL, stent placement with bladder biopsy on 03/22. -Admitted 03/24 with fever, chills. -Kidney stone cx from 03/22 with Enterococcus Faecalis. Urine Cx from 03/24 with GNB, speciation pending. -On Meropenem, Vancomycin -Urology following UTI (urinary tract infection) 03/25/2018 09/07/2021 Assessment & Plan (03/26/2018 11:04 AM ENGINEERING ADMINISTRATOR): -History of recurrent UTI; now with Citerobacter [...]
--- OUTSIDE RECORDS SUMMARY | 2024-12-23 12:07 | XMS_ITS | Encounter Summary ---
Author Organization [facility] Address [address] [place] [address] Phone Care Team Providers Care Lead Principal Technical Architect Name Role Phone Declan Valencia MD Primary Care Provider [phone] Mauricio Izquierdo MD Unavailable Malu Sargent NP Unavailable Deyvi Ahuja MD Unavailable [phone] Len Koenig MD Primary Care Provider [phone] Alice Lao NP Primary Care Provider [phone] Narciso Cueva MD Unavailable Nel Cortez MD Unavailable Desean De Dios MD Unavailable [phone] Crystal Zheng MA Unavailable [phone] Encounter Details Date Type Department Care Team [...] file Legal Sex Female 3:14 AM MANAGER EDITORIAL Gender Identity Female 01/08/2020 7:01 AM CDT [...] COVID: Suspected 03/26/2021 03/26/2021 03/26/2021 6:42 PM MANAGER EDITORIAL COVID19 03/26/2021 03/26/2021 04/05/2021 3:05 AM MANAGER EDITORIAL COVID: Recovered Comment:Added based on recent COVID [...] COVID: Suspected 03/22/2023 03/22/2023 03/22/2023 10:00 AM MANAGER EDITORIAL COVID: Suspected 03/22/2023 03/22/2023 03/22/2023 2:43 PM MANAGER EDITORIAL documented as of this encounter Care Teams Lead Principal Technical Architect Relationship Specialty Start Date End Date Declan Valencia MD PCP - General 06/15/16 09/06/21 Len Koenig MD [address] [place] [address] PCP - General Family Medicine 09/07/21 03/28/23 Alice Lao, REHABILITATION SERVICES DIRECTOR [address] [place] [address] PCP - General Family Medicine 03/29/23 Mauricio Izquierdo MD Medical Oncologist/Concrete Mixing Plant Superintendent Medical Oncology 05/05/20 Malu Sargent NP Nurse Practitioner Medical Oncology 05/05/20 Deyvi Ahuja MD [address] [place] [address] Referring Physician Otolaryngology 01/24/21 Narciso Cueva MD [address] [place] [address] Referring Physician Dermatology 03/29/23 Nel Cortez MD [address] [place] [address] Referring Physician Gastroenterology 03/29/23 [place] [address] [place] [address] Consulting Physician Endocrinology 03/29/23 Crystal Zheng MA [address] [place] [address] [address] [place] [address] ACO Care Bar Tender 11/17/24 11/17/24 unknown name Neurology 03/29/23 documented as of this encounter
--- OUTSIDE RECORDS SUMMARY | 2024-12-23 12:07 | XMS_ITS | Encounter Summary ---
Author Organization [facility] Address [address] [place] [address] Phone Care Team Providers Care Medical Lab Director Name Role Phone Declan Valencia MD Primary Care Provider Mauricio Izquierdo MD Unavailable Malu Sargent NP Unavailable Deyvi Ahuja MD Unavailable [phone] Len Koenig MD Primary Care Provider [phone] Alice Lao NP Primary Care Provider [phone] Narciso Cueva MD Unavailable [phone] Nel Cortez MD Unavailable [phone] Desean De Dios MD Unavailable [phone] Crystal Zheng MA Unavailable [phone] Encounter Details Date Type Department Care Team [...] on file Legal Sex Female 3:14 AM VENDOR RELATIONSHIP MANAGER Gender Identity Female 01/08/2020 7:01 AM [...] COVID: Suspected 03/26/2021 03/26/2021 03/26/2021 6:42 PM VENDOR RELATIONSHIP MANAGER COVID19 03/26/2021 03/26/2021 04/05/2021 3:05 AM VENDOR RELATIONSHIP MANAGER COVID: Recovered Comment:Added based on recent COVID [...] COVID: Suspected 03/22/2023 03/22/2023 03/22/2023 10:00 AM VENDOR RELATIONSHIP MANAGER COVID: Suspected 03/22/2023 03/22/2023 03/22/2023 2:43 PM VENDOR RELATIONSHIP MANAGER documented as of this encounter Care Teams Medical Lab Director Relationship Specialty Start Date End Date Declan Valencia MD PCP - General 06/15/16 09/06/21 Len Koenig MD [address] [place] [id number] PCP - General Family Medicine 09/07/21 03/28/23 Alice Lao NP [address] [facility] [address] [place] [address] PCP - General Family Medicine 03/29/23 Mauricio Izquierdo MD Medical Oncologist/Chaplain Medical Oncology 05/05/20 Malu Sargent NP Nurse Practitioner Medical Oncology 05/05/20 Deyvi Ahuja MD [address] [place] [address] Referring Physician Otolaryngology 01/24/21 Narciso Cueva MD [address] [facility] [address] [place] [address] Referring Physician Dermatology 03/29/23 Nel Cortez MD [address] [facility] [address] [place] [address] Referring Physician Gastroenterology 03/29/23 [place] [address] [address] [facility] [address] [place] [address] Consulting Physician Endocrinology 03/29/23 Crystal Zheng MA [address] [facility] [address] [place] [address] ACO Care Insurance Verification Rep 11/17/24 11/17/24 unknown name Neurology 03/29/23 documented as of this encounter
== END 2024-12-23 10:23 | disposition home or self-care (01) ==
PROVIDERS: PCP Nurse Practitioner Family; Visit Provider Urology
DX: N20.0 Calculus of kidney (principal)
CPT/HCPCS: 74018